=== PATIENT | female | born 1945 | race Caucasian/White ===

== ENCOUNTER → 2017-12-11 12:08 | Outpatient (CLI) | payer MEDICARE, OTHER, SELFPAY ==
[2017-12-11 12:42] LABS: Add Manual Diff / Slide Review NO; Basophils Percent Auto 0.8 % (0-2); Eosinophils Percent Auto 2.5 % (2-4); Hematocrit 41.8 % (36-46); Lymphocytes Percent Auto 28.1 % (25-40); Mean Corpuscular HGB Conc 33.4 % (30-36); Mean Corpuscular Hemoglobin 31.9 PG (26-34); Mean Corpuscular Volume 95.8 fL (80-100); Monocytes Percent Auto 9.1 % (3-14); Neutrophils Absolute Auto 3100 /uL (3000-5900); Neutrophils Percent Auto 59.5 % (50-75); Platelet Count 192 X10^3/uL (150-400); Red Blood Cell Count 4.37 X10^6/uL (4.0-5.2); Red Cell Distribution Width 13.6 % (11.6-14.8); White Blood Cell Count 5.2 X10^3/uL (4.5-11.0)
[2017-12-11 13:01] LABS: Blood Urea Nitrogen 22 mg/dL (7-17); Calcium 10.4 mg/dL (8.4-10.2); Carbon Dioxide 27 mmol/L (22-32); Chloride 107 mmol/L (98-107); Estimated Glomerular Filt Rate 54.3 mL/min (>60); Glucose 101 mg/dL (80-110); HEMOLYSIS < 15 (0-50); Potassium 4.6 mmol/L (3.4-5.1); Sodium 144 mmol/L (137-145)
[2017-12-11 13:16] LABS: Erythrocyte Sedimentation Rate 9 MM/HR (0-20)
== END ==
PROVIDERS: PCP Internal Medicine; Visit Provider Internal Medicine
DX: D72.1 Eosinophilia (principal)
CPT/HCPCS: 36415; 80048; 85025; 85651

== ENCOUNTER → 2018-03-30 13:15 | Outpatient (CLI) | payer MEDICARE, OTHER, SELFPAY ==
[2018-03-30 14:11] LABS: Alanine Aminotransferase 85 IU/L (9-52); Albumin 4.6 g/dL (3.5-5.0); Albumin Globulin Ratio 1.4 (1.0-2.8); Alkaline Phosphatase 163 U/L (38-126); Aspartate Aminotransferase 71 IU/L (14-36); BUN Creatinine Ratio 18.9 (6-22); Bilirubin Total 0.7 mg/dL (0.2-1.3); Blood Urea Nitrogen 17 mg/dL (7-17); Calcium 10.1 mg/dL (8.4-10.2); Carbon Dioxide 22 mmol/L (22-32); Chloride 108 mmol/L (98-107); Estimated Glomerular Filt Rate > 60.0 mL/min (>60); Globulin 3.3 g/dL (1.7-4.1); Glucose 97 mg/dL (80-110); HEMOLYSIS < 15 (0-50); Sodium 141 mmol/L (137-145); Total Protein 7.9 g/dL (6.3-8.2)
== END ==
PROVIDERS: PCP Internal Medicine; Visit Provider Internal Medicine
DX: F10.20 Alcohol dependence, uncomplicated (principal); R74.0 Nonspecific elevation of levels of transaminase and lactic acid dehydrogenase [LDH]
CPT/HCPCS: 36415; 80053

== ENCOUNTER → 2018-12-17 12:12 | Outpatient (CLI) | payer MEDICARE, OTHER, SELFPAY ==
[2018-12-17 12:50] LABS: Add Manual Diff / Slide Review NO; Basophils Absolute Auto 0 /uL (0-100); Basophils Percent Auto 0.6 % (0-2); Eosinophils Absolute Auto 100 /uL (0-450); Eosinophils Percent Auto 2.1 % (2-4); Hematocrit 40.2 % (36-46); Hemoglobin 13.3 g/dL (12.0-16.0); Lymphocytes Absolute Auto 1400 /uL (1100-4500); Lymphocytes Percent Auto 27.4 % (25-40); Mean Corpuscular HGB Conc 33.1 % (30-36); Mean Corpuscular Hemoglobin 33.4 PG (26-34); Mean Corpuscular Volume 100.8 fL (80-100); Monocytes Absolute Auto 400 /uL (0-900); Monocytes Percent Auto 8.1 % (3-14); Neutrophils Absolute Auto 3100 /uL (1500-7000); Neutrophils Percent Auto 61.8 % (50-75); Platelet Count 186 X10^3/uL (150-400); Red Blood Cell Count 3.99 X10^6/uL (4.0-5.2); Red Cell Distribution Width 13.1 % (11.6-14.8); White Blood Cell Count 4.9 X10^3/uL (4.5-11.0)
[2018-12-17 13:37] LABS: Alanine Aminotransferase 76 IU/L (9-52); Albumin 4.3 g/dL (3.5-5.0); Albumin Globulin Ratio 1.3 (1.0-2.8); Alkaline Phosphatase 173 U/L (38-126); Aspartate Aminotransferase 97 IU/L (14-36); BUN Creatinine Ratio 17.8 (6-22); Bilirubin Total 0.9 mg/dL (0.2-1.3); Blood Urea Nitrogen 16 mg/dL (7-17); Calcium 10.5 mg/dL (8.4-10.2); Carbon Dioxide 23 mmol/L (22-32); Chloride 109 mmol/L (98-107); Estimated Glomerular Filt Rate > 60.0 mL/min (>60); Globulin 3.2 g/dL (1.7-4.1); Glucose 110 mg/dL (80-110); HEMOLYSIS < 15 (0-50); Potassium 4.5 mmol/L (3.4-5.1); Sodium 142 mmol/L (137-145); Total Protein 7.5 g/dL (6.3-8.2)
== END ==
PROVIDERS: PCP Internal Medicine; Visit Provider Internal Medicine
DX: F10.20 Alcohol dependence, uncomplicated (principal); M15.0 Primary generalized (osteo)arthritis; N18.9 Chronic kidney disease, unspecified
CPT/HCPCS: 36415; 80053; 85025

== ENCOUNTER → 2019-01-07 11:29 | Outpatient (CLI) | payer MEDICARE, OTHER, SELFPAY ==
[2019-01-07 12:55] LABS: Alanine Aminotransferase 72 IU/L (9-52); Albumin 4.6 g/dL (3.5-5.0); Albumin Globulin Ratio 1.5 (1.0-2.8); Alkaline Phosphatase 164 U/L (38-126); Aspartate Aminotransferase 75 IU/L (14-36); Bilirubin Total 0.8 mg/dL (0.2-1.3); Bilirubin Unconjugated 0.5 mg/dL (0.0-1.1); HEMOLYSIS < 15 (0-50); Total Protein 7.6 g/dL (6.3-8.2)
[2019-01-07 16:41] LABS: Hep C Virus Ab w/Reflex Quant NEGATIVE s/c (NEGATIVE)
== END ==
PROVIDERS: PCP Internal Medicine; Visit Provider Internal Medicine
DX: R74.0 Nonspecific elevation of levels of transaminase and lactic acid dehydrogenase [LDH] (principal)
CPT/HCPCS: 36415; 80076; 86803

== ENCOUNTER → 2019-03-12 10:16 | Outpatient (CLI) | payer MEDICARE, OTHER, SELFPAY ==
[2019-03-12 12:07] LABS: Alanine Aminotransferase 77 IU/L (<35); Albumin 4.5 g/dL (3.5-5.0); Albumin Globulin Ratio 1.4 (1.0-2.8); Alkaline Phosphatase 156 U/L (38-126); Aspartate Aminotransferase 76 IU/L (14-36); Bilirubin Total 0.7 mg/dL (0.2-1.3); Bilirubin Unconjugated 0.5 mg/dL (0.0-1.1); Cholesterol 255 mg/dL (140-199); Globulin 3.2 g/dL (1.7-4.1); HDL Cholesterol 82 mg/dL (40-60); HEMOLYSIS < 15 (0-50); LDL Cholesterol Calculated 149 mg/dL (<100); Total Protein 7.7 g/dL (6.3-8.2); Triglycerides 122 mg/dL (35-150)
== END ==
PROVIDERS: PCP Internal Medicine; Visit Provider Internal Medicine
DX: F10.20 Alcohol dependence, uncomplicated (principal); R74.0 Nonspecific elevation of levels of transaminase and lactic acid dehydrogenase [LDH]; E78.2 Mixed hyperlipidemia
CPT/HCPCS: 36415; 80061; 80076

== ENCOUNTER → 2019-12-30 11:19 | Outpatient (CLI) | payer MEDICARE, OTHER, SELFPAY ==
[2019-12-30 13:13] LABS: Alanine Aminotransferase 58 IU/L (<35); Albumin Globulin Ratio 1.2 (1.0-2.8); Alkaline Phosphatase 170 U/L (38-126); Aspartate Aminotransferase 80 IU/L (14-36); BUN Creatinine Ratio 20.8 (6-22); Bilirubin Total 0.7 mg/dL (0.2-1.3); Blood Urea Nitrogen 22 mg/dL (7-17); Calcium 9.7 mg/dL (8.4-10.2); Carbon Dioxide 23 mmol/L (22-32); Chloride 111 mmol/L (98-107); Cholesterol 159 mg/dL (140-199); Estimated Glomerular Filt Rate 50.5 mL/min (>60); Globulin 3.4 g/dL (1.7-4.1); Glucose 120 mg/dL (80-110); HDL Cholesterol 82 mg/dL (40-60); HEMOLYSIS < 15 (0-50); LDL Cholesterol Calculated 61 mg/dL (<100); Potassium 4.7 mmol/L (3.4-5.1); Sodium 141 mmol/L (137-145); Total Protein 7.4 g/dL (6.3-8.2); Triglycerides 81 mg/dL (35-150)
== END ==
PROVIDERS: PCP Internal Medicine; Referring Provider Internal Medicine; Visit Provider Internal Medicine
DX: F10.20 Alcohol dependence, uncomplicated (principal); E78.2 Mixed hyperlipidemia; R74.01 Elevation of levels of liver transaminase levels
CPT/HCPCS: 36415; 80053; 80061

== ENCOUNTER → 2020-01-07 09:54 | Outpatient (CLI) | payer MEDICARE, OTHER, SELFPAY ==
--- NOTE | 2020-01-07 | DI.US.S_ITS ---
PROCEDURE: US ABDOMEN COMPLETE INDICATIONS: ELEVATION OF LEVELS OF LACTIC ACID DEHYDROGENASE TECHNIQUE: Real-time scanning was performed of the abdominal and retroperitoneal organs, with image documentation. COMPARISON: None. FINDINGS: Liver: The liver demonstrates prominent size. The liver demonstrates generalized increased echogenicity. This decreases ultrasound sensitivity for detection of hepatic masses. Gallbladder: No findings of gallstones or sludge are seen. The gallbladder wall is not thickened, measuring 3 mm or less. No specific pericholecystic fluid is seen. The sonographic Palacios sign is negative. Biliary ducts: Intrahepatic bile ducts are non-dilated. Extrahepatic bile duct caliber measures 6 mm. Normal is 6-7 mm or less in diameter, or 10 mm or less post-cholecystectomy. Pancreas: Visualized portions of the pancreas are sonographically normal. Spleen: Spleen is normal in size and homogeneous in echotexture. Kidneys: Kidneys are normal in size and echotexture. Right kidney measures 9.2 cm long; left kidney measures 10 cm long. No hydronephrosis or nephrolithiasis. No solid masses. Bilateral renal cortical thinning can be seen. Aorta: The aorta is not well seen. The visualized portions demonstrate no aneurysm. Iliacs: Not seen, obscured by overlying bowel gas. IVC: Intrahepatic inferior vena cava is patent. Miscellaneous: No free abdominal fluid. Scan quality is limited by bowel gas. IMPRESSION: Prominent, fatty liver. The gallbladder demonstrates a normal sonographic appearance. No biliary dilatation is seen. Dictated by: Yaron Dale M.D. on 01/07/2020 at 11:22 Approved by: Yaron Dale M.D. on 01/07/2020 at 11:25
== END ==
PROVIDERS: PCP Internal Medicine; Referring Provider Internal Medicine; Visit Provider Internal Medicine
DX: R74.02 Elevation of levels of lactic acid dehydrogenase [LDH] (principal); K76.0 Fatty (change of) liver, not elsewhere classified
CPT/HCPCS: 76700

== ENCOUNTER 2020-09-02 15:52 | Inpatient (IN) | payer MEDICARE, OTHER, SELFPAY ==
[2020-09-02] VITALS (24 sets, daily range): BP systolic 115–165; BP diastolic 54–85; PULSE 79–102; RESP 16–22; TEMP 36.3–37.4; O2SAT 95–100; BMI 31.1
--- NOTE | 2020-09-02 16:49 | DI.RAD.S_ITS ---
PROCEDURE: XR CHEST 1V INDICATIONS: altered mental status TECHNIQUE: One view of the chest was acquired. COMPARISON: [facility], , CHEST 1 VIEW, 04/17/2017, 17:34. FINDINGS: Surgical changes and devices: None. Lungs and pleura: Lungs are clear. No pleural effusions or pneumothorax. Mediastinum: Mediastinal contours appear normal. Heart size is normal. Bones and chest wall: No suspicious bony lesions. Overlying soft tissues appear unremarkable. IMPRESSION: No acute pulmonary process. Dictated by: Suzanna Scott M.D. on 09/02/2020 at 18:21 Approved by: Suzanna Scott M.D. on 09/02/2020 at 18:22
--- NOTE | 2020-09-02 16:49 | DI.CT.S_ITS ---
PROCEDURE: CT HEAD/BRAIN WO CON INDICATIONS: altered mental status TECHNIQUE: Noncontrast 4.5 mm thick angled axial sections acquired from the foramen magnum to the vertex, with coronal and sagittal reformats. For radiation dose reduction, the following was used: automated exposure control, adjustment of mA and/or kV according to patient size. COMPARISON: None. FINDINGS: Image quality: Excellent. CSF spaces: Basal cisterns are patent. No extra-axial fluid collections. The ventricles are symmetric in size and shape. Brain: No intracranial bleeds or masses. There is cerebral volume loss for age, with resultant ventricular and sulcal prominence. There are periventricular and deep white matter chronic small vessel ischemic changes. There is intracranial internal carotid artery atherosclerosis. Skull and face: Calvarium and visualized facial bones appear intact, without suspicious lesions. Sinuses: Visualized sinuses and mastoids are clear. IMPRESSION: 1. No acute intracranial process. 2. Mild atrophy and chronic microvascular ischemic changes. Dictated by: Suzanna Scott M.D. on 09/02/2020 at 18:14 Approved by: Suzanna Scott M.D. on 09/02/2020 at 18:15
[2020-09-02] MEDS: SODIUM CHLORIDE 0.9% 1,000 ML 1000 ML IV (16:55)
[2020-09-02 16:59] LABS: Add Manual Diff / Slide Review NO; Basophils Absolute Auto 0 /uL (0-100); Basophils Percent Auto 0.5 % (0-2); Eosinophils Absolute Auto 100 /uL (0-450); Eosinophils Percent Auto 1.7 % (2-4); Lymphocytes Absolute Auto 1800 /uL (1100-4500); Lymphocytes Percent Auto 29.7 % (25-40); Mean Corpuscular HGB Conc 30.5 % (30-36); Mean Corpuscular Hemoglobin 27.7 PG (26-34); Mean Corpuscular Volume 90.8 fL (80-100); Monocytes Absolute Auto 700 /uL (0-900); Monocytes Percent Auto 11.6 % (3-14); Neutrophils Absolute Auto 3500 /uL (1500-7000); Neutrophils Percent Auto 56.5 % (50-75); Platelet Count 159 X10^3/uL (150-400); Red Blood Cell Count 2.04 X10^6/uL (4.0-5.2); Red Cell Distribution Width 16.4 % (11.6-14.8); White Blood Cell Count 6.1 X10^3/uL (4.5-11.0)
[2020-09-02 17:01] LABS: Alanine Aminotransferase 31 IU/L (<35); Albumin 3.3 g/dL (3.5-5.0); Alkaline Phosphatase 149 U/L (38-126); Aspartate Aminotransferase 45 IU/L (14-36); Bilirubin Total 0.9 mg/dL (0.2-1.3); Blood Urea Nitrogen 29 mg/dL (7-17); Calcium 9.3 mg/dL (8.4-10.2); Carbon Dioxide 17 mmol/L (22-32); Chloride 118 mmol/L (98-107); Estimated Glomerular Filt Rate 37.2 mL/min (>60); Globulin 3.4 g/dL (1.7-4.1); Glucose 101 mg/dL (80-110); HEMOLYSIS < 15 (0-50); Potassium 4.3 mmol/L (3.4-5.1); Sodium 142 mmol/L (137-145); Total Protein 6.7 g/dL (6.3-8.2)
[2020-09-02 17:03] LABS: Hematocrit 18.6 % (36-46); Hemoglobin 5.7 g/dL (12.0-16.0)
--- NOTE | 2020-09-02 17:10 | ED_ITS ---
HPI - Altered Mental Status General Chief Complaint: Altered Mental Status Stated Complaint: DISORIENTED, NOT RIGHT Time Seen by Provider: 09/02/20 16:18 Source: patient and family Mode of arrival: Ambulatory Limitations: no limitations History of Present Illness HPI narrative: This is a pleasant 75-year-old female comes emergency department with complaint of altered mental status. Patient was last seen sachi mcdonald evening, it is Friday today. Patient did seem somewhat confused yesterday according to family. Today she seems confused, off balance and having some hallucinations. Patient states she thought she saw a raccoon earlier, she thought her granddaughter was talking to her when she was any been present in the general area and not recognize familiar people. Patient has not had any head injury that they are aware of, she denies any pain currently. She denies any vision changes. She denies any new shortness of breath or chest pressure. No nausea or vomiting. Patient did have a bowel movement today. She is unable to tell me if she had any black or bloody stools. She is not appr eciate any new urinary symptoms. Patient has not had any new swelling in her extremities. They have not appreciate any facial droop or one-sided weakness according to the family. She takes medication for GERD, a statin. Patient denies any prior surgeries. She has no known drug allergies. According patient and family she drinks 2 glasses of wine nightly, no tobacco, no recreational drugs. She does live independently on her own and ambulates with a cane. Dr. Brunson is her PCP. Related Data Home Medications Medication Instructions Recorded Confirmed rosuvastatin [Crestor] 20 mg PO QDAY #0 03/23/17 Previous Rx's Medication Instructions Recorded Spacer: Inhaler Spacer Device units INH QIDP PRN #1 04/20/17 albuterol sulfate [Proventil HFA] 1 puff INH QIDP PRN #1 inh 04/20/17 cephalexin 250 mg PO TID #21 cap 04/20/17 ferrous gluconate 324 mg PO QDAY #30 tab 04/20/17 hydroxyzine pamoate 25 mg PO Q4HP PRN #60 cap 04/20/17 omeprazole 20 mg PO QDAY #30 cap 04/20/17 prednisone 60 mg PO AMCC #100 04/20/17 cyclobenzaprine 10 mg PO TID PRN #30 tab 06/22/17 Allergies Allergy/AdvReac Type Severity Reaction Status Date / Time No Known Drug Allergies Allergy Verified 09/02/20 16:51 Review of Systems Review of Systems ROS Unobtainable: All systems reviewed & are unremarkable except as noted in HPI and below Patient History Social History Smoking Status: Never smoker Smoking Status: Never smoker alcohol intake frequency: 3 or more drinks per day Alcohol type: wine Substance Use Type: does not use Exam Narrative Exam Narrative: GEN: well nourished, well appearing Female, alert, patient is oriented to self and place but does have slight slurred speech and appears mildly confused, patient appears to be in mild distress. Patient is pale. HEENT: Atraumatic, pupils are equal round reactive to light, extraocular move ments are intact, nares are clear, TMs are clear with no fluid, there is no conjunctival pallor. Throat is clear without any exudates, erythema, tonsillar enlargement or uvular deviation, no facial droop. HEART: Regular rate and rhythm without murmur, clicks, rubs. Pulses are equal in upper and lower extremities LUNGS:Lungs clear to auscultation, no wheezes, rales, crackles, chest moves symmetrically ABD:bowel sounds normal, soft, non-tender, no guarding, rebound, rigidity, no masses noted, no hepatosplenomegaly, stool occult was positive, sample is brown, small hemorrhoids but no bright red blood. :No CVA tenderness MSCL: Non-tender, no muscle atrophy, muscles strength 5/5 upper and lower extremities patient does have some drift of left upper extremity, full range of motion, gait not tested. NEURO:CN 2-12 intact, sensation normal, finger nose finger test normal, heel capps test normal. SKIN: patient appears pale, no other skin changes appreciated no other rash noted. Initial Vital Signs Initial Vital Signs: Vital Signs Temperature 99.4 F 09/02/20 15:55 Pulse Rate 102 H 09/02/20 15:55 Respiratory Rate 22 09/02/20 15:55 Blood Pressure 134/69 09/02/20 15:55 Pulse Oximetry 98 09/02/20 15:55 Scores GCS [place] coma scale eye opening: Spontaneous Mily coma scale verbal response: Confused Mily coma scale motor response: Obey commands [place] coma scale total score: 14 NIH Stroke Scale Level of Conciousness: Alert, keenly responsive Ask month/age: Answers both questions correctly. Open/close eyes, close hand: Performs both tasks correctly Best gaze horizontal: Normal Visual mcintosh: No visual loss Facial palsy: Normal symetrical movement Left arm drift: Drifts down, not to bed Right arm drift: No drift for full 10 sec Left leg drift: No drift for full 5 sec Right leg drift: No drift for full 5 sec Limb ataxia: Absent Sensory on face/arms/legs: Normal, no sensory loss Best language: No aphasia, normal Dysarthria: Normal Extinction or inattention: No abnormality Total NIH Stroke scale score: 1 Course Orders Ordered: ED Orders 09/02/20 16:10 EKG-12 Lead Routine 09/02/20 16:15 Urine Culture Stat Urine Drug Screen, Rapid Stat Urine Microscopic Stat 09/02/20 16:27 Acetaminophen Stat Complete Blood Count AUTO DIFF Stat Comprehensive Metabolic Panel Stat Ethanol (ETOH) Stat Lactate (Lactic Acid) Stat Prolactin Stat Salicylate Stat Thyroid Stimulating Hormone Stat 09/02/20 16:48 Blood Culture Stat 09/02/20 16:49 CT head/brain wo con Stat XR chest 1V Stat 09/02/20 17:15 Packed Cells Stat Type and Screen Stat 09/02/20 17:30 COVID19 - ADMIT (D[employer]ING [employer] swab/PCR) Stat 09/02/20 17:32 Partial Thromboplastin Time Stat Prothrombin Time INR Stat 09/02/20 17:48 Ammonia (NH3) Stat Troponin & CK Cardiac Panel Stat Discontinued Medications Sodium Chloride (Normal Saline 0.9%) 1,000 mls @ 1,000 mls/hr IV BOLUS ONE Stop: 09/02/20 17:47 Last Infusion: 09/02/20 18:36 Dose: 0 mls/hr Documented by: Admin: 09/02/20 16:55 Dose: 1,000 mls/hr Documented by: AUNIMISHA Lactulose (Lactulose 20 Gm/30 Ml Solution) 20 gm PO NOW ONE Stop: 09/02/20 18:38 Reevaluation(s) Reevaluation #1: patient and daughter in-law were updated on her current findings. Patient transfusion is just starting. Patient and daughter in-law adult think she has ever had a colonoscopy they are unaware of any prior GI bleeds. She has never had a blood transfusion. Time: 19:00 Consultations Consultation #1: Dr. Montgomery, with general surgery feels patient would be appropriate to keep here at this time. Plan for Protonix, transfusion and they will be happy to see patient in the morning, they asked for contact if patient has any worsening overnight. Consultation #2: Dr. Ferreira, accepts if General surgery is agreeable. Patient case was reviewed. And he was updated after I spoke with Dr. Youssef who is agreement with plan for colonoscopy possibly tomorrow. Time: 19:36 Vital Signs Vital signs: Vital Signs - 8 hr 09/02/20 15:55 09/02/20 16:08 09/02/20 16:30 Temperature 99.4 F Pulse Rate 102 H 99 H 94 H Respiratory Rate 22 Blood Pressure 134/69 134/69 148/65 H Pulse Oximetry 98 97 97 09/02/20 17:00 09/02/20 17:30 09/02/20 17:33 Temperature Pulse Rate 95 H 89 94 H Respiratory Rate Blood Pressure 138/63 135/85 Pulse Oximetry 97 99 99 09/02/20 18:00 09/02/20 18:15 09/02/20 18:30 Temperature Pulse Rate 93 H 92 H 92 H Respiratory Rate Blood Pressure 150/68 H 165/70 H 148/65 H Pulse Oximetry 99 99 98 MDM - Altered Mental Status Lab Data Attestation: I reviewed the patient's lab results. Result diagrams: 09/02/20 16:27 09/02/20 16:27 Labs: Lab Results 09/02/20 09/02/20 09/02/20 Range/Units 16:15 16:15 16:15 WBC (4.5-11.0) X10^3/uL RBC (4.0-5.2) X10^6/uL Hgb (12.0-16.0) g/dL Hct (36-46) % MCV (80-100) fL MCH (26-34) PG MCHC (30-36) % RDW (11.6-14.8) % Plt Count (150-400) X10^3/uL Neut % (Auto) (50-75) % Lymph % (Auto) (25-40) % Schley % (Auto) (3-14) % Eos % (Auto) (2-4) % Baso % (Auto) (0-2) % Neut # (Auto) (0120-5449) /uL Lymph # (Auto) (5817-5454) /uL Schley # (Auto) (0-900) /uL Eos # (Auto) (0-450) /uL Baso # (Auto) (0-100) /uL PT (10.1-12.7) SECONDS INR (0.9-1.3) APTT (26.4-36.2) SECONDS Sodium (137-145) mmol/L Potassium (3.4-5.1) mmol/L Chloride (98-107) mmol/L Carbon Dioxide (22-32) mmol/L BUN (7-17) mg/dL Creatinine (0.52-1.04) mg/dL Estimated GFR (>60) mL/min BUN/Creatinine Ratio (6-22) Glucose (80-110) mg/dL Lactate (0.7-2.1) mmol/L Calcium (8.4-10.2) mg/dL Total Bilirubin (0.2-1.3) mg/dL AST (14-36) IU/L ALT (<35) IU/L Alkaline Phosphatase (38-126) U/L Ammonia (9-30) umol/L Total Creatine Kinase CK-MB (CK-2) CK-MB (CK-2) Rel Index Troponin I Total Protein (6.3-8.2) g/dL Albumin (3.5-5.0) g/dL Globulin (1.7-4.1) g/dL Albumin/Globulin Ratio (1.0-2.8) TSH (0.47-4.68) uIU/mL Prolactin (3.0-18.6) ng/mL Urine Color Cancelled Urine Appearance Cancelled Urine pH Cancelled Ur Specific Whitt Cancelled Urine Protein Cancelled Urine Glucose (UA) Cancelled Urine Ketones Cancelled Urine Occult Blood Cancelled Urine Nitrate Cancelled Urine Bilirubin Cancelled Urine Urobilinogen Cancelled Ur Leukocyte Esterase Cancelled Urine RBC 1-5/hpf Cancelled (0-5/HPF) Urine WBC 5-10/hpf H Cancelled (0-5/HPF) Ur Squamous Epith Cells 1-5 /hpf Cancelled (0-5/HPF) Ur Transition Epith Cell Cancelled Ur Renal Epithelial Cell Cancelled Calcium Oxalate Crystal Cancelled Uric Acid Crystals Cancelled Triple Phos Crystals Cancelled Other Crystals Cancelled Amorphous Sediment Cancelled Urine Bacteria Many (>30) H Cancelled (None) Hyaline Casts Cancelled Granular Casts Cancelled RBC Casts Cancelled WBC Casts Cancelled Other Casts Cancelled Urine Mucus Cancelled Urine Trichomonas Cancelled Urine Yeast Cancelled Urine Sperm Cancelled Ur Culture Indicated? Specimen cultured Cancelled Micro UA Comment Cancelled Salicylates (<20) mg/dL U Opiates 300ng/mL cut Negative (Negative) Ur Oxycodone Screen Negative (Negative) Urine Methadone Screen Negative (Negative) Acetaminophen (10-30) ug/mL Ur Barbiturates Screen Negative (Negative) U Tricyclic Antidepress Negative (Negative) Ur Phencyclidine Scrn Negative (Negative) Ur Amphetamines Screen Negative (Negative) U Methamphetamines Scrn Negative (Negative) Ur MDMA Scrn (Ecstasy) Negative (Negative) U Benzodiazepines Scrn Negative (Negative) Urine Cocaine Screen Negative (Negative) U Marijuana (THC) Screen Negative (Negative) Ethyl Alcohol ( - 10) mg/dL SARS-CoV-2 (PCR) (Negative) Blood Type Antibody Screen Crossmatch 09/02/20 09/02/20 09/02/20 Range/Units 16:27 16:27 16:27 WBC 6.1 (4.5-11.0) X10^3/uL RBC 2.04 L (4.0-5.2) X10^6/uL Hgb 5.7 L* (12.0-16.0) g/dL Hct 18.6 L* (36-46) % MCV 90.8 (80-100) fL MCH 27.7 (26-34) PG MCHC 30.5 (30-36) % RDW 16.4 H (11.6-14.8) % Plt Count 159 (150-400) X10^3/uL Neut % (Auto) 56.5 (50-75) % Lymph % (Auto) 29.7 (25-40) % Schley % (Auto) 11.6 (3-14) % Eos % (Auto) 1.7 L (2-4) % Baso % (Auto) 0.5 (0-2) % Neut # (Auto) 3500 (4953-1846) /uL Lymph # (Auto) 1800 (9942-1144) /uL Schley # (Auto) 700 (0-900) /uL Eos # (Auto) 100 (0-450) /uL Baso # (Auto) 0 (0-100) /uL PT (10.1-12.7) SECONDS INR (0.9-1.3) APTT (26.4-36.2) SECONDS Sodium 142 (137-145) mmol/L Potassium 4.3 (3.4-5.1) mmol/L Chloride 118 H (98-107) mmol/L Carbon Dioxide 17 L (22-32) mmol/L BUN 29 H (7-17) mg/dL Creatinine 1.38 H (0.52-1.04) mg/dL Estimated GFR 37.2 L (>60) mL/min BUN/Creatinine Ratio 21.0 (6-22) Glucose 101 (80-110) mg/dL Lactate (0.7-2.1) mmol/L Calcium 9.3 (8.4-10.2) mg/dL Total Bilirubin 0.9 (0.2-1.3) mg/dL AST 45 H (14-36) IU/L ALT 31 (<35) IU/L Alkaline Phosphatase 149 H (38-126) U/L Ammonia (9-30) umol/L Total Creatine Kinase Cancelled CK-MB (CK-2) Cancelled CK-MB (CK-2) Rel Index Cancelled Troponin I Cancelled Total Protein 6.7 (6.3-8.2) g/dL Albumin 3.3 L (3.5-5.0) g/dL Globulin 3.4 (1.7-4.1) g/dL Albumin/Globulin Ratio 1.0 (1.0-2.8) TSH (0.47-4.68) uIU/mL Prolactin 19.5 H (3.0-18.6) ng/mL Urine Color Urine Appearance Urine pH Ur Specific Whitt Urine Protein Urine Glucose (UA) Urine Ketones Urine Occult Blood Urine Nitrate Urine Bilirubin Urine Urobilinogen Ur Leukocyte Esterase Urine RBC (0-5/HPF) Urine WBC (0-5/HPF) Ur Squamous Epith Cells (0-5/HPF) Ur Transition Epith Cell Ur Renal Epithelial Cell Calcium Oxalate Crystal Uric Acid Crystals Triple Phos Crystals Other Crystals Amorphous Sediment Urine Bacteria (None) Hyaline Casts Granular Casts RBC Casts WBC Casts Other Casts Urine Mucus Urine Trichomonas Urine Yeast Urine Sperm Ur Culture Indicated? Micro UA Comment Salicylates < 1.0 (<20) mg/dL U Opiates 300ng/mL cut (Negative) Ur Oxycodone Screen (Negative) Urine Methadone Screen (Negative) Acetaminophen < 10 L (10-30) ug/mL Ur Barbiturates Screen (Negative) U Tricyclic Antidepress (Negative) Ur Phencyclidine Scrn (Negative) Ur Amphetamines Screen (Negative) U Methamphetamines Scrn (Negative) Ur MDMA Scrn (Ecstasy) (Negative) U Benzodiazepines Scrn (Negative) Urine Cocaine Screen (Negative) U Marijuana (THC) Screen (Negative) Ethyl Alcohol < 10 ( - 10) mg/dL SARS-CoV-2 (PCR) (Negative) Blood Type Antibody Screen Crossmatch 09/02/20 09/02/20 09/02/20 Range/Units 16:27 16:27 17:15 WBC (4.5-11.0) X10^3/uL RBC (4.0-5.2) X10^6/uL Hgb (12.0-16.0) g/dL Hct (36-46) % MCV (80-100) fL MCH (26-34) PG MCHC (30-36) % RDW (11.6-14.8) % Plt Count (150-400) X10^3/uL Neut % (Auto) (50-75) % Lymph % (Auto) (25-40) % Schley % (Auto) (3-14) % Eos % (Auto) (2-4) % Baso % (Auto) (0-2) % Neut # (Auto) (8647-5996) /uL Lymph # (Auto) (6496-9484) /uL Schley # (Auto) (0-900) /uL Eos # (Auto) (0-450) /uL Baso # (Auto) (0-100) /uL PT (10.1-12.7) SECONDS INR (0.9-1.3) APTT (26.4-36.2) SECONDS Sodium (137-145) mmol/L Potassium (3.4-5.1) mmol/L Chloride (98-107) mmol/L Carbon Dioxide (22-32) mmol/L BUN (7-17) mg/dL Creatinine (0.52-1.04) mg/dL Estimated GFR (>60) mL/min BUN/Creatinine Ratio (6-22) Glucose (80-110) mg/dL Lactate 1.5 (0.7-2.1) mmol/L Calcium (8.4-10.2) mg/dL Total Bilirubin (0.2-1.3) mg/dL AST (14-36) IU/L ALT (<35) IU/L Alkaline Phosphatase (38-126) U/L Ammonia (9-30) umol/L Total Creatine Kinase CK-MB (CK-2) CK-MB (CK-2) Rel Index Troponin I Total Protein (6.3-8.2) g/dL Albumin (3.5-5.0) g/dL Globulin (1.7-4.1) g/dL Albumin/Globulin Ratio (1.0-2.8) TSH 2.39 (0.47-4.68) uIU/mL Prolactin (3.0-18.6) ng/mL Urine Color Urine Appearance Urine pH Ur Specific Whitt Urine Protein Urine Glucose (UA) Urine Ketones Urine Occult Blood Urine Nitrate Urine Bilirubin Urine Urobilinogen Ur Leukocyte Esterase Urine RBC (0-5/HPF) Urine WBC (0-5/HPF) Ur Squamous Epith Cells (0-5/HPF) Ur Transition Epith Cell Ur Renal Epithelial Cell Calcium Oxalate Crystal Uric Acid Crystals Triple Phos Crystals Other Crystals Amorphous Sediment Urine Bacteria (None) Hyaline Casts Granular Casts RBC Casts WBC Casts Other Casts Urine Mucus Urine Trichomonas Urine Yeast Urine Sperm Ur Culture Indicated? Micro UA Comment Salicylates (<20) mg/dL U Opiates 300ng/mL cut (Negative) Ur Oxycodone Screen (Negative) Urine Methadone Screen (Negative) Acetaminophen (10-30) ug/mL Ur Barbiturates Screen (Negative) U Tricyclic Antidepress (Negative) Ur Phencyclidine Scrn (Negative) Ur Amphetamines Screen (Negative) U Methamphetamines Scrn (Negative) Ur MDMA Scrn (Ecstasy) (Negative) U Benzodiazepines Scrn (Negative) Urine Cocaine Screen (Negative) U Marijuana (THC) Screen (Negative) Ethyl Alcohol ( - 10) mg/dL SARS-CoV-2 (PCR) (Negative) Blood Type A Positive Antibody Screen Negative Crossmatch See Detail 09/02/20 09/02/20 09/02/20 Range/Units 17:30 17:32 17:32 WBC (4.5-11.0) X10^3/uL RBC (4.0-5.2) X10^6/uL Hgb (12.0-16.0) g/dL Hct (36-46) % MCV (80-100) fL MCH (26-34) PG MCHC (30-36) % RDW (11.6-14.8) % Plt Count (150-400) X10^3/uL Neut % (Auto) (50-75) % Lymph % (Auto) (25-40) % Schley % (Auto) (3-14) % Eos % (Auto) (2-4) % Baso % (Auto) (0-2) % Neut # (Auto) (1340-7221) /uL Lymph # (Auto) (7838-2954) /uL Schley # (Auto) (0-900) /uL Eos # (Auto) (0-450) /uL Baso # (Auto) (0-100) /uL PT 13.3 H (10.1-12.7) SECONDS INR 1.2 (0.9-1.3) APTT 31 (26.4-36.2) SECONDS Sodium (137-145) mmol/L Potassium (3.4-5.1) mmol/L Chloride (98-107) mmol/L Carbon Dioxide (22-32) mmol/L BUN (7-17) mg/dL Creatinine (0.52-1.04) mg/dL Estimated GFR (>60) mL/min BUN/Creatinine Ratio (6-22) Glucose (80-110) mg/dL Lactate (0.7-2.1) mmol/L Calcium (8.4-10.2) mg/dL Total Bilirubin (0.2-1.3) mg/dL AST (14-36) IU/L ALT (<35) IU/L Alkaline Phosphatase (38-126) U/L Ammonia (9-30) umol/L Total Creatine Kinase CK-MB (CK-2) CK-MB (CK-2) Rel Index Troponin I Total Protein (6.3-8.2) g/dL Albumin (3.5-5.0) g/dL Globulin (1.7-4.1) g/dL Albumin/Globulin Ratio (1.0-2.8) TSH (0.47-4.68) uIU/mL Prolactin (3.0-18.6) ng/mL Urine Color Urine Appearance Urine pH Ur Specific Whitt Urine Protein Urine Glucose (UA) Urine Ketones Urine Occult Blood Urine Nitrate Urine Bilirubin Urine Urobilinogen Ur Leukocyte Esterase Urine RBC (0-5/HPF) Urine WBC (0-5/HPF) Ur Squamous Epith Cells (0-5/HPF) Ur Transition Epith Cell Ur Renal Epithelial Cell Calcium Oxalate Crystal Uric Acid Crystals Triple Phos Crystals Other Crystals Amorphous Sediment Urine Bacteria (None) Hyaline Casts Granular Casts RBC Casts WBC Casts Other Casts Urine Mucus Urine Trichomonas Urine Yeast Urine Sperm Ur Culture Indicated? Micro UA Comment Salicylates (<20) mg/dL U Opiates 300ng/mL cut (Negative) Ur Oxycodone Screen (Negative) Urine Methadone Screen (Negative) Acetaminophen (10-30) ug/mL Ur Barbiturates Screen (Negative) U Tricyclic Antidepress (Negative) Ur Phencyclidine Scrn (Negative) Ur Amphetamines Screen (Negative) U Methamphetamines Scrn (Negative) Ur MDMA Scrn (Ecstasy) (Negative) U Benzodiazepines Scrn (Negative) Urine Cocaine Screen (Negative) U Marijuana (THC) Screen (Negative) Ethyl Alcohol ( - 10) mg/dL SARS-CoV-2 (PCR) Negative (Negative) Blood Type Antibody Screen Crossmatch 09/02/20 09/02/20 Range/Units 17:48 17:48 WBC (4.5-11.0) X10^3/uL RBC (4.0-5.2) X10^6/uL Hgb (12.0-16.0) g/dL Hct (36-46) % MCV (80-100) fL MCH (26-34) PG MCHC (30-36) % RDW (11.6-14.8) % Plt Count (150-400) X10^3/uL Neut % (Auto) (50-75) % Lymph % (Auto) (25-40) % Schley % (Auto) (3-14) % Eos % (Auto) (2-4) % Baso % (Auto) (0-2) % Neut # (Auto) (8289-3713) /uL Lymph # (Auto) (1730-7948) /uL Schley # (Auto) (0-900) /uL Eos # (Auto) (0-450) /uL Baso # (Auto) (0-100) /uL PT (10.1-12.7) SECONDS INR (0.9-1.3) APTT (26.4-36.2) SECONDS Sodium (137-145) mmol/L Potassium (3.4-5.1) mmol/L Chloride (98-107) mmol/L Carbon Dioxide (22-32) mmol/L BUN (7-17) mg/dL Creatinine (0.52-1.04) mg/dL Estimated GFR (>60) mL/min BUN/Creatinine Ratio (6-22) Glucose (80-110) mg/dL Lactate (0.7-2.1) mmol/L Calcium (8.4-10.2) mg/dL Total Bilirubin (0.2-1.3) mg/dL AST (14-36) IU/L ALT (<35) IU/L Alkaline Phosphatase (38-126) U/L Ammonia 55 H (9-30) umol/L Total Creatine Kinase 28 L CK-MB (CK-2) TNP CK-MB (CK-2) Rel Index TNP Troponin I < 0.012 Total Protein (6.3-8.2) g/dL Albumin (3.5-5.0) g/dL Globulin (1.7-4.1) g/dL Albumin/Globulin Ratio (1.0-2.8) TSH (0.47-4.68) uIU/mL Prolactin (3.0-18.6) ng/mL Urine Color Urine Appearance Urine pH Ur Specific Whitt Urine Protein Urine Glucose (UA) Urine Ketones Urine Occult Blood Urine Nitrate Urine Bilirubin Urine Urobilinogen Ur Leukocyte Esterase Urine RBC (0-5/HPF) Urine WBC (0-5/HPF) Ur Squamous Epith Cells (0-5/HPF) Ur Transition Epith Cell Ur Renal Epithelial Cell Calcium Oxalate Crystal Uric Acid Crystals Triple Phos Crystals Other Crystals Amorphous Sediment Urine Bacteria (None) Hyaline Casts Granular Casts RBC Casts WBC Casts Other Casts Urine Mucus Urine Trichomonas Urine Yeast Urine Sperm Ur Culture Indicated? Micro UA Comment Salicylates (<20) mg/dL U Opiates 300ng/mL cut (Negative) Ur Oxycodone Screen (Negative) Urine Methadone Screen (Negative) Acetaminophen (10-30) ug/mL Ur Barbiturates Screen (Negative) U Tricyclic Antidepress (Negative) Ur Phencyclidine Scrn (Negative) Ur Amphetamines Screen (Negative) U Methamphetamines Scrn (Negative) Ur MDMA Scrn (Ecstasy) (Negative) U Benzodiazepines Scrn (Negative) Urine Cocaine Screen (Negative) U Marijuana (THC) Screen (Negative) Ethyl Alcohol ( - 10) mg/dL SARS-CoV-2 (PCR) (Negative) Blood Type Antibody Screen Crossmatch Point of Care Testing Stool Occult Blood Positive Glucose POC 101 Urine Dip Bedside Urine Glucose Negative Bedside Urine Bilirubin + 1 Bedside Urine Ketone - Negative Urine Specific Whitt 1.025 Bedside Urine Occult Blood - Negative Bedside Urine pH 6 Bedside Urine Protein +/- 15 Bedside Urine Urobilinogen - Negative Bedside Urine Nitrite - Negative Bedside Urine Leukocytes + [address] scan - head: Radiologist's Impression: [address] [id number] Scan ReportSigned Patient: Sowmya Kidd CMR#: [id number]: 5Acct:[id number]/Sex: 75 / FDate of Service: 09/02/20Loc: EDAccession Number: [id number] Procedure: CT head/brain wo con Ordering Provider: Kasey Castillo D.O. PROCEDURE: CT HEAD/BRAIN WO CON INDICATIONS: altered mental status TECHNIQUE: Noncontrast 4.5 mm thick angled axial sections acquired from the foramen magnum to the vertex, with coronal and sagittal reformats. For radiation dose reduction, the following was used: automated exposure control, adjustment of mA and/or kV according to patient size. COMPARISON: None. FINDINGS: Image quality: Excellent. CSF spaces: Basal cisterns are patent. No extra-axial fluid collections. The ventricles are symmetric in size and shape. Brain: No intracranial bleeds or masses. There is cerebral volume loss for age, with resultant ventricular and sulcal prominence. There are periventricular and deep white matter chronic small vessel ischemic changes. There is intracranial internal carotid artery atherosclerosis. Skull and face: Calvarium and visualized facial bones appear intact, without suspicious lesions. Sinuses: Visualized sinuses and mastoids are clear. IMPRESSION: 1. No acute intracranial process. 2. Mild atrophy and chronic microvascular ischemic changes. Dictated by: Suzanna Scott M.D. on 09/02/2020 at 18:14 Approved by: Suzanna Scott M.D. on 09/02/2020 at 18:15 Chest x-ray: Radiologist's Impression: [address] [id number] ReportSigned Patient: Sowmya Kidd CMR#: [id number]: [id number]:[id number]/Sex: 75 / FDate of Service: 09/02/20Loc: EDAccession Number: [id number] Procedure: XR chest 1V Ordering Provider: Kasey Castillo D.O. PROCEDURE: XR CHEST 1V INDICATIONS: altered mental status TECHNIQUE: One view of the chest was acquired. COMPARISON: [facility], CHEST 1 VIEW, 04/17/2017, 17:34. FINDINGS: Surgical changes and devices: None. Lungs and pleura: Lungs are clear. No pleural effusions or pneumothorax. Mediastinum: Mediastinal contours appear normal. Heart size is normal. Bones and chest wall: No suspicious bony lesions. Overlying soft tissues appear unremarkable. IMPRESSION: No acute pulmonary process. Dictated by: Suzanna Scott M.D. on 09/02/2020 at 18:21 Approved by: Suzanna Scott M.D. on 09/02/2020 at 18:22 ECG Data Attestation: I personally reviewed and interpreted this ECG as follows: Prior ECG tracings: available for review Interpretation: Sinus rhythm, left bundle branch cleared rate of 93 [place] 138 QRS 124 and QTC 477. Patient has prior EKG that does not show left bundle branch block. MDM Narrative Medical decision making narrative: 75-year-old female comes emergency with altered mental status. [id number] states that she was last normal 2 days ago. Patient's hemoglobin was found to be significantly low in comparison to 2- 3 years ago. Patient does have a known history GI bleed. 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 And resulting in her confusion. Patient did have head CT and chest x-ray which was negative. Patient's liver enzymes are not particularly elevated but there are some abnormalities. Patient was given Protonix, some gentle fluids until blood was able to be transfused. Patient has not had any symptoms consistent with a variceal bleed. Patient has not been hypotensive in the department was mildly tachycardic but I suspect this is more related to her anemia. Patient's stool occult was positive but she had no selin bright red blood or melanotic stool. Patient case was discussed with General surgery With plan for scope likely tomorrow once patient is more stabilized as well as the hospitalist who kindly accepts. Discharge Plan Departure Patient Disposition: Admitted As Inpatient Clinical Impression: Symptomatic anemia, GI bleed, Encephalopathy Admit Date/Time: 09/02/20 19:34 Admit Provider: Rob Ferreira
[2020-09-02 17:47] LABS: Acetaminophen < 10 ug/mL (10-30); Ethanol (ETOH) < 10 mg/dL; Salicylate < 1.0 mg/dL (<20)
[2020-09-02 18:04] LABS: Prolactin 19.5 ng/mL (3.0-18.6)
[2020-09-02 18:11] LABS: PTT Partial Thromboplastin Tim 31 SECONDS (26.4-36.2)
[2020-09-02 18:17] LABS: Ammonia (NH3) 55 umol/L (9-30)
[2020-09-02 18:19] LABS: Thyroid Stimulating Hormone 2.39 uIU/mL (0.47-4.68)
[2020-09-02 18:26] LABS: Ur Creatinine Normal (Normal); Ur Specific Gravity Normal (Normal); Urine pH Normal (Normal)
[2020-09-02 18:27] LABS: UR Morphine/Opiate cutoff 300 Negative (Negative); Urine Amphetamines Negative (Negative); Urine Barbiturates Negative (Negative); Urine Benzodiazepines Negative (Negative); Urine Cocaine Negative (Negative); Urine MDMA Negative (Negative); Urine Methadone Negative (Negative); Urine Methamphetamines Negative (Negative); Urine Oxycodone Negative (Negative); Urine Phencyclidine Negative (Negative); Urine Tetrahydrocannabinol Negative (Negative); Urine Tricyclic Antidepressant Negative (Negative)
[2020-09-02 18:38] LABS: INR 1.2 (0.9-1.3); Prothrombin Time 13.3 SECONDS (10.1-12.7)
[2020-09-02 18:41] LABS: RBC Urine 1-5/HPF (0-5/HPF); WBC Urine 5-10/HPF (0-5/HPF)
[2020-09-02 18:42] LABS: Bacteria Urine Many (>30); Culture Indicated Urine Specimen Cultured; Squamous Epithelial Cell Urine 1-5 /HPF (0-5/HPF)
[2020-09-02 19:02] LABS: Creatine Kinase 28 U/L (30-135)
[2020-09-02 19:15] LABS: Troponin I < 0.012 ng/mL (0.01-0.034)
[2020-09-02 19:31] LABS: Lactate (Lactic Acid) 1.5 mmol/L (0.7-2.1)
[2020-09-02 19:35] LABS: COVID19 - ADMIT (NP swab/PCR) Negative (Negative)
--- NOTE | 2020-09-02 21:24 | PC.NURSE ---
Lactulose pulled by previous RN tubed to [facility] after pt transfer
--- NOTE | 2020-09-02 21:37 | P.HP_ITS ---
History of Present Illness History of Present Illness Date Patient Seen: 09/02/20 Time Patient Seen: 21:38 Chief complaint: Disoriented, not right Narrative: Sowmya Kidd is a 75-year-old female with only history of hyperlipidemia and apparent daily drinking regime stated that earlier in the day she woke up feeling like she might have had too much to drink from the day before. She 1 over to her adult children's home to get some lemonade and she was brought over here because she seemed to be confused and disoriented. She can provide some history but , her [id number] provides most of the history. She states the patient was very restless and disoriented. States she is very rigid and while I was in the room, the patient kept turning over, stating she wanted to sleep and ignoring her lines. [id number] stated she will be awake for most of the night. Patient stated she was nauseous, only drank 2 glasses of wine per day, but [id number] states it is more like 4/day. Patient did endorse having 4 drinks yesterday. When asked if she has ever had to quit drinking and if so, did she have any tremors or withdrawal symptoms, to which she denied, but her [id number] states that has happened at least once. She denies vomiting, she has bouts of diarrhea but no constipation and denies seeing any blood in her stool though her daughter in-law states she would not have looked. Chest xray ordered in the ED did not indicate any acute process, head CT indicated chronic microvascular changes. She was found to be profoundly anemic with a hemoglobin of 5.7 and hematocrit of 18.6 and 2 units of PRBC were started for her in the emergency department. Patient is afebrile, her platelet count is 159, chloride 118, bicarb 17, BUN 19, creatinine 1.38 which is new, GFR 37.2, liver enzymes are elevated with an AST of 45, alk-phos 149 and a significantly elevated ammonia of 55. She did have urine wbc's and bacteria and her urine culture is pending alcohol level was within normal limits, COVID-19 PCR was negative.. Patient History Medical History (Updated 09/02/20 @ 23:20 by DOLORES Salinas) Alcohol dependence Chronic kidney disease (CKD) stage G3b/A1, moderately decreased glomerular filtration rate (GFR) between 30-44 mL/min/1.73 square meter and albuminuria creatinine ratio less than 30 mg/g Family & Social History Family History (Updated 09/02/20 @ 23:20 by DOLORES Salinas) Father Heart disease Family history unavailable: Yes Social History: household members none Prior Living Arrangements Apartment/Condo Safety & Behavioral: Feels Safe in Current Yes Environment Been Physically Hurt or No Threatened By a Person Suicidal Ideation Description None Suicide Plan Description No Plan Tobacco & Substance use: Smoking Status Never smoker alcohol intake current alcohol intake frequency 3 or more drinks per day Substance Use Type does not use Meds Home Medications and Allergies Home Medications Medication Instructions Recorded Confirmed Type rosuvastatin [Crestor] 20 mg PO QDAY #0 03/23/17 09/02/20 History cyclobenzaprine 10 mg PO TID PRN #30 tab 06/22/17 09/02/20 Rx Allergies Allergy/AdvReac Type Severity Reaction Status Date / Time No Known Drug Allergies Allergy Verified 09/02/20 16:51 Review of Systems Review of Systems ROS: Yes unobtainable due to mental condition Exam Vital Signs (past 8 hours): - 09/02/20 15:55 09/02/20 16:08 09/02/20 16:30 Temperature 99.4 F Pulse Rate 102 H 99 H 94 H Respiratory Rate 22 Blood Pressure 134/69 134/69 148/65 H Pulse Oximetry 98 97 97 09/02/20 17:00 09/02/20 17:30 09/02/20 17:33 Temperature Pulse Rate 95 H 89 94 H Respiratory Rate Blood Pressure 138/63 135/85 Pulse Oximetry 97 99 99 09/02/20 18:00 09/02/20 18:15 09/02/20 18:30 Temperature Pulse Rate 93 H 92 H 92 H Respiratory Rate Blood Pressure 150/68 H 165/70 H 148/65 H Pulse Oximetry 99 99 98 09/02/20 19:00 09/02/20 19:30 09/02/20 19:31 Temperature Pulse Rate 90 92 H 93 H Respiratory Rate Blood Pressure 159/76 H 147/70 H Pulse Oximetry 98 99 98 09/02/20 20:00 09/02/20 20:08 09/02/20 20:09 Temperature 97.8 F Pulse Rate 91 H 88 88 Respiratory Rate 18 Blood Pressure 158/67 H 158/67 H Pulse Oximetry 100 98 09/02/20 20:30 09/02/20 20:31 09/02/20 20:35 Temperature Pulse Rate 84 85 89 Respiratory Rate Blood Pressure 160/67 H 147/69 H Pulse Oximetry 97 97 98 09/02/20 21:09 09/02/20 21:19 Temperature 98.2 F 97.7 F Pulse Rate 89 79 Respiratory Rate 18 16 Blood Pressure 136/73 147/69 H Pulse Oximetry 100 98 Oxygen Delivery Method Room Air Oxygen Flow Rate 0 Narrative Exam Narrative: Gen: Alert, oriented, well-nourished 75 y.o. female, restless HEENT: normocephalic, atraumatic, conjunctiva clear, sclera non-icteric, oral mucosa pink and moist Neck: supple, full ROM, no JVD, trachea is midline Resp: Lungs CTA, non-labored breathing CV: RRR, no murmur or rubs Abd: distended but soft no fluid wave, non-tender, normoactive BTs Skin: Jaundiced appearing, no lesions or rashes, dry and intact Neuro: Alert and oriented X 4 w/no focal deficits. Speech clear and coherent. Extremities: moves all 4 extremities, is ambulatory, negative J Luis?s sign Psyche: anxious and impulsive, follows directions, but then forgets what she has done Objective Labs Result Diagrams: 09/02/20 16:27 09/02/20 16:27 Labs: Laboratory Results - last 24 hr 09/02/20 09/02/20 09/02/20 16:15 16:15 16:15 WBC RBC Hgb Hct MCV MCH MCHC RDW Plt Count Neut % (Auto) Lymph % (Auto) [place] % (Auto) Eos % (Auto) Baso % (Auto) Neut # (Auto) Lymph # (Auto) [place] # (Auto) Eos # (Auto) Baso # (Auto) PT INR APTT Sodium Potassium Chloride Carbon Dioxide BUN Creatinine Estimated GFR BUN/Creatinine Ratio Glucose Lactate Calcium Total Bilirubin AST ALT Alkaline Phosphatase Ammonia Total Creatine Kinase CK-MB (CK-2) CK-MB (CK-2) Rel Index Troponin I Total Protein Albumin Globulin Albumin/Globulin Ratio TSH Prolactin Urine Color Cancelled Urine Appearance Cancelled Urine pH Cancelled Ur Specific [place] Cancelled Urine Protein Cancelled Urine Glucose (UA) Cancelled Urine Ketones Cancelled Urine Occult Blood Cancelled Urine Nitrate Cancelled Urine Bilirubin Cancelled Urine Urobilinogen Cancelled Ur Leukocyte Esterase Cancelled Urine RBC 1-5/hpf Cancelled Urine WBC 5-10/hpf H Cancelled Ur Squamous Epith Cells 1-5 /hpf Cancelled Ur Transition Epith Cell Cancelled Ur Renal Epithelial Cell Cancelled Calcium Oxalate Crystal Cancelled Uric Acid Crystals Cancelled Triple Phos Crystals Cancelled Other Crystals Cancelled Amorphous Sediment Cancelled Urine Bacteria Many (>30) H Cancelled Hyaline Casts Cancelled Granular Casts Cancelled RBC Casts Cancelled WBC Casts Cancelled Other Casts Cancelled Urine Mucus Cancelled Urine Trichomonas Cancelled Urine Yeast Cancelled Urine Sperm Cancelled Ur Culture Indicated? Specimen cultured Cancelled Micro UA Comment Cancelled Salicylates U Opiates 300ng/mL cut Negative Ur Oxycodone Screen Negative Urine Methadone Screen Negative Acetaminophen Ur Barbiturates Screen Negative U Tricyclic Antidepress Negative Ur Phencyclidine Scrn Negative Ur Amphetamines Screen Negative U Methamphetamines Scrn Negative Ur MDMA Scrn (Ecstasy) Negative U Benzodiazepines Scrn Negative Urine Cocaine Screen Negative U Marijuana (THC) Screen Negative Ethyl Alcohol SARS-CoV-2 (PCR) Blood Type Antibody Screen Crossmatch 09/02/20 09/02/20 09/02/20 16:27 16:27 16:27 WBC 6.1 RBC 2.04 L Hgb 5.7 L* Hct 18.6 L* MCV 90.8 MCH 27.7 MCHC 30.5 RDW 16.4 H Plt Count 159 Neut % (Auto) 56.5 Lymph % (Auto) 29.7 [place] % (Auto) 11.6 Eos % (Auto) 1.7 L Baso % (Auto) 0.5 Neut # (Auto) 3500 Lymph # (Auto) 1800 [place] # (Auto) 700 Eos # (Auto) 100 Baso # (Auto) 0 PT INR APTT Sodium 142 Potassium 4.3 Chloride 118 H Carbon Dioxide 17 L BUN 29 H Creatinine 1.38 H Estimated GFR 37.2 L BUN/Creatinine Ratio 21.0 Glucose 101 Lactate Calcium 9.3 Total Bilirubin 0.9 AST 45 H ALT 31 Alkaline Phosphatase 149 H Ammonia Total Creatine Kinase Cancelled CK-MB (CK-2) Cancelled CK-MB (CK-2) Rel Index Cancelled Troponin I Cancelled Total Protein 6.7 Albumin 3.3 L Globulin 3.4 Albumin/Globulin Ratio 1.0 TSH Prolactin 19.5 H Urine Color Urine Appearance Urine pH Ur Specific [place] Urine Protein Urine Glucose (UA) Urine Ketones Urine Occult Blood Urine Nitrate Urine Bilirubin Urine Urobilinogen Ur Leukocyte Esterase Urine RBC Urine WBC Ur Squamous Epith Cells Ur Transition Epith Cell Ur Renal Epithelial Cell Calcium Oxalate Crystal Uric Acid Crystals Triple Phos Crystals Other Crystals Amorphous Sediment Urine Bacteria Hyaline Casts Granular Casts RBC Casts WBC Casts Other Casts Urine Mucus Urine Trichomonas Urine Yeast Urine Sperm Ur Culture Indicated? Micro UA Comment Salicylates < 1.0 U Opiates 300ng/mL cut Ur Oxycodone Screen Urine Methadone Screen Acetaminophen < 10 L Ur Barbiturates Screen U Tricyclic Antidepress Ur Phencyclidine Scrn Ur Amphetamines Screen U Methamphetamines Scrn Ur MDMA Scrn (Ecstasy) U Benzodiazepines Scrn Urine Cocaine Screen U Marijuana (THC) Screen Ethyl Alcohol < 10 SARS-CoV-2 (PCR) Blood Type Antibody Screen Crossmatch 09/02/20 09/02/20 09/02/20 16:27 16:27 17:15 WBC RBC Hgb Hct MCV MCH MCHC RDW Plt Count Neut % (Auto) Lymph % (Auto) [place] % (Auto) Eos % (Auto) Baso % (Auto) Neut # (Auto) Lymph # (Auto) [place] # (Auto) Eos # (Auto) Baso # (Auto) PT INR APTT Sodium Potassium Chloride Carbon Dioxide BUN Creatinine Estimated GFR BUN/Creatinine Ratio Glucose Lactate 1.5 Calcium Total Bilirubin AST ALT Alkaline Phosphatase Ammonia Total Creatine Kinase CK-MB (CK-2) CK-MB (CK-2) Rel Index Troponin I Total Protein Albumin Globulin Albumin/Globulin Ratio TSH 2.39 Prolactin Urine Color Urine Appearance Urine pH Ur Specific [place] Urine Protein Urine Glucose (UA) Urine Ketones Urine Occult Blood Urine Nitrate Urine Bilirubin Urine Urobilinogen Ur Leukocyte Esterase Urine RBC Urine WBC Ur Squamous Epith Cells Ur Transition Epith Cell Ur Renal Epithelial Cell Calcium Oxalate Crystal Uric Acid Crystals Triple Phos Crystals Other Crystals Amorphous Sediment Urine Bacteria Hyaline Casts Granular Casts RBC Casts WBC Casts Other Casts Urine Mucus Urine Trichomonas Urine Yeast Urine Sperm Ur Culture Indicated? Micro UA Comment Salicylates U Opiates 300ng/mL cut Ur Oxycodone Screen Urine Methadone Screen Acetaminophen Ur Barbiturates Screen U Tricyclic Antidepress Ur Phencyclidine Scrn Ur Amphetamines Screen U Methamphetamines Scrn Ur MDMA Scrn (Ecstasy) U Benzodiazepines Scrn Urine Cocaine Screen U Marijuana (THC) Screen Ethyl Alcohol SARS-CoV-2 (PCR) Blood Type A Positive Antibody Screen Negative Crossmatch See Detail 09/02/20 09/02/20 09/02/20 17:30 17:32 17:32 WBC RBC Hgb Hct MCV MCH MCHC RDW Plt Count Neut % (Auto) Lymph % (Auto) [place] % (Auto) Eos % (Auto) Baso % (Auto) Neut # (Auto) Lymph # (Auto) [place] # (Auto) Eos # (Auto) Baso # (Auto) PT 13.3 H INR 1.2 APTT 31 Sodium Potassium Chloride Carbon Dioxide BUN Creatinine Estimated GFR BUN/Creatinine Ratio Glucose Lactate Calcium Total Bilirubin AST ALT Alkaline Phosphatase Ammonia Total Creatine Kinase CK-MB (CK-2) CK-MB (CK-2) Rel Index Troponin I Total Protein Albumin Globulin Albumin/Globulin Ratio TSH Prolactin Urine Color Urine Appearance Urine pH Ur Specific [place] Urine Protein Urine Glucose (UA) Urine Ketones Urine Occult Blood Urine Nitrate Urine Bilirubin Urine Urobilinogen Ur Leukocyte Esterase Urine RBC Urine WBC Ur Squamous Epith Cells Ur Transition Epith Cell Ur Renal Epithelial Cell Calcium Oxalate Crystal Uric Acid Crystals Triple Phos Crystals Other Crystals Amorphous Sediment Urine Bacteria Hyaline Casts Granular Casts RBC Casts WBC Casts Other Casts Urine Mucus Urine Trichomonas Urine Yeast Urine Sperm Ur Culture Indicated? Micro UA Comment Salicylates U Opiates 300ng/mL cut Ur Oxycodone Screen Urine Methadone Screen Acetaminophen Ur Barbiturates Screen U Tricyclic Antidepress Ur Phencyclidine Scrn Ur Amphetamines Screen U Methamphetamines Scrn Ur MDMA Scrn (Ecstasy) U Benzodiazepines Scrn Urine Cocaine Screen U Marijuana (THC) Screen Ethyl Alcohol SARS-CoV-2 (PCR) Negative Blood Type Antibody Screen Crossmatch 09/02/20 09/02/20 17:48 17:48 WBC RBC Hgb Hct MCV MCH MCHC RDW Plt Count Neut % (Auto) Lymph % (Auto) [place] % (Auto) Eos % (Auto) Baso % (Auto) Neut # (Auto) Lymph # (Auto) [place] # (Auto) Eos # (Auto) Baso # (Auto) PT INR APTT Sodium Potassium Chloride Carbon Dioxide BUN Creatinine Estimated GFR BUN/Creatinine Ratio Glucose Lactate Calcium Total Bilirubin AST ALT Alkaline Phosphatase Ammonia 55 H Total Creatine Kinase 28 L CK-MB (CK-2) TNP CK-MB (CK-2) Rel Index TNP Troponin I < 0.012 Total Protein Albumin Globulin Albumin/Globulin Ratio TSH Prolactin Urine Color Urine Appearance Urine pH Ur Specific [place] Urine Protein Urine Glucose (UA) Urine Ketones Urine Occult Blood Urine Nitrate Urine Bilirubin Urine Urobilinogen Ur Leukocyte Esterase Urine RBC Urine WBC Ur Squamous Epith Cells Ur Transition Epith Cell Ur Renal Epithelial Cell Calcium Oxalate Crystal Uric Acid Crystals Triple Phos Crystals Other Crystals Amorphous Sediment Urine Bacteria Hyaline Casts Granular Casts RBC Casts WBC Casts Other Casts Urine Mucus Urine Trichomonas Urine Yeast Urine Sperm Ur Culture Indicated? Micro UA Comment Salicylates U Opiates 300ng/mL cut Ur Oxycodone Screen Urine Methadone Screen Acetaminophen Ur Barbiturates Screen U Tricyclic Antidepress Ur Phencyclidine Scrn Ur Amphetamines Screen U Methamphetamines Scrn Ur MDMA Scrn (Ecstasy) U Benzodiazepines Scrn Urine Cocaine Screen U Marijuana (THC) Screen Ethyl Alcohol SARS-CoV-2 (PCR) Blood Type Antibody Screen Crossmatch Assessment & Plan Assessment & Plan narrative: Sowmya Kidd will be admitted for hepatic encephalapathy and symptomatic anemia. Symptomatic anemia requiring a blood transfusion in the setting of a suspected upper gi bleed, acute and present on admission * She has been type and screened, receiving the first unit of blood * CBC 2 hours after receiving the second unit of blood * Probable upper endoscopy in the am. * IV lasix between units. Confusion in the setting of acute hepatic encephalopathy, present on admission * She was given one dose of lactulose in the ED and is ordered for TID dosing starting in the am. Probable acute alcohol withdrawal vs underlying unspecified chronic mental diagnosis * WA protocol * Oral multivitamin, folic acid and thiamine start tonight * IV ativan prn for withdrawal symptoms, consider librium tapor Acute kidney injury in the setting of CKD Stage stage G3b/A1, present on admission * Unknown if related to liver disease * Continue daily monitoring of her renal function and allow for fluid hydration. Hyperlipidemia, chronic * Continue home dose of rosuvastatin 20 mg po daily VTE prophylaxis: Wells risk score: 0 Pharmacological VTE prophylaxis contraindicated due to active bleeding, Bilateral SCDs Consults: Dr. Montgomery consult and involvement is appreciated. Patient is admitted under inpatient status with expected length of stay greater than 2 midnights due to severity of presenting symptoms, risk of adverse event, and complexity of treatment plan. FEN: Saline lock, NPO, CMP and magnesium in the am. Dispo: Unknown at this time. Code Status: Full code as discussed with patient Sigifredo Post, son and surrogate/POA COVID-19 COVID-19 status: Negative Result date/Date tested (Pos, Neg/Pending): 09/02/20 Scores Wells' Criteria for PE Clinical signs and symptoms of DVT: No PE is #1 Dx or equally likely: No Heart rate > 100: No Immobilization at least 3 days or surg in previous 4 weeks: No History of PE or DVT: No Hemoptysis: No Malignancy w/Treatment within 6 months or palliative: No Wells' PE Score total: 0 Quality VTE Deep Vein Thrombosis/Pulmonary Embolism Present on Admission: No MIPS - Admit I confirm the patient?s Advance Care Plan is present, Code status is documented, Surrogate decision maker is in patient?s record [If Yes, STOP here]: Yes
--- NOTE | 2020-09-02 22:07 | PC.NURSE ---
Pt arrived to floor @ 2100 Alert/oriented, anxious upon arrival. States that she drinks 2 glasses of wine/noc. CiWa on admit = 4 SpO2 100% RA. HL RAC & PRBC's infusing into the Left wrist. as per orders w/o incidence. Pt oriented to room & call system w/understanding. Tele in place as per orders, NSR per ICU staff. Call light w/in reach, bed alarm on for pt safety Continue w/plan of care.
[2020-09-02] MEDS: FOLIC ACID 1 MG TABLET PO (22:29)
[2020-09-02] MEDS: PANTOPRAZOLE 40 MG VIAL IV (22:29)
[2020-09-02] MEDS: MULTIVITAMIN 1 TABLET 1 TAB PO (22:30)
[2020-09-02] MEDS: ACETAMINOPHEN 325 MG TABLET 650 MG PO (22:30)
[2020-09-02] MEDS: THIAMINE 100 MG TABLET PO (22:30)
[2020-09-02] MEDS: ONDANSETRON 4 MG/2 ML INJ IV (23:42)
[2020-09-03] VITALS (12 sets, daily range): BP systolic 109–126; BP diastolic 42–106; PULSE 73–86; RESP 16–20; TEMP 36.3–36.9; O2SAT 95–98
[2020-09-03] MEDS: FUROSEMIDE 40 MG/4 ML VIAL 20 MG IV (00:07)
[2020-09-03] MEDS: LORazepam 2 MG/ML INJ 1 MG IV (01:17)
[2020-09-03 06:07] LABS: Add Manual Diff / Slide Review NO; Basophils Absolute Auto 0 /uL (0-100); Basophils Percent Auto 0.6 % (0-2); Eosinophils Absolute Auto 100 /uL (0-450); Eosinophils Percent Auto 2.2 % (2-4); Hematocrit 24.1 % (36-46); Hemoglobin 7.8 g/dL (12.0-16.0); Lymphocytes Absolute Auto 1500 /uL (1100-4500); Lymphocytes Percent Auto 25.7 % (25-40); Mean Corpuscular HGB Conc 32.3 % (30-36); Mean Corpuscular Hemoglobin 28.6 PG (26-34); Mean Corpuscular Volume 88.3 fL (80-100); Monocytes Absolute Auto 600 /uL (0-900); Monocytes Percent Auto 10.5 % (3-14); Neutrophils Absolute Auto 3500 /uL (1500-7000); Platelet Count 140 X10^3/uL (150-400); Red Blood Cell Count 2.73 X10^6/uL (4.0-5.2); White Blood Cell Count 5.7 X10^3/uL (4.5-11.0)
[2020-09-03 06:19] LABS: Alanine Aminotransferase 29 IU/L (<35); Albumin 3.2 g/dL (3.5-5.0); Alkaline Phosphatase 123 U/L (38-126); Aspartate Aminotransferase 40 IU/L (14-36); BUN Creatinine Ratio 23.4 (6-22); Bilirubin Total 2.9 mg/dL (0.2-1.3); Bilirubin Unconjugated 2.5 mg/dL (0.0-1.1); Blood Urea Nitrogen 30 mg/dL (7-17); Calcium 9.2 mg/dL (8.4-10.2); Carbon Dioxide 21 mmol/L (22-32); Chloride 116 mmol/L (98-107); Estimated Glomerular Filt Rate 40.5 mL/min (>60); Globulin 3.2 g/dL (1.7-4.1); Glucose 109 mg/dL (80-110); HEMOLYSIS < 15 (0-50); Potassium 3.8 mmol/L (3.4-5.1); Sodium 144 mmol/L (137-145); Total Protein 6.4 g/dL (6.3-8.2)
[2020-09-03 06:20] LABS: Magnesium 2.1 mg/dL (1.6-2.3)
[2020-09-03 06:23] LABS: Cholesterol 105 mg/dL (140-199); HDL Cholesterol 53 mg/dL (40-60); LDL Cholesterol Calculated 35 mg/dL (<100); Triglycerides 84 mg/dL (35-150)
--- NOTE | 2020-09-03 07:41 | PC.NURSE ---
throughout shift pt was setting of bed alarm and forgetting to use call light to get up to the bathroom. pt was insisting on going to the bathroom, aid and nurse were able to convince pt to use bed huggins after lasix was administered per order pt stated that she thought she saw a baby, and that there was a baby in the room, and was not able to explain why. CWA score of 7 and 0.5mg ativan administered. pt had increased drowsiness however she continued to get out of bed to go to the bathroom and was pulling on IV line while blood was transfusing. pt denied pain and was not symptomatic with transfusion and was able to complete 2nd unit of blood. transfusion ended at about 0230 and provider was notified, and order for H/H lab was okayed to be drawn at normal AM lab time per provider. pt continued to get up and had min urine output of about 100cc or less each time and was up to pee about 12x in the night, not remembering to use call light and setting off alarm. pt was finally able to get some rest at about 0500
[2020-09-03] MEDS: cefTRIAXone 1,000 MG in SODIUM CHLORIDE 0.9% 100 ML 200 ML IV (07:59)
[2020-09-03] MEDS: PANTOPRAZOLE 40 MG VIAL IV ×2 (09:52→20:41)
[2020-09-03] MEDS: LACTULOSE 20 GM/30 ML SOLUTION PO ×2 (09:52→14:41)
[2020-09-03] MEDS: FOLIC ACID 1 MG TABLET PO (09:58)
[2020-09-03] MEDS: MULTIVITAMIN 1 TABLET 1 TAB PO (09:58)
[2020-09-03] MEDS: THIAMINE 100 MG TABLET PO (09:58)
[2020-09-03] MEDS: SODIUM CHLORIDE 0.9% FLUSH 10 ML IV ×2 (09:59→20:37)
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
--- NOTE | 2020-09-03 10:39 | CM.IDA ---
Addendum entered by LIBIA Hagen 09/03/20 12:49: Met w/patient and her supportive DIL at bedside this afternoon; introduced role. explains family is awaiting clearer medical POC to discuss DC planning, very appreciative of the visit. [employer] DEVEL[employer] contact info provided. Original Note: Initial DCP Assessment Note Pt is a 75 yo female, resident [facility], arrives w/altered mental status. PCP: Oleg Brunson Payer: [employer] According to chart review, patient now admitting to approx 4 glasses of wine daily, CIWA in place to monitor ETOH w/d. Family report patient becomes shaky when she stops drinking. Patient lives alone, ambulates and completes ADLs indp w. use of cane. Patient found to to have symptomatic anemia, requiring blood transfusion, suspected upper GI bleed, stool is Guaiac +, w/acute kidney injury. Dr Montgomery has consulted and recommends EGD, upper and lower scope/Colonoscopy tomorrow with anesthesiologist for MAC sedation due to encephalopathy and medical fragility Patient was very disoriented overnight, did not sleep very much and has finally gotten to sleep this morning. Will not attempt assessment w/patient unless cognition improves. DCP team will follow closely as medical POC unfolds. Will plan to introduce role of DCP team to patient and/or family over next 24 hrs or as needed. 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 Yes Advance Directives on File No History Provided By Medical Record Prior Living Arrangements Apartment/Condo Household Members none Type of transporation used prior to Relies on Others admit Independent with ADL's Yes: Ambulates w/cane Is patient alert and oriented? Yes: PLOF Barriers to Discharge Yes Comment Lives alone, depending on how medical POC unfolds, home w/ family to assist and HH vs SNF for rehab Additional Comment Awaiting medical POC to unfold , patient remains far from baseline, no oriented
--- NOTE | 2020-09-03 11:29 | PC.NURSE ---
Addendum entered by Kelly Dobbs R.N. 09/03/20 13:29: Patient had an xxl bowel movement loose with some formed stool. Stool black and dark brown, guiaced positive for blood and called. We will start patients bowel cleanse at 1400. Original Note: Patient has been sleeping. She was given ativan during the bar pointer and has been comfortable. She is able to arouse and talk. She is a one/two person assist to get up to the commode. Patient given lactulose for increased ammonia levels. Dr. Montgomery up to see patient and the plan is for her to go have an EGD and Colonscopy tomorrow. She is going to start a bowel prep at 1400. Visiting with daughter in law now.
[2020-09-03] MEDS: PEG3350/SOD SULF,BICARB,CL/KCL 4,000 ML SOLUTION 4000 ML PO (14:00)
--- NOTE | 2020-09-03 17:11 | PC.NURSE ---
Addendum entered by Loree Coley R.N. 09/03/20 21:41: Pt sitting in chair, continuing w/prep for test in am. Liquid stool cascade operator in color at this time. Call light w/in reach, chair alarm on for pt safety. Continue w/plan of care. Original Note: Pt sitting in chair, Taking prep for procedure tomorrow, Assisted to BR several times. Tele NSr/BBB per ICU staff. HL left wrist & RAC intact/patent. Call light w/in reach, chair alarm on for pt safety.
[2020-09-03 18:02] LABS: Hematocrit 25.3 % (36-46); Mean Corpuscular HGB Conc 31.6 % (30-36); Mean Corpuscular Hemoglobin 28.1 PG (26-34); Mean Corpuscular Volume 88.8 fL (80-100); Platelet Count 160 X10^3/uL (150-400); Red Blood Cell Count 2.85 X10^6/uL (4.0-5.2); Red Cell Distribution Width 16.7 % (11.6-14.8); White Blood Cell Count 6.5 X10^3/uL (4.5-11.0)
[2020-09-03] MEDS: LACTULOSE 20 GM/30 ML SOLUTION 30 GM PO (20:44)
[2020-09-03] MEDS: PEG3350/SOD SULF,BICARB,CL/KCL 4,000 ML SOLUTION 2000 ML PO (20:53)
--- NOTE | 2020-09-03 21:35 | PM.PN.1 ---
Subjective Subjective Date Patient Seen: 09/03/20 Time Patient Seen: 08:35 Interval history: Patient seen twice today. Initially she was very lethargic, confused, had apparently been given ativan overnight. Seen later in the afternoon and patient was much improved, able to have normal conversation. She denied noting any hematochezia, dark stools, hematemesis. She was in no pain. She was feeling much improved after the transfusion. No further evidence of bleeding here. She had been noted to have a positive UA and was started on antibiotics. She continued on lactulose for her elevated ammonia. She was in process of prepping for plan for scope for bleeding. Exam Vital Signs (past 8 hours): - 09/03/20 15:30 09/03/20 16:00 09/03/20 19:00 Temperature 97.6 F Pulse Rate 81 Respiratory Rate 18 18 20 Blood Pressure 126/97 H Pulse Oximetry 96 09/03/20 19:32 Temperature 97.8 F Pulse Rate 84 Respiratory Rate 18 Blood Pressure 122/106 H Pulse Oximetry 98 Oxygen Delivery Method Room Air Oxygen Flow Rate 0 Narrative Exam Narrative: Gen: no acute distress Resp: clearly bilaterally, no wheezes, rhonchi, rales CV: regular rate and rhythm with no murmurs Abd: soft, nontender, nondistended, no organomegaly Skin: no rashes noted Neuro: alert and oriented with no focal deficits Extremities: no edema noted Psyche: pleasant, cooperative Objective Labs Result Diagrams: 09/03/20 17:57 09/03/20 05:50 Labs: Laboratory Results - last 24 hr 09/02/20 09/03/20 09/03/20 17:15 05:50 05:50 WBC 5.7 RBC 2.73 L Hgb 7.8 L Hct 24.1 L MCV 88.3 MCH 28.6 MCHC 32.3 RDW 16.0 H Plt Count 140 L Neut % (Auto) 61.0 Lymph % (Auto) 25.7 Loving % (Auto) 10.5 Eos % (Auto) 2.2 Baso % (Auto) 0.6 Neut # (Auto) 3500 Lymph # (Auto) 1500 Loving # (Auto) 600 Eos # (Auto) 100 Baso # (Auto) 0 Sodium 144 Potassium 3.8 Chloride 116 H Carbon Dioxide 21 L BUN 30 H Creatinine 1.28 H Estimated GFR 40.5 L BUN/Creatinine Ratio 23.4 H Glucose 109 Calcium 9.2 Magnesium Total Bilirubin 2.9 H Conjugated Bilirubin 0.0 Unconjugated Bilirubin 2.5 H AST 40 H ALT 29 Alkaline Phosphatase 123 Total Protein 6.4 Albumin 3.2 L Globulin 3.2 Albumin/Globulin Ratio 1.0 Triglycerides Cholesterol LDL Cholesterol, Calc HDL Cholesterol Blood Type A Positive Antibody Screen Negative Crossmatch See Detail 09/03/20 09/03/20 09/03/20 05:50 05:50 17:57 WBC 6.5 RBC 2.85 L Hgb 8.0 L Hct 25.3 L MCV 88.8 MCH 28.1 MCHC 31.6 RDW 16.7 H Plt Count 160 Neut % (Auto) Lymph % (Auto) Loving % (Auto) Eos % (Auto) Baso % (Auto) Neut # (Auto) Lymph # (Auto) Loving # (Auto) Eos # (Auto) Baso # (Auto) Sodium Potassium Chloride Carbon Dioxide BUN Creatinine Estimated GFR BUN/Creatinine Ratio Glucose Calcium Magnesium 2.1 Total Bilirubin Conjugated Bilirubin Unconjugated Bilirubin AST ALT Alkaline Phosphatase Total Protein Albumin Globulin Albumin/Globulin Ratio Triglycerides 84 Cholesterol 105 L LDL Cholesterol, Calc 35 HDL Cholesterol 53 Blood Type Antibody Screen Crossmatch [facility] Medical History Alcohol dependence Chronic kidney disease (CKD) stage G3b/A1, moderately decreased glomerular filtration rate (GFR) between 30-44 mL/min/1.73 square meter and albuminuria creatinine ratio less than 30 mg/g Family History Father Heart disease Social History household members: none Smoking Status: Never smoker alcohol intake: current Assessment & Plan Assessment & Plan narrative: Ms. Kidd is a 75W with PMH of EtOH abuse who presents with confusion, weakness found to have anemia 1. Symptomatic blood loss anemia -etiology is not clear, has had a slow bleed given stable vital signs -transfused 2U PRBC and responded appropriately -plan for scope EGD and colonoscopy to evaluate for source of bleed -continue on IV protonix BID -appreciate surgery recommendations 2. Acute metabolic encephalopathy -likely multifactorial -has evidence of UTI, will treat with antibiotics -has elevated ammonia, no known cirrhosis, but is a possibility she is developing liver dsyfunction in setting of EtOH abuse -ativan did appear to cause her to be more altered 3. EtOH abuse -placed on CIWA protocol -no evidence for withdrawal currently -ordered for oral multivitamin, folic acid and thiamine start tonight 4. Mild ANDI -baseline creatinine appears to be 0.9-1.1 -increased creatinine to 1.38 on admission, likely from GI bleed -improved to 1.28 this morning -continue to trend 5. UTI -urine cultures pending -UA positive -continue ceftriaxone for now 5. Hyperlipidemia, chronic - continue home dose of rosuvastatin 20 mg po daily Quality VTE Deep Vein Thrombosis/Pulmonary Embolism Present on Admission: No
--- NOTE | 2020-09-03 23:34 | PC.NURSE ---
Patient, sounds asleep in the recliner. Will monitor & assess her when she wakes up.
[2020-09-04] VITALS (19 sets, daily range): BP systolic 94–135; BP diastolic 45–69; PULSE 72–91; RESP 12–22; TEMP 36.6–37.1; O2SAT 93–100
[2020-09-04 07:07] LABS: Hematocrit 22.3 % (36-46); Hemoglobin 7.2 g/dL (12.0-16.0); Mean Corpuscular HGB Conc 32.2 % (30-36); Mean Corpuscular Hemoglobin 28.8 PG (26-34); Mean Corpuscular Volume 89.2 fL (80-100); Platelet Count 146 X10^3/uL (150-400); Red Cell Distribution Width 16.4 % (11.6-14.8); White Blood Cell Count 5.7 X10^3/uL (4.5-11.0)
[2020-09-04 07:20] LABS: BUN Creatinine Ratio 19.4 (6-22); Blood Urea Nitrogen 27 mg/dL (7-17); Carbon Dioxide 23 mmol/L (22-32); Chloride 116 mmol/L (98-107); Estimated Glomerular Filt Rate 36.9 mL/min (>60); Glucose 93 mg/dL (80-110); HEMOLYSIS < 15 (0-50); Magnesium 2.1 mg/dL (1.6-2.3); Potassium 3.7 mmol/L (3.4-5.1); Sodium 145 mmol/L (137-145)
[2020-09-04] MEDS: cefTRIAXone 1,000 MG in SODIUM CHLORIDE 0.9% 100 ML 200 ML IV (07:26)
[2020-09-04] MEDS: SODIUM CHLORIDE 0.9% 1,000 ML 42 ML IV (09:37)
--- NOTE | 2020-09-04 09:41 | PM.PREOP ---
Pre-operative Note COVID-19 COVID-19 status: Negative Result date/Date tested (Pos, Neg/Pending): 09/02/20 Interval Note History & Physical reviewed/Exam performed by Physician: Yes Changes to H&P: Yes H&P completed within 30 days and has changed as indicated here:: Hemoglobin was 7.2 this morning and a transfusion was ordered. She is still getting a unit of blood at this time. Risks and benefits of screening colonoscopy and possible polypectomy, as well as upper endoscopy and possible biopsy were discussed with the patient including risk of bleeding, perforation, need for additional procedures, risks of anesthesia. The patient desires to proceed with the colonoscopy & upper endoscopy procedure.
--- NOTE | 2020-09-04 09:50 | PM.OP.ENDO ---
Operative Date/Time/Diagnoses Date of procedure: 09/04/20 Time of procedure: 09:50 Pre-op diagnosis: GI bleed Procedure & Clinicians Study performed: Esophagogastroduodenoscopy, colonoscopy Epi injeciton for hemostasis of esophageal and gastric AVM's x 2 Same procedure as scheduled: Yes Indications: GI bleed Surgeon: Jackie Montgomery Procedure Notes SCOAP/Timeout: performed Procedure in detail: The patient was brought to the room and placed in left lateral decubitus position with all bony prominences padded. A bite block was positioned in the patient's mouth to protect the lips, teeth, and tongue for the procedure. A time-out was performed and then the patient was given deep sedation with MAC by Dr. Greene. Once adequately sedated, the procedure was begun. The lubricated gastroscope was passed through the bite block and across the tongue and into the esophagus without incident. A tubular view of the esophagus was maintained as the scope was advanced through the esophagus and into the stomach. The scope was advanced through the stomach and to the pylorus. The scope was gently popped through the pylorus and into the duodenal bulb. The scope was flexed and advanced into the second and third portions of the duodenum. The duodenum and duodenal bulb appeared normal. The scope was withdrawn into the stomach. The stomach contained dark and fresh blood. The scope was retroflexed and the gastric cardia was examined. There were two bleeding telangiectasia/AVMs that were actively bleeding. One was in the fundus of the stomach, and the second was in the distal esophagus within a small hiatal hernia. The gastric lesion was injected with 2mL's of 1:10,000 epinepherine with good hemostasis. The esophageal lesion was injected with 3mL's of 1:10,000 epi with good hemostasis. The scope was then straightened, and withdrawn into the esophagus. The scope was then withdrawn through the esophagus with a tubular view. The scope was then withdrawn from the patient. The patient began to desat to 60%, and appeared to be in laryngospasm, per the anesthesiologist. She was quickly positioned supine and intubated by Dr. Greene with an ETT. Her oxygen saturations improved to normal. Her oxygen saturations were below 80% for less than three minutes. Attention was then turned to the colonoscopy portion of the procedure. A rectal exam was performed revealing no abnormalities. The colonoscope was then introduced to the rectum and advanced to the cecum in the usual fashion. The cecum was identified by the appendiceal orifice, the mucosal tri-fold, and the ileocecal valve. The scope was then retracted while rotating side to side and examining each mucosal fold. The prep was poor, and was not adequate to see anything less than 5mm in size. She had adherent stool to the etienne of the colon. She had diverticulosis without signs of active diverticulitis or active bleeding. No polyps or masses were seen. At the conclusion of the procedure retroflexion was performed and small grade 1-2 internal hemorrhoids without stigmata of bleeding were seen. The scope was then withdrawn from the rectum the procedure was concluded. The patient tolerated the procedure well and was transferred to the PACU in stable condition. Scope withdrawal time: 6 Findings: diverticulosis, hiatal hernia and vascular ectasias ( in esophagus and stomach, treated with epi injection) Specimen(s): none sent Complications: other (patient's oxygen saturations decreased at the end of her EGD due to laryngospasm, ET tube was placed for airway protection by Dr. Greene. ET tube was removed at the end of the procedure. ) Impression: The source of anemia is likely the telangectasias in her esophagus and stomach. Good hemostasis was achieved with epi injection, which may be permanent. She should stop drinking and take b.i.d. PPI. She should stick to a soft diet for at least 2 weeks. If she rebleeds, or hemoglobin does not stabilize, she will need to be transferred to a tertiary center for IR vascular embolization. Post-procedure Recommendations: Colonscopy in 5 years (poor prep, lesions smaller than 5mm could have been missed due to adherent stool.) and Other recommendation (If rebleeds or Hgb does not stabilize, patient should be transferred for IR vascular embolization.) Plan for aftercare: Return to acute care unit Follow up: as needed Disposition: PACU
[2020-09-04] MEDS: EPINEPHrine 1 MG/10 ML SYRINGE IV (10:19)
--- NOTE | 2020-09-04 11:25 | SUR.OPER ---
blood discontinued at 11;00 due to hole in blood tubing.
--- NOTE | 2020-09-04 12:07 | PC.NURSE ---
Patient returned from PACU, A/O to self. Back to bed, SCD's on, Tele on. Patient taking oral fluids. VSS. Denies pain.
[2020-09-04] MEDS: FOLIC ACID 1 MG TABLET PO (12:19)
[2020-09-04] MEDS: THIAMINE 100 MG TABLET PO (12:20)
[2020-09-04] MEDS: SODIUM CHLORIDE 0.9% FLUSH 10 ML IV ×2 (12:20→21:29)
[2020-09-04] MEDS: MULTIVITAMIN 1 TABLET 1 TAB PO (12:20)
[2020-09-04] MEDS: LACTULOSE 20 GM/30 ML SOLUTION 30 GM PO ×3 (12:25→21:28)
[2020-09-04] MEDS: ACETAMINOPHEN 325 MG TABLET 650 MG PO (13:54)
--- NOTE | 2020-09-04 14:09 | P.PN_ITS ---
Subjective Subjective Date Patient Seen: 09/04/20 Time Patient Seen: 14:09 Interval history: this is a 75-year-old female admitted with an upper GI bleed. Her colonoscopy was fairly unremarkable today but EGD did show vascular ectasia is with evidence of active bleeding. These areas were injected with subsequent resolution of her bleeding. Surgery recommended further monitoring overnight as if she rebleed she will require possible embolization at an outside facility. Patient denies any melanotic stools, abdominal pain today. She denies any nausea, or vomiting as well. Exam Vital Signs (past 8 hours): - 09/04/20 08:02 09/04/20 09:05 09/04/20 09:22 Temperature 98.1 F 98.1 F 98.1 F Pulse Rate 81 76 79 Respiratory Rate 20 12 16 Blood Pressure 135/63 116/61 125/69 Pulse Oximetry 98 09/04/20 09:38 09/04/20 11:03 09/04/20 11:07 Temperature 98.1 F 98.1 F Pulse Rate 79 91 H 91 H Respiratory Rate 16 15 19 Blood Pressure 125/69 103/46 L 100/48 L Pulse Oximetry 97 95 95 09/04/20 11:27 09/04/20 11:32 09/04/20 11:39 Temperature 98.1 F Pulse Rate 84 90 90 Respiratory Rate 16 18 16 Blood Pressure 114/53 L 109/55 L 107/61 Pulse Oximetry 95 94 96 09/04/20 12:01 09/04/20 12:30 09/04/20 12:55 Temperature 97.8 F 97.9 F 97.9 F Pulse Rate 90 88 Respiratory Rate 18 19 Blood Pressure 119/53 L 108/48 L Pulse Oximetry 93 94 09/04/20 13:10 Temperature Pulse Rate 91 H Respiratory Rate 20 Blood Pressure 121/66 Pulse Oximetry 100 Oxygen Delivery Method Room Air Oxygen Flow Rate 0 Narrative Exam Narrative: Gen: slightly lethargic after EGD, no acute distress Resp: clearly bilaterally, no wheezes, rhonchi, rales CV: regular rate and rhythm with no murmurs Abd: soft, nontender, nondistended, no organomegaly Skin: no rashes noted Neuro: alert and oriented with no focal deficits Extremities: no edema noted Psyche: pleasant, cooperative Objective Labs Result Diagrams: 09/04/20 06:42 09/04/20 06:42 Labs: Laboratory Results - last 24 hr 09/02/20 09/03/20 09/04/20 17:15 17:57 06:42 WBC 6.5 RBC 2.85 L Hgb 8.0 L Hct 25.3 L MCV 88.8 MCH 28.1 MCHC 31.6 RDW 16.7 H Plt Count 160 Sodium 145 Potassium 3.7 Chloride 116 H Carbon Dioxide 23 BUN 27 H Creatinine 1.39 H Estimated GFR 36.9 L BUN/Creatinine Ratio 19.4 Glucose 93 Calcium 9.0 Magnesium Blood Type A Positive Antibody Screen Negative Crossmatch See Detail 09/04/20 09/04/20 06:42 06:42 WBC 5.7 RBC 2.50 L Hgb 7.2 L Hct 22.3 L MCV 89.2 MCH 28.8 MCHC 32.2 RDW 16.4 H Plt Count 146 L Sodium Potassium Chloride Carbon Dioxide BUN Creatinine Estimated GFR BUN/Creatinine Ratio Glucose Calcium Magnesium 2.1 Blood Type Antibody Screen Crossmatch [facility] Medical History Alcohol dependence Chronic kidney disease (CKD) stage G3b/A1, moderately decreased glomerular miquel tration rate (GFR) between 30-44 mL/min/1.73 square meter and albuminuria creatinine ratio less than 30 mg/g Family History Father Heart disease Social History household members: none Smoking Status: Never smoker alcohol intake: current Assessment & Plan Assessment & Plan narrative: Ms. Kidd is a 75W with PMH of EtOH abuse who presents with confusion, weakness found to have anemia 1. Symptomatic blood loss anemia, acute, secondary to bleeding vascular ectasia. - EGD with vascular ectasia with active bleeding. Injected in the endoscopy suite with cessation. Continue to monitor for bleeding and watch h/h. - Hg 7.2 this AM, received about 2/3 units of blood prior to endoscopy. - will continue to monitor h/h - soft diet x2 weeks. continue PPI. - appreciate surgical consultation. 2. Acute metabolic encephalopathy, improving. -likely multifactorial -has evidence of UTI, being treated with antibiotics -has elevated ammonia, no known cirrhosis, but is a possibility she is developing liver dsyfunction in setting of EtOH abuse -ativan did appear to cause her to be more altered 3. EtOH abuse -placed on CIWA protocol -no evidence for withdrawal currently -ordered for oral multivitamin, folic acid and thiamine start tonight 4. Mild ANDI -baseline creatinine appears to be 0.9-1.1 -increased creatinine to 1.38 on admission, likely from GI bleed -improved to 1.28 now to 1.39 again. will continue to monitor. 5. UTI -urine cultures pending -UA positive -continue ceftriaxone for now 5. Hyperlipidemia, chronic - continue home dose of rosuvastatin 20 mg po daily Quality VTE Deep Vein Thrombosis/Pulmonary Embolism Present on Admission: No
[2020-09-04 15:43] LABS: Hematocrit 26.5 % (36-46); Hemoglobin 8.3 g/dL (12.0-16.0)
--- NOTE | 2020-09-04 17:20 | PT.IIE ---
Current Diagnoses Anemia, unspecified (09/02/20) Disorder of urea cycle metabolism, unspecified (09/02/20) Other disorders of bilirubin metabolism (09/02/20) Encephalopathy, unspecified (09/02/20) Chronic kidney disease, stage 3b (09/02/20) Other fecal abnormalities (09/02/20) Bacteriuria (09/02/20) Surgery Performed Operation Date: 09/04/20 09:15 Actual Procedures p Esophagogastroduodenoscopy WITH BIOPSIES(Not Applicable) - Jackie Montgomery MD s Colonoscopy(Not Applicable) - Jackie Montgomery MD Medical History (Last Reviewed 09/04/20 @ 14:11 by Lalo Wong DO) Alcohol dependence Chronic kidney disease (CKD) stage G3b/A1, moderately decreased glomerular filtration rate (GFR) between 30-44 mL/min/1.73 square meter and albuminuria creatinine ratio less than 30 mg/g Physical Therapy Inpatient Evaluation/Re-Eval M1 PT/OT-IP Prior Functional Status Start: 09/04/20 15:39 Freq: NEEDED Status: Active Protocol: Document 09/04/20 17:09 [facility] (Rec: 09/04/20 17:20 [facility] [id number]) Medical Review Prior Functional Status Medical History Reviewed Yes Diet/Fluid Consistency Regular Communication WNL Mobility and Gait Difficult to fully gather history as pt at one point said she doesn't use anything in the house but then later said she doesn't like to go anywhere except with her 4WW. Uses cane outside Activities of Daily Living and IADL's Indep w/ADLs, drives, does cooking and cleaning Social History Household Members none Living Arrangements Apartment/Condo Number of Floors (Floors) One Floor Number of Stairs To Enter/Railing? no JACOBO Home Environment Standard Height Toilet,Tub/ Shower Home Equipment Four Wheel Walker,Straight Cane,Grab Bars In Shower Additional Social History Comment Pt reports shower seat but difficult to get appropriate history of what type. M2 PT-IP Current Condition Start: 09/04/20 15:39 Freq: NEEDED Status: Active Protocol: Document 09/04/20 17:09 [facility] (Rec: 09/04/20 17:20 [facility] [id number]) Physical Therapy Current Condition Current Condition Evaluation Date 09/04/20 Treatment Diagnosis weakness, anemia M3 PT-IP Subjective Start: 09/04/20 15:39 Freq: NEEDED Status: Active Protocol: Document 09/04/20 17:09 [facility] (Rec: 09/04/20 17:20 [facility] [id number]) Subjective Physical Therapy Visit Type Type Initial Evaluation Visit Start Time 16:35 Visit Stop Time 17:02 Total Visit Minutes 27 Number of FORESTRY AIDE Visits 0 Physical Therapy Visit Comments Patient Goals Pt does not forsee any issues going home Therapy Pain Assessment Pain Present Pain Present Denied Pain M4 PT-IP Mobility and Gait Start: 09/04/20 15:39 Freq: NEEDED Status: Active Protocol: Document 09/04/20 17:09 [facility] (Rec: 09/04/20 17:20 [facility] [id number]) PT-Transfer Assessment Sit to and From Stand Sit to and from Stand Standby Assistance,Use of Upper Extremities Equipment Transfer Assistive Device Gait Belt,Front Wheeled Walker Orthotic/Prosthetic Devices or Brace: No Comments Mobility Comments sit to stand from chair where pt was found SBA then pt amb backa nd forth in room w/FWW 40ft requriing cues to keep FWW to stay with her when she backs up to sit down vs reaching and leaning to sit down in chair. She did 5x sit to stand w/PT SBA then amb to BR w/o AD with lat lean and reaching for doorway and grab bar when in bathroom. Pt able to doff briefs SBA and sit<> stand from toilet SBA and wiped standing SBA and donned briefs SBA. Pt amb to sink SBA w/hand on counter and doorway then to chair CGA and was left iw call light in reach & chair alarm on and edu to use call light. Gait Assessment Gait Gait Assistance Required: Standby Assistance Distance (Feet) 60 Able to Maintain Weight Bearing Status Yes During Gait Assistive Devices Assistive Device Gait Belt,Front Wheeled Walker Orthotic/Prosthetic Devices or Brace: No Gait Deviations General Gait Pattern Decreased Stride Length, Decreased Feet Clearance, Flexed Trunk,Lateral Trunk Lean Factors Limiting Gait Function Factors Limiting Gait Function Decreased Strength,Difficulty Following Directions,Poor Balance,Poor Safety Awareness Comments Gait Comments see above PT-Balance Assessment Sitting Balance and Reactions Static Sitting Balance Ability Good Dynamic Sitting Balance Ability Fair Standing Balance and Reactions Static Standing Balance Ability Fair Dynamic Standing Balance Ability Fair M5 PT-IP Objective Assessments Start: 09/04/20 15:39 Freq: NEEDED Status: Active Protocol: Document 09/04/20 17:09 [facility] (Rec: 09/04/20 17:20 [facility] [id number]) Orientation Orientation/Cognition Level of Alertness Confusional State Language Function Ability No Deficits Noted Safety Awareness Decreased Safety Awareness Memory Description Short Term Impaired Gross Range of Motion Lower Extremity ROM Assessment Within Functional Limits Strength Lower Extremity Strength Hip 3+/5 grossly Knee 3+/5 grossly Ankle 3+/5 grossly M6 PT-IP Treatment Start: 09/04/20 15:39 Freq: NEEDED Status: Active Protocol: Document 09/04/20 17:09 [facility] (Rec: 09/04/20 17:20 [facility] [id number]) Physical Therapy Treatment Education Education Provided Safety M7 PT-IP Assessment and Plan Start: 09/04/20 15:39 Freq: NEEDED Status: Active Protocol: Document 09/04/20 17:09 [facility] (Rec: 09/04/20 17:20 [facility] [id number]) PT Summary Assessment and Plan Potential Rehabilitation Potential Good Status of Condition at Evaluation Evolving Summary Impairments Strength,Balance,Cognition, Transfers,Gait,Activity Tolerance Assessment Summary Pt presents w/confusion d/t symptomatic blood loss anemia d/t bledding vascular ectasia, acute metabolic ecephalopathy , mild ANDI, and UTI with overall weakness and dec safety awareness. She was SBA for most mobility but requried cueing throughout for safety of reaching back to sit down and to keep walker with her. She does have local family and may benefit from inc help from family at [place] along w/OP or PT for inc LE strength & balance to improve home safety. Goals Bed Mobility Goal Independent Transfer Goal Independent Gait Goal Independent Gait Distance 150ft Days to Meet Goals 5 Frequency of Treatment Frequency Of Treatment Once a Day Treatment Plan Physical Therapy Treatment Plan Bed Mobility Training,Transfer Training,Gait Training, Therapeutic Exercise,Balance Retraining,Discharge Planning, Neuromuscular Re-ed Recommendations To Nursing Amount of Assist Needed Standby Assistance Discharge Recommendations PT Discharge Recommendations Home with Assistance,Home Health,Outpatient PT Transportation Needs at Discharge Private Vehicle
[2020-09-04] MEDS: PANTOPRAZOLE DR 40 MG TABLET PO (21:30)
--- NOTE | 2020-09-04 23:37 | PC.NURSE ---
A&O X1; impulsive; bed/chair alarm; Tele SR BBB; sitting up in chair for dinner; watery stool 100 mL; [id number] would like a call after rounds for update about d/c plans
[2020-09-05 03:00] VITALS: BP 98/43; PULSE 82; RESP 16; TEMP 36.7; O2SAT 96
[2020-09-05 07:00] VITALS: BP 118/59; PULSE 73; RESP 16; TEMP 36.8; O2SAT 94
[2020-09-05 07:49] LABS: Add Manual Diff / Slide Review NO; Basophils Absolute Auto 0 /uL (0-100); Basophils Percent Auto 0.6 % (0-2); Eosinophils Absolute Auto 200 /uL (0-450); Eosinophils Percent Auto 2.3 % (2-4); Hematocrit 23.6 % (36-46); Hemoglobin 7.9 g/dL (12.0-16.0); Lymphocytes Absolute Auto 1600 /uL (1100-4500); Lymphocytes Percent Auto 23.4 % (25-40); Mean Corpuscular HGB Conc 33.5 % (30-36); Mean Corpuscular Hemoglobin 30.5 PG (26-34); Mean Corpuscular Volume 91.1 fL (80-100); Monocytes Absolute Auto 600 /uL (0-900); Monocytes Percent Auto 8.4 % (3-14); Neutrophils Absolute Auto 4400 /uL (1500-7000); Neutrophils Percent Auto 65.3 % (50-75); Platelet Count 146 X10^3/uL (150-400); Red Blood Cell Count 2.59 X10^6/uL (4.0-5.2); Red Cell Distribution Width 16.5 % (11.6-14.8); White Blood Cell Count 6.8 X10^3/uL (4.5-11.0)
[2020-09-05 08:03] LABS: BUN Creatinine Ratio 16.1 (6-22); Blood Urea Nitrogen 20 mg/dL (7-17); Calcium 8.8 mg/dL (8.4-10.2); Carbon Dioxide 22 mmol/L (22-32); Chloride 114 mmol/L (98-107); Estimated Glomerular Filt Rate 42.1 mL/min (>60); Glucose 103 mg/dL (80-110); HEMOLYSIS < 15 (0-50); Potassium 3.6 mmol/L (3.4-5.1); Sodium 141 mmol/L (137-145)
[2020-09-05] MEDS: cefTRIAXone 1,000 MG in SODIUM CHLORIDE 0.9% 100 ML 200 ML IV (09:00)
[2020-09-05] MEDS: LACTULOSE 20 GM/30 ML SOLUTION 30 GM PO ×3 (09:01→20:24)
[2020-09-05] MEDS: MULTIVITAMIN 1 TABLET 1 TAB PO (09:02)
[2020-09-05] MEDS: FOLIC ACID 1 MG TABLET PO (09:02)
[2020-09-05] MEDS: PANTOPRAZOLE DR 40 MG TABLET PO ×2 (09:02→20:24)
[2020-09-05] MEDS: THIAMINE 100 MG TABLET PO (09:02)
[2020-09-05] MEDS: SODIUM CHLORIDE 0.9% FLUSH 10 ML IV ×2 (09:03→20:25)
--- NOTE | 2020-09-05 11:00 | PT.IPTN ---
Current Diagnoses Anemia, unspecified (09/02/20) Disorder of urea cycle metabolism, unspecified (09/02/20) Other disorders of bilirubin metabolism (09/02/20) Encephalopathy, unspecified (09/02/20) Chronic kidney disease, stage 3b (09/02/20) Other fecal abnormalities (09/02/20) Bacteriuria (09/02/20) Surgery Performed Operation Date: 09/04/20 09:15 Actual Procedures p Esophagogastroduodenoscopy WITH BIOPSIES(Not Applicable) - Jackie Montgomery MD s Colonoscopy(Not Applicable) - Jackie Montgomery MD Physical Therapy Treatment Note M2 PT-IP Current Condition Start: 09/04/20 15:39 Freq: NEEDED Status: Active Protocol: Document 09/04/20 17:09 LR (Rec: 09/04/20 17:20 [facility] [email or web address]) Physical Therapy Current Condition Current Condition Evaluation Date 09/04/20 Treatment Diagnosis weakness, anemia M3 PT-IP Subjective Start: 09/04/20 15:39 Freq: NEEDED Status: Active Protocol: Document 09/05/20 10:30 AMB (Rec: 09/05/20 11:11 AMB [email or web address]) Subjective Physical Therapy Visit Type Type Treatment Note Visit Start Time 10:20 Visit Stop Time 10:43 Total Visit Minutes 23 Physical Therapy Visit Comments Patient Comments Pt is willing to get up for PT , in recliner M4 PT-IP Mobility and Gait Start: 09/04/20 15:39 Freq: NEEDED Status: Active Protocol: Document 09/05/20 10:30 AMB (Rec: 09/05/20 11:11 AMB [email or web address]) PT-Transfer Assessment Sit to and From Stand Sit to and from Stand Standby Assistance,Use of Upper Extremities Equipment Transfer Assistive Device Gait Belt,Front Wheeled Walker Orthotic/Prosthetic Devices or Brace: No Comments Mobility Comments Sit to stand SBA and pt ambulates in room SBA, needed cues for correct UE placement, tried to pull up to stand on FWW. Adjusted FWW to correct height for pt. Pt declined ambulating outside room. Gait Assessment Gait Gait Assistance Required: Standby Assistance Distance (Feet) 60 Able to Maintain Weight Bearing Status Yes During Gait Assistive Devices Assistive Device Gait Belt,Front Wheeled Walker Orthotic/Prosthetic Devices or Brace: No Factors Limiting Gait Function Factors Limiting Gait Function Decreased Strength,Difficulty Following Directions,Poor Balance,Poor Safety Awareness M5 PT-IP Objective Assessments Start: 09/04/20 15:39 Freq: NEEDED Status: Active Protocol: Document 09/04/20 17:09 [facility] (Rec: 09/04/20 17:20 [facility] [email or web address]) Orientation Orientation/Cognition Level of Alertness Confusional State Language Function Ability No Deficits Noted Safety Awareness Decreased Safety Awareness Memory Description Short Term Impaired Gross Range of Motion Lower Extremity ROM Assessment Within Functional Limits Strength Lower Extremity Strength Hip 3+/5 grossly Knee 3+/5 grossly Ankle 3+/5 grossly M6 PT-IP Treatment Start: 09/04/20 15:39 Freq: NEEDED Status: Active Protocol: Document 09/05/20 10:30 AMB (Rec: 09/05/20 11:11 AMB [email or web address]) Physical Therapy Treatment Other Treatments Other Treatment Performed Instructed in partial sit to stand with FWW in front and chair behind. NBOS EC and NBOS EO with head turns for balance instruction. M7 PT-IP Assessment and Plan Start: 09/04/20 15:39 Freq: NEEDED Status: Active Protocol: Document 09/05/20 10:30 AMB (Rec: 09/05/20 11:11 AMB [email or web address]) PT Summary Assessment and Plan Potential Rehabilitation Potential Good Status of Condition at Evaluation Evolving Summary Impairments Strength,Balance,Cognition, Transfers,Gait,Activity Tolerance Assessment Summary Pt was SBA with transfers and gait but needed heavy cueing for safety for correct usage of FWW. Would benefit from follow up with home health PT for safety concerns, and would likely benefit from someone in the home with her to cue her for her safety. Goals Bed Mobility Goal Independent Transfer Goal Independent Gait Goal Independent Gait Distance 150ft Days to Meet Goals 5 Frequency of Treatment Frequency Of Treatment Once a Day Treatment Plan Physical Therapy Treatment Plan Bed Mobility Training,Transfer Training,Gait Training, Therapeutic Exercise,Balance Retraining,Discharge Planning, Neuromuscular Re-ed Recommendations To Nursing Amount of Assist Needed Standby Assistance Discharge Recommendations PT Discharge Recommendations Home with Assistance,Home Health,Outpatient PT Transportation Needs at Discharge Private Vehicle
[2020-09-05 11:59] VITALS: BP 117/60; PULSE 70; RESP 20; TEMP 37.2; O2SAT 96
[2020-09-05 14:53] LABS: Hematocrit 24.4 % (36-46); Hemoglobin 7.5 g/dL (12.0-16.0)
--- NOTE | 2020-09-05 15:05 | P.PN_ITS ---
Subjective Subjective Date Patient Seen: 09/05/20 Time Patient Seen: 15:19 Interval history: this is a 75-year-old female admitted with an upper GI bleed. Her colonoscopy was fairly unremarkable yesterday but EGD did show vascular ectasia with evidence of active bleeding. These areas were injected with epi with subsequent resolution of her bleeding. Surgery recommended further monitoring. Her H/h has slowly continued to trend downward and she has had some black stools today. She denies chest pain, abdominal pain, nausea, or vomiting. She feels stronger today than previously. Will continue to monitor for now with continued PPI to see if she still downtrends. She denies and abdominal pain today. Exam Vital Signs (past 8 hours): - 09/05/20 11:59 Temperature 98.9 F Pulse Rate 70 Respiratory Rate 20 Blood Pressure 117/60 Pulse Oximetry 96 Oxygen Delivery Method Room Air Oxygen Flow Rate 0 Narrative Exam Narrative: Gen: wd wn female, no acute distress Resp: clearly bilaterally, no wheezes, rhonchi, rales CV: regular rate and rhythm with no murmurs Abd: soft, nontender, nondistended, no organomegaly Skin: no rashes noted Neuro: alert and oriented with no focal deficits Extremities: no edema, no joint effusions Psyche: pleasant, cooperative Objective Labs Result Diagrams: 09/05/20 14:47 09/05/20 07:09 Labs: Laboratory Results - last 24 hr 09/04/20 09/05/20 09/05/20 15:37 07:09 07:09 WBC 6.8 RBC 2.59 L Hgb 8.3 L 7.9 L Hct 26.5 L 23.6 L MCV 91.1 MCH 30.5 MCHC 33.5 RDW 16.5 H Plt Count 146 L Neut % (Auto) 65.3 Lymph % (Auto) 23.4 L [place] % (Auto) 8.4 Eos % (Auto) 2.3 Baso % (Auto) 0.6 Neut # (Auto) 4400 Lymph # (Auto) 1600 Bullitt # (Auto) 600 Eos # (Auto) 200 Baso # (Auto) 0 Sodium 141 Potassium 3.6 Chloride 114 H Carbon Dioxide 22 BUN 20 H Creatinine 1.24 H Estimated GFR 42.1 L BUN/Creatinine Ratio 16.1 Glucose 103 Calcium 8.8 Magnesium 2.0 09/05/20 14:47 WBC RBC Hgb 7.5 L Hct 24.4 L MCV MCH MCHC RDW Plt Count Neut % (Auto) Lymph % (Auto) [place] % (Auto) Eos % (Auto) Baso % (Auto) Neut # (Auto) Lymph # (Auto) [place] # (Auto) Eos # (Auto) Baso # (Auto) Sodium Potassium Chloride Carbon Dioxide BUN Creatinine Estimated GFR BUN/Creatinine Ratio Glucose Calcium Magnesium [facility] Medical History Alcohol dependence Chronic kidney disease (CKD) stage G3b/A1, moderately decreased glomerular filtration rate (GFR) between 30-44 mL/min/1.73 square meter and albuminuria creatinine ratio less than 30 mg/g Family History Father Heart disease Social History household members: none Smoking Status: Never smoker alcohol intake: current Assessment & Plan Assessment & Plan narrative: Ms. Kidd is a 75W with PMH of EtOH abuse who presents with confusion, weakness found to have anemia 1. Symptomatic blood loss anemia, acute, secondary to bleeding vascular ectasia. - EGD with vascular ectasia with active bleeding. Injected with epinephrine in the endoscopy suite with cessation of bleeding. - Hg up to 8.3 yesterday after less than 1U PRBC given (about 2/3). Downtrended to 7.5 thus far today. Still with melenotic bowel movements. - will continue to monitor h/h - soft diet x2 weeks. continue PPI. - appreciate surgical consultation. 2. Acute metabolic encephalopathy, improving. -likely multifactorial -has evidence of UTI, being treated with antibiotics -has elevated ammonia, no known cirrhosis, but is a possibility she is developing liver dsyfunction in setting of EtOH abuse. She has improved somewhat with lactulose therapy. -ativan did appear to cause her to be more altered -will check an abdominal ultrasound. 3. EtOH abuse -placed on CIWA protocol -no evidence for withdrawal currently -ordered for oral multivitamin, folic acid and thiamine 4. Mild ANDI -baseline creatinine appears to be 0.9-1.1 -increased creatinine to 1.38 on admission, likely from GI bleed. Stable between 1.2 and 1.3 since admission. 5. acute cystitis -urine culture with mixed beverley, deemed unsuitable. -UA positive -continue ceftriaxone for 3 days 5. Hyperlipidemia, chronic - continue home dose of rosuvastatin 20 mg po daily Code: Full Quality VTE Deep Vein Thrombosis/Pulmonary Embolism Present on Admission: No
[2020-09-05] MEDS: FERROUS SULFATE 325 MG TABLET PO (15:39)
--- NOTE | 2020-09-05 16:05 | CM.DPC ---
DCP Continued: Physical therapy recommends either out-patient PT or home health LEAD SOFTWARE DEVELOPMENT ENGINEER Student met with patient she was up and sitting in a chair. Patient reported she lives at home independently with supportive family living nearby. Per patient her daughter in-law is going to restart [id number]. Educated patient on home health physical therapy. Patient declined home health physical therapy she is not homebound and will not meet criteria. She said she would be open to outpatient therapy if it is deemed medically necessary. PLAN: Anticipate D/C home with family support. CM Team to continue to follow. LIBIA Hanks MSW Student
[2020-09-05 16:32] VITALS: BP 115/61; PULSE 73; RESP 17; TEMP 37; O2SAT 98
[2020-09-05 19:43] VITALS: BP 103/53; PULSE 73; RESP 16; TEMP 37.1; O2SAT 98
--- NOTE | 2020-09-05 22:10 | PC.NURSE ---
A&Ox3 has memory issues and is forgetful. She can become confused about her situation and why she is here. She is also impulsive and forgets to call before getting out of bed or her chair. Requires frequent reminders and reinforcement. VSS except for decreased BP at 103/53. Hgb 7.5, hct 24.2. Is having dark brown liquid stool. Will have abd US in AM and needs to be NPO at midnight. Denies pain. Received a shower this evening. SBA with walker. Call light within reach, bed low.
[2020-09-06] VITALS (10 sets, daily range): BP systolic 104–132; BP diastolic 45–65; PULSE 64–86; RESP 16–18; TEMP 36.3–37.1; O2SAT 94–99
--- NOTE | 2020-09-06 00:01 | DI.US.S_ITS ---
PROCEDURE: US ABDOMEN COMPLETE INDICATIONS: GI BLEED PER NURSE, LIVER, SPLEEN, PV TECHNIQUE: Real-time scanning was performed of the abdominal and retroperitoneal organs, with image documentation. COMPARISON: [facility], US, US ABDOMEN COMPLETE, 01/07/2020, 10:45. FINDINGS: Liver: Liver is normal in size and homogeneous in echotexture, hyperechoic and likely fatty infiltrated.. Gallbladder: Normal appearing gallbladder. Biliary ducts: Intrahepatic bile ducts are non-dilated. Extrahepatic bile duct caliber measures 2.3 mm. Normal is 6-7 mm or less in diameter, or 10 mm or less post-cholecystectomy. Pancreas: Visualized portions of the pancreas are sonographically normal. Spleen: Spleen is at the upper limits of normal in size at 12.6 cm and homogeneous in echotexture. Kidneys: Kidneys are normal in size and echotexture. Quality of visualization is somewhat limited by body habitus and bowel gas. Right kidney measures 9.1 cm long; left kidney measures 11.2 cm long. No hydronephrosis or nephrolithiasis. No solid masses. There is a small ovoid 9 x 12 mm hypoechoic presumed small cyst at the inferior cortex of the left kidney. This was previously present also in December of last year, identical in appearance. Aorta: Visualized aorta is normal in caliber at less than 3 cm. Iliacs: Proximal common iliac arteries are normal in caliber at less than 2.5 cm. Measuring approximately 9 x 11 mm in size IVC: Intrahepatic inferior vena cava is patent. Miscellaneous: No free abdominal fluid. IMPRESSION: No sign of ascites or varices. Spleen is at the upper limits of normal in size. The liver does not appear enlarged. No definite acute disease. At the inferior tip of the left kidney is small hypoechoic structure is again seen, measuring approximately 9 x 12 mm in size. This by appearance is considered most likely a small stable renal cyst from December last . As noted the body habitus and overlying bowel gas reduces quality of visualization. Dictated by: Anthony Goodwin M.D. on 09/06/2020 at 12:28 Approved by: Anthony Goodwin M.D. on 09/06/2020 at 12:36
--- NOTE | 2020-09-06 02:32 | PC.NURSE ---
Patient is alert and oriented but forgetful and impulsive. Breath sounds CTA with RA sat of 95%. HRR w/telemetry reading of SR w/BBB. Denies nausea. Had liquid green stool but no bleeding noted. Denies dysuria, frequency or urgency with urination. Is able to move herself in bed. Up to bathroom with walker and SBA. Denies pain. Refusing to wear SCD's so reminded to ankle wave when awake. Is currently NPO for impending abdominal ultrasound in a.m. Fall risk score is high and bed alarm is activated. CIWA score is 1 for complaint of mild itching. Seizure pads on bed.
[2020-09-06 06:17] LABS: BUN Creatinine Ratio 16.2 (6-22); Blood Urea Nitrogen 19 mg/dL (7-17); Carbon Dioxide 23 mmol/L (22-32); Chloride 115 mmol/L (98-107); Glucose 107 mg/dL (80-110); HEMOLYSIS < 15 (0-50); Magnesium 2.2 mg/dL (1.6-2.3); Potassium 3.7 mmol/L (3.4-5.1); Sodium 140 mmol/L (137-145)
[2020-09-06 06:29] LABS: Add Manual Diff / Slide Review NO; Basophils Absolute Auto 100 /uL (0-100); Eosinophils Absolute Auto 100 /uL (0-450); Lymphocytes Absolute Auto 1400 /uL (1100-4500); Lymphocytes Percent Auto 27.7 % (25-40); Mean Corpuscular HGB Conc 31.2 % (30-36); Monocytes Absolute Auto 500 /uL (0-900); Monocytes Percent Auto 9.7 % (3-14); Neutrophils Absolute Auto 2900 /uL (1500-7000); Neutrophils Percent Auto 58.6 % (50-75); Platelet Count 132 X10^3/uL (150-400); Red Blood Cell Count 2.41 X10^6/uL (4.0-5.2); Red Cell Distribution Width 16.6 % (11.6-14.8)
[2020-09-06 06:30] LABS: Hematocrit 22.4 % (36-46)
--- NOTE | 2020-09-06 08:34 | PC.NURSE ---
US in room. I spoke to Dr. Wong to clarify US order (per US tech). Dr. Wong requesting images of liver and spleen to assess for chirrosis as well as portal flow. US tech agreed. POLYETHYLENE COMBINER transferred pt from chair to bed.
--- NOTE | 2020-09-06 08:42 | PC.NURSE ---
Addendum entered by Morena Ferraro R.N. 09/06/20 15:24: 1 unit packed red blood started at 1450 without concerns. Called and left VM with Kim DELCID. Midline to left upper arm placed by SHAWN [place] Nurse. pt denying pain. Addendum entered by Morena Ferraro R.N. 09/06/20 13:06: Vocera'ed SHAWN NurseLeyda for an ETA on pt's midline. Leyda confirmed he saw the order and stated I just haven't have the time. When I get the time I will be up. Addendum entered by Morena Ferraro R.N. 09/06/20 12:21: Bilateral PIV's leaking. I was unable to start [address] Wong aware and ordered midline. 1 unit PRB pending until midline placed, again- Dr. Wong aware. pt tolerating a soft, low fiber diet. Talking to family members on room phone and I have talked to Kim DELCID and provided an update. Original Note: AM shift report. pt alert and oriented x3, impulsive and gets up out of bed without using call light or alerting staff. I have reminded pt several times now to use call light and have placed it next to her several times. pt self reporting feeling dizzy and weak during ambulations. Up 1PA with walker to BR for 1 loose, green BM. Bilateral wrist PIV saline locked (left PIV expires today at 1755). pt has been NPO since midnight and US in room currently.
[2020-09-06] MEDS: SODIUM CHLORIDE 0.9% FLUSH 10 ML IV ×2 (10:44→21:25)
[2020-09-06] MEDS: FERROUS SULFATE 325 MG TABLET PO (10:44)
[2020-09-06] MEDS: LACTULOSE 20 GM/30 ML SOLUTION 30 GM PO (10:45)
[2020-09-06] MEDS: FOLIC ACID 1 MG TABLET PO (10:45)
[2020-09-06] MEDS: PANTOPRAZOLE DR 40 MG TABLET PO ×2 (10:45→21:25)
[2020-09-06] MEDS: MULTIVITAMIN 1 TABLET 1 TAB PO (10:45)
--- NOTE | 2020-09-06 11:48 | PT.IPTN ---
Current Diagnoses Anemia, unspecified (09/02/20) Disorder of urea cycle metabolism, unspecified (09/02/20) Other disorders of bilirubin metabolism (09/02/20) Encephalopathy, unspecified (09/02/20) Chronic kidney disease, stage 3b (09/02/20) Other fecal abnormalities (09/02/20) Bacteriuria (09/02/20) Surgery Performed Operation Date: 09/04/20 09:15 Actual Procedures p Esophagogastroduodenoscopy WITH BIOPSIES(Not Applicable) - Jackie Montgomery MD s Colonoscopy(Not Applicable) - Jackie Montgomery MD Physical Therapy Treatment Note M2 PT-IP Current Condition Start: 09/04/20 15:39 Freq: NEEDED Status: Active Protocol: Document 09/04/20 17:09 [facility] (Rec: 09/04/20 17:20 [facility] [email or web address]) Physical Therapy Current Condition Current Condition Evaluation Date 09/04/20 Treatment Diagnosis weakness, anemia M3 PT-IP Subjective Start: 09/04/20 15:39 Freq: NEEDED Status: Active Protocol: Document 09/06/20 10:45 AMB (Rec: 09/06/20 11:47 AMB [email or web address]) Subjective Physical Therapy Visit Type Type Treatment Note Visit Start Time 10:45 Visit Stop Time 11:15 Total Visit Minutes 30 Number of BRILLIANDEER LOPPER Visits 0 Physical Therapy Visit Comments Patient Comments Pt would like to change gowns since she spilled something sticky on hers. Therapy Pain Assessment Pain Present Pain Present Denied Pain M4 PT-IP Mobility and Gait Start: 09/04/20 15:39 Freq: NEEDED Status: Active Protocol: Document 09/06/20 10:45 AMB (Rec: 09/06/20 11:47 AMB [email or web address]) PT-Transfer Assessment Sit to and From Stand Sit to and from Stand Standby Assistance,Use of Upper Extremities Equipment Transfer Assistive Device Gait Belt,Front Wheeled Walker Orthotic/Prosthetic Devices or Brace: No Comments Mobility Comments Sit to stand SBA and pt ambulates in room SBA, needed cues for correct UE placement, tried to pull up to stand on FWW. Standing balance to don gown- pt required FWW in front of her. Gait Assessment Gait Gait Assistance Required: Standby Assistance Distance (Feet) 150 Able to Maintain Weight Bearing Status Yes During Gait Assistive Devices Assistive Device Gait Belt,Front Wheeled Walker Orthotic/Prosthetic Devices or Brace: No Factors Limiting Gait Function Factors Limiting Gait Function Decreased Strength,Difficulty Following Directions,Poor Balance,Poor Safety Awareness Comments Gait Comments Ambulated in hallway today, cues for FWW usage. M5 PT-IP Objective Assessments Start: 09/04/20 15:39 Freq: NEEDED Status: Active Protocol: Document 09/04/20 17:09 [facility] (Rec: 09/04/20 17:20 [facility] [email or web address]) Orientation Orientation/Cognition Level of Alertness Confusional State Language Function Ability No Deficits Noted Safety Awareness Decreased Safety Awareness Memory Description Short Term Impaired Gross Range of Motion Lower Extremity ROM Assessment Within Functional Limits Strength Lower Extremity Strength Hip 3+/5 grossly Knee 3+/5 grossly Ankle 3+/5 grossly M6 PT-IP Treatment Start: 09/04/20 15:39 Freq: NEEDED Status: Active Protocol: Document 09/05/20 10:30 AMB (Rec: 09/05/20 11:11 AMB [email or web address]) Physical Therapy Treatment Other Treatments Other Treatment Performed Instructed in partial sit to stand with FWW in front and chair behind. NBOS EC and NBOS EO with head turns for balance instruction. M7 PT-IP Assessment and Plan Start: 09/04/20 15:39 Freq: NEEDED Status: Active Protocol: Document 09/06/20 10:45 AMB (Rec: 09/06/20 11:47 AMB [email or web address]) PT Summary Assessment and Plan Potential Rehabilitation Potential Good Status of Condition at Evaluation Evolving Summary Impairments Strength,Balance,Cognition, Transfers,Gait,Activity Tolerance Assessment Summary Pt was SBA with transfers and gait but needed continued cueing for safety for correct usage of FWW. Would benefit from follow up with outpatient PT for safety concerns, and would likely benefit from family in the home with her to cue her for her safety. Pt discussed home health with social welfare administrator and would not consider herself homebound therefore would consider outpatient PT. Goals Bed Mobility Goal Independent Transfer Goal Independent Gait Goal Independent Gait Distance 150ft Days to Meet Goals 5 Frequency of Treatment Frequency Of Treatment Once a Day Treatment Plan Physical Therapy Treatment Plan Bed Mobility Training,Transfer Training,Gait Training, Therapeutic Exercise,Balance Retraining,Discharge Planning, Neuromuscular Re-ed Recommendations To Nursing Amount of Assist Needed Standby Assistance Discharge Recommendations PT Discharge Recommendations Outpatient PT Transportation Needs at Discharge Private Vehicle
--- NOTE | 2020-09-06 14:57 | PC.NURSE ---
1 unit packed blood cells initiated at 1453. Confirmed blood product information with nurse, Althea. VSS before transfusion. At this time, no s/s of rejection. Started infusion at 25/hr, no side effects after 15 minutes. Increased infusion to 110/hr. VS 112/59, 68, 97%, 98.0.
--- NOTE | 2020-09-06 15:23 | P.PN_ITS ---
Subjective Subjective Date Patient Seen: 09/06/20 Time Patient Seen: 09:15 Interval history: this is a 75-year-old female admitted with an upper GI bleed. Her colonoscopy was fairly unremarkable yesterday but EGD did show vascular ectasia with evidence of active bleeding. Her H&H has continued to trend downward, to 7.0 this morning. She was given 1 unit of blood today. She felt weak this morning. She denies any chest pain or shortness of breath or palpitations. Did discuss with surgery whom recommended transfer for IR embolization. There are no current beds available, will continue to work on transfer and transfuse as necessary for slow bleeding. Exam Vital Signs (past 8 hours): - 09/06/20 08:33 09/06/20 13:48 09/06/20 14:53 Temperature 98.6 F 97.3 F L 97.8 F Pulse Rate 67 86 64 Respiratory Rate 18 18 16 Blood Pressure 104/57 L 119/65 118/53 L Pulse Oximetry 95 97 09/06/20 15:08 Temperature 98.0 F Pulse Rate 67 Respiratory Rate 16 Blood Pressure 112/59 L Pulse Oximetry Oxygen Delivery Method Room Air Oxygen Flow Rate 0 Narrative Exam Narrative: Gen: wd wn female, no acute distress Resp: clearly bilaterally, no wheezes, rhonchi, rales CV: regular rate and rhythm with no murmurs Abd: soft, nontender, nondistended, no organomegaly Skin: no rashes noted Neuro: alert and oriented with no focal deficits Extremities: no edema, no joint effusions Psyche: pleasant, cooperative Objective Labs Result Diagrams: 09/06/20 05:31 09/06/20 05:31 Labs: Laboratory Results - last 24 hr 09/02/20 09/06/20 09/06/20 17:15 05:31 05:31 WBC 5.0 RBC 2.41 L Hgb 7.0 L Hct 22.4 L MCV 93.0 MCH 29.0 MCHC 31.2 RDW 16.6 H Plt Count 132 L Neut % (Auto) 58.6 Lymph % (Auto) 27.7 [place] % (Auto) 9.7 Eos % (Auto) 3.0 Baso % (Auto) 1.0 Neut # (Auto) 2900 Lymph # (Auto) 1400 [place] # (Auto) 500 Eos # (Auto) 100 Baso # (Auto) 100 Sodium 140 Potassium 3.7 Chloride 115 H Carbon Dioxide 23 BUN 19 H Creatinine 1.17 H Estimated GFR 45.0 L BUN/Creatinine Ratio 16.2 Glucose 107 Calcium 9.0 Magnesium 2.2 Blood Type Antibody Screen Crossmatch See Detail 09/06/20 09:40 WBC RBC Hgb Hct MCV MCH MCHC RDW Plt Count Neut % (Auto) Lymph % (Auto) [place] % (Auto) Eos % (Auto) Baso % (Auto) Neut # (Auto) Lymph # (Auto) [place] # (Auto) Eos # (Auto) Baso # (Auto) Sodium Potassium Chloride Carbon Dioxide BUN Creatinine Estimated GFR BUN/Creatinine Ratio Glucose Calcium Magnesium Blood Type A Positive Antibody Screen Negative Crossmatch See Detail [facility] Medical History Alcohol dependence Chronic kidney disease (CKD) stage G3b/A1, moderately decreased glomerular filtration rate (GFR) between 30-44 mL/min/1.73 square meter and albuminuria creatinine ratio less than 30 mg/g Family History Father Heart disease Social History household members: none Smoking Status: Never smoker alcohol intake: current Assessment & Plan Assessment & Plan narrative: Ms. Kidd is a 75W with PMH of EtOH abuse who presents with confusion, weakness found to have anemia 1. Symptomatic blood loss anemia, acute, secondary to bleeding vascular ectasia. - EGD with vascular ectasia with active bleeding. Injected with epinephrine in the endoscopy suite with cessation of bleeding. However h/h continues to trend down as noted below. - Hg up to 8.3 after less than 1U PRBC given (about 2/3). Downtrended to 7.0 with some dark bowel movements. Gave 1 U PRBC today. Will continue to monitor. Recommended for transfer per surgery for IR embolization, currently on a bed search for availability. - will continue to monitor h/h - soft diet x2 weeks. continue PPI. - appreciate surgical consultation. 2. Acute metabolic encephalopathy, improving. -likely multifactorial -has evidence of UTI, being treated with antibiotics -has elevated ammonia, no known cirrhosis, but is a possibility she is developing liver dsyfunction in setting of EtOH abuse. She did improve and was started on lactulose. However abdominal ultrasound today without evidence of cirrhosis and there can be other sources of encephalopathy including her bleeding. Have stopped her lactulose today, recommend continued monitoring. -ativan did appear to cause her to be more altered -will check an abdominal ultrasound. 3. EtOH abuse -placed on CIWA protocol -no evidence for withdrawal currently -ordered for oral multivitamin, folic acid and thiamine 4. Mild ANDI -baseline creatinine appears to be 0.9-1.1 -increased creatinine to 1.38 on admission, likely from GI bleed. Stable between 1.2 and 1.3 since admission. 5. acute cystitis, resolved -urine culture with mixed beverley, deemed unsuitable. -UA positive -continued ceftriaxone for 3 days 5. Hyperlipidemia, chronic - continue home dose of rosuvastatin 20 mg po daily Code: Full Dispo: pending transfer for IR embolization. However no available beds. Will continue to transfuse as needed, monitor h/h. Quality VTE Deep Vein Thrombosis/Pulmonary Embolism Present on Admission: No
[2020-09-06] MEDS: POLYVINYL ALCOHOL DROPS 1 DROPS EYE-BOTH (18:14)
[2020-09-06] MEDS: ACETAMINOPHEN 325 MG TABLET 650 MG PO (18:17)
[2020-09-06 23:19] LABS: Hematocrit 25.8 % (36-46); Hemoglobin 8.2 g/dL (12.0-16.0)
--- NOTE | 2020-09-07 00:54 | PC.NURSE ---
Patient is alert and oriented; can be forgetful and impulsive, forgets to use call light. Breath sounds CTA with RA sat of 99%. HRR w/telemetry reading of SR w/BBB. Denies nausea. BT present and abdomen is soft; evening RN reported patient had 3 loose brown/green stools on previous shift. Denies dysuria, frequency or urgency with urination. Is able to move herself in bed. Up to bathroom with walker and SBA. Denies pain. Again refuses to use SCD's so reminded to ankle wave when awake. CIWA score is 0. Fall risk score is high and bed alarm is activated.
[2020-09-07 03:25] VITALS: BP 103/54; PULSE 69; RESP 19; TEMP 37; O2SAT 94
[2020-09-07] MEDS: POLYVINYL ALCOHOL DROPS 1 DROPS EYE-BOTH ×2 (06:11→12:08)
[2020-09-07 06:28] LABS: Add Manual Diff / Slide Review NO; Basophils Absolute Auto 0 /uL (0-100); Basophils Percent Auto 0.8 % (0-2); Eosinophils Absolute Auto 200 /uL (0-450); Eosinophils Percent Auto 3.5 % (2-4); Hematocrit 25.6 % (36-46); Hemoglobin 8.2 g/dL (12.0-16.0); Lymphocytes Absolute Auto 1500 /uL (1100-4500); Lymphocytes Percent Auto 27.5 % (25-40); Mean Corpuscular HGB Conc 32.1 % (30-36); Mean Corpuscular Hemoglobin 29.8 PG (26-34); Monocytes Absolute Auto 500 /uL (0-900); Monocytes Percent Auto 9.9 % (3-14); Neutrophils Absolute Auto 3100 /uL (1500-7000); Neutrophils Percent Auto 58.3 % (50-75); Platelet Count 130 X10^3/uL (150-400); Red Blood Cell Count 2.75 X10^6/uL (4.0-5.2); Red Cell Distribution Width 16.4 % (11.6-14.8); White Blood Cell Count 5.3 X10^3/uL (4.5-11.0)
[2020-09-07 06:39] LABS: BUN Creatinine Ratio 16.5 (6-22); Blood Urea Nitrogen 17 mg/dL (7-17); Carbon Dioxide 23 mmol/L (22-32); Chloride 114 mmol/L (98-107); Estimated Glomerular Filt Rate 52.1 mL/min (>60); Glucose 101 mg/dL (80-110); HEMOLYSIS < 15 (0-50); Potassium 3.6 mmol/L (3.4-5.1); Sodium 138 mmol/L (137-145)
[2020-09-07 07:57] VITALS: BP 122/69; PULSE 69; RESP 18; TEMP 36.4; O2SAT 98
[2020-09-07] MEDS: MULTIVITAMIN 1 TABLET 1 TAB PO (08:50)
[2020-09-07] MEDS: SODIUM CHLORIDE 0.9% FLUSH 10 ML IV ×2 (08:50→21:09)
[2020-09-07] MEDS: FOLIC ACID 1 MG TABLET PO (08:50)
[2020-09-07] MEDS: FERROUS SULFATE 325 MG TABLET PO (08:50)
[2020-09-07] MEDS: PANTOPRAZOLE DR 40 MG TABLET PO ×2 (08:50→21:08)
--- NOTE | 2020-09-07 10:27 | PT.IPTN ---
Current Diagnoses Anemia, unspecified (09/02/20) Disorder of urea cycle metabolism, unspecified (09/02/20) Other disorders of bilirubin metabolism (09/02/20) Encephalopathy, unspecified (09/02/20) Chronic kidney disease, stage 3b (09/02/20) Other fecal abnormalities (09/02/20) Bacteriuria (09/02/20) Surgery Performed Operation Date: 09/04/20 09:15 Actual Procedures p Esophagogastroduodenoscopy WITH BIOPSIES(Not Applicable) - Jackie Montgomery MD s Colonoscopy(Not Applicable) - Jackie Montgomery MD Physical Therapy Treatment Note M2 PT-IP Current Condition Start: 09/04/20 15:39 Freq: NEEDED Status: Active Protocol: Document 09/04/20 17:09 [facility] (Rec: 09/04/20 17:20 [facility] [id number]) Physical Therapy Current Condition Current Condition Evaluation Date 09/04/20 Treatment Diagnosis weakness, anemia M3 PT-IP Subjective Start: 09/04/20 15:39 Freq: NEEDED Status: Active Protocol: Document 09/07/20 10:15 [facility] (Rec: 09/07/20 12:34 [facility] [id number]) Subjective Physical Therapy Visit Type Type Treatment Note Visit Start Time 10:15 Visit Stop Time 10:27 Total Visit Minutes 12 Number of OFFICE CHAIR ASSEMBLER Visits 1 Physical Therapy Visit Comments Patient Comments Pt willing to get up for walk in [place]. Therapy Pain Assessment Pain Present Pain Present Denied Pain M4 PT-IP Mobility and Gait Start: 09/04/20 15:39 Freq: NEEDED Status: Active Protocol: Document 09/07/20 10:15 [facility] (Rec: 09/07/20 12:34 [facility] [id number]) PT-Transfer Assessment Sit to and From Stand Sit to and from Stand Standby Assistance,Use of Upper Extremities Equipment Transfer Assistive Device Gait Belt,Front Wheeled Walker Orthotic/Prosthetic Devices or Brace: No Gait Assessment Gait Gait Assistance Required: Standby Assistance Distance (Feet) 220 Able to Maintain Weight Bearing Status Yes During Gait Assistive Devices Assistive Device Gait Belt,Front Wheeled Walker Orthotic/Prosthetic Devices or Brace: No Factors Limiting Gait Function Factors Limiting Gait Function Decreased Strength,Difficulty Following Directions,Poor Balance,Poor Safety Awareness Comments Gait Comments good carryover able to use FWW appropriately during gait. M5 PT-IP Objective Assessments Start: 09/04/20 15:39 Freq: NEEDED Status: Active Protocol: Document 09/04/20 17:09 [facility] (Rec: 09/04/20 17:20 [facility] [id number]) Orientation Orientation/Cognition Level of Alertness Confusional State Language Function Ability No Deficits Noted Safety Awareness Decreased Safety Awareness Memory Description Short Term Impaired Gross Range of Motion Lower Extremity ROM Assessment Within Functional Limits Strength Lower Extremity Strength Hip 3+/5 grossly Knee 3+/5 grossly Ankle 3+/5 grossly M6 PT-IP Treatment Start: 09/04/20 15:39 Freq: NEEDED Status: Active Protocol: Document 09/05/20 10:30 [facility] (Rec: 09/05/20 11:11 [facility] [id number]) Physical Therapy Treatment Other Treatments Other Treatment Performed Instructed in partial sit to stand with FWW in front and chair behind. NBOS EC and NBOS EO with head turns for balance instruction. M7 PT-IP Assessment and Plan Start: 09/04/20 15:39 Freq: NEEDED Status: Active Protocol: Document 09/07/20 10:15 [facility] (Rec: 09/07/20 12:34 [facility] [id number]) PT Summary Assessment and Plan Potential Rehabilitation Potential Good Status of Condition at Evaluation Evolving Summary Impairments Strength,Balance,Cognition, Transfers,Gait,Activity Tolerance Assessment Summary Pt is SBA for all mobility able to increase gait distance to ~220ft w/FWW. Goals Bed Mobility Goal Independent Transfer Goal Independent Gait Goal Independent Gait Distance 150ft Days to Meet Goals 5 Frequency of Treatment Frequency Of Treatment Once a Day Treatment Plan Physical Therapy Treatment Plan Bed Mobility Training,Transfer Training,Gait Training, Therapeutic Exercise,Balance Retraining,Discharge Planning, Neuromuscular Re-ed Recommendations To Nursing Amount of Assist Needed Standby Assistance Discharge Recommendations PT Discharge Recommendations Home with Assistance,Home Health,Outpatient PT Transportation Needs at Discharge Private Vehicle
[2020-09-07 12:00] VITALS: BP 112/71; PULSE 79; RESP 18; TEMP 36.8; O2SAT 95
--- NOTE | 2020-09-07 15:02 | PC.NURSE ---
Patient a/o x 3. Ambulating in the room and to the restroom to void. Denies any chest pain or shortness of breath or palpitations. VSS. BT active. LUE midline intact. Dsg changed. Patient denies pain.
[2020-09-07] MEDS: ACETAMINOPHEN 325 MG TABLET 650 MG PO (16:03)
--- NOTE | 2020-09-07 16:05 | PC.NURSE ---
Addendum entered by Cecile Vargas R.N. 09/07/20 19:04: Pt was assisted to shower this evening shift as per request. Returned to telemetry and up in recliner. States headache resolved. Original Note: Pt awake, alert sitting quietly in recliner watching television. Admits to headache 08/17 and was given tylenol to treat. Denies nausea, chest pain, dizziness or other complaints. Follows commands appropriately. Mentation and conversation is appropriate. Chair alarm in place. Denies h/o falls. Pt is on CIWA protocol. Tele in place.
[2020-09-07 17:35] VITALS: BP 120/59; PULSE 70; RESP 18; TEMP 36.5; O2SAT 95
--- NOTE | 2020-09-07 20:47 | PM.PN.1 ---
Subjective Subjective Date Patient Seen: 09/07/20 Interval history: Patient is 75-year-old female admitted with GI bleed. She had normal colonoscopy but EGD showed telangiectasia in esophagus and stomach. Hemoglobin had trended down but stable x2 days. Patient states she is feeling better and not as weak. Exam Vital Signs (past 8 hours): - 09/07/20 17:35 Temperature 97.7 F Pulse Rate 70 Respiratory Rate 18 Blood Pressure 120/59 L Pulse Oximetry 95 Oxygen Delivery Method Room Air Oxygen Flow Rate 0 Narrative Exam Narrative: General: Alert and pleasant in no distress Lungs: Breathing nonlabored Neurological: Appears well oriented, speech normal, affect normal, nonfocal Objective Labs Result Diagrams: 09/07/20 05:50 09/07/20 05:50 Labs: Laboratory Results - last 24 hr 09/06/20 09/07/20 09/07/20 23:07 05:50 05:50 WBC 5.3 RBC 2.75 L Hgb 8.2 L 8.2 L Hct 25.8 L 25.6 L MCV 93.0 MCH 29.8 MCHC 32.1 RDW 16.4 H Plt Count 130 L Neut % (Auto) 58.3 Lymph % (Auto) 27.5 [place] % (Auto) 9.9 Eos % (Auto) 3.5 Baso % (Auto) 0.8 Neut # (Auto) 3100 Lymph # (Auto) 1500 [place] # (Auto) 500 Eos # (Auto) 200 Baso # (Auto) 0 Sodium 138 Potassium 3.6 Chloride 114 H Carbon Dioxide 23 BUN 17 Creatinine 1.03 Estimated GFR 52.1 L BUN/Creatinine Ratio 16.5 Glucose 101 Calcium 9.0 Magnesium 2.0 [facility] Medical History Alcohol dependence Chronic kidney disease (CKD) stage G3b/A1, moderately decreased glomerular filtration rate (GFR) between 30-44 mL/min/1.73 square meter and albuminuria creatinine ratio less than 30 mg/g Family History Father Heart disease Social History household members: none Smoking Status: Never smoker alcohol intake: current Assessment & Plan Assessment & Plan narrative: 1. Symptomatic acute blood loss anemia, acute, secondary to bleeding vascular ectasia. - EGD with vascular ectasia with active bleeding. Injected with epinephrine lesion in distal esophagus and fundus of stomach with cessation of bleeding. -hemoglobin 5 on admit, up to 8.3 with transfusion, then trended down to 7.0, got additional transfusion and now stable at 8.2 x 2 days - will continue to monitor h/h - soft diet x2 weeks, ETOH cessation. continue bid PPI. - appreciate surgical consultation. -patient can discharge home if hemoglobin stable tomorrow a.m., if hemoglobin dropping significantly then we will continue working towards transfer for IR embolization 2. Acute metabolic encephalopathy, improving. -likely multifactorial -UTI ruled out and antibiotic discontinued -has elevated ammonia, but abdominal ultrasound showed no evidence of cirrhosis, and lactulose discontinued -ativan did appear to cause her to be more altered 3. EtOH abuse -placed on CIWA protocol -no evidence for withdrawal -ordered for oral multivitamin, folic acid and thiamine -per daughter patient has cut back substantially on ETOH use in past 6 months but still drinking small amount of wine 4. Mild ANDI, resolved -baseline creatinine appears to be 0.9-1.1 -increased creatinine to 1.38 on admission, likely from GI bleed. 5. Hyperlipidemia, chronic - continue home dose of rosuvastatin 20 mg po daily Patient's daughter post was updated on her condition and possible discharge tomorrow if hemoglobin stable Quality VTE Deep Vein Thrombosis/Pulmonary Embolism Present on Admission: No
[2020-09-08 02:00] VITALS: BP 110/45; PULSE 67; RESP 16; TEMP 36.8; O2SAT 96
--- NOTE | 2020-09-08 02:12 | PC.NURSE ---
Patient is alert and oriented although drowsy tonight. Breath sounds CTA with RA sat of 96%. HRR with telemetry reading of SR. Denies nausea. BT present and abdomen is soft; last stool was yesterday a.m. Denies dysuria, frequency or urgency with urination. Able to turn self in bed. Up to bathroom with walker and SBA due to lower extremity weakness. Declines use of SCD's so reminded to ankle wave. Denies pain. Fall risk score is high and bed alarm is activated. CIWA score is 0.
[2020-09-08] MEDS: ACETAMINOPHEN 325 MG TABLET 650 MG PO (05:11)
[2020-09-08] MEDS: POLYVINYL ALCOHOL DROPS 1 DROPS EYE-BOTH (05:12)
[2020-09-08 05:26] VITALS: BP 111/62; PULSE 63; RESP 16; TEMP 36.6; O2SAT 94
[2020-09-08 06:14] LABS: Add Manual Diff / Slide Review NO; Basophils Absolute Auto 0 /uL (0-100); Basophils Percent Auto 0.7 % (0-2); Eosinophils Absolute Auto 200 /uL (0-450); Eosinophils Percent Auto 3.6 % (2-4); Hemoglobin 8.6 g/dL (12.0-16.0); Lymphocytes Absolute Auto 1400 /uL (1100-4500); Lymphocytes Percent Auto 26.9 % (25-40); Mean Corpuscular Hemoglobin 29.8 PG (26-34); Mean Corpuscular Volume 93.2 fL (80-100); Monocytes Absolute Auto 400 /uL (0-900); Monocytes Percent Auto 8.3 % (3-14); Neutrophils Absolute Auto 3200 /uL (1500-7000); Neutrophils Percent Auto 60.5 % (50-75); Platelet Count 142 X10^3/uL (150-400); Red Blood Cell Count 2.89 X10^6/uL (4.0-5.2); Red Cell Distribution Width 16.6 % (11.6-14.8); White Blood Cell Count 5.2 X10^3/uL (4.5-11.0)
[2020-09-08 08:46] VITALS: BP 99/68; PULSE 67; RESP 14; TEMP 37.1; O2SAT 98
[2020-09-08] MEDS: FERROUS SULFATE 325 MG TABLET PO (09:16)
[2020-09-08] MEDS: FOLIC ACID 1 MG TABLET PO (09:16)
[2020-09-08] MEDS: SODIUM CHLORIDE 0.9% FLUSH 10 ML IV (09:16)
[2020-09-08] MEDS: MULTIVITAMIN 1 TABLET 1 TAB PO (09:16)
[2020-09-08] MEDS: PANTOPRAZOLE DR 40 MG TABLET PO (09:16)
--- NOTE | 2020-09-08 10:06 | PC.NURSE ---
Addendum entered by Jesica Whalen R.N. 09/08/20 12:04: Patient given discharge instructions regarding medication, alcohol cessation, s/s of worsening condition, f/u appointment with PCP and diet. Patient verbalized understanding. Gave son similar discharge overview upon his arrival. Midline D/C'd , patient tolerated. Patient dressed. Discharged via wheelchair with aide assist. Original Note: Patient A/O x 3. Denies pain. VSS. Patient ambulating with FWW and SBA. Lungs CTA. Patient tolerating soft diet. No BM this morning. Refusing SCD's d/t activity. Patient denies needs at this time. Call light and belongings in reach. Chair alarm on.
--- NOTE | 2020-09-08 10:10 | PT-IP ANOTE ---
Pt refused treatment stating she was discharging home this morning. Informed RN.
--- NOTE | 2020-09-08 13:23 | CM.DPNOTE ---
Addendum entered by LIBIA Hagen 09/08/20 13:44: IMM reviewed and provided. Original Note: DC Note Patient discharged, met w/patient at bedside, also returned call to Post, patient's DIL, w/patient's permission Patient going home today, transport via son Sigifredo, who has the day off. Patient cleared by therapies for home, HH recommended. According to conversation w/FARHANA Alvarez: Family is the most worried about patient living alone, feeling isolated, not getting enough proper nutrition, and potentially drinking again. Suggested Meals on Wheels or one of the fresher food delivery programs ie [employer] and gave DIL [employer]. contact to establish [employer] Whe[employer] P# [phone], Leeanna or [phone] [place] Suggested HH RN/PT/OT/IV THERAPY NURSE, therapies for continued strengthening, and IV THERAPY NURSE to assist in ongoing sobriety support and to discuss available treatment/recovery resources, counselors etc. Patient would like to remain sober Both patient and family agreeable to above. Faxed referral to [facility] per calendar rotation - faxed completed F2F, DIVINA order and H+P, DC Summary not yet available. Plan: DC home via family transport, [facility]; ETOH cessation and close outpatient f/u recommended by Dr Ordaz. JW
--- NOTE | 2020-09-08 20:31 | P.DS_ITS ---
History of Present Illness History of Present Illness Chief complaint: Disoriented, not right Narrative: Patient is 75-year-old female with alcohol dependency admitted with acute confusion and upper GI bleed. Discharge Providers Provider Date of admission: 09/02/20 19:34 Discharge Date: 09/08/20 Primary care physician: Oleg Brunson MD Consults: 09/04/20 10:05 Consult to Physical Therapy Evaluate & Treat Comment: Physician Instructions: Evaluate and Treat 09/08/20 11:55 Consult to Home Health Routine Comment: Reason For Exam: Home health upon DC Discharge provider: Estuardo Ordaz MD Summary Hospital Course Discharge Diagnosis: 1. 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 Acute metabolic encephalopathy 3. ETOH dependency/abuse 4. Mild acute ANDI 1. Symptomatic acute blood loss anemia, acute, secondary to bleeding vascular ectasia. - EGD with vascular ectasia with active bleeding. Injected with epinephrine lesion in distal esophagus and fundus of stomach with cessation of bleeding. -hemoglobin 5 on admit, up to 8.3 with transfusion, then trended down to 7.0, g ot additional transfusion and now stable x 3 days, hemoglobin up to 8.6 on discharge - soft diet x2 weeks, ETOH cessation. continue bid PPI. -surgery recommending IR embolization if patient has recurrent bleed 2. Acute metabolic encephalopathy, resolved -likely multifactorial -UTI ruled out and antibiotic discontinued -has elevated ammonia, but abdominal ultrasound showed no evidence of cirrhosis, and lactulose discontinued -ativan did appear to cause her to be more altered 3. EtOH dependency/abuse -placed on CIWA protocol -no evidence for withdrawal -provided oral multivitamin, folic acid and thiamine -per daughter patient has cut back substantially on ETOH use in past 6 months but still drinking small amount of wine -advised complete ETOH cessation 4. Mild ANDI, resolved -baseline creatinine appears to be 0.9-1.1 -increased creatinine to 1.38 on admission, likely from GI bleed. 5. Hyperlipidemia, chronic - continue home dose of rosuvastatin 20 mg po daily Status at Discharge Cognitive/behavioral status at discharge: oriented Functional status at discharge: independent ambulation Overall status at discharge: patient is back to baseline Time Spent with Patient Time spent: Greater than 30 minutes Exam Vital Signs (past 8 hours): Oxygen Delivery Method Room Air Oxygen Flow Rate 0 Objective Labs Result Diagrams: 09/08/20 05:52 09/07/20 05:50 Labs: Laboratory Results - last 24 hr 09/08/20 05:52 WBC 5.2 RBC 2.89 L Hgb 8.6 L Hct 27.0 L MCV 93.2 MCH 29.8 MCHC 32.0 RDW 16.6 H Plt Count 142 L Neut % (Auto) 60.5 Lymph % (Auto) 26.9 [place] % (Auto) 8.3 Eos % (Auto) 3.6 Baso % (Auto) 0.7 Neut # (Auto) 3200 Lymph # (Auto) 1400 [place] # (Auto) 400 Eos # (Auto) 200 Baso # (Auto) 0 PFSH Medical History Alcohol dependence Chronic kidney disease (CKD) stage G3b/A1, moderately decreased glomerular filtration rate (GFR) between 30-44 mL/min/1.73 square meter and albuminuria creatinine ratio less than 30 mg/g Family History Father Heart disease Social History household members: none Smoking Status: Never smoker alcohol intake: current Discharge Plan Discharge Plan Patient Disposition: Home Provider Discharge Comment: Do not take any Motrin or other aspirin type pain relievers. Tylenol regular or extra strength is okay. Soft diet for 2 weeks. Take iron supplement (OTC) once a day for anemia. Discharge orders & Medications Prescriptions: New ferrous sulfate 325 mg (65 mg iron) Tablet 325 mg PO DAILY Qty: 30 RF: 0 acetaminophen 325 mg Tablet 650 mg PO Q4HR PRN (Reason: Fever/Mild Pain (1-3)) Qty: 1 RF: 0 pantoprazole 40 mg Tablet,Delayed Release (Dr/Ec) 40 mg PO BID Qty: 60 RF: 0 Continued rosuvastatin [Crestor] 20 MG tablet 20 mg PO QDAY Qty: 0 RF: 0 cyclobenzaprine 10 MG tablet 10 mg PO TID PRNQty: 30 RF: 0 Follow up/Referrals: Oleg Brunson MD [Primary Care Provider] - Diet/Activity/Treatments Diet: Diet as Tolerated and Regular Diet comment: soft diet for 2 weeks then regular diet Visit Report/Discharge Packet Instructions: DI for Gastritis, DI for Gastric Ulcer Discharge Data Primary Care Provider: Oleg Brunson VTE Deep Vein Thrombosis/Pulmonary Embolism Present on Admission: No
== END 2020-09-08 12:00 | disposition home or self-care (01) | DRG 377 ==
LOC: ED 16:30 → AC 19:35
PROVIDERS: Internal Medicine; Nurse Practitioner Family; Surgery; Admitting Provider Internal Medicine; Emergency Provider Emergency Medicine; PCP Internal Medicine; Referring Provider Emergency Medicine; Visit Provider Internal Medicine
PROC: 0DJ08ZZ Inspection of Upper Intestinal Tract, Via Natural or Artificial Opening Endoscopic (ICD-10-PCS; CPT 43235; principal; 2020-09-04 09:15)
PROC: 0DJD8ZZ Inspection of Lower Intestinal Tract, Via Natural or Artificial Opening Endoscopic (ICD-10-PCS; CPT 45378; 2020-09-04 09:15)
DX: K31.811 Angiodysplasia of stomach and duodenum with bleeding (principal); G93.41 Metabolic encephalopathy; N17.9 Acute kidney failure, unspecified; D62 Acute posthemorrhagic anemia; K22.8 Other specified diseases of esophagus; E80.6 Other disorders of bilirubin metabolism; N18.32 Chronic kidney disease, stage 3b; E78.5 Hyperlipidemia, unspecified; J38.5 Laryngeal spasm; F10.20 Alcohol dependence, uncomplicated; Y90.0 Blood alcohol level of less than 20 mg/100 ml; K44.9 Diaphragmatic hernia without obstruction or gangrene; K57.30 Diverticulosis of large intestine without perforation or abscess without bleeding; Z20.822 Contact with and (suspected) exposure to COVID-19
CPT/HCPCS: 36415; 36430; 70450; 71045; 76700; 80048; 80053; 80061; 80076; 80305; 80320; 80329; 81003; 81015; 82140; 82272; 82550; 82962; 83605; 83735; 84146; 84443; 84484; 85014; 85018; 85025; 85027; 85610; 85730; 86850; 86900; 86901; 87040; 87086; 87635; 93005; 93010; 94762; 96360; 96361; 97112; 97116; 97162; 97530; 99285; C9803; P9016; C9113; G0480; J0171; J0696; J1642; J1940; J2060; J2405; J2704

== ENCOUNTER 2021-04-07 02:52 | Observation (INO) | payer MEDICARE, OTHER, SELFPAY ==
[2020-09-02 21:04] VITALS: BMI 31.1
[2021-04-07] VITALS (35 sets, daily range): BP systolic 113–152; BP diastolic 56–73; PULSE 69–88; RESP 13–136; TEMP 36.6–37.6; O2SAT 95–100; BMI 31.8
--- NOTE | 2021-04-07 02:58 | DI.CT.S_ITS ---
PROCEDURE: CT HEAD/BRAIN WO CON INDICATIONS: dizzy TECHNIQUE: Noncontrast 4.5 mm thick angled axial sections acquired from the foramen magnum to the vertex, with coronal and sagittal reformats. For radiation dose reduction, the following was used: automated exposure control, adjustment of mA and/or kV according to patient size. COMPARISON: [facility], CT, CT HEAD/BRAIN WO CON, 09/02/2020, 18:08. FINDINGS: Image quality: Excellent. CSF spaces: Basal cisterns are patent. No extra-axial fluid collections. Ventricles are normal in size and shape. Brain: No midline shift. No intracranial masses or hemorrhage. Mello-white matter interface is normal. Skull and face: Calvarium and visualized facial bones are intact, without suspicious lesions. Right intra-ocular lens replacement noted Sinuses: Visualized sinuses and mastoids are clear. IMPRESSION: Unremarkable CT brain Note: Final report is concordant with preliminary interpretation by [facility] Approved by: Dontae Lord M.D. on 04/07/2021 at 6:40
--- NOTE | 2021-04-07 02:59 | DI.RAD.S_ITS ---
PROCEDURE: XR CHEST 1V INDICATIONS: weakness TECHNIQUE: One view of the chest was acquired. COMPARISON: [facility], CR, XR CHEST 1V, 09/02/2020, 17:07. FINDINGS: Surgical changes and devices: None. Lungs and pleura: Minimal right lower lobe atelectasis and infiltrate. Remainder of the lungs and pleural spaces clear. Mediastinum: Mediastinal contours appear normal. Heart size is enlarged. Bones and chest wall: No suspicious bony lesions. Overlying soft tissues appear unremarkable. IMPRESSION: Right lower lobe atelectasis and or infiltrate Note: Final report is concordant with preliminary interpretation by [facility] Approved by: Dontae Lord M.D. on 04/07/2021 at 6:36
--- NOTE | 2021-04-07 03:06 | ED.DIZZY ---
HPI - Dizziness General Chief Complaint: Dizziness Stated Complaint: dizzy Time Seen by Provider: 04/07/21 02:58 Source: patient Mode of arrival: EMS History of Present Illness HPI Narrative: 75-year-old female with history of GI bleed, hyperlipidemia, acid reflux dizziness and not feeling well. She states that she woke up in just has not felt quite right all day. She is more dizzy and lightheaded when she stands. However she has been able to use her walker and get around today. May have gotten a little bit worse. She denies chest pain or palpitations. No numbness tingling or weakness. She just does not feel quite right. She has no shortness of breath. Records report that she was admitted September 02 through September 07 for a GI bleed. At that time she had a normal colonoscopy but EGD D showed telangiectasia in esophagus and stomach. Related Data Home Medications Medication Instructions Recorded Confirmed rosuvastatin 20 mg tablet (Crestor) 20 mg PO QDAY #0 03/23/17 10/13/20 Previous Rx's Medication Instructions Recorded cyclobenzaprine 10 mg tablet 10 mg PO TID PRN #30 tab 06/22/17 acetaminophen 325 mg tablet 650 mg PO Q4HR PRN #1 tab 09/08/20 ferrous sulfate 325 mg (65 mg 325 mg PO DAILY #30 tab 09/08/20 iron) tablet pantoprazole 40 mg tablet,delayed 40 mg PO BID #60 tab 09/08/20 release Allergies Allergy/AdvReac Type Severity Reaction Status Date / Time No Known Drug Allergies Allergy Verified 10/13/20 10:57 Review of Systems Review of Systems ROS Unobtainable: Unobtainable due to mental status/LOC Constitutional Constitutional: Denies anorexia, Denies body ache(s), Denies fatigue, Denies fever(s) and Denies headache(s) Eyes Eyes: Denies blurry vision and Denies diplopia ENT Ears, Nose, Mouth, and Throat: Reports dizziness, Denies headache(s) and Reports epistaxis (Very minor 1 this morning) Cardiovascular Cardiovascular: Denies chest pain, Denies chest pain at rest and Denies irregular heart rhythm Respiratory Respiratory: Denies chest congestion Gastrointestinal Gastrointestinal: Denies abdominal pain, Denies nausea and Denies vomiting Genitourinary Genitourinary: Denies urinary incontinence and Denies urinary hesitancy Musculoskeletal Musculoskeletal: Denies back pain, Denies muscle weakness and Denies numbness Integumentary/Breasts Skin/Breast: Denies rash and Denies skin pain Neurologic Neurologic: Reports as per HPI, Denies confusion, Reports dizziness, Denies headache(s), Denies localized weakness and Denies numbness Psychiatric Psychiatric: Denies confusion Endocrine Endocrine: Denies fatigue Patient History Medical History Alcohol dependence Chronic kidney disease (CKD) stage G3b/A1, moderately decreased glomerular filtration rate (GFR) between 30-44 mL/min/1.73 square meter and albuminuria creatinine ratio less than 30 mg/g Surgical History (Updated 04/07/21 @ 04:47 by LUISANA CarlsonVALERIE) History of colonoscopy History of esophagogastroduodenoscopy (EGD) Family History (Updated 04/07/21 @ 04:48 by LUISANA CarlsonVALERIE) Father Heart disease Mother Heart disease Social History household members: none Smoking Status: Never smoker alcohol intake: current Smoking Status: Never smoker alcohol intake frequency: 3 or more drinks per day Alcohol type: wine Substance Use Type: does not use Exam Initial Vital Signs Initial Vital Signs: Vital Signs Temperature 97.8 F 04/07/21 02:50 Pulse Rate 76 04/07/21 02:50 Respiratory Rate 21 04/07/21 02:50 Blood Pressure 140/68 04/07/21 02:50 Pulse Oximetry 99 04/07/21 02:50 GENERAL: Alert well-appearing 75-year-old female in [no acute] distress. HEENT: Head atraumatic,EOMI, minimal nystagmus pupils reactive, face symmetric, [moist] mucous membranes CARDIOVASCULAR: Regular rate and rhythm without murmurs, rubs or gallops. RESPIRATORY: Breath sounds equal bilaterally, no wheezes rales or rhonchi. ABDOMEN: Soft, nontender. Normoactive bowel sounds all 4 quadrants. No guarding or rebound. EXTREMITIES: Normal range of motion, no clubbing or edema. Neurovascularly intact NEUROLOGICAL: Alert and oriented x4.Normal gait and speech. Cranial nerves II through XII grossly intact. [Good [id number], good [id number], strength equal bilaterally, no dysarthria or aphasia, sensation in tact to soft touch bilaterally, no visual changes, no facial droop] SKIN: Warm, dry, no laceration, no petechiae, no rashes or lesions. Scores NIH Stroke Scale Level of Conciousness: Alert, keenly responsive Ask month/age: Answers both questions correctly. Open/close eyes, close hand: Performs both tasks correctly Best gaze horizontal: Normal Visual mcintosh: No visual loss Facial palsy: Normal symetrical movement Left arm drift: No drift for full 10 sec Right arm drift: No drift for full 10 sec Left leg drift: No drift for full 5 sec Right leg drift: No drift for full 5 sec Limb ataxia: Absent Sensory on face/arms/legs: Normal, no sensory loss Best language: No aphasia, normal Dysarthria: Normal Extinction or inattention: No abnormality Total NIH Stroke scale score: 0 Course Orders Ordered: ED Orders 04/07/21 02:58 CT head/brain wo con Stat 04/07/21 02:59 XR chest 1V Stat EKG-12 Lead Stat 04/07/21 03:04 Complete Blood Count AUTO DIFF Stat Comprehensive Metabolic Panel Stat Lipase Stat Troponin & CK Cardiac Panel Stat 04/07/21 03:24 PRBC [Packed Cells] Stat Type and Screen Stat 04/07/21 03:28 Lactate (Lactic Acid) Stat Naloxone HCl (Naloxone 0.4 Mg/Ml Vial) 0.2 mg IV Q2MIN PRN PRN Reason: Opiate Reversal Ondansetron HCl (Ondansetron 4 Mg/2 Ml Inj) 4 mg IV Q6HR PRN PRN Reason: Nausea And Vomiting Pantoprazole Sodium (Pantoprazole 40 Mg Vial) 40 mg IV BID KENISHA Discontinued Medications Pantoprazole Sodium (Pantoprazole 40 Mg Vial) 40 mg IV NOW ONE Stop: 04/07/21 03:29 Last Admin: 04/07/21 03:46 Dose: 40 mg Documented by: MYLES Vital Signs Vital signs: Vital Signs - 8 hr 04/07/21 02:50 04/07/21 03:21 04/07/21 03:22 Temperature 97.8 F Pulse Rate 76 75 75 Respiratory Rate 21 15 23 Blood Pressure 140/68 125/58 L Pulse Oximetry 99 100 100 04/07/21 03:30 04/07/21 04:00 04/07/21 04:01 Temperature Pulse Rate 76 74 78 Respiratory Rate 22 21 24 Blood Pressure 147/66 H Pulse Oximetry 100 99 99 MDM - Dizziness Lab Data Result diagrams: 04/07/21 03:04 04/07/21 03:04 Labs: Lab Results 04/07/21 04/07/21 04/07/21 Range/Units 03:04 03:04 03:04 WBC 5.1 (4.5-11.0) X10^3/uL RBC 2.38 L (4.0-5.2) X10^6/uL Hgb 6.8 L* (12.0-16.0) g/dL Hct 21.8 L (36-46) % MCV 91.7 (80-100) fL MCH 28.5 (26-34) PG MCHC 31.1 (30-36) % RDW 16.8 H (11.6-14.8) % Plt Count 159 (150-400) X10^3/uL Neut % (Auto) 51.0 (50-75) % Lymph % (Auto) 36.0 (25-40) % [place] % (Auto) 10.3 (3-14) % Eos % (Auto) 2.2 (2-4) % Baso % (Auto) 0.5 (0-2) % Neut # (Auto) 2600 (1527-2506) /uL Lymph # (Auto) 1800 (7667-9216) /uL [place] # (Auto) 500 (0-900) /uL Eos # (Auto) 100 (0-450) /uL Baso # (Auto) 0 (0-100) /uL RBC Morphology See below Hypochromasia 2+ H Anisocytosis 2+ H Sodium 141 (137-145) mmol/L Potassium 3.9 (3.4-5.1) mmol/L Chloride 114 H (98-107) mmol/L Carbon Dioxide 24 (22-32) mmol/L BUN 18 H (7-17) mg/dL Creatinine 1.10 H (0.52-1.04) mg/dL Estimated GFR 48.3 L (>60) mL/min BUN/Creatinine Ratio 16.4 (6-22) Glucose 110 (80-110) mg/dL Lactate (0.7-2.1) mmol/L Calcium 9.5 (8.4-10.2) mg/dL Magnesium 2.3 (1.6-2.3) mg/dL Total Bilirubin 1.0 (0.2-1.3) mg/dL AST 38 H (14-36) IU/L ALT 28 (<35) IU/L Alkaline Phosphatase 138 H (38-126) U/L Total Creatine Kinase 40 (30-135) U/L CK-MB (CK-2) TNP CK-MB (CK-2) Rel Index TNP Troponin I 0.012 (0.01-0.034) ng/mL Total Protein 6.9 (6.3-8.2) g/dL Albumin 3.5 (3.5-5.0) g/dL Globulin 3.4 (1.7-4.1) g/dL Albumin/Globulin Ratio 1.0 (1.0-2.8) Lipase 433 H (23-300) U/L Ethyl Alcohol < 10 ( - 10) mg/dL Blood Type Antibody Screen Crossmatch 04/07/21 04/07/21 Range/Units 03:28 03:37 WBC (4.5-11.0) X10^3/uL RBC (4.0-5.2) X10^6/uL Hgb (12.0-16.0) g/dL Hct (36-46) % MCV (80-100) fL MCH (26-34) PG MCHC (30-36) % RDW (11.6-14.8) % Plt Count (150-400) X10^3/uL Neut % (Auto) (50-75) % Lymph % (Auto) (25-40) % [place] % (Auto) (3-14) % Eos % (Auto) (2-4) % Baso % (Auto) (0-2) % Neut # (Auto) (4616-3312) /uL Lymph # (Auto) (0549-2246) /uL [place] # (Auto) (0-900) /uL Eos # (Auto) (0-450) /uL Baso # (Auto) (0-100) /uL RBC Morphology Hypochromasia Anisocytosis Sodium (137-145) mmol/L Potassium (3.4-5.1) mmol/L Chloride (98-107) mmol/L Carbon Dioxide (22-32) mmol/L BUN (7-17) mg/dL Creatinine (0.52-1.04) mg/dL Estimated GFR (>60) mL/min BUN/Creatinine Ratio (6-22) Glucose (80-110) mg/dL Lactate 1.4 (0.7-2.1) mmol/L Calcium (8.4-10.2) mg/dL Magnesium (1.6-2.3) mg/dL Total Bilirubin (0.2-1.3) mg/dL AST (14-36) IU/L ALT (<35) IU/L Alkaline Phosphatase (38-126) U/L Total Creatine Kinase (30-135) U/L CK-MB (CK-2) CK-MB (CK-2) Rel Index Troponin I (0.01-0.034) ng/mL Total Protein (6.3-8.2) g/dL Albumin (3.5-5.0) g/dL Globulin (1.7-4.1) g/dL Albumin/Globulin Ratio (1.0-2.8) Lipase (23-300) U/L Ethyl Alcohol ( - 10) mg/dL Blood Type A Positive Antibody Screen Negative Crossmatch See Detail Imaging Data CT scan - head: Radiologist's Impression: No acute intracranial abnormality Chest x-ray: Radiologist's Impression: Right lower lobe consolidation most suggestive of pneumonia ECG Data Interpretation: Normal sinus rhythm rate 71 AL 2 QRS 30 QTC 478 left bundle branch block noted similar to previous EKG MDM Narrative Medical decision making narrative: Patient is found to be anemic with hemoglobin 6.8 we this would explain her symptoms of some weakness and dizziness. After a questioning her she says that she does have some black stools. She is given a dose of Protonix and 2 units of blood. She is hemodynamically stable. Previous EGD showed prior telangiectasia this is is likely the source. She has no stroke signs, head CT and NIH are 0. Dr. Pitts updated patient's symptoms and test results agrees with admitting to hospitalist Jag accepts patient. Discharge Plan Departure Patient Disposition: Admitted as Observation Clinical Impression: Acute GI bleeding, Anemia Admit Date/Time: 04/07/21 04:01 Admit Provider: Pura Rm
[2021-04-07 03:14] LABS: Alanine Aminotransferase 28 IU/L (<35); Albumin 3.5 g/dL (3.5-5.0); Alkaline Phosphatase 138 U/L (38-126); Aspartate Aminotransferase 38 IU/L (14-36); BUN Creatinine Ratio 16.4 (6-22); Blood Urea Nitrogen 18 mg/dL (7-17); Calcium 9.5 mg/dL (8.4-10.2); Carbon Dioxide 24 mmol/L (22-32); Chloride 114 mmol/L (98-107); Creatine Kinase 40 U/L (30-135); Estimated Glomerular Filt Rate 48.3 mL/min (>60); Globulin 3.4 g/dL (1.7-4.1); Glucose 110 mg/dL (80-110); HEMOLYSIS < 15 (0-50); Lipase 433 U/L (23-300); Potassium 3.9 mmol/L (3.4-5.1); Sodium 141 mmol/L (137-145); Total Protein 6.9 g/dL (6.3-8.2)
[2021-04-07 03:18] LABS: Basophils Absolute Auto 0 /uL (0-100); Basophils Percent Auto 0.5 % (0-2); Eosinophils Absolute Auto 100 /uL (0-450); Eosinophils Percent Auto 2.2 % (2-4); Hematocrit 21.8 % (36-46); Lymphocytes Absolute Auto 1800 /uL (1100-4500); Mean Corpuscular HGB Conc 31.1 % (30-36); Mean Corpuscular Hemoglobin 28.5 PG (26-34); Mean Corpuscular Volume 91.7 fL (80-100); Monocytes Absolute Auto 500 /uL (0-900); Monocytes Percent Auto 10.3 % (3-14); Neutrophils Absolute Auto 2600 /uL (1500-7000); Platelet Count 159 X10^3/uL (150-400); Red Blood Cell Count 2.38 X10^6/uL (4.0-5.2); Red Cell Distribution Width 16.8 % (11.6-14.8); White Blood Cell Count 5.1 X10^3/uL (4.5-11.0)
[2021-04-07 03:21] LABS: Add Manual Diff / Slide Review SLIDE REVIEW; Hemoglobin 6.8 g/dL (12.0-16.0)
[2021-04-07 03:25] LABS: Troponin I 0.012 ng/mL (0.01-0.034)
[2021-04-07 03:36] LABS: Lactate (Lactic Acid) 1.4 mmol/L (0.7-2.1)
[2021-04-07] MEDS: PANTOPRAZOLE 40 MG VIAL IV ×3 (03:46→20:38)
[2021-04-07 04:22] LABS: Anisocytosis 2+; Hypochromasia 2+
--- NOTE | 2021-04-07 04:23 | P.HP_ITS ---
History of Present Illness History of Present Illness Date Patient Seen: 04/07/21 Time Patient Seen: 04:23 Chief complaint: dizzy Narrative: Sowmya Kidd is a 75-year-old female with history of GI bleed/encephalopathy, hyperlipidemia, CKD, alcohol abuse, symptomatic anemia, hyperammonemia, acid reflux, who presented to the ED complaining of dizziness, lightheadedness and not feeling well.?Patient verbalizes that she has been having dark colored stools, for the last couple of days. Patient also endorses continued alcholol daily intake. Patient admitted 09/02-09/07/20 for GI bleed. 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 Patient complains that dizziness worsen ing with standing.?Patient denies chest pain, palpitations, SOB, cough, abdominal pain, nausea, vomiting, hematuria, hematemesis, numbness, tingling, weakness, [place], changes in vision, recent injury, illness, or trauma.? Upon admit vitals are stable temp 97.8?, BP 140/68, HR 76, R 21, O2 saturation 99% on room air. Patient demonstrates blood loss anemia HGB 6.8, HCT 21.8, platelets normal. Patient has no ANDI- Chloride 114, BUN 18, creatinine 1.10, GFR 48.3. AST 38, alk-phos 138, lipase 433. Patient's head CT demonstrated no acute intracranial processes. Chest x-ray demonstrated right lower lobe consolidation most suggestive of pneumonia. EKG demonstrated a normal sinus rhythm, rate 71, with left BBB. Patient admitted for GI bleed, symptomatic blood-loss anemia. ? Patient History Medical History Alcohol dependence Chronic kidney disease (CKD) stage G3b/A1, moderately decreased glomerular filtration rate (GFR) between 30-44 mL/min/1.73 square meter and albuminuria creatinine ratio less than 30 mg/g Surgical History (Updated 04/07/21 @ 04:47 by BERLIN Carlson) History of colonoscopy History of esophagogastroduodenoscopy (EGD) Family & Social History Family History (Updated 04/07/21 @ 04:48 by Pura Rm, [employer]) Father Heart disease Mother Heart disease Social History: household members none Safety & Behavioral: Feels Safe in Current Yes Environment Tobacco & Substance use: Smoking Status Never smoker alcohol intake current alcohol intake frequency 3 or more drinks per day Substance Use Type does not use Meds Home Medications and Allergies Home Medications Medication Instructions Recorded Confirmed Type rosuvastatin 20 mg tablet (Crestor) 20 mg PO QDAY #0 03/23/17 10/13/20 History cyclobenzaprine 10 mg tablet 10 mg PO TID PRN #30 tab 06/22/17 10/13/20 Rx acetaminophen 325 mg tablet 650 mg PO Q4HR PRN #1 tab 09/08/20 10/13/20 Rx ferrous sulfate 325 mg (65 mg 325 mg PO DAILY #30 tab 09/08/20 10/13/20 Rx iron) tablet pantoprazole 40 mg tablet,delayed 40 mg PO BID #60 tab 09/08/20 10/13/20 Rx release Allergies Allergy/AdvReac Type Severity Reaction Status Date / Time No Known Drug Allergies Allergy Verified 10/13/20 10:57 Review of Systems Review of Systems Narrative: All 12 point systems reviewed with the patient and are negative except otherwise documented. Exam Vital Signs (past 8 hours): - 04/07/21 02:50 04/07/21 03:21 04/07/21 03:22 Temperature 97.8 F Pulse Rate 76 75 75 Respiratory Rate 21 15 23 Blood Pressure 140/68 125/58 L Pulse Oximetry 99 100 100 04/07/21 03:30 04/07/21 04:00 04/07/21 04:01 Temperature Pulse Rate 76 74 78 Respiratory Rate 22 21 24 Blood Pressure 147/66 H Pulse Oximetry 100 99 99 Oxygen Delivery Method Room Air Narrative Exam Narrative: General: Patient is a well-developed, well-nourished elderly female, who appears stated age, in no distress at this time. HEENT: Normocephalic, atraumatic, extraocular muscles intact, oral pharynx is clear and mucous membranes are moist. Neck is supple and symmetric, trachea is midline, no adenopathy, no thyroid enlargement, nontender, no masses palpated. Negative for JVD Chest: Normal AP diameter and contour without kyphoscoliosis, no nasal flaring, retractions, or tachypneic labored breathing. Lungs: Auscultation of all lung mcintosh are clear without adventitious sounds, wheezes, rhonchi, or rales. Cardio: S1 & S2 with regular rate and rhythm without murmur, rubs, or gallops, no carotid bruit, no cardiac pulsations present. Abdomen: Soft nontender, negative for organomegaly, or masses. Bowel sounds are present in all 4 quadrants without guarding or rebound, no CVA tenderness. Musculoskeletal: Muscle strength and tone are equal within normal limits, no deformity, crepitus, effusions, cyanosis, clubbing or edema present. Full range of motion intact radial and pedal pulses are normal. Skin: Warm dry and intact without rashes, ulcerations or petechiae. Neuro: Alert and orientated x3, strength is +5/5 in all extremities, sensation to touch intact, no gross deficits noted of cranial nerves. Psych: Patient has a well-kept appearance, appropriate affect, mental status attitude thought context and judgment are appropriate for age. Objective Labs Result Diagrams: 04/07/21 03:04 04/07/21 03:04 Labs: Laboratory Results - last 24 hr 04/07/21 04/07/21 04/07/21 03:04 03:04 03:28 WBC 5.1 RBC 2.38 L Hgb 6.8 L* Hct 21.8 L MCV 91.7 MCH 28.5 MCHC 31.1 RDW 16.8 H Plt Count 159 Neut % (Auto) 51.0 Lymph % (Auto) 36.0 [place] % (Auto) 10.3 Eos % (Auto) 2.2 Baso % (Auto) 0.5 Neut # (Auto) 2600 Lymph # (Auto) 1800 [place] # (Auto) 500 Eos # (Auto) 100 Baso # (Auto) 0 RBC Morphology See below Hypochromasia 2+ H Anisocytosis 2+ H Sodium 141 Potassium 3.9 Chloride 114 H Carbon Dioxide 24 BUN 18 H Creatinine 1.10 H Estimated GFR 48.3 L BUN/Creatinine Ratio 16.4 Glucose 110 Lactate 1.4 Calcium 9.5 Total Bilirubin 1.0 AST 38 H ALT 28 Alkaline Phosphatase 138 H Total Creatine Kinase 40 CK-MB (CK-2) TNP CK-MB (CK-2) Rel Index TNP Troponin I 0.012 Total Protein 6.9 Albumin 3.5 Globulin 3.4 Albumin/Globulin Ratio 1.0 Lipase 433 H Crossmatch 04/07/21 03:37 WBC RBC Hgb Hct MCV MCH MCHC RDW Plt Count Neut % (Auto) Lymph % (Auto) [place] % (Auto) Eos % (Auto) Baso % (Auto) Neut # (Auto) Lymph # (Auto) [place] # (Auto) Eos # (Auto) Baso # (Auto) RBC Morphology Hypochromasia Anisocytosis Sodium Potassium Chloride Carbon Dioxide BUN Creatinine Estimated GFR BUN/Creatinine Ratio Glucose Lactate Calcium Total Bilirubin AST ALT Alkaline Phosphatase Total Creatine Kinase CK-MB (CK-2) CK-MB (CK-2) Rel Index Troponin I Total Protein Albumin Globulin Albumin/Globulin Ratio Lipase Crossmatch See Detail Assessment & Plan Assessment & Plan narrative: Sowmya Kidd is a 75-year-old female with history of GI bleed/encephalopathy, hyperlipidemia, CKD, alcohol abuse, symptomatic anemia, hyperammonemia, acid reflux, who admitted for anemia secondary to GI bleed. 1. Symptomatic blood loss anemia secondary to GI bleed, suspect lower GI bleed, acute, present on admission -HGB 6.8/HCT 21.8 -patient have 2 units transfused-trend H&H -Dr. Pitts General surgery to consult-ordered -40 mg IV Protonix given in ED, continue 40 mg IV b.i.d. -NPO -admitted 09/02-09/07/20 for GI bleed. 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 2. Alcohol abuse/dependence, acute on chronic, present on admission -EtOH, ammonia ordered -placed on CIWA protocol -no evidence for withdrawal currently -ordered for oral multivitamin, folic acid and thiamine start tonight after no longer NPO -patient provided dietary consult on prior admission 4. CKD G3b/A1, chronic, present on admission -baseline creatinine appears to be 0.9-1.1 -continue to trend 5. Hyperlipidemia, chronic, present on admission - continue rosuvastatin 20 mg Code status:Full Surrogate decision maker: Sigifredo Waters, son COVID PCR:Negative COVID vaccination: Unknown DVT/VTE prophylaxis:medication held due to GI Bleed, SCD's Disposition: Patient admitted to the Medical Service, surgery to consult expected length of stay greater than 2 midnights. I have utilized all available immediate resources to obtain, update, or review the patient's current medications. I confirmed that the patient's advanced care plan is present, Code status is documented and/or surrogate decision maker is listed in the patient's medical record. Time Spent With Patient Critical Care time: I spent a total of [] minutes of critical care time on this patient's care today; this time is exclusive of procedural time.
[2021-04-07 04:36] LABS: Ethanol (ETOH) < 10 mg/dL; Magnesium 2.3 mg/dL (1.6-2.3)
[2021-04-07 05:07] LABS: Ammonia (NH3) 51 umol/L (9-30)
--- NOTE | 2021-04-07 09:59 | PM.CN ---
History of Present Illness Consult details Date Patient Seen: 04/07/21 Time Patient Seen: 09:30 Chief complaint: dizzy Narrative: 75 y.o woman hx of alcoholism admitted for GI bleed. Reports recent dark stools for several days. Feels dizzy, no syncope. No abdominal pain, or hematemesis. History of alcoholic gastritis. Colonoscopy normal and EGD-gastritis no varices 08/2020. At admission Hct 22 basline 27, plt 160, hemodynamically normal. Recieving 2 units PRBCs now. Meds Home Medications and Allergies Home Medications Medication Instructions Recorded Confirmed Type rosuvastatin 20 mg tablet (Crestor) 20 mg PO QDAY #0 03/23/17 04/07/21 History cyclobenzaprine 10 mg tablet 10 mg PO TID PRN #30 tab 06/22/17 04/07/21 Rx acetaminophen 325 mg tablet 650 mg PO Q4HR PRN #1 tab 09/08/20 04/07/21 Rx pantoprazole 40 mg tablet,delayed 40 mg PO BID #60 tab 09/08/20 04/07/21 Rx release Allergies Allergy/AdvReac Type Severity Reaction Status Date / Time No Known Drug Allergies Allergy Verified 10/13/20 10:57 Exam Vital Signs (past 8 hours): - 04/07/21 02:50 04/07/21 03:21 04/07/21 03:22 Temperature 97.8 F Pulse Rate 76 75 75 Respiratory Rate 21 15 23 Blood Pressure 140/68 125/58 L Pulse Oximetry 99 100 100 04/07/21 03:30 04/07/21 04:00 04/07/21 04:01 Temperature Pulse Rate 76 74 78 Respiratory Rate 22 21 24 Blood Pressure 147/66 H Pulse Oximetry 100 99 99 04/07/21 05:22 04/07/21 05:40 04/07/21 07:43 Temperature 98 F 98.1 F 98.4 F Pulse Rate 74 73 74 Respiratory Rate 136 H 13 18 Blood Pressure 121/57 L 130/58 L 136/61 Pulse Oximetry 04/07/21 07:57 04/07/21 08:13 Temperature 98.9 F 98.6 F Pulse Rate 73 72 Respiratory Rate 17 20 Blood Pressure 148/64 H 130/61 Pulse Oximetry Oxygen Delivery Method Room Air Narrative Exam Narrative: GENERAL: Obese woman in no apparent distress HEENT: No scleral icterus CV: Regular rate, no peripheral edema LUNGS: No increased work of breathing. Patient speaks in full sentences without oxygen support. ABDOMEN: Soft, non-tender, non-distended NEURO: Nonfocal, normal strength throughout, SKIN: Warm and dry Objective Labs Result Diagrams: 04/07/21 03:04 04/07/21 03:04 Labs: Laboratory Results - last 24 hr 04/07/21 04/07/21 04/07/21 03:04 03:04 03:04 WBC 5.1 RBC 2.38 L Hgb 6.8 L* Hct 21.8 L MCV 91.7 MCH 28.5 MCHC 31.1 RDW 16.8 H Plt Count 159 Neut % (Auto) 51.0 Lymph % (Auto) 36.0 [place] % (Auto) 10.3 Eos % (Auto) 2.2 Baso % (Auto) 0.5 Neut # (Auto) 2600 Lymph # (Auto) 1800 [place] # (Auto) 500 Eos # (Auto) 100 Baso # (Auto) 0 RBC Morphology See below Hypochromasia 2+ H Anisocytosis 2+ H Sodium 141 Potassium 3.9 Chloride 114 H Carbon Dioxide 24 BUN 18 H Creatinine 1.10 H Estimated GFR 48.3 L BUN/Creatinine Ratio 16.4 Glucose 110 Lactate Calcium 9.5 Magnesium 2.3 Total Bilirubin 1.0 AST 38 H ALT 28 Alkaline Phosphatase 138 H Ammonia Total Creatine Kinase 40 CK-MB (CK-2) TNP CK-MB (CK-2) Rel Index TNP Troponin I 0.012 Total Protein 6.9 Albumin 3.5 Globulin 3.4 Albumin/Globulin Ratio 1.0 Lipase 433 H Ethyl Alcohol < 10 Blood Type Antibody Screen Crossmatch 04/07/21 04/07/21 04/07/21 03:28 03:37 04:40 WBC RBC Hgb Hct MCV MCH MCHC RDW Plt Count Neut % (Auto) Lymph % (Auto) [place] % (Auto) Eos % (Auto) Baso % (Auto) Neut # (Auto) Lymph # (Auto) [place] # (Auto) Eos # (Auto) Baso # (Auto) RBC Morphology Hypochromasia Anisocytosis Sodium Potassium Chloride Carbon Dioxide BUN Creatinine Estimated GFR BUN/Creatinine Ratio Glucose Lactate 1.4 Calcium Magnesium Total Bilirubin AST ALT Alkaline Phosphatase Ammonia 51 H Total Creatine Kinase CK-MB (CK-2) CK-MB (CK-2) Rel Index Troponin I Total Protein Albumin Globulin Albumin/Globulin Ratio Lipase Ethyl Alcohol Blood Type A Positive Antibody Screen Negative Crossmatch See Detail [facility] [place] Medical History Alcohol dependence Chronic kidney disease (CKD) stage G3b/A1, moderately decreased glomerular filtration rate (GFR) between 30-44 mL/min/1.73 square meter and albuminuria creatinine ratio less than 30 mg/g Surgical History History of colonoscopy History of esophagogastroduodenoscopy (EGD) Family History Father Heart disease Mother Heart disease Social History household members: none Tobacco & Substance Use Smoking Status: Never smoker alcohol intake: current Assessment & Plan Assessment and plan (1) Acute GI bleeding: Status: Acute Assessment & Plan narrative: 75 y.o woman with likely alcoholic gastritis, hemodynamically stable. Colonoscopy and EGD performed within the past 6 months for similar admission. Colonoscopy normal, EGD-gastritis, no intervention was necessary. -Patient declines any endoscopy during this admission. -Transfuse as necessary -PPI -Alcohol cessation -If deteriorates will rediscuss EGD with patient Time Spent With Patient Critical Care time: I spent a total of [] minutes of critical care time on this patient's care today; this time is exclusive of procedural time.
[2021-04-07 10:14] LABS: COVID19 -Nasal RAPID Negative (Negative)
[2021-04-07 16:33] LABS: Add Manual Diff / Slide Review NO; Basophils Absolute Auto 0 /uL (0-100); Basophils Percent Auto 0.1 % (0-2); Eosinophils Absolute Auto 100 /uL (0-450); Eosinophils Percent Auto 2.1 % (2-4); Hematocrit 23.8 % (36-46); Hemoglobin 7.7 g/dL (12.0-16.0); Lymphocytes Absolute Auto 1200 /uL (1100-4500); Lymphocytes Percent Auto 28.2 % (25-40); Mean Corpuscular HGB Conc 32.5 % (30-36); Mean Corpuscular Hemoglobin 28.7 PG (26-34); Mean Corpuscular Volume 88.1 fL (80-100); Monocytes Absolute Auto 500 /uL (0-900); Monocytes Percent Auto 11.4 % (3-14); Neutrophils Absolute Auto 2600 /uL (1500-7000); Neutrophils Percent Auto 58.2 % (50-75); Platelet Count 137 X10^3/uL (150-400); Red Cell Distribution Width 17.5 % (11.6-14.8); White Blood Cell Count 4.4 X10^3/uL (4.5-11.0)
--- NOTE | 2021-04-07 18:51 | PC.NURSE ---
Blood sugar at 1830 is 90.
[2021-04-08] VITALS (16 sets, daily range): BP systolic 110–155; BP diastolic 49–75; PULSE 58–78; RESP 16–22; TEMP 36.7–37.7; O2SAT 95–99; BMI 34.3
[2021-04-08 05:11] LABS: Add Manual Diff / Slide Review NO; Basophils Absolute Auto 0 /uL (0-100); Basophils Percent Auto 0.6 % (0-2); Eosinophils Absolute Auto 100 /uL (0-450); Eosinophils Percent Auto 2.5 % (2-4); Hematocrit 22.3 % (36-46); Hemoglobin 7.1 g/dL (12.0-16.0); Lymphocytes Absolute Auto 1300 /uL (1100-4500); Lymphocytes Percent Auto 31.2 % (25-40); Mean Corpuscular Hemoglobin 28.4 PG (26-34); Mean Corpuscular Volume 88.7 fL (80-100); Monocytes Absolute Auto 400 /uL (0-900); Monocytes Percent Auto 10.8 % (3-14); Neutrophils Absolute Auto 2200 /uL (1500-7000); Neutrophils Percent Auto 54.9 % (50-75); Platelet Count 146 X10^3/uL (150-400); Red Blood Cell Count 2.51 X10^6/uL (4.0-5.2); Red Cell Distribution Width 17.5 % (11.6-14.8); White Blood Cell Count 4.1 X10^3/uL (4.5-11.0)
[2021-04-08 05:15] LABS: Alanine Aminotransferase 23 IU/L (<35); Albumin 2.9 g/dL (3.5-5.0); Albumin Globulin Ratio 0.9 (1.0-2.8); Alkaline Phosphatase 113 U/L (38-126); Aspartate Aminotransferase 34 IU/L (14-36); BUN Creatinine Ratio 14.7 (6-22); Bilirubin Total 1.6 mg/dL (0.2-1.3); Blood Urea Nitrogen 15 mg/dL (7-17); Calcium 9.3 mg/dL (8.4-10.2); Carbon Dioxide 24 mmol/L (22-32); Chloride 116 mmol/L (98-107); Estimated Glomerular Filt Rate 52.7 mL/min (>60); Globulin 3.1 g/dL (1.7-4.1); Glucose 90 mg/dL (80-110); HEMOLYSIS < 15 (0-50); Potassium 3.9 mmol/L (3.4-5.1); Sodium 141 mmol/L (137-145)
--- NOTE | 2021-04-08 08:45 | CM.DANOTE ---
DCP: Case received, EMR reviewed and met with patient. Introduced self and role. Was able to obtain information regarding patient's baseline activity status at home, as well as her current living situation. DCP assessment completed with information currently available. Patient is a 75 year old female who admitted yesterday morning to the care of the hospitalist team. PCP: Dr. Brunson. Payer: confirmed: Medicare/[employer]. Patient came to the hospital via ambulance secondary to having dizziness and increased weakness. Patient was diagnosed with Anemia secondary to GI Bleed. She had been given 2 units of blood. She had surgery consult, does not want EGD. Patient has history of GI bleed, as well as alcohol abuse. Met with patient in her room. She is alert and oriented, she was sitting up in bed. Confirmed with patient that she resides here in [place] alone. She indicated that she still drives, and uses no DME at her baseline. She has a son named Michael, who lives locally. She indicated, he checks up on her as well. Asked her about her alcohol use, and she indicated, she has cut back. P: DCP to continue to follow. Patient should be able to go home when she is deemed medically stable. Darlene Diez RN/Dimensional Inspector Discharge Planning/Care Management CM Discharge Assessment Start: 04/08/21 08:42 Freq: Status: Active Protocol: Document 04/08/21 08:42 (Rec: 04/08/21 08:45 [id number]) Discharge Planning Assessment Assigned Master Black Belt Darlene Diez RN/Dimensional Inspector Advance Directives? Yes Advance Directives on File No History Provided By Patient,Medical Record Prior Living Arrangements House Household Members none Type of transporation used prior to Drives own vehicle admit Independent with ADL's Yes Is patient alert and oriented? Yes Caregiver for Another No Barriers to Discharge No Comment Patient has a son named Sigifredo, who is local and checks on her periodically Discharge Plan Home Referrals Initiated None needed Whiteboard Updated in Patient Room with Yes name and ext. # of Master Black Belt Review Status In Process Next Review Type Continued Stay Review
--- NOTE | 2021-04-08 09:34 | P.PN_ITS ---
Subjective Subjective Interval history: Sowmya Kidd is a 75-year-old female with history of GI bleed/encephalopathy, hyperlipidemia, CKD, alcohol abuse, symptomatic anemia, hyperammonemia,? acid reflux, who presented to the ED complaining of dizziness, lightheadedness and not feeling well.?Patient verbalizes that she has been having dark colored stools, for the last couple of days.? Patient also endorses continued alcholol daily intake.? Patient admitted 09/02-09/07/20 for GI bleed. 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 Patient complains that dizziness worsening with standing.?Patient denies chest pain, palpitations, SOB, cough, abdominal pain, nausea, vomiting, hematuria, hematemesis, numbness, tingling, weakness, ARANGO, changes in vision, recent injury, illness, or trauma.? Upon admit vitals are stable temp 97.8?, BP 140/68, HR 76, R 21, O2 saturation 99% on room air.? Patient demonstrates blood loss anemia HGB 6.8, HCT 21.8, platelets normal.? Patient has no ANDI- Chloride 114, BUN 18, creatinine 1.10, GFR 48.3.? AST 38, alk-phos 138, lipase 433.? Patient's head CT demonstrated no acute intracranial processes. Chest x-ray demonstrated right lower lobe consolidation most suggestive of pneumonia.? EKG demonstrated a normal sinus rhythm, rate 71, with left BBB.? Patient admitted for GI bleed, symptomatic blood-loss anemia patient was seen by Dr. Isaiah Pitts of General surgery. Dr. 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 Recommended continuing protein prompt inhibitors and advising the patient to discontinue her ETOH 04/08 patient is seen this morning was without any complaints. She states that she no longer has the dizziness that was an issue for her. She has no nausea vomiting abdominal Exam Vital Signs (past 8 hours): - 04/08/21 01:44 04/08/21 04:00 04/08/21 08:00 Temperature 99.5 F 98.6 F 98.7 F Pulse Rate 69 78 68 Respiratory Rate 16 20 Blood Pressure 110/49 L 114/53 L 142/72 H Pulse Oximetry 96 98 04/08/21 09:03 Temperature Pulse Rate Respiratory Rate Blood Pressure Pulse Oximetry 99 Oxygen Delivery Method Room Air Oxygen Flow Rate 0 Narrative Exam Narrative: General:? Patient is a well-developed, well-nourished elderly female, who appears stated age, in no distress at this time. HEENT:? N/C A/T EOMI PERRL ral pharynx is clear and mucous membranes are moist.? Neck: supple and symmetric, trachea is midline, no thyroidomegaly, bruits, JVD Chest:? Normal AP diameter and contour without kyphoscoliosis, no nasal flaring, retractions, or tachypneic labored breathing. Lungs:? Clear to auscultation with no wheezes, rhonchi, or rales. Cardio:? RR, S1S2 no murmur. Abdomen:? Soft nontender, negative for organomegaly, or masses.? Bowel sounds are present; no guarding or rebound, no CVA tenderness. Musculoskeletal:? Muscle strength and tone are equal within normal limits, no deformity, crepitus, effusions, cyanosis, clubbing or edema present.? Full range of motion intact radial and pedal pulses are normal. Skin:? Warm dry and intact without rashes, ulcerations or petechiae.? Neuro:? Alert and orientated x3, strength is +5/5 in all extremities, sensation to touch intact, no gross deficits noted of cranial nerves. Psych:? mood and affect normal. Awake, alert, oriented x3. Objective Labs Result Diagrams: 04/08/21 04:45 04/08/21 04:45 Labs: Laboratory Results - last 24 hr 04/07/21 04/07/21 04/07/21 03:28 03:37 09:46 WBC RBC Hgb Hct MCV MCH MCHC RDW Plt Count Neut % (Auto) Lymph % (Auto) [place] % (Auto) Eos % (Auto) Baso % (Auto) Neut # (Auto) Lymph # (Auto) [place] # (Auto) Eos # (Auto) Baso # (Auto) Sodium Potassium Chloride Carbon Dioxide BUN Creatinine Estimated GFR BUN/Creatinine Ratio Glucose Lactate 1.4 Calcium Total Bilirubin AST ALT Alkaline Phosphatase Total Protein Albumin Globulin Albumin/Globulin Ratio SARS-CoV-2 (PCR) Negative Blood Type A Positive Antibody Screen Negative Crossmatch See Detail 04/07/21 04/08/21 04/08/21 16:20 04:45 04:45 WBC 4.4 L 4.1 L RBC 2.70 L 2.51 L Hgb 7.7 L 7.1 L Hct 23.8 L 22.3 L MCV 88.1 D 88.7 MCH 28.7 28.4 MCHC 32.5 32.0 RDW 17.5 H 17.5 H Plt Count 137 L 146 L Neut % (Auto) 58.2 54.9 Lymph % (Auto) 28.2 31.2 [place] % (Auto) 11.4 10.8 Eos % (Auto) 2.1 2.5 Baso % (Auto) 0.1 0.6 Neut # (Auto) 2600 2200 Lymph # (Auto) 1200 1300 [place] # (Auto) 500 400 Eos # (Auto) 100 100 Baso # (Auto) 0 0 Sodium 141 Potassium 3.9 Chloride 116 H Carbon Dioxide 24 BUN 15 Creatinine 1.02 Estimated GFR 52.7 L BUN/Creatinine Ratio 14.7 Glucose 90 Lactate Calcium 9.3 Total Bilirubin 1.6 H AST 34 ALT 23 Alkaline Phosphatase 113 Total Protein 6.0 L Albumin 2.9 L Globulin 3.1 Albumin/Globulin Ratio 0.9 L SARS-CoV-2 (PCR) Blood Type Antibody Screen Crossmatch [facility] Medical History Alcohol dependence Chronic kidney disease (CKD) stage G3b/A1, moderately decreased glomerular filtration rate (GFR) between 30-44 mL/min/1.73 square meter and albuminuria creatinine ratio less than 30 mg/g Surgical History History of colonoscopy History of esophagogastroduodenoscopy (EGD) Family History Father Heart disease Mother Heart disease Social History household members: none Smoking Status: Never smoker alcohol intake: current Assessment & Plan Assessment & Plan narrative: Sowmya Kidd is a 75-year-old female with history of GI bleed/encephalopathy, hyperlipidemia, CKD, alcohol abuse, symptomatic anemia, hyperammonemia,? acid reflux, who admitted for anemia secondary to GI bleed. 1. Symptomatic blood loss anemia, acute, present on admission -HGB 6.8/HCT 21.8 on admission and after transfusion of 2 units PRBC yesterday hemoglobin/ hematocrit is 7.1/2 and 22.3 this morning - transfuse no other unit packed RBCs - transfuse iron sucrose (venofer) 200 mg now and in AM -Dr. Pitts has consulted on the patient feels problems related to EtOH gastritis and that EGD/ colo not indicated at this time -continue 40 mg IV b.i.d. - advanced diet to full liquid -admitted 09/02-09/07/20 for GI bleed. - continue to trend H&H 2. Alcohol abuse/dependence, acute on chronic, present on admission -EtOH <10, ammonia 51 -continue CIWA protocol -no evidence for withdrawal currently -start oral multivitamin, folic acid and thiamine - start lactulose p.o. daily -NH3 in AM 4. CKD G3b/A1, chronic, present on admission -baseline creatinine appears to be 0.9-1.1. creatinine 1.02 this a.m. -continue to trend as necessary 5. Hyperlipidemia, chronic, present on admission - continue rosuvastatin 20 mg Code status:Full Surrogate decision maker: Sigifredo Waters, son COVID PCR:Negative COVID vaccination: Unknown DVT/VTE prophylaxis:medication held due to GI Bleed, SCD's Disposition:? next 1-2 days Time Spent With Patient Critical Care time: I spent a total of [] minutes of critical care time on this patient's care today; this time is exclusive of procedural time. Quality VTE Deep Vein Thrombosis/Pulmonary Embolism Present on Admission: No
[2021-04-08] MEDS: PANTOPRAZOLE 40 MG VIAL IV ×2 (10:15→21:05)
[2021-04-08] MEDS: THIAMINE 100 MG TABLET PO (11:00)
[2021-04-08] MEDS: FOLIC ACID 1 MG TABLET PO (11:00)
[2021-04-08] MEDS: MULTIVITAMIN 1 TABLET 1 TAB PO (11:00)
[2021-04-08] MEDS: LACTULOSE 20 GM/30 ML SOLUTION PO (11:04)
[2021-04-08] MEDS: IRON SUCROSE 200 MG in SODIUM CHLORIDE 0.9% 100 ML 220 ML IV (11:15)
[2021-04-08 18:11] LABS: Add Manual Diff / Slide Review NO; Basophils Absolute Auto 0 /uL (0-100); Basophils Percent Auto 0.9 % (0-2); Eosinophils Absolute Auto 100 /uL (0-450); Eosinophils Percent Auto 1.3 % (2-4); Hematocrit 26.7 % (36-46); Hemoglobin 8.7 g/dL (12.0-16.0); Lymphocytes Absolute Auto 800 /uL (1100-4500); Lymphocytes Percent Auto 17.3 % (25-40); Mean Corpuscular HGB Conc 32.7 % (30-36); Mean Corpuscular Hemoglobin 28.9 PG (26-34); Mean Corpuscular Volume 88.4 fL (80-100); Monocytes Absolute Auto 300 /uL (0-900); Monocytes Percent Auto 5.8 % (3-14); Neutrophils Absolute Auto 3500 /uL (1500-7000); Neutrophils Percent Auto 74.7 % (50-75); Platelet Count 130 X10^3/uL (150-400); Red Blood Cell Count 3.01 X10^6/uL (4.0-5.2); White Blood Cell Count 4.7 X10^3/uL (4.5-11.0)
--- NOTE | 2021-04-08 19:55 | PC.NURSE ---
Pt AOx4, received 1 unit of PRBCs. Transfusion ended at 16:16 today. VS stable through transfusion. She had 2 loose stools today. Denies pain. Expressed concerns about taking lactulose due to her bowel movements. Lactulose was held.
[2021-04-08] MEDS: SODIUM CHLORIDE 0.9% FLUSH 10 ML IV (21:06)
[2021-04-09] VITALS (8 sets, daily range): BP systolic 106–112; BP diastolic 47–50; PULSE 63–72; RESP 16–18; TEMP 36.6–37.7; O2SAT 95–98
--- NOTE | 2021-04-09 00:53 | PC.NURSE ---
Patient is alert and oriented except identified month as April. Breath sounds CTA with RA sat of 98%. HRR with telemetry reading of SR. BP elevated at 139/61 and increases to 148/58 when sitting and 155/59 standing. Denied any dizziness until she went back to lying down. Denied nausea. BT present and abdomen is soft. Denied any dysuria, frequency or urgency with urination. Up to bathroom with walker and SBA but reports she still feels weak in her LE although improved. Is able to turn herself in bed. Refuses SCD's so reminded to ankle wave. Seizure pads in place on bed. CIWA score was 0. Seizure pads in place. Denied pain. Fall risk score is high and bed alarm is activated.
[2021-04-09] MEDS: ACETAMINOPHEN 325 MG TABLET 650 MG PO ×2 (01:58→07:59)
[2021-04-09] MEDS: ATORVASTATIN 20 MG TABLET 40 MG PO (01:58)
[2021-04-09 06:54] LABS: Add Manual Diff / Slide Review NO; Basophils Absolute Auto 0 /uL (0-100); Basophils Percent Auto 0.9 % (0-2); Eosinophils Absolute Auto 200 /uL (0-450); Eosinophils Percent Auto 3.6 % (2-4); Hematocrit 25.9 % (36-46); Hemoglobin 8.5 g/dL (12.0-16.0); Lymphocytes Absolute Auto 1200 /uL (1100-4500); Lymphocytes Percent Auto 25.7 % (25-40); Mean Corpuscular HGB Conc 32.7 % (30-36); Mean Corpuscular Hemoglobin 28.9 PG (26-34); Mean Corpuscular Volume 88.4 fL (80-100); Monocytes Absolute Auto 500 /uL (0-900); Monocytes Percent Auto 10.3 % (3-14); Neutrophils Absolute Auto 2700 /uL (1500-7000); Neutrophils Percent Auto 59.5 % (50-75); Platelet Count 136 X10^3/uL (150-400); Red Blood Cell Count 2.93 X10^6/uL (4.0-5.2); Red Cell Distribution Width 16.9 % (11.6-14.8); White Blood Cell Count 4.5 X10^3/uL (4.5-11.0)
[2021-04-09 06:56] LABS: Ammonia (NH3) 66 umol/L (9-30)
[2021-04-09 07:00] LABS: Alanine Aminotransferase 25 IU/L (<35); Albumin 2.9 g/dL (3.5-5.0); Albumin Globulin Ratio 0.9 (1.0-2.8); Alkaline Phosphatase 109 U/L (38-126); Aspartate Aminotransferase 40 IU/L (14-36); BUN Creatinine Ratio 13.6 (6-22); Bilirubin Total 1.8 mg/dL (0.2-1.3); Blood Urea Nitrogen 14 mg/dL (7-17); Calcium 9.1 mg/dL (8.4-10.2); Carbon Dioxide 24 mmol/L (22-32); Chloride 112 mmol/L (98-107); Estimated Glomerular Filt Rate 52.1 mL/min (>60); Globulin 3.2 g/dL (1.7-4.1); Glucose 93 mg/dL (80-110); HEMOLYSIS < 15 (0-50); Magnesium 1.9 mg/dL (1.6-2.3); Potassium 3.6 mmol/L (3.4-5.1); Sodium 137 mmol/L (137-145); Total Protein 6.1 g/dL (6.3-8.2)
[2021-04-09] MEDS: SODIUM CHLORIDE 0.9% FLUSH 10 ML IV (08:00)
[2021-04-09] MEDS: THIAMINE 100 MG TABLET PO (08:00)
[2021-04-09] MEDS: LACTULOSE 20 GM/30 ML SOLUTION PO (08:00)
[2021-04-09] MEDS: FOLIC ACID 1 MG TABLET PO (08:00)
[2021-04-09] MEDS: MULTIVITAMIN 1 TABLET 1 TAB PO (08:00)
[2021-04-09] MEDS: PANTOPRAZOLE DR 40 MG TABLET PO (08:05)
[2021-04-09] MEDS: POTASSIUM CHLORIDE 20 MEQ TAB 40 MEQ PO (09:23)
[2021-04-09] MEDS: MAGNESIUM SULFATE 2 GM/50 ML PIGGYBACK IV (09:24)
[2021-04-09] MEDS: IRON SUCROSE 200 MG in SODIUM CHLORIDE 0.9% 100 ML 220 ML IV (11:34)
--- NOTE | 2021-04-09 13:24 | PC.NURSE ---
Discharge Note Patient A&O, VSS, RA. No complaints of pain/discomfort. Discharge instructions reviewed with patient, all questions/concerns addressed. PIV/TELE discontinued. All belongings packed and given to patient. Patient assisted to get dressed. Patient taken down via wheelchair to POV.
--- NOTE | 2021-04-09 16:51 | P.DS_ITS ---
History of Present Illness History of Present Illness Chief complaint: dizzy Narrative: Per Pura Rm: Sowmya Kidd is a 75-year-old female with history of GI bleed/encephalopathy, hyperlipidemia, CKD, alcohol abuse, symptomatic anemia, hyperammonemia,? acid reflux, who presented to the ED complaining of dizziness, lightheadedness and not feeling well.?Patient verbalizes that she has been having dark colored stools, for the last couple of days.? Patient also endorses continued alcholol daily intake.? Patient admitted 09/02-09/07/20 for GI bleed. 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 Patient complains that dizziness worsening with standing.?Patient denies chest pain, palpitations, SOB, cough, abdominal pain, nausea, vomiting, hematuria, hematemesis, numbness, tingling, weakness, ARANGO, changes in vision, recent injury, illness, or trauma.? Upon admit vitals are stable temp 97.8?, BP 140/68, HR 76, R 21, O2 saturation 99% on room air.? Patient demonstrates blood loss anemia HGB 6.8, HCT 21.8, inge telets normal.? Patient has no ANDI- Chloride 114, BUN 18, creatinine 1.10, GFR 48.3.? AST 38, alk-phos 138, lipase 433.? Patient's head CT demonstrated no acute intracranial processes. Chest x-ray demonstrated right lower lobe consolidation most suggestive of pneumonia.? EKG demonstrated a normal sinus rhythm, rate 71, with left BBB.? Patient admitted for GI bleed, symptomatic blood-loss anemia. Discharge Providers Provider Date of admission: 04/07/21 04:01 Discharge Date: 04/09/21 Primary care physician: Oleg Brunson MD Consults: 04/07/21 04:12 Consult to General Surgery Routine Comment: Consulting Provider: Isaiah Pitts Reason for consultation: GI Bleed Has provider been notified: Yes Discharge provider: Rbo Ferreira MD Summary Hospital Course Discharge Diagnosis: 1. 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 Alcohol abuse/dependence, chronic 3. CKD stage 3 4. Hyperlipidemia Hospital Course: Ms. Kidd came in to the hospital with dizziness. She had dark colored stools, and hemoglobin was low at 6.8. She did initially get 2U PRBC and improved. She did require another unit of blood for low hemoglobin in the 7s on 04/08. Recheck of her hemoglobin showed appropriate response to 8.5 on day of discharge. At t tiera of discharge she had no further evidence of bleeding. She had been started on a PPI. Surgery was consulted who noted patient declined endoscopy, and also had recent scope for similar presentation confirming alcoholic gastritis. If she worsens she may need an endoscopy. She was discharged with pantoprazole. She also had mildly elevated ammonia and was sent lactulose daily to her pharmacy to prevent encephalopathy from developing. She was encouraged to stop alcohol abuse and given resources by social work faculty member. Discharge time 35 minutes Exam Vital Signs (past 8 hours): - 04/09/21 09:15 Temperature 97.9 F Pulse Rate 63 Respiratory Rate 16 Blood Pressure 110/49 L Pulse Oximetry 98 Oxygen Delivery Method Room Air Oxygen Flow Rate 0 Narrative Exam Narrative: GEN: no acute distress Lungs:? Clear to auscultation with no wheezes, rhonchi, or rales. Cardio:? regular rate and rhythm, no murmurs Abdomen:? Soft nontender Objective Labs Result Diagrams: 04/09/21 06:37 04/09/21 06:37 Labs: Laboratory Results - last 24 hr 04/07/21 04/08/21 04/09/21 03:37 18:00 06:37 WBC 4.7 4.5 RBC 3.01 L 2.93 L Hgb 8.7 L 8.5 L Hct 26.7 L 25.9 L MCV 88.4 88.4 MCH 28.9 28.9 MCHC 32.7 32.7 RDW 17.0 H 16.9 H Plt Count 130 L 136 L Neut % (Auto) 74.7 59.5 Lymph % (Auto) 17.3 L 25.7 [place] % (Auto) 5.8 10.3 Eos % (Auto) 1.3 L 3.6 Baso % (Auto) 0.9 0.9 Neut # (Auto) 3500 2700 Lymph # (Auto) 800 L 1200 [place] # (Auto) 300 500 Eos # (Auto) 100 200 Baso # (Auto) 0 0 Sodium Potassium Chloride Carbon Dioxide BUN Creatinine Estimated GFR BUN/Creatinine Ratio Glucose Calcium Magnesium Total Bilirubin AST ALT Alkaline Phosphatase Ammonia Total Protein Albumin Globulin Albumin/Globulin Ratio Crossmatch See Detail 04/09/21 04/09/21 06:37 06:37 WBC RBC Hgb Hct MCV MCH MCHC RDW Plt Count Neut % (Auto) Lymph % (Auto) [place] % (Auto) Eos % (Auto) Baso % (Auto) Neut # (Auto) Lymph # (Auto) [place] # (Auto) Eos # (Auto) Baso # (Auto) Sodium 137 Potassium 3.6 Chloride 112 H Carbon Dioxide 24 BUN 14 Creatinine 1.03 Estimated GFR 52.1 L BUN/Creatinine Ratio 13.6 Glucose 93 Calcium 9.1 Magnesium 1.9 Total Bilirubin 1.8 H AST 40 H ALT 25 Alkaline Phosphatase 109 Ammonia 66 H Total Protein 6.1 L Albumin 2.9 L Globulin 3.2 Albumin/Globulin Ratio 0.9 L Crossmatch [facility] Medical History Alcohol dependence Chronic kidney disease (CKD) stage G3b/A1, moderately decreased glomerular miquel tration rate (GFR) between 30-44 mL/min/1.73 square meter and albuminuria creatinine ratio less than 30 mg/g Surgical History History of colonoscopy History of esophagogastroduodenoscopy (EGD) Family History Father Heart disease Mother Heart disease Social History household members: none Smoking Status: Never smoker alcohol intake: current Discharge Plan Discharge Plan Patient Disposition: Home Provider Discharge Comment: Ms. Kidd came in with low blood counts. This is likely due to irritation of her stomach from alcohol. She is given vitamins to help with her nutrition. She is ordered for pantoprazole that reduces acid in stomach to help her stomach heal. She is given iron because her blood counts might improve with iron treatment. Discharge orders & Medications Prescriptions: New folic acid 1 mg Tablet 1 mg PO DAILY Qty: 30 0RF thiamine mononitrate (vit B1) 100 mg Tablet 100 mg PO DAILY Qty: 30 0RF multivitamin with folic acid [Tab-A-Mary] 400 mcg Tablet 1 tab PO DAILY Qty: 30 0RF ferrous sulfate 325 mg (65 mg iron) tablet 325 mg PO BID Qty: 60 0RF lactulose 20 gram/30 mL solution 20 g PO DAILY Qty: 1200 0RF Continued rosuvastatin [Crestor] 20 MG tablet 20 mg PO QDAY Qty: 0 0RF cyclobenzaprine 10 MG tablet 10 mg PO TID PRNQty: 30 0RF acetaminophen 325 mg Tablet 650 mg PO Q4HR PRN (Reason: Fever/Mild Pain (1-3)) Qty: 1 0RF pantoprazole 40 mg Tablet,Delayed Release (Dr/Ec) 40 mg PO BID Qty: 60 0RF Follow up/Referrals: Oleg Brunson MD [Primary Care Provider] - Visit Report/Discharge Packet Instructions: Alcohol and Stress: There are Safer Ways to [place], Gastrointestinal Bleeding Discharge Data Primary Care Provider: Oleg Brunson Attending Provider: Pura Rm VTE Deep Vein Thrombosis/Pulmonary Embolism Present on Admission: No
== END 2021-04-09 13:15 | disposition home or self-care (01) ==
LOC: ED 02:58 → AC 04:02
PROVIDERS: Emergency Medicine; Internal Medicine; Admitting Provider Nurse Practitioner Family; Emergency Provider Emergency Medicine; PCP Internal Medicine; Referring Provider Emergency Medicine; Visit Provider Nurse Practitioner Family
DX: D50.0 Iron deficiency anemia secondary to blood loss (chronic) (principal); K29.21 Alcoholic gastritis with bleeding; E78.5 Hyperlipidemia, unspecified; K21.9 Gastro-esophageal reflux disease without esophagitis; N18.32 Chronic kidney disease, stage 3b; F10.20 Alcohol dependence, uncomplicated; R29.700 NIHSS score 0; Z20.822 Contact with and (suspected) exposure to COVID-19
CPT/HCPCS: 36415; 36430; 70450; 71045; 80053; 80320; 82140; 82550; 83605; 83690; 83735; 84484; 85025; 86850; 86900; 86901; 87635; 93005; 94760; 96365; 96366; 96368; 96375; 99225; 99284; 99285; C9803; G0378; P9016; C9113; J1756; J3475

== ENCOUNTER 2022-03-25 13:05 | Inpatient (IN) | payer MEDICARE, OTHER, SELFPAY ==
[2021-04-08 07:05] VITALS: BMI 34.3
[2022-03-25] VITALS (62 sets, daily range): BP systolic 82–180; BP diastolic 35–76; PULSE 79–104; RESP 15–54; TEMP 35.4–37.2; O2SAT 91–99; BMI 30.7
--- NOTE | 2022-03-25 | DI.CT.S_ITS ---
PROCEDURE: CT ANKLE LEFT WITHOUT INDICATIONS: FRACTURE TECHNIQUE: Noncontrast 1-1.5 mm axial sections acquired from above the tibiotalar joint to the bottom of the calcaneus, with coronal and sagittal reformats. COMPARISON: [facility], CR, XR ANKLE LT MIN 3V, 03/25/2022, 13:13. FINDINGS: Image quality: Excellent. Bones: Severely comminuted fracture involving medial malleolus is seen with posterior and medial displacement of fractured fragment. Acute comminuted fracture involving distal fibular shaft is also seen extending to involve lateral malleolus with up to 8 mm posterior displacement and up to 2.2 cm overlapping at fracture site. There is posterior dislocation at tibiotalar joint. No other fracture is seen. Well-defined plantar and dorsal calcaneal enthesophytes are noted. Moderate midfoot and hindfoot joint osteoarthritic changes are seen. Soft tissues: There is skin laceration and subcutaneous emphysema at distal fibular shaft fracture site consistent with open fracture. Similar medial skin laceration and subcutaneous emphysema adjacent to medial malleolus fracture site is also seen. No other abnormal soft tissue calcifications are seen. Achilles tendon is grossly intact. Plantar fascia is within normal limits. No gross full-thickness extensor, flexor, peroneus tendon rupture. IMPRESSION: 1. Acute comminuted, displaced and open fracture involving medial malleolus and distal fibular shaft as described in detail above. Posterior dislocation at tibiotalar joint. 2. Marked soft tissue swelling and edema surrounding ankle joint with subcutaneous emphysema. No gross full-thickness ankle tendon rupture. No other abnormal soft tissue calcifications. Dictated by: Anuel Salas M.D. on 03/25/2022 at 14:18 Approved by: Anuel Salas M.D. on 03/25/2022 at 14:29
--- NOTE | 2022-03-25 13:10 | DI.RAD.S_ITS ---
PROCEDURE: XR ANKLE LT MIN 3V INDICATIONS: fall with pain, obvious deformity, open TECHNIQUE: 3 views of the ankle were acquired. COMPARISON: None. FINDINGS: Bones: There is fracture dislocation at the level of the tibiotalar joint. The talus is displaced posteriorly and laterally relative to the distal tibia with widening of the ankle mortise laterally. Comminuted fractures involving the distal fibula and tibia with suspected posterior malleolar component. Visualized osseous structures of the midfoot and hindfoot are otherwise intact. Prominent plantar calcaneal spur. Soft tissues: No tibiotalar joint effusion. Achilles tendon appears normal. IMPRESSION: Comminuted fractures of the distal tibia and fibula with associated posterolateral dislocation of the talus relative to the distal tibia. Widening of the lateral ankle mortise. Findings are suggestive of concurrent ligamentous injury. Prominent plantar calcaneal enthesophyte. Dictated by: Enrique Bryant M.D. on 03/25/2022 at 14:01 Approved by: Enrique Bryant M.D. on 03/25/2022 at 14:05
--- NOTE | 2022-03-25 13:10 | DI.RAD.S_ITS ---
PROCEDURE: XR HIP W PEL IF DONE LT 2V INDICATIONS: fall with left hip pain TECHNIQUE: AP pelvis with lateral view(s) of the left hip(s). COMPARISON: None. FINDINGS: Bones: Subtle cortical irregularity involving the superolateral left femoral head neck junction seen on the frogleg lateral view only. This may represent a marginal osteophyte versus nondisplaced fracture given history of fall. Remainder of the visualized osseous structures appear intact. Soft tissues: The visualized bowel gas pattern is normal. No suspicious soft tissue calcifications. Hess catheter is in place. IMPRESSION: Subtle cortical irregularity involving the superolateral left femoral head neck junction seen on the frogleg lateral view only. This may be related to marginal osteophyte formation secondary to degenerative changes. A nondisplaced fracture may have a similar appearance given history of trauma. Consider further evaluation with cross-sectional imaging. Dictated by: Enrique Bryant M.D. on 03/25/2022 at 13:54 Approved by: Enrique Bryant M.D. on 03/25/2022 at 13:56
--- NOTE | 2022-03-25 13:11 | DI.RAD.S_ITS ---
PROCEDURE: XR CHEST 1V INDICATIONS: trauma TECHNIQUE: One view of the chest was acquired. COMPARISON: [facility], CR, XR CHEST 1V, 04/07/2021, 3:01. FINDINGS: Surgical changes and devices: None. Lungs and pleura: Patient's left hand projects over the left upper lung zone. Lungs appear clear otherwise. No pleural effusions or pneumothorax. Mediastinum: Mediastinal contours appear normal. Heart size is normal. Bones and chest wall: No suspicious bony lesions. Overlying soft tissues appear unremarkable. IMPRESSION: Chest without acute cardiopulmonary abnormalities or evidence suggest acute traumatic injury. Dictated by: Enrique Bryant M.D. on 03/25/2022 at 14:00 Approved by: Enrique Bryant M.D. on 03/25/2022 at 14:01
--- NOTE | 2022-03-25 13:11 | DI.CT.S_ITS ---
/PROCEDURE: CT CERVICAL SPINE WO CON INDICATIONS: fall, unknown down time TECHNIQUE: Noncontrast 3 mm thick sections acquired from the skull base to the T4 level. Sagittal and coronal reformats were then constructed. For radiation dose reduction, the following was used: automated exposure control, adjustment of mA and/or kV according to patient size. COMPARISON: None. FINDINGS: Image quality: Excellent. Bones: No fractures or dislocations. There are mild degenerative changes including intervertebral disc space narrowing, endplate sclerosis, and subchondral cystic changes. Visualized superior ribs are intact. Soft tissues: Prevertebral soft tissues are normal in thickness. No paravertebral hematomas. No apical pneumothoraces. IMPRESSION: 1. No acute cervical spine injury. 2. Degenerative change. Dictated by: Gracy Alexander M.D. on 03/25/2022 at 14:31 Approved by: Gracy Alexander M.D. on 03/25/2022 at 14:34
--- NOTE | 2022-03-25 13:11 | DI.CT.S_ITS ---
PROCEDURE: CT HEAD/BRAIN WO CON INDICATIONS: fall, unknown down time TECHNIQUE: Noncontrast 4.5 mm thick angled axial sections acquired from the foramen magnum to the vertex, with coronal and sagittal reformats. For radiation dose reduction, the following was used: automated exposure control, adjustment of mA and/or kV according to patient size. COMPARISON: [facility], CT, CT HEAD/BRAIN WO CON, 04/07/2021, 3:03. FINDINGS: Image quality: Excellent. CSF spaces: Basal cisterns are patent. No extra-axial fluid collections. The ventricles are symmetric in size and shape. Brain: No intracranial bleeds or masses. There is cerebral volume loss for age, with resultant ventricular and sulcal prominence. There are periventricular and deep white matter chronic small vessel ischemic changes. There is intracranial internal carotid artery atherosclerosis. Skull and face: Calvarium and visualized facial bones appear intact, without suspicious lesions. Sinuses: Visualized sinuses and mastoids are clear. IMPRESSION: No acute intracranial findings. Findings likely associated with chronic microvascular ischemic changes. Dictated by: Gracy Alexander M.D. on 03/25/2022 at 14:25 Approved by: Gracy Alexander M.D. on 03/25/2022 at 14:30
[2022-03-25 13:29] LABS: Add Manual Diff / Slide Review NO; Basophils Absolute Auto 0 /uL (0-100); Basophils Percent Auto 0.1 % (0-2); Eosinophils Absolute Auto 0 /uL (0-450); Hematocrit 39.2 % (36-46); Hemoglobin 12.8 g/dL (12.0-16.0); Lymphocytes Absolute Auto 500 /uL (1100-4500); Lymphocytes Percent Auto 4.2 % (25-40); Mean Corpuscular HGB Conc 32.5 % (30-36); Mean Corpuscular Hemoglobin 33.8 PG (26-34); Monocytes Absolute Auto 1200 /uL (0-900); Monocytes Percent Auto 9.1 % (3-14); Neutrophils Absolute Auto 11400 /uL (1500-7000); Neutrophils Percent Auto 86.6 % (50-75); Platelet Count 134 X10^3/uL (150-400); Red Blood Cell Count 3.77 X10^6/uL (4.0-5.2); Red Cell Distribution Width 14.5 % (11.6-14.8); White Blood Cell Count 13.1 X10^3/uL (4.5-11.0)
--- NOTE | 2022-03-25 13:30 | DI.CT.S_ITS ---
PROCEDURE: CT CHEST ABD PEL W CON INDICATIONS: trauma, neck pain, back pain, hip pain TECHNIQUE: After the administration of intravenous contrast, 5 mm thick sections acquired from the lung apices to the symphysis. 2.5 mm thick coronal and sagittal reformats were acquired. Additional 7 mm thick coronal maximum intensity projection (MIP) reformats acquired through the lungs. Optional 10-minute delayed imaging may be performed from the kidneys to the bladder. For radiation dose reduction, the following was used: automated exposure control, adjustment of mA and/or kV according to patient size. COMPARISON: None. FINDINGS: Image quality: Excellent. CHEST: Lungs: No pulmonary contusions or lacerations. No acute airspace opacities. No pneumothorax or hemothorax. Central and peripheral airways appear patent and normal in caliber. Mediastinum: No mediastinal hematomas. Heart size is normal. No pericardial effusion. Thoracic aorta and pulmonary arteries demonstrate normal size and enhancement. No mediastinal or hilar adenopathy. Esophagus is normal in caliber. There is a moderate hiatal hernia. Chest wall: No rib fractures. No subcutaneous emphysema. No axillary or supraclavicular adenopathy. Thyroid gland is unremarkable. ABDOMEN: Solid organs: Liver is normal in size and enhancement, without lacerations. Gallbladder is unremarkable. Biliary system is non-dilated. Pancreas enhances normally, without transection. Spleen is normal in size and enhancement, without lacerations. No adrenal hematomas. Both kidneys enhance normally, without hydronephrosis or lacerations. There are small bilateral cortical low density cysts. Peritoneum and bowel: No free fluid or air. Unenhanced bowel loops demonstrate normal wall thickness and caliber. There is a fluid-filled duodenal diverticulum. The appendix is thin walled and gas filled. There are scattered sigmoid diverticula. No evidence for diverticulitis. Nodes and vessels: No retroperitoneal or mesenteric adenopathy. Aorta and inferior vena cava are normal in size and enhancement. There are scattered atheromatous calcifications throughout the aorta and iliac arteries bilaterally. Miscellaneous: No ventral hernias. PELVIS: Genitourinary: Bladder wall thickness is normal. Miscellaneous: No inguinal hernias or adenopathy. Bones: Pelvic ring and hip joints appear intact. No vertebral compression fractures. IMPRESSION: 1. No thoracic trauma. No acute intra-abdominal findings. Normal appendix. Diverticulosis. No acute diverticulitis. 2. Moderate hiatal hernia. Dictated by: Gracy Alexanedr M.D. on 03/25/2022 at 14:34 Approved by: Gracy Alexander M.D. on 03/25/2022 at 14:44
--- NOTE | 2022-03-25 13:38 | PC.NURSE ---
1300: celebrating her sons promotion last night and had a few glasses of wine. Took a fall unk time of night, found this morning 0830 by a friend. Per EMS c/o L hip pain, has open L ankle deformity, ruptured capillaries in bilateral eyes. rec'd 25mg ketamine, 50mcg fentanyl, 4mg zofran in field and arrives alert and pain free. Arrives in cspine immobilization with spint in place. Pt awake and alert. C collar in place. Airway patent and RR even and unlabored. Broken capillaries in eyes potentially from pt's glaucoma injections however pt rec'd ketamine and is confused on some questions. Clothing removed and pt covered in warm blankets. Family in waiting area. IV placed and labs drawn including T&S. NSR 70's on cardiac monitoring. Noted to have multiple deep purple contusions to L inner bicep, under L breast area. Deformed L ankle and L leg is mildly shortened and rotated outward. 2+ pulse palpated and marked. Open would on lateral malleolus at area of deformity covered with sterile gauze and coban. Pt was down on ground since last night and feels cool to touch. Temp esposito placed 97.4. Bear hugger applied. Pt taken to and from CT with RN without complication. [ End ]
[2022-03-25 13:43] LABS: INR 1.1 (0.9-1.3); Prothrombin Time 12.4 SECONDS (10.1-12.7)
[2022-03-25 13:46] LABS: PTT Partial Thromboplastin Tim 30 SECONDS (26-36)
[2022-03-25 13:51] LABS: Alanine Aminotransferase 47 IU/L (<35); Alkaline Phosphatase 153 U/L (38-126); Aspartate Aminotransferase 116 IU/L (14-36); BUN Creatinine Ratio 22.6 (6-22); Bilirubin Total 2.4 mg/dL (0.2-1.3); Blood Urea Nitrogen 19 mg/dL (7-17); Calcium 10.3 mg/dL (8.4-10.2); Carbon Dioxide 17 mmol/L (22-32); Chloride 110 mmol/L (98-107); Estimated Glomerular Filt Rate > 60 mL/min (>60); Ethanol (ETOH) < 10 mg/dL; Glucose 115 mg/dL (80-110); HEMOLYSIS < 15 (0-50); Lipase 281 U/L (23-300); Magnesium 1.9 mg/dL (1.6-2.3); Potassium 4.4 mmol/L (3.4-5.1); Sodium 143 mmol/L (137-145)
[2022-03-25] MEDS: CEFAZOLIN 2 GM/100 ML PREMIX 100 ML IV ×2 (13:58→18:05)
[2022-03-25] MEDS: SODIUM CHLORIDE 0.9% 500 ML 1000 ML IV (13:58)
[2022-03-25] MEDS: ONDANSETRON 4 MG/2 ML INJ IV (13:59)
[2022-03-25 14:00] LABS: NT-proBNP (BNP-Adult 18+) 344 pg/mL (<450); Troponin I 0.106 ng/mL (0.01-0.034)
[2022-03-25] MEDS: TET,DIPH,PERTUSS(ACELL),VAC/PF 0.5 ML SYRINGE IM (14:00)
[2022-03-25 14:20] LABS: Appearance Urine UA CLOUDY; Bilirubin Urine UA NEGATIVE (NEGATIVE); Color Urine UA YELLOW; Glucose Urine UA NEGATIVE (Negative); Ketones Urine UA NEGATIVE (NEGATIVE); Leukocyte Esterase Urine UA TRACE (NEGATIVE); Nitrite Urine UA NEGATIVE (Negative); Occult Blood Urine UA 3+ (Negative); Protein Urine UA 1+ (Negative); Specific Gravity Urine UA >=1.030 (1.000-1.035); Urobilinogen Urine UA 0.2 E.U./dL (0.2)
--- NOTE | 2022-03-25 14:22 | ED.TRAUMA ---
HPI - Trauma General Chief Complaint: Trauma Stated Complaint: modified trauma Time Seen by Provider: 03/25/22 13:10 History of Present Illness HPI narrative: 76-year-old female nonsmoker with history of alcohol abuse, chronic kidney disease and prior symptomatic anemia presents by EMS for evaluation of injury suffered as a consequence of a fall sometime last evening. She is not a great historian and details of the event are unclear but there is report that she had been out with family unlikely had some alcoholic beverages and was dropped off at home. Sometime in the middle of the night she fell but does not remember the specifics. As a consequence she states she has midline neck pain, severe left hip and most notably left ankle pain. EMS was called and noted a trail of blood through the house coming from her left ankle which demonstrates obvious deformity consistent with open fracture dislocation. She does have intact sensation, can move and feel her toes at of palpable dorsalis pedis pulse. It is unclear she hit her head, it is unclear exactly how long she was on the ground. She denies any chest pain or shortness of breath. She has no abdominal pain but is nauseated. She was put in full C-spine precautions, ankle was splinted, she was given ketamine, fentanyl and Zofran and transported. She was activated as a modified trauma given fall with suspected injuries and age greater than 65 Related Data Home Medications Medication Instructions Recorded Confirmed rosuvastatin 20 mg tablet (Crestor) 20 mg PO QDAY ##0 03/23/17 04/07/21 Previous Rx's Medication Instructions Recorded cyclobenzaprine 10 mg tablet 10 mg PO TID PRN #30 tabs 06/22/17 acetaminophen 325 mg tablet 650 mg PO Q4HR PRN Fever/Mild Pain 09/08/20 (1-3) #1 tab ferrous sulfate 325 mg (65 mg 325 mg PO BID #60 tabs 04/09/21 iron) tablet folic acid 1 mg tablet 1 mg PO DAILY #30 tabs 04/09/21 lactulose 20 gram/30 mL oral 20 g (30 mL) PO DAILY #1,200 mL 04/09/21 solution multivitamin with folic acid 400 1 tab PO DAILY #30 tabs 04/09/21 mcg tablet (Tab-A-Mary) pantoprazole 40 mg tablet,delayed 40 mg PO BID #60 tabs 04/09/21 release thiamine mononitrate (vit B1) 100 100 mg PO DAILY #30 tabs 04/09/ mg tablet Allergies Allergy/AdvReac Type Severity Reaction Status Date / Time No Known Drug Allergies Allergy Verified 10/13/20 10:57 Review of Systems Review of Systems Narrative: GENERAL: See HPI HEENT: Denies sinus pain, ear pain, sore throat, difficulty swallowing, dizziness. RESPIRATORY: Denies dyspnea, cough, wheezing, hemoptysis, sputum. CARDIOVASCULAR: Denies chest pain, palpitations, orthopnea, edema, GASTROINTESTINAL: Denies nausea, vomiting, abdominal pain, diarrhea, constipation, melena. : Denies dysuria, frequency, incontinence, hematuria, urinary retention. MUSCULOSKELETAL: See HPI SKIN: Denies rash, skin lesions, or other NEUROLOGIC: See HPI PSYCHIATRIC: No concerning psychosocial issues. 12 point review of systems is negative except for those stated above Patient History Medical History Alcohol dependence Chronic kidney disease (CKD) stage G3b/A1, moderately decreased glomerular filtration rate (GFR) between 30-44 mL/min/1.73 square meter and albuminuria creatinine ratio less than 30 mg/g Surgical History History of colonoscopy History of esophagogastroduodenoscopy (EGD) Family History Father Heart disease Mother Heart disease Social History household members: none Smoking Status: Never smoker alcohol intake: current Smoking Status: Never smoker alcohol intake frequency: 3 or more drinks per day Alcohol type: wine Substance Use Type: does not use Exam Narrative Exam Narrative: GENERAL: [76] year old patient appears stated age. Well-developed patient, in obvious distress, alert and oriented x3, GCS is 15 HEAD: Atraumatic. Normocephalic. No evidence of hematoma, abrasion or contusion, no evidence of depressed skull fracture EYES: Pupils equal round and reactive. No hyphema Extraocular motions intact. No scleral icterus. No injection or drainage. ENT: Nose without bleeding, purulent drainage. No nasal septal hematoma Throat without erythema, tonsillar hypertrophy or exudate. Airway patent. NECK: Trachea midline. Non tender, C-collar in place, midline tenderness, no step-offs or crepitance, no pain with axial loading CARDIOVASCULAR: Regular rate and rhythm without murmurs, gallops, or rubs. RESPIRATORY: Clear to auscultation. Breath sounds equal bilaterally. No wheezes, rales, or rhonchi. GASTROINTESTINAL: Abdomen soft, non-tender, nondistended. EXTREMITIES: Significant tenderness to palpation in left hip, possibly shortening. No pain in bilateral shoulders, elbows or wrists. Obvious deformity to left ankle with 1.5 cm laceration overlying likely fracture dislocation, sensation intact, cap refill less than 2 seconds BACK: Nontender without deformity or crepitance. No flank tenderness. NEURO: AOx3. SKIN: No rash or erythema of visible areas Initial Vital Signs Initial Vital Signs: Vital Signs Pulse Rate 86 03/25/22 13:07 Pulse Oximetry 95 03/25/22 13:07 Course Orders Ordered: ED Orders 03/25/22 22:27 Prothrombin Time INR Urgent Acetaminophen (Acetaminophen 325 Mg Tablet) 650 mg PO Q6H PRN PRN Reason: Fever/Mild Pain (1-3) Aspirin (Aspirin Ec 81 Mg Tablet) 81 mg PO BID [facility] Last Admin: 03/26/22 00:41 Dose: Not Given Documented By: AM Folic Acid (Folic Acid 1 Mg Tablet) 1 mg PO DAILY [facility] Sodium Chloride (Normal Saline 0.9%) 1,000 mls @ 100 mls/hr IV CONT [facility] Last Admin: 03/26/22 01:40 Dose: 100 mls/hr Documented By: Infusion: 03/26/22 01:40 Dose: 100 mls/hr Documented By: Admin: 03/25/22 22:19 Dose: 100 mls/hr Documented By: AM Cefepime HCl 2 gm/ Sodium (Chloride) 100 mls @ 200 mls/hr IV Q12H [facility] Last Infusion: 03/26/22 06:36 Dose: 0 mls/hr Documented By: Admin: 03/26/22 05:37 Dose: 200 mls/hr Documented By: AM Metronidazole (Flagyl) 500 mg in 100 mls @ 100 mls/hr IV Q8H [facility] Last Admin: 03/26/22 06:36 Dose: 100 mls/hr Documented By: Infusion: 03/25/22 23:21 Dose: 100 mls/hr Documented By: Admin: 03/25/22 22:21 Dose: 100 mls/hr Documented By: AM Lactulose (Lactulose 20 Gm/30 Ml Solution) 20 gm PO Q4H [facility] Last Admin: 03/26/22 04:31 Dose: 20 gm Documented By: Admin: 03/26/22 01:48 Dose: 20 gm Documented By: LAUREN Lorazepam (Lorazepam 1 Mg Tablet) 0 mg PO CIWAPRN PRN; Protocol PRN Reason: Alcohol Withdrawal Multivitamins (Multivitamin 1 Tablet) 1 tab PO DAILY KENIS[facility] Naloxone HCl (Naloxone 0.4 Mg/Ml Vial) 0.2 mg IV Q2MIN PRN PRN Reason: Opiate Reversal Naloxone HCl (Naloxone 0.4 Mg/Ml Vial) 0.2 mg IV Q2MIN PRN PRN Reason: Opiate Reversal Ondansetron HCl (Ondansetron 4 Mg/2 Ml Inj) 4 mg IV Q6HR PRN PRN Reason: Nausea And Vomiting Oxycodone HCl (Oxycodone Ir 5 Mg Tablet) 5 mg PO Q3HR PRN PRN Reason: Pain, Mild (1-3) Thiamine HCl (Thiamine 100 Mg Tablet) 100 mg PO DAILY [facility] Stop: 03/29/22 09:01 Discontinued Medications Diphtheria/Tetanus/Acell Pertussis (Tet,Diph,Pertuss(Acell),Vac/Pf 0.5 Ml Syringe) 0.5 ml IM .ONCE ONE Stop: 03/25/22 13:11 Last Admin: 03/25/22 14:00 Dose: 0.5 ml Documented By: TIM Hydromorphone HCl (Hydromorphone 0.5 Mg Inj) 0.5 mg IV NOW ONE Stop: 03/25/22 15:05 Last Admin: 03/25/22 15:11 Dose: 0.5 mg Documented By: TIM Sodium Chloride (Normal Saline 0.9%) 500 mls @ 1,000 mls/hr IV BOLUS ONE Stop: 03/25/22 13:39 Last Infusion: 03/25/22 14:28 Dose: 0 mls/hr Documented By: Admin: 03/25/22 13:58 Dose: 1,000 mls/hr Documented By: TIM Cefazolin Sodium/Dextrose (Ancef) 100 mls @ 200 mls/hr IV NOW ONE Stop: 03/25/22 13:41 Last Infusion: 03/25/22 14:28 Dose: 0 mls/hr Documented By: Admin: 03/25/22 13:58 Dose: 200 mls/hr Documented By: CTS Sodium Chloride (Normal Saline 0.9%) 1,000 mls @ 1,000 mls/hr IV BOLUS ONE Stop: 03/25/22 16:11 Last Infusion: 03/25/22 16:41 Dose: 0 mls/hr Documented By: Admin: 03/25/22 15:55 Dose: 1,000 mls/hr Documented By: CTS Sodium Chloride (Normal Saline 0.9%) 1,000 mls @ 1,000 mls/hr IV BOLUS ONE Stop: 03/25/22 17:40 Last Infusion: 03/25/22 17:00 Dose: 1,000 mls/hr Documented By: Admin: 03/25/22 16:42 Dose: 1,000 mls/hr Documented By: TIM Lactated Ringer's (Lactated Ringers) 1,000 mls @ 100 mls/hr IV NOW ONE Stop: 03/26/22 03:17 Last Infusion: 03/26/22 01:41 Dose: 0 mls/hr Documented By: Infusion: 03/25/22 21:35 Dose: 100 mls/hr Documented By: Admin: 03/25/22 21:35 Dose: 100 mls/hr Documented By: AWILDA Cefazolin Sodium/Dextrose (Ancef) 100 mls @ 200 mls/hr IV NOW ONE Stop: 03/25/22 18:11 Last Infusion: 03/25/22 18:10 Dose: 0 mls/hr Documented By: Admin: 03/25/22 18:05 Dose: 200 mls/hr Documented By: JAMES Lactated Ringer's (Lactated Ringers) 1,000 mls @ 125 mls/hr IV CONT KENISHA Last Admin: 03/26/22 03:58 Dose: Not Given Documented By: AM Cefazolin Sodium/Dextrose (Ancef) 100 mls @ 200 mls/hr IV Q8H KENIS[facility] Ceftriaxone Sodium 2,000 mg/ (Sodium Chloride) 100 mls @ 200 mls/hr IV Q24H [facility] Last Admin: 03/26/22 03:58 Dose: Not Given Documented By: AM Sodium Chloride (Normal Saline 0.9%) 1,000 mls @ 1,000 mls/hr IV BOLUS ONE Stop: 03/26/22 00:59 Last Admin: 03/26/22 00:26 Dose: 1,000 mls/hr Documented By: AM Ondansetron HCl (Ondansetron 4 Mg/2 Ml Inj) 4 mg IV NOW ONE Stop: 03/25/22 13:11 Last Admin: 03/25/22 13:59 Dose: 4 mg Documented By: CTS Ropivacaine (Ropivacaine 0.2% Pf 2 Mg/Ml 20ml Amp) 20 ml INJ NOW ONE Stop: 03/25/22 19:53 Last Admin: 03/25/22 19:54 Dose: 20 ml Documented By: SAS Consultations Consultation #1: discussed with ortho, notified of open left ankle but patient in need of large workup and is at risk for rhabdo among others. She is in agreement with NPO, pain control, tetanus updated and Ancef and will follow medical progress. Patient does have posterior dislocation but is neurovascularly intact, pain is well controlled, sensation is intact, she can wiggle her toes and dorsalis pedis pulse is palpable. Would prefer to hold off doing another sedation as surgery is eminence and she is at increased risk, we sure this opinion and are in agreement Time: 13:20 Consultation #2: Discussed patient with Dr. De León, anesthesia, will repeat labs to track CK, troponin and renal function Vital Signs Vital signs: Vital Signs - 8 hr 03/25/22 13:21 03/25/22 13:07 03/25/22 13:10 Temperature 98.9 F Pulse Rate 79 86 Respiratory Rate 16 Blood Pressure 172/74 H 180/76 H Pulse Oximetry 99 95 Oxygen Delivery Method Room Air 03/25/22 13:10 03/25/22 13:19 03/25/22 13:19 Temperature 95.7 F L Pulse Rate 81 84 Respiratory Rate 32 H 54 H Blood Pressure 172/74 H Pulse Oximetry 99 99 Oxygen Delivery Method 03/25/22 13:20 03/25/22 13:25 03/25/22 13:30 Temperature 95.9 F L 96.1 F L 96.3 F L Pulse Rate 80 79 81 Respiratory Rate 24 31 H 33 H Blood Pressure Pulse Oximetry 99 98 98 Oxygen Delivery Method 03/25/22 13:46 03/25/22 13:47 03/25/22 13:47 Temperature 96.1 F L Pulse Rate 84 85 Respiratory Rate 16 Blood Pressure 177/71 H Pulse Oximetry 97 97 Oxygen Delivery Method 03/25/22 13:50 03/25/22 13:50 03/25/22 13:55 Temperature 96.1 F L Pulse Rate 84 Respiratory Rate 16 Blood Pressure 145/65 H 149/66 H Pulse Oximetry 98 Oxygen Delivery Method 03/25/22 13:55 03/25/22 14:00 03/25/22 14:00 Temperature 96.1 F L 96.1 F L Pulse Rate 80 81 Respiratory Rate 15 17 Blood Pressure 158/67 H Pulse Oximetry 98 98 Oxygen Delivery Method 03/25/22 14:05 03/25/22 14:05 03/25/22 14:10 Temperature 96.1 F L Pulse Rate 81 Respiratory Rate 16 Blood Pressure 153/67 H 165/68 H Pulse Oximetry 97 Oxygen Delivery Method 03/25/22 14:10 03/25/22 14:15 03/25/22 14:16 Temperature 96.1 F L 96.1 F L Pulse Rate 80 84 Respiratory Rate 18 21 Blood Pressure 150/73 H Pulse Oximetry 99 99 Oxygen Delivery Method 03/25/22 14:16 03/25/22 14:20 03/25/22 14:20 Temperature 96.1 F L 96.3 F L Pulse Rate 84 85 Respiratory Rate 16 24 Blood Pressure 164/64 H Pulse Oximetry 99 98 Oxygen Delivery Method 03/25/22 14:25 03/25/22 14:25 03/25/22 14:30 Temperature 96.3 F L Pulse Rate 84 Respiratory Rate 15 Blood Pressure 155/70 H 152/63 H Pulse Oximetry 97 Oxygen Delivery Method 03/25/22 14:30 03/25/22 14:35 03/25/22 14:35 Temperature 96.3 F L 96.4 F L Pulse Rate 84 86 Respiratory Rate 17 23 Blood Pressure 160/69 H Pulse Oximetry 98 98 Oxygen Delivery Method 03/25/22 14:40 03/25/22 14:40 03/25/22 14:45 Temperature 96.6 F L Pulse Rate 83 Respiratory Rate 28 H Blood Pressure 148/66 H 163/69 H Pulse Oximetry 98 Oxygen Delivery Method 03/25/22 14:45 03/25/22 14:50 03/25/22 14:50 Temperature 96.8 F L 96.8 F L Pulse Rate 84 85 Respiratory Rate 20 26 H Blood Pressure 156/74 H Pulse Oximetry 97 97 Oxygen Delivery Method 03/25/22 14:55 03/25/22 14:55 03/25/22 15:00 Temperature 97.0 F L Pulse Rate 83 Respiratory Rate 21 Blood Pressure 145/67 H 153/62 H Pulse Oximetry 96 Oxygen Delivery Method 03/25/22 15:00 03/25/22 15:05 03/25/22 15:05 Temperature 97.2 F L 97.3 F L Pulse Rate 85 85 Respiratory Rate 23 22 Blood Pressure 153/67 H Pulse Oximetry 97 96 Oxygen Delivery Method 03/25/22 15:10 03/25/22 15:10 03/25/22 15:15 Temperature 97.5 F L Pulse Rate 84 Respiratory Rate 24 Blood Pressure 144/65 H 130/61 Pulse Oximetry 96 Oxygen Delivery Method 03/25/22 15:15 03/25/22 15:20 03/25/22 15:20 Temperature 97.5 F L 97.7 F Pulse Rate 83 81 Respiratory Rate 21 22 Blood Pressure 134/63 Pulse Oximetry 95 95 Oxygen Delivery Method 03/25/22 15:25 03/25/22 15:25 03/25/22 15:30 Temperature 97.9 F 97.9 F Pulse Rate 80 81 Respiratory Rate 19 21 Blood Pressure 123/58 L Pulse Oximetry 94 93 Oxygen Delivery Method 03/25/22 15:31 03/25/22 15:31 03/25/22 15:35 Temperature 97.9 F Pulse Rate 82 Respiratory Rate 22 Blood Pressure 121/56 L 137/65 Pulse Oximetry 95 Oxygen Delivery Method 03/25/22 15:35 03/25/22 15:40 03/25/22 15:40 Temperature 98.1 F 98.1 F Pulse Rate 82 82 Respiratory Rate 18 17 Blood Pressure 127/60 Pulse Oximetry 94 94 Oxygen Delivery Method 03/25/22 15:45 03/25/22 15:45 03/25/22 15:50 Temperature 98.2 F Pulse Rate 82 Respiratory Rate 18 Blood Pressure 127/58 L 131/60 Pulse Oximetry 93 Oxygen Delivery Method 03/25/22 15:50 03/25/22 15:55 03/25/22 15:55 Temperature 98.2 F 98.2 F Pulse Rate 82 83 Respiratory Rate 16 17 Blood Pressure 129/58 L Pulse Oximetry 91 92 Oxygen Delivery Method MDM - Trauma Lab Data Result diagrams: 03/26/22 05:49 03/26/22 05:49 Labs: Lab Results 03/25/22 03/25/22 03/25/22 Range/Units 13:17 13:17 13:17 WBC 13.1 H (4.5-11.0) X10^3/uL RBC 3.77 L (4.0-5.2) X10^6/uL Hgb 12.8 (12.0-16.0) g/dL Hct 39.2 (36-46) % MCV 104.0 H (80-100) fL MCH 33.8 (26-34) PG MCHC 32.5 (30-36) % RDW 14.5 (11.6-14.8) % Plt Count 134 L (150-400) X10^3/uL Neut % (Auto) 86.6 H (50-75) % Lymph % (Auto) 4.2 L (25-40) % [place] % (Auto) 9.1 (3-14) % Eos % (Auto) 0.0 L (2-4) % Baso % (Auto) 0.1 (0-2) % Neut # (Auto) 23839 H (1581-3037) /uL Lymph # (Auto) 500 L (6661-1890) /uL [place] # (Auto) 1200 H (0-900) /uL Eos # (Auto) 0 (0-450) /uL Baso # (Auto) 0 (0-100) /uL PT 12.4 (10.1-12.7) SECONDS INR 1.1 (0.9-1.3) APTT 30 (26-36) SECONDS Sodium 143 (137-145) mmol/L Potassium 4.4 (3.4-5.1) mmol/L Chloride 110 H (98-107) mmol/L Carbon Dioxide 17 L (22-32) mmol/L BUN 19 H (7-17) mg/dL Creatinine 0.84 (0.52-1.04) mg/dL Estimated GFR > 60 (>60) mL/min BUN/Creatinine Ratio 22.6 H (6-22) Glucose 115 H (80-110) mg/dL Calcium 10.3 H (8.4-10.2) mg/dL Magnesium 1.9 (1.6-2.3) mg/dL Total Bilirubin 2.4 H (0.2-1.3) mg/dL AST 116 H (14-36) IU/L ALT 47 H (<35) IU/L Alkaline Phosphatase 153 H (38-126) U/L Total Creatine Kinase 3795 H (30-135) U/L CK-MB (CK-2) 16.80 H (<2.37) ng/mL CK-MB (CK-2) Rel Index 0.4 L (1.5-5.0) % Troponin I 0.106 H (0.01-0.034) ng/mL NT-Pro-B Natriuret Pep 344 (<450) pg/mL Total Protein 8.0 (6.3-8.2) g/dL Lipase 281 (23-300) U/L Urine Color Urine Appearance Urine pH (4.5-8.0) Ur Specific [place] (1.000-1.035) Urine Protein (Negative) Urine Glucose (UA) (Negative) g/dL Urine Ketones (NEGATIVE) Urine Occult Blood (Negative) Urine Nitrate (Negative) Urine Bilirubin (NEGATIVE) Urine Urobilinogen (0.2) E.U./dL Ur Leukocyte Esterase (NEGATIVE) Urine RBC (0-5/HPF) Urine WBC (0-5/HPF) Urine Bacteria (None) Ur Culture Indicated? Ethyl Alcohol < 10 ( - 10) mg/dL SARS-CoV-2 (PCR) (Negative) Influenza A (RT-PCR) (NEGATIVE) Influenza B (RT-PCR) (NEGATIVE) RSV (PCR) (Negative) Blood Type Antibody Screen 03/25/22 03/25/22 03/25/22 Range/Units 13:17 13:17 13:17 WBC (4.5-11.0) X10^3/uL RBC (4.0-5.2) X10^6/uL Hgb (12.0-16.0) g/dL Hct (36-46) % MCV (80-100) fL MCH (26-34) PG MCHC (30-36) % RDW (11.6-14.8) % Plt Count (150-400) X10^3/uL Neut % (Auto) (50-75) % Lymph % (Auto) (25-40) % [place] % (Auto) (3-14) % Eos % (Auto) (2-4) % Baso % (Auto) (0-2) % Neut # (Auto) (7573-3790) /uL Lymph # (Auto) (2078-8045) /uL [place] # (Auto) (0-900) /uL Eos # (Auto) (0-450) /uL Baso # (Auto) (0-100) /uL PT (10.1-12.7) SECONDS INR (0.9-1.3) APTT (26-36) SECONDS Sodium (137-145) mmol/L Potassium (3.4-5.1) mmol/L Chloride (98-107) mmol/L Carbon Dioxide (22-32) mmol/L BUN (7-17) mg/dL Creatinine (0.52-1.04) mg/dL Estimated GFR (>60) mL/min BUN/Creatinine Ratio (6-22) Glucose (80-110) mg/dL Calcium (8.4-10.2) mg/dL Magnesium (1.6-2.3) mg/dL Total Bilirubin (0.2-1.3) mg/dL AST (14-36) IU/L ALT (<35) IU/L Alkaline Phosphatase (38-126) U/L Total Creatine Kinase (30-135) U/L CK-MB (CK-2) (<2.37) ng/mL CK-MB (CK-2) Rel Index (1.5-5.0) % Troponin I (0.01-0.034) ng/mL NT-Pro-B Natriuret Pep (<450) pg/mL Total Protein (6.3-8.2) g/dL Lipase (23-300) U/L Urine Color Yellow Urine Appearance Cloudy Urine pH 5.0 (4.5-8.0) Ur Specific [place] >=1.030 H (1.000-1.035) Urine Protein 1+ H (Negative) Urine Glucose (UA) Negative (Negative) g/dL Urine Ketones Negative (NEGATIVE) Urine Occult Blood 3+ H (Negative) Urine Nitrate Negative (Negative) Urine Bilirubin Negative (NEGATIVE) Urine Urobilinogen 0.2 (0.2) E.U./dL Ur Leukocyte Esterase Trace H (NEGATIVE) Urine RBC 1-5/hpf (0-5/HPF) Urine WBC 1-5/hpf (0-5/HPF) Urine Bacteria Many (>30) H (None) Ur Culture Indicated? Specimen cultured Ethyl Alcohol ( - 10) mg/dL SARS-CoV-2 (PCR) Negative (Negative) Influenza A (RT-PCR) Flu a negative (NEGATIVE) Influenza B (RT-PCR) Flu b negative (NEGATIVE) RSV (PCR) Negative (Negative) Blood Type A Positive Antibody Screen Negative 03/25/22 Range/Units 15:52 WBC (4.5-11.0) X10^3/uL RBC (4.0-5.2) X10^6/uL Hgb (12.0-16.0) g/dL Hct (36-46) % MCV (80-100) fL MCH (26-34) PG MCHC (30-36) % RDW (11.6-14.8) % Plt Count (150-400) X10^3/uL Neut % (Auto) (50-75) % Lymph % (Auto) (25-40) % [place] % (Auto) (3-14) % Eos % (Auto) (2-4) % Baso % (Auto) (0-2) % Neut # (Auto) (4199-3621) /uL Lymph # (Auto) (3521-3183) /uL [place] # (Auto) (0-900) /uL Eos # (Auto) (0-450) /uL Baso # (Auto) (0-100) /uL PT (10.1-12.7) SECONDS INR (0.9-1.3) APTT (26-36) SECONDS Sodium 141 (137-145) mmol/L Potassium 4.7 (3.4-5.1) mmol/L Chloride 113 H (98-107) mmol/L Carbon Dioxide 19 L (22-32) mmol/L BUN 20 H (7-17) mg/dL Creatinine 0.72 (0.52-1.04) mg/dL Estimated GFR > 60 (>60) mL/min BUN/Creatinine Ratio 27.8 H (6-22) Glucose 113 H (80-110) mg/dL Calcium 9.1 (8.4-10.2) mg/dL Magnesium (1.6-2.3) mg/dL Total Bilirubin (0.2-1.3) mg/dL AST (14-36) IU/L ALT (<35) IU/L Alkaline Phosphatase (38-126) U/L Total Creatine Kinase 2809 H (30-135) U/L CK-MB (CK-2) 15.70 H (<2.37) ng/mL CK-MB (CK-2) Rel Index 0.6 L (1.5-5.0) % Troponin I 0.133 H* (0.01-0.034) ng/mL NT-Pro-B Natriuret Pep (<450) pg/mL Total Protein (6.3-8.2) g/dL Lipase (23-300) U/L Urine Color Urine Appearance Urine pH (4.5-8.0) Ur Specific [place] (1.000-1.035) Urine Protein (Negative) Urine Glucose (UA) (Negative) g/dL Urine Ketones (NEGATIVE) Urine Occult Blood (Negative) Urine Nitrate (Negative) Urine Bilirubin (NEGATIVE) Urine Urobilinogen (0.2) E.U./dL Ur Leukocyte Esterase (NEGATIVE) Urine RBC (0-5/HPF) Urine WBC (0-5/HPF) Urine Bacteria (None) Ur Culture Indicated? Ethyl Alcohol ( - 10) mg/dL SARS-CoV-2 (PCR) (Negative) Influenza A (RT-PCR) (NEGATIVE) Influenza B (RT-PCR) (NEGATIVE) RSV (PCR) (Negative) Blood Type Antibody Screen Imaging Data CT scan - head: Radiologist's Impression: Sowmya Kidd??76??F??1945 ? Allergy/Adv: No Known Drug Allergies (More??) Close Chest/Abdomen/Pelvis CT (Signed) Gracy Alexander 03/25/[address] (Signed) Gracy Alexander 03/25/22 Chest X-Ray (Signed) Enrique Bryant - 03/25/[address] (Signed) [email or web address] 03/25/22 Hip X-Ray (Signed) Enrique Bryant - 03/25/22 Ankle X-Ray (Signed) Enrique Bryant - 03/25/[address] (Signed) Anuel Salas - 03/25/22 Telemetry Strips 04/07/21 Chest X-Ray (Signed) Dontae Lord - 04/07/[address] (Signed) Dontae Lord - 04/07/21 Abdomen Ultrasound (Signed) Anthony Goodwin - 09/06/20 Telemetry Strips 09/02/[address] (Signed) ScottSuzanna - 09/02/20 Chest X-Ray (Signed) ScottSuzanna - 09/02/20 Abdomen Ultrasound (Signed) Yaron Dale - 01/07/20 [place] [address] CT Scan Report Signed Patient: Sowmya Kidd MR#: [id number] : 1945 Acct:[id number] Age/Sex: 76 / F Date of Service: 03/25/22 Loc: ED Accession Number: [id number] ?? Procedure: CT head/brain wo con Ordering Provider: Golden Head D.O. PROCEDURE:? CT HEAD/BRAIN WO CON ? INDICATIONS:? fall, unknown down time ? TECHNIQUE:? Noncontrast 4.5 mm thick angled axial sections acquired from the foramen magnum to the vertex, with coronal and sagittal reformats.? For radiation dose reduction, the following was used:? automated exposure control, adjustment of mA and/or kV according to patient size.? ? COMPARISON:? [facility], CT, CT HEAD/BRAIN WO CON, 04/07/2021, 3:03. ? FINDINGS:? Image quality:? Excellent.? ? CSF spaces:? Basal cisterns are patent.? No extra-axial fluid collections.? The ventricles are symmetric in size and shape.? ? Brain:? No intracranial bleeds or masses.? There is cerebral volume loss for age, with resultant ventricular and sulcal prominence.? There are periventricular and deep white matter chronic small vessel ischemic changes.? There is intracranial internal carotid artery atherosclerosis.? ? Skull and face:? Calvarium and visualized facial bones appear intact, without suspicious lesions.? ? Sinuses:? Visualized sinuses and mastoids are clear.? ? IMPRESSION:? No acute intracranial findings.? Findings likely associated with chronic microvascular ischemic changes. ? ? Dictated by: Gracy Alexander M.D. on 03/25/2022 at 14:25 ? ? Approved by: Gracy Alexander M.D. on 03/25/2022 at 14:30 ? CT - cervical spine: Radiologist's Impression: [place] [address] CT Scan Report Signed Patient: Sowmya Kidd MR#: [id number] : 1945 Acct:[id number] Age/Sex: 76 / F Date of Service: 03/25/22 Loc: ED Accession Number: [id number] ?? Procedure: CT cervical spine wo con Ordering Provider: Golden Head D.O. /PROCEDURE:? CT CERVICAL SPINE WO CON ? INDICATIONS:? fall, unknown down time ? TECHNIQUE:? Noncontrast 3 mm thick sections acquired from the skull base to the T4 level.? Sagittal and coronal reformats were then constructed.? For radiation dose reduction, the following was used:? automated exposure control, adjustment of mA and/or kV according to patient size.? ? COMPARISON:? None. ? FINDINGS:? Image quality:? Excellent.? ? Bones:? No fractures or dislocations.? There are mild degenerative changes including intervertebral disc space narrowing, endplate sclerosis, and subchondral cystic changes.? Visualized superior ribs are intact.? ? Soft tissues:? Prevertebral soft tissues are normal in thickness.? No paravertebral hematomas.? No apical pneumothoraces.? ? ? IMPRESSION:? ? 1. No acute cervical spine injury. ? 2. Degenerative change.? Dictated by: Gracy Alexander M.D. on 03/25/2022 at 14:31 ? ? Approved by: Gracy Alexander M.D. on 03/25/2022 at 14:34 ? CT scan - abdomen/pelvis: Radiologist's Impression: [address] [id number] [address] Scan Report Signed Patient: Sowmya Kidd MR#: [id number] : 1945 Acct:[id number] Age/Sex: 76 / F Date of Service: 03/25/22 Loc: ED Accession Number: [id number] ?? Procedure: CT chest abd pel w con Ordering Provider: Golden Head D.O. PROCEDURE:? CT CHEST ABD PEL W CON ? INDICATIONS:? trauma, neck pain, back pain, hip pain ? TECHNIQUE:? After the administration of intravenous contrast, 5 mm thick sections acquired from the lung apices to the symphysis.? 2.5 mm thick coronal and sagittal reformats were acquired. ?Additional 7 mm thick coronal maximum intensity projection (MIP) reformats acquired through the lungs.? Optional 10-minute delayed imaging may be performed from the kidneys to the bladder.? For radiation dose reduction, the following was used:? automated exposure control, adjustment of mA and/or kV according to patient size.? ? COMPARISON:? None. ? FINDINGS:? Image quality:? Excellent.? ? CHEST:? Lungs:? No pulmonary contusions or lacerations.? No acute airspace opacities.? No pneumothorax or hemothorax.? Central and peripheral airways appear patent and normal in caliber.? ? Mediastinum:? No mediastinal hematomas.? Heart size is normal.? No pericardial effusion.? Thoracic aorta and pulmonary arteries demonstrate normal size and enhancement.? No mediastinal or hilar adenopathy.? Esophagus is normal in caliber.? There is a moderate hiatal hernia.? ? Chest wall:? No rib fractures.? No subcutaneous emphysema.? No axillary or supraclavicular adenopathy.? Thyroid gland is unremarkable.? ? ? ABDOMEN:? Solid organs:? Liver is normal in size and enhancement, without lacerations.? Gallbladder is unremarkable.? Biliary system is non-dilated.? Pancreas enhances normally, without transection.? Spleen is normal in size and enhancement, without lacerations.? No adrenal hematomas.? Both kidneys enhance normally, without hydronephrosis or lacerations.? There are small bilateral cortical low density cysts. ? Peritoneum and bowel:? No free fluid or air.? Unenhanced bowel loops demonstrate normal wall thickness and caliber.? There is a fluid-filled duodenal diverticulum.? The appendix is thin walled and gas filled.? There are scattered sigmoid diverticula. No evidence for diverticulitis. ? Nodes and vessels:? No retroperitoneal or mesenteric adenopathy.? Aorta and inferior vena cava are normal in size and enhancement.? There are scattered atheromatous calcifications throughout the aorta and iliac arteries bilaterally. ? Miscellaneous:? No ventral hernias.? ? ? PELVIS:? Genitourinary:? Bladder wall thickness is normal.? ? Miscellaneous:? No inguinal hernias or adenopathy.? ? Bones:? Pelvic ring and hip joints appear intact.? No vertebral compression fractures.? ? ? IMPRESSION:? ? 1. No thoracic trauma.? No acute intra-abdominal findings.? Normal appendix.? Diverticulosis.? No acute diverticulitis. ? 2. Moderate hiatal hernia. ? Dictated by: Gracy Alexander M.D. on 03/25/2022 at 14:34 ? ? Approved by: Gracy Alexander M.D. on 03/25/2022 at 14:44 ? MDM Narrative Medical decision making narrative: CC: 76-year-old female with chronic kidney disease and alcohol abuse history presents by EMS for evaluation of obviously deformed and open left ankle fracture after ground level fall yesterday, was on the ground all night Complicating co-morbidities: Kidney disease, alcohol abuse, age Data collected from: Patient, family EMS Medical records reviewed: Multiple prior visits Differential considered, but not limited to: Left ankle fracture dislocation, left hip fracture, kidney disease, rhabdo, intracranial hemorrhage, cervical spinal injury versus other Exam documented above, pertinent findings include: GCS 15, no obvious head injury, no chest pain or shortness of breath, abdomen soft and nontender. Obviously deformed and open left ankle fracture dislocation, sensation, strength and dorsalis pedis pulses are intact Lab Test results independently reviewed as above. Pertinent findings: Slight elevation in white blood cells not surprising given physiologic stress, no anemia, coagulation studies are reassuring, electrolytes within normal, no evidence of renal abnormality, total CK initially 3795, improved to 2809 after fluids, slight bump in troponin likely consequence of rhabdo Independently reviewed EKG as above Imaging studies independently reviewed: Head CT without intracranial hemorrhage or fracture, C-spine demonstrates no fracture or malalignment. Chest, abdomen and pelvis without fractures, internal bleeding, questionable left hip fracture on plain films DIS proven by CT, I discussed with Radiology myself as they reviewed the images. Left ankle fracture severe with comminution and posterior dislocatio Consultations: Discussions with Dr. Alexander (Radiology), Dr. Rahman (orthopedics), Dr. De León (anesthesia) Treatments: Fluid boluses, tetanus updated, Zofran, Ancef 2 g, Dilaudid Re-evaluations: Patient with improved pain control and nausea, she remains neurovascularly intact Discussion: Patient with evidence of rhabdo with complex open left ankle fracture will go to operating room this evening for definitive treatment Diagnosis: Disposition: see below, along with detailed discharge instructions that have been reviewed with patient as well as indications for ED re-evaluation and additional outpatient follow up Critical Care Time Critical Care Time Critical Care Time: Yes Total Critical Care Time: 30 Attestation: The high probability of a clinically significant, sudden or life threatening deterioration of the [CV] system(s) required my full and direct attention, intervention and personal management. The aggregate critical care time was [30] minutes. This time is in addition to time spent performing reported procedures but includes the following: [x] Data Review and interpretation [x] Patient assessment and monitoring of vital signs [x] Documentation [x] Medication orders and management Discharge Plan Departure Patient Disposition: Admitted As Inpatient Clinical Impression: Open fracture dislocation of left ankle, Rhabdomyolysis Admit Date/Time: 03/25/22 20:45 Admit Provider: Mere Rahman
[2022-03-25 14:26] LABS: Bacteria Urine Many (>30); Culture Indicated Urine Specimen Cultured; RBC Urine 1-5/HPF (0-5/HPF); WBC Urine 1-5/HPF (0-5/HPF)
[2022-03-25 14:30] LABS: Creatine Kinase 3795 U/L (30-135)
[2022-03-25 14:45] LABS: CKMB % Relative Index 0.4 % (1.5-5.0)
[2022-03-25 14:50] LABS: Influenza A - CEPHEID Flu A NEGATIVE (NEGATIVE); Influenza B - CEPHEID Flu B NEGATIVE (NEGATIVE); Respiratory Syncytial Virus Negative (Negative)
[2022-03-25] MEDS: HYDROMORPHONE 0.5 MG INJ IV (15:11)
[2022-03-25] MEDS: SODIUM CHLORIDE 0.9% 1,000 ML 1000 ML IV ×2 (15:55→16:42)
--- NOTE | 2022-03-25 16:00 | PC.NURSE ---
CSpine cleared by Dr ward and collar removed. Bear hugger removed for temp 98.4. Given warm blankets.
[2022-03-25 16:19] LABS: BUN Creatinine Ratio 27.8 (6-22); Blood Urea Nitrogen 20 mg/dL (7-17); Calcium 9.1 mg/dL (8.4-10.2); Carbon Dioxide 19 mmol/L (22-32); Chloride 113 mmol/L (98-107); Estimated Glomerular Filt Rate > 60 mL/min (>60); Glucose 113 mg/dL (80-110); HEMOLYSIS < 15 (0-50); Potassium 4.7 mmol/L (3.4-5.1); Sodium 141 mmol/L (137-145)
[2022-03-25 16:25] LABS: Creatine Kinase 2809 U/L (30-135)
[2022-03-25 16:32] LABS: Troponin I 0.133 ng/mL (0.01-0.034)
[2022-03-25 16:39] LABS: CKMB % Relative Index 0.6 % (1.5-5.0)
[2022-03-25 16:42] LABS: COVID-19 CEPHEID 4-PLEX PCR Negative (Negative)
--- NOTE | 2022-03-25 17:44 | PM.HP.1 ---
History of Present Illness History of Present Illness Date Patient Seen: 03/25/22 Time Patient Seen: 17:44 Date of Onset of Symptoms: 03/25/22 Chief complaint: modified trauma Narrative: This is a 76-year-old female with a history of some alcohol issues who fell and injured her left ankle. She had a somewhat delayed presentation. She said she just had a glass of wine related to something related to 1 of her family members. She notes fairly severe left ankle pain. She denies loss of consciousness or of a specific dizziness or other problems prior to the fall. She was brought in with a grossly displaced left foot and ankle and an open wound. She was given medications in the ambulance. Patient History Medical History Alcohol dependence Chronic kidney disease (CKD) stage G3b/A1, moderately decreased glomerular filtration rate (GFR) between 30-44 mL/min/1.73 square meter and albuminuria creatinine ratio less than 30 mg/g Surgical History History of colonoscopy History of esophagogastroduodenoscopy (EGD) Family & Social History Family History Father Heart disease Mother Heart disease Social History: household members none Safety & Behavioral: Feels Safe in Current Yes Environment Been Physically Hurt or No Threatened By a Person Tobacco & Substance use: Smoking Status Never smoker alcohol intake current alcohol intake frequency 3 or more drinks per day Substance Use Type does not use Meds Home Medications and Allergies Home Medications Medication Instructions Recorded Confirmed Type rosuvastatin 20 mg tablet (Crestor) 20 mg PO QDAY ##0 03/23/17 04/07/21 History cyclobenzaprine 10 mg tablet 10 mg PO TID PRN #30 tabs 06/22/17 04/07/21 Rx acetaminophen 325 mg tablet 650 mg PO Q4HR PRN Fever/Mild Pain 09/08/20 04/07/21 Rx (1-3) #1 tab ferrous sulfate 325 mg (65 mg 325 mg PO BID #60 tabs 04/09/21 Rx iron) tablet folic acid 1 mg tablet 1 mg PO DAILY #30 tabs 04/09/21 Rx lactulose 20 gram/30 mL oral 20 g (30 mL) PO DAILY #1,200 mL 04/09/21 Rx solution multivitamin with folic acid 400 1 tab PO DAILY #30 tabs 04/09/21 Rx mcg tablet (Tab-A-Mary) pantoprazole 40 mg tablet,delayed 40 mg PO BID #60 tabs 04/09/21 Rx release thiamine mononitrate (vit B1) 100 100 mg PO DAILY #30 tabs 04/09/21 Rx mg tablet Allergies Allergy/AdvReac Type Severity Reaction Status Date / Time No Known Drug Allergies Allergy Verified 10/13/20 10:57 Review of Systems Review of Systems Narrative: Patient is slightly sedated but appropriate she does not note any significant recent decline in her health, she denies chest pain, she denies shortness of breath Exam Vital Signs (past 8 hours): - 03/25/22 13:21 03/25/22 13:07 03/25/22 13:10 Temperature 98.9 F Pulse Rate 79 86 Respiratory Rate 16 Blood Pressure 172/74 H 180/76 H Pulse Oximetry 99 95 Oxygen Delivery Method Room Air 03/25/22 13:10 03/25/22 13:19 03/25/22 13:19 Temperature 95.7 F L Pulse Rate 81 84 Respiratory Rate 32 H 54 H Blood Pressure 172/74 H Pulse Oximetry 99 99 Oxygen Delivery Method 03/25/22 13:20 03/25/22 13:25 03/25/22 13:30 Temperature 95.9 F L 96.1 F L 96.3 F L Pulse Rate 80 79 81 Respiratory Rate 24 31 H 33 H Blood Pressure Pulse Oximetry 99 98 98 Oxygen Delivery Method 03/25/22 13:46 03/25/22 13:47 03/25/22 13:47 Temperature 96.1 F L Pulse Rate 84 85 Respiratory Rate 16 Blood Pressure 177/71 H Pulse Oximetry 97 97 Oxygen Delivery Method 03/25/22 13:50 03/25/22 13:50 03/25/22 13:55 Temperature 96.1 F L Pulse Rate 84 Respiratory Rate 16 Blood Pressure 145/65 H 149/66 H Pulse Oximetry 98 Oxygen Delivery Method 03/25/22 13:55 03/25/22 14:00 03/25/22 14:00 Temperature 96.1 F L 96.1 F L Pulse Rate 80 81 Respiratory Rate 15 17 Blood Pressure 158/67 H Pulse Oximetry 98 98 Oxygen Delivery Method 03/25/22 14:05 03/25/22 14:05 03/25/22 14:10 Temperature 96.1 F L Pulse Rate 81 Respiratory Rate 16 Blood Pressure 153/67 H 165/68 H Pulse Oximetry 97 Oxygen Delivery Method 03/25/22 14:10 03/25/22 14:15 03/25/22 14:16 Temperature 96.1 F L 96.1 F L Pulse Rate 80 84 Respiratory Rate 18 21 Blood Pressure 150/73 H Pulse Oximetry 99 99 Oxygen Delivery Method 03/25/22 14:16 03/25/22 14:20 03/25/22 14:20 Temperature 96.1 F L 96.3 F L Pulse Rate 84 85 Respiratory Rate 16 24 Blood Pressure 164/64 H Pulse Oximetry 99 98 Oxygen Delivery Method 03/25/22 14:25 03/25/22 14:25 03/25/22 14:30 Temperature 96.3 F L Pulse Rate 84 Respiratory Rate 15 Blood Pressure 155/70 H 152/63 H Pulse Oximetry 97 Oxygen Delivery Method 03/25/22 14:30 03/25/22 14:35 03/25/22 14:35 Temperature 96.3 F L 96.4 F L Pulse Rate 84 86 Respiratory Rate 17 23 Blood Pressure 160/69 H Pulse Oximetry 98 98 Oxygen Delivery Method 03/25/22 14:40 03/25/22 14:40 03/25/22 14:45 Temperature 96.6 F L Pulse Rate 83 Respiratory Rate 28 H Blood Pressure 148/66 H 163/69 H Pulse Oximetry 98 Oxygen Delivery Method 03/25/22 14:45 03/25/22 14:50 03/25/22 14:50 Temperature 96.8 F L 96.8 F L Pulse Rate 84 85 Respiratory Rate 20 26 H Blood Pressure 156/74 H Pulse Oximetry 97 97 Oxygen Delivery Method 03/25/22 14:55 03/25/22 14:55 03/25/22 15:00 Temperature 97.0 F L Pulse Rate 83 Respiratory Rate 21 Blood Pressure 145/67 H 153/62 H Pulse Oximetry 96 Oxygen Delivery Method 03/25/22 15:00 03/25/22 15:05 03/25/22 15:05 Temperature 97.2 F L 97.3 F L Pulse Rate 85 85 Respiratory Rate 23 22 Blood Pressure 153/67 H Pulse Oximetry 97 96 Oxygen Delivery Method 03/25/22 15:10 03/25/22 15:10 03/25/22 15:15 Temperature 97.5 F L Pulse Rate 84 Respiratory Rate 24 Blood Pressure 144/65 H 130/61 Pulse Oximetry 96 Oxygen Delivery Method 03/25/22 15:15 03/25/22 15:20 03/25/22 15:20 Temperature 97.5 F L 97.7 F Pulse Rate 83 81 Respiratory Rate 21 22 Blood Pressure 134/63 Pulse Oximetry 95 95 Oxygen Delivery Method 03/25/22 15:25 03/25/22 15:25 03/25/22 15:30 Temperature 97.9 F 97.9 F Pulse Rate 80 81 Respiratory Rate 19 21 Blood Pressure 123/58 L Pulse Oximetry 94 93 Oxygen Delivery Method 03/25/22 15:31 03/25/22 15:31 03/25/22 15:35 Temperature 97.9 F Pulse Rate 82 Respiratory Rate 22 Blood Pressure 121/56 L 137/65 Pulse Oximetry 95 Oxygen Delivery Method 03/25/22 15:35 03/25/22 15:40 03/25/22 15:40 Temperature 98.1 F 98.1 F Pulse Rate 82 82 Respiratory Rate 18 17 Blood Pressure 127/60 Pulse Oximetry 94 94 Oxygen Delivery Method 03/25/22 15:45 03/25/22 15:45 03/25/22 15:50 Temperature 98.2 F Pulse Rate 82 Respiratory Rate 18 Blood Pressure 127/58 L 131/60 Pulse Oximetry 93 Oxygen Delivery Method 03/25/22 15:50 03/25/22 15:55 03/25/22 15:55 Temperature 98.2 F 98.2 F Pulse Rate 82 83 Respiratory Rate 16 17 Blood Pressure 129/58 L Pulse Oximetry 91 92 Oxygen Delivery Method 03/25/22 16:00 03/25/22 16:01 03/25/22 16:01 Temperature 98.4 F 98.4 F Pulse Rate 83 83 Respiratory Rate 18 19 Blood Pressure 153/64 H Pulse Oximetry 96 96 Oxygen Delivery Method 03/25/22 16:05 03/25/22 16:05 03/25/22 16:10 Temperature 98.4 F Pulse Rate 83 Respiratory Rate 17 Blood Pressure 109/56 L 140/64 Pulse Oximetry 96 Oxygen Delivery Method 03/25/22 16:10 03/25/22 16:15 03/25/22 16:15 Temperature 98.4 F 98.4 F Pulse Rate 81 83 Respiratory Rate 18 16 Blood Pressure 114/58 L Pulse Oximetry 96 95 Oxygen Delivery Method 03/25/22 16:20 03/25/22 16:20 03/25/22 16:25 Temperature 98.4 F Pulse Rate 82 Respiratory Rate 17 Blood Pressure 113/56 L 134/60 Pulse Oximetry 96 Oxygen Delivery Method 03/25/22 16:25 03/25/22 16:30 03/25/22 16:30 Temperature 98.4 F 98.4 F Pulse Rate 82 84 Respiratory Rate 17 19 Blood Pressure 120/59 L Pulse Oximetry 96 95 Oxygen Delivery Method 03/25/22 16:35 03/25/22 16:35 03/25/22 16:40 Temperature 98.4 F Pulse Rate 85 Respiratory Rate 18 Blood Pressure 116/55 L 119/58 L Pulse Oximetry 93 Oxygen Delivery Method 03/25/22 16:40 03/25/22 16:45 03/25/22 16:45 Temperature 98.4 F 98.4 F Pulse Rate 85 87 Respiratory Rate 17 24 Blood Pressure 108/51 L Pulse Oximetry 98 96 Oxygen Delivery Method Room Air 03/25/22 16:50 03/25/22 16:50 03/25/22 16:55 Temperature 98.4 F Pulse Rate 84 88 Respiratory Rate 17 19 Blood Pressure 125/57 L Pulse Oximetry 97 97 Oxygen Delivery Method 03/25/22 17:10 Temperature 98.5 F Pulse Rate 86 Respiratory Rate 20 Blood Pressure 131/62 Pulse Oximetry 97 Oxygen Delivery Method Room Air Oxygen Delivery Method Room Air Narrative Exam Narrative: HEENT is benign, lungs are clear, cor regular rate and rhythm, abdomen benign, she is arousable and appropriate with questions she is resting comfortably slightly sedated. Examination of the right lower extremity shows minimal pain with gentle range of motion in the right knee foot and ankle the left foot shows a grossly displaced foot and ankle with an open wound laterally with blood staining bilateral foot and ankles she can fire her toe flexors and extensors with trace motion, she has somewhat decreased sensation in bilateral lower extremities. The wound is laterally is open and there is exposed fibula. Objective Labs Result Diagrams: 03/25/22 13:17 03/25/22 15:52 Labs: Laboratory Results - last 24 hr 03/25/22 03/25/22 03/25/22 13:17 13:17 13:17 WBC 13.1 H RBC 3.77 L Hgb 12.8 Hct 39.2 MCV 104.0 H MCH 33.8 MCHC 32.5 RDW 14.5 Plt Count 134 L Neut % (Auto) 86.6 H Lymph % (Auto) 4.2 L [place] % (Auto) 9.1 Eos % (Auto) 0.0 L Baso % (Auto) 0.1 Neut # (Auto) 16895 H Lymph # (Auto) 500 L [place] # (Auto) 1200 H Eos # (Auto) 0 Baso # (Auto) 0 PT 12.4 INR 1.1 APTT 30 Sodium 143 Potassium 4.4 Chloride 110 H Carbon Dioxide 17 L BUN 19 H Creatinine 0.84 Estimated GFR > 60 BUN/Creatinine Ratio 22.6 H Glucose 115 H Calcium 10.3 H Magnesium 1.9 Total Bilirubin 2.4 H AST 116 H ALT 47 H Alkaline Phosphatase 153 H Total Creatine Kinase 3795 H CK-MB (CK-2) 16.80 H CK-MB (CK-2) Rel Index 0.4 L Troponin I 0.106 H NT-Pro-B Natriuret Pep 344 Total Protein 8.0 Lipase 281 Urine Color Urine Appearance Urine pH Ur Specific [place] Urine Protein Urine Glucose (UA) Urine Ketones Urine Occult Blood Urine Nitrate Urine Bilirubin Urine Urobilinogen Ur Leukocyte Esterase Urine RBC Urine WBC Urine Bacteria Ur Culture Indicated? Ethyl Alcohol < 10 SARS-CoV-2 (PCR) Influenza A (RT-PCR) Influenza B (RT-PCR) RSV (PCR) Blood Type Antibody Screen 03/25/22 03/25/22 03/25/22 13:17 13:17 13:17 WBC RBC Hgb Hct MCV MCH MCHC RDW Plt Count Neut % (Auto) Lymph % (Auto) [place] % (Auto) Eos % (Auto) Baso % (Auto) Neut # (Auto) Lymph # (Auto) [place] # (Auto) Eos # (Auto) Baso # (Auto) PT INR APTT Sodium Potassium Chloride Carbon Dioxide BUN Creatinine Estimated GFR BUN/Creatinine Ratio Glucose Calcium Magnesium Total Bilirubin AST ALT Alkaline Phosphatase Total Creatine Kinase CK-MB (CK-2) CK-MB (CK-2) Rel Index Troponin I NT-Pro-B Natriuret Pep Total Protein Lipase Urine Color Yellow Urine Appearance Cloudy Urine pH 5.0 Ur Specific [place] >=1.030 H Urine Protein 1+ H Urine Glucose (UA) Negative Urine Ketones Negative Urine Occult Blood 3+ H Urine Nitrate Negative Urine Bilirubin Negative Urine Urobilinogen 0.2 Ur Leukocyte Esterase Trace H Urine RBC 1-5/hpf Urine WBC 1-5/hpf Urine Bacteria Many (>30) H Ur Culture Indicated? Specimen cultured Ethyl Alcohol SARS-CoV-2 (PCR) Negative Influenza A (RT-PCR) Flu a negative Influenza B (RT-PCR) Flu b negative RSV (PCR) Negative Blood Type A Positive Antibody Screen Negative 03/25/22 15:52 WBC RBC Hgb Hct MCV MCH MCHC RDW Plt Count Neut % (Auto) Lymph % (Auto) [place] % (Auto) Eos % (Auto) Baso % (Auto) Neut # (Auto) Lymph # (Auto) [place] # (Auto) Eos # (Auto) Baso # (Auto) PT INR APTT Sodium 141 Potassium 4.7 Chloride 113 H Carbon Dioxide 19 L BUN 20 H Creatinine 0.72 Estimated GFR > 60 BUN/Creatinine Ratio 27.8 H Glucose 113 H Calcium 9.1 Magnesium Total Bilirubin AST ALT Alkaline Phosphatase Total Creatine Kinase 2809 H CK-MB (CK-2) 15.70 H CK-MB (CK-2) Rel Index 0.6 L Troponin I 0.133 H* NT-Pro-B Natriuret Pep Total Protein Lipase Urine Color Urine Appearance Urine pH Ur Specific [place] Urine Protein Urine Glucose (UA) Urine Ketones Urine Occult Blood Urine Nitrate Urine Bilirubin Urine Urobilinogen Ur Leukocyte Esterase Urine RBC Urine WBC Urine Bacteria Ur Culture Indicated? Ethyl Alcohol SARS-CoV-2 (PCR) Influenza A (RT-PCR) Influenza B (RT-PCR) RSV (PCR) Blood Type Antibody Screen x-rays show a grossly dislocated left ankle fracture dislocation with significant comminution of the fibula and some comminution of the medial malleolus. CT scan confirms significant fracture dislocation. I really do not see a substantial posterior medial fragment. Assessment & Plan Assessment and plan (1) Open fracture dislocation of left ankle: Status: Acute (2) Rhabdomyolysis: Status: Acute (3) Acute GI bleeding: Status: Acute (4) Anemia: Status: Acute (5) Guaiac positive stools: Status: Acute (6) Bacteriuria: Problem details: culture pending; Address per hospitalist Status: Acute (7) Alcohol dependence: Status: Acute Plan She has a grade 2 open right ankle fracture dislocation. I have recommended urgent open reduction internal fixation and irrigation and debridement. She also has multiple medical problems and significant alcohol dependence. Nature of the procedure options risks benefits and complications discussed in detail. She has an open wound and we are going to proceed with this on an urgent basis. Fracture is quite comminuted and grossly displaced. Risk of long-term infection as well as risk of significant posttraumatic osteoarthritis was discussed in detail. Time Spent With Patient Critical Care time: I spent a total of [] minutes of critical care time on this patient's care today; this time is exclusive of procedural time.
--- NOTE | 2022-03-25 17:53 | PM.OP.1 ---
Operative Date/Time/Diagnoses Date of procedure: 03/25/22 Time of procedure: 18:20 Pre-op diagnosis: Grade 2 open right ankle trimalleolar fracture dislocation Post-op diagnosis: same Procedure & Clinicians Procedure: Irrigation and debridement right open ankle fracture, ORIF right trimalleolar ankle fracture Same procedure as scheduled: Yes Indications: This is a 76-year-old female who has a history of alcohol dependence. She fell and injured her left ankle. She came to the emergency room for evaluation. She was noted to have a open displaced left ankle fracture as well as some rhabdo on her labs. She has a known history of alcohol abuse. She also has multiple medical problems. I have recommended urgent left ankle open reduction internal fixation and irrigation debridement. She has a severely comminuted grossly displaced fracture. She was sedated by the paramedics and the emergency room physician did not feel comfortable giving her additional sedation for a reduction of the ankle. She was placed on the surgery schedule on an emergent basis. Risks of the procedure options risks benefits complications were discussed in detail. Surgeon: Mere Rahman [employer] Consultant: Jessica Pereira Anesthesia Type: General Operative Notes Findings: Comminuted grossly unstable right ankle fracture. Open right ankle with moderate contamination. Closure Type: primary Specimen(s): other (Deep cultures) Prosthetic devices, grafts, tissues, transplants, or devices: [employer] locking lateral fibular plate, 2 cannulated screws medially Estimated Blood Loss (mL): 150 Tourniquet time (min): 62 Procedure in detail: Patient is brought to the operating room she underwent induction of a general anesthesia. Her left lower extremity was prepped and draped in standard sterile fashion. High-thigh tourniquet was applied. A bump was placed underneath her left hip. Patient's leg was carefully elevated. A gentle reduction maneuver was performed after induction of general anesthesia. She was prepped sterilely. She was draped sterilely. Time-out was performed. She was given preoperative antibiotics. The leg was elevated the tourniquet was inflated to 250 mmHg. She had a severely comminuted fibula fracture with a grade 2 open wound on the lateral aspect of the ankle. It was an open ankle with about a 1 cm wound. There was significant contusion along the anterior aspect of the soft tissues. The wound was not directly over the planned surgical incision. The wound was meticulously irrigated and debrided removing contaminated soft tissue fat and minimal amount of bone. A longitudinal incision was made over the lateral malleolus. Dissection was carried out through skin and subcutaneous tissues. Nerve was carefully identified and meticulously protected. Dissection was carried out down to the fracture site. The ankle joint was meticulously irrigated with normal saline. The puncture wound was more anterior to the lateral incision. It was carefully irrigated and gently debrided. The fibula fracture was then anatomically reduced. It was fixed with a lag screw and a locking lateral plate. The fracture was meticulously reduced. It was quite comminuted. It was fixed with a lateral locking plate. Mini C-arm was used to confirm the reduction and the fixation. Attention was then directed to the medial side of the ankle. She had a grossly displaced and grossly unstable medial malleolus fracture. It was severely comminuted. Medial skin incision was made dissection was carried out through skin and subcutaneous tissues. Saphenous neurovascular bundle was carefully protected. The fracture was meticulously reduced. It was quite comminuted so it was difficult to get it perfectly reduced but I was able to restore some medial stability and a medial buttress. It was held provisionally with several K-wires. The comminution was reapproximated as best possible. The ankle joint was meticulously irrigated with normal saline. The fracture was then fixed with 2 cannulated screws. It was not felt that a plate would provide additional stability or enhance fixation. The wound was re-irrigated with normal saline it was injected with ropivacaine and the wound was closed with interrupted Vicryl and skin claudette. Mini C-arm was used during the procedure and there was good visualization of the fracture and the fixation. The wound was dressed sterilely. She was placed in a bulky Arredondo dressing. Complications: none Post-operative Condition: stable Disposition: Acute Care Plan for aftercare: Partial weight-bearing on the right lower extremity. IV antibiotics for 48 hours. Elevate right ankle. Probable discharge to rehab depending upon her hospital course. [place] [facility] [place].
--- NOTE | 2022-03-25 18:40 | SUR.OPER ---
Supine on padded OR bed, head on pillow, arms secured on padded arm boards at <90 degrees abduction, legs uncrossed, safety belt at thigh, tape over blanket over lower right leg. Bump placed under left hip.
--- NOTE | 2022-03-25 18:49 | SUR.OPER ---
Many scattered skin abrasions and bruises noted pre operatively. Notably, large bruise noted under left arm. Patient was unaware of the cause.
[2022-03-25] MEDS: ROPIVACAINE 0.2% PF 2 MG/ML 20ML AMP 20 ML INJ (19:54)
[2022-03-25] MEDS: LACTATED RINGERS 1,000 ML 100 ML IV (21:35)
--- NOTE | 2022-03-25 21:53 | PM.CN ---
History of Present Illness Consult details Date Patient Seen: 03/25/22 Time Patient Seen: 21:53 Chief complaint: modified trauma Reason for consult: Medical management UTI, rhabdo NSTEMI ETOH withdrawal Narrative: Sowmya Kidd 76-year-old female nonsmoker with history of GI bleed (09/2020,03/2021)/hepatic encephalopathy, hyperlipidemia, CKD, alcohol abuse, symptomatic anemia, hyperammonemia,? acid reflux,? presented by EMS for evaluation of injury suffered as a consequence of a fall sometime last evening.? Poor historian Events and time down is unclear it was reported to the ED that she was last seen by her family 03/24/21 when dropping her off at home, after sharing a meal and alcohol intake they dropped her off at home.? Sometime in the middle of the night she fell but does not remember the specifics.? In ED c/o midline neck pain, severe left hip and most notably left ankle pain. It is unknown how long patient was down, if she hit head, or loss of consciousness. Patient was admitted to Dr. Brii Rahman orthopedic: grade 2 open right ankle fracture dislocation.? Patient was taken to the OR: Irrigation and debridement right open ankle fracture, ORIF right trimalleolar ankle fracture. Dr. Rahman graciously requested a hospital consult regarding her multiple acute medical issues rhabdomyolysis, UTI, NSTEMI, alcohol withdrawal, elevated liver enzymes. Upon admit to floor patient is sleeping quietly, arousable, labored breathing, she wakes up and is able to tell me her name date of where she is at and that she is in the hospital for ankle repair, quickly her speech became extremely garbled difficult to understand, and thought process and verbal communication becomes disorientated and scattered likely secondary to operative sedation, it is unclear if the patient was altered in the ED prior to surgery as she was heavily medicated by EMS, encephalopathy or confusion due to medication unknown-due to this unable to obtain HPI, ROS, or family history. patient denies pain at this time except with repositioning of the left leg, which is currently splinted and elevated on a pillow. Patient's vitals are stable postoperatively temp 98.5?, BP 131/62, HR 86, R 20, O2 saturation 96% on room air. Review pre-surgical labs WBC 13.1, neutrophils 11,400, mono 1200, platelet 134, chloride 113, BUN 20, bicarb 19, creatinine 0.72, glucose 113, GFR >60, CK 3795, repeat 2809, CK-2: 15.7, BNP 344, AST 116, ALT 47, bili 2.4, alk-phos 153, initial troponin 0.106, repeat 0.133, albumin is pending. Sofa score: 1, urine positive for infection culture pending, patient's C-spine, chest x-ray and CT were unremarkable. Consulting regarding medical management: rhabdomyolysis, UTI, NSTEMI, alcohol withdrawal. Meds Home Medications and Allergies Home Medications Medication Instructions Recorded Confirmed Type rosuvastatin 20 mg tablet (Crestor) 20 mg PO QDAY ##0 03/23/17 04/07/21 History cyclobenzaprine 10 mg tablet 10 mg PO TID PRN #30 tabs 06/22/17 04/07/21 Rx acetaminophen 325 mg tablet 650 mg PO Q4HR PRN Fever/Mild Pain 09/08/20 04/07/21 Rx (1-3) #1 tab ferrous sulfate 325 mg (65 mg 325 mg PO BID #60 tabs 04/09/21 Rx iron) tablet folic acid 1 mg tablet 1 mg PO DAILY #30 tabs 04/09/21 Rx lactulose 20 gram/30 mL oral 20 g (30 mL) PO DAILY #1,200 mL 04/09/21 Rx solution multivitamin with folic acid 400 1 tab PO DAILY #30 tabs 04/09/21 Rx mcg tablet (Tab-A-Mary) pantoprazole 40 mg tablet,delayed 40 mg PO BID #60 tabs 04/09/21 Rx release thiamine mononitrate (vit B1) 100 100 mg PO DAILY #30 tabs 04/09/21 Rx mg tablet Allergies Allergy/AdvReac Type Severity Reaction Status Date / Time No Known Drug Allergies Allergy Verified 10/13/20 10:57 Review of Systems Review of Systems Narrative: Patient denies pain, confusion due to medication unknown-due to this unable to obtain HPI, ROS, or family history. Exam Vital Signs (past 8 hours): - 03/25/22 13:55 03/25/22 13:55 03/25/22 14:00 Temperature 96.1 F L Pulse Rate 80 Respiratory Rate 15 Blood Pressure 149/66 H 158/67 H Pulse Oximetry 98 Oxygen Delivery Method 03/25/22 14:00 03/25/22 14:05 03/25/22 14:05 Temperature 96.1 F L 96.1 F L Pulse Rate 81 81 Respiratory Rate 17 16 Blood Pressure 153/67 H Pulse Oximetry 98 97 Oxygen Delivery Method 03/25/22 14:10 03/25/22 14:10 03/25/22 14:15 Temperature 96.1 F L 96.1 F L Pulse Rate 80 84 Respiratory Rate 18 21 Blood Pressure 165/68 H Pulse Oximetry 99 99 Oxygen Delivery Method 03/25/22 14:16 03/25/22 14:16 03/25/22 14:20 Temperature 96.1 F L Pulse Rate 84 Respiratory Rate 16 Blood Pressure 150/73 H 164/64 H Pulse Oximetry 99 Oxygen Delivery Method 03/25/22 14:20 03/25/22 14:25 03/25/22 14:25 Temperature 96.3 F L 96.3 F L Pulse Rate 85 84 Respiratory Rate 24 15 Blood Pressure 155/70 H Pulse Oximetry 98 97 Oxygen Delivery Method 03/25/22 14:30 03/25/22 14:30 03/25/22 14:35 Temperature 96.3 F L Pulse Rate 84 Respiratory Rate 17 Blood Pressure 152/63 H 160/69 H Pulse Oximetry 98 Oxygen Delivery Method 03/25/22 14:35 03/25/22 14:40 03/25/22 14:40 Temperature 96.4 F L 96.6 F L Pulse Rate 86 83 Respiratory Rate 23 28 H Blood Pressure 148/66 H Pulse Oximetry 98 98 Oxygen Delivery Method 03/25/22 14:45 03/25/22 14:45 03/25/22 14:50 Temperature 96.8 F L Pulse Rate 84 Respiratory Rate 20 Blood Pressure 163/69 H 156/74 H Pulse Oximetry 97 Oxygen Delivery Method 03/25/22 14:50 03/25/22 14:55 03/25/22 14:55 Temperature 96.8 F L 97.0 F L Pulse Rate 85 83 Respiratory Rate 26 H 21 Blood Pressure 145/67 H Pulse Oximetry 97 96 Oxygen Delivery Method 03/25/22 15:00 03/25/22 15:00 03/25/22 15:05 Temperature 97.2 F L Pulse Rate 85 Respiratory Rate 23 Blood Pressure 153/62 H 153/67 H Pulse Oximetry 97 Oxygen Delivery Method 03/25/22 15:05 03/25/22 15:10 03/25/22 15:10 Temperature 97.3 F L 97.5 F L Pulse Rate 85 84 Respiratory Rate 22 24 Blood Pressure 144/65 H Pulse Oximetry 96 96 Oxygen Delivery Method 03/25/22 15:15 03/25/22 15:15 03/25/22 15:20 Temperature 97.5 F L Pulse Rate 83 Respiratory Rate 21 Blood Pressure 130/61 134/63 Pulse Oximetry 95 Oxygen Delivery Method 03/25/22 15:20 03/25/22 15:25 03/25/22 15:25 Temperature 97.7 F 97.9 F Pulse Rate 81 80 Respiratory Rate 22 19 Blood Pressure 123/58 L Pulse Oximetry 95 94 Oxygen Delivery Method 03/25/22 15:30 03/25/22 15:31 03/25/22 15:31 Temperature 97.9 F 97.9 F Pulse Rate 81 82 Respiratory Rate 21 22 Blood Pressure 121/56 L Pulse Oximetry 93 95 Oxygen Delivery Method 03/25/22 15:35 03/25/22 15:35 03/25/22 15:40 Temperature 98.1 F Pulse Rate 82 Respiratory Rate 18 Blood Pressure 137/65 127/60 Pulse Oximetry 94 Oxygen Delivery Method 03/25/22 15:40 03/25/22 15:45 03/25/22 15:45 Temperature 98.1 F 98.2 F Pulse Rate 82 82 Respiratory Rate 17 18 Blood Pressure 127/58 L Pulse Oximetry 94 93 Oxygen Delivery Method 03/25/22 15:50 03/25/22 15:50 03/25/22 15:55 Temperature 98.2 F Pulse Rate 82 Respiratory Rate 16 Blood Pressure 131/60 129/58 L Pulse Oximetry 91 Oxygen Delivery Method 03/25/22 15:55 03/25/22 16:00 03/25/22 16:01 Temperature 98.2 F 98.4 F Pulse Rate 83 83 Respiratory Rate 17 18 Blood Pressure 153/64 H Pulse Oximetry 92 96 Oxygen Delivery Method 03/25/22 16:01 03/25/22 16:05 03/25/22 16:05 Temperature 98.4 F 98.4 F Pulse Rate 83 83 Respiratory Rate 19 17 Blood Pressure 109/56 L Pulse Oximetry 96 96 Oxygen Delivery Method 03/25/22 16:10 03/25/22 16:10 03/25/22 16:15 Temperature 98.4 F Pulse Rate 81 Respiratory Rate 18 Blood Pressure 140/64 114/58 L Pulse Oximetry 96 Oxygen Delivery Method 03/25/22 16:15 03/25/22 16:20 03/25/22 16:20 Temperature 98.4 F 98.4 F Pulse Rate 83 82 Respiratory Rate 16 17 Blood Pressure 113/56 L Pulse Oximetry 95 96 Oxygen Delivery Method 03/25/22 16:25 03/25/22 16:25 03/25/22 16:30 Temperature 98.4 F Pulse Rate 82 Respiratory Rate 17 Blood Pressure 134/60 120/59 L Pulse Oximetry 96 Oxygen Delivery Method 03/25/22 16:30 03/25/22 16:35 03/25/22 16:35 Temperature 98.4 F 98.4 F Pulse Rate 84 85 Respiratory Rate 19 18 Blood Pressure 116/55 L Pulse Oximetry 95 93 Oxygen Delivery Method 03/25/22 16:40 03/25/22 16:40 03/25/22 16:45 Temperature 98.4 F Pulse Rate 85 Respiratory Rate 17 Blood Pressure 119/58 L 108/51 L Pulse Oximetry 98 Oxygen Delivery Method 03/25/22 16:45 03/25/22 16:50 03/25/22 16:50 Temperature 98.4 F 98.4 F Pulse Rate 87 84 Respiratory Rate 24 17 Blood Pressure 125/57 L Pulse Oximetry 96 97 Oxygen Delivery Method Room Air 03/25/22 16:55 03/25/22 17:10 03/25/22 20:37 Temperature 98.5 F 97.9 F Pulse Rate 88 86 104 H Respiratory Rate 19 20 18 Blood Pressure 131/62 92/35 L Pulse Oximetry 97 97 93 Oxygen Delivery Method Room Air Room Air 03/25/22 20:41 03/25/22 20:47 03/25/22 20:53 Temperature 98.5 F 98.7 F 98.5 F Pulse Rate 101 H 98 H 92 H Respiratory Rate 18 16 16 Blood Pressure 99/45 L 100/38 L 82/37 L Pulse Oximetry 91 91 91 Oxygen Delivery Method Room Air Room Air Room Air 03/25/22 20:58 03/25/22 21:03 Temperature 98.5 F 98.5 F Pulse Rate 90 96 H Respiratory Rate 16 15 Blood Pressure 104/37 L 106/51 L Pulse Oximetry 92 93 Oxygen Delivery Method Room Air Room Air Oxygen Delivery Method Room Air Narrative Exam Narrative: General: Insert frail elderly female fairly sedated in no distress at this time. HEENT: Normocephalic, atraumatic, extraocular muscles intact, oral pharynx is clear and mucous membranes are dry. Blue-epperson dusky coloring to skin on nose. Neck is supple and symmetric, trachea is midline, no adenopathy, no thyroid enlargement, nontender, no masses palpated. Negative for JVD Chest: no nasal flaring, retractions, -positive mildly tachypneic labored breathing while sleeping Lungs: Auscultation of all lung mcintosh are clear without adventitious sounds, wheezes, rhonchi, or rales. Cardio: regular rate and rhythm without murmur, rubs, or gallops, no carotid bruit, no cardiac pulsations present. Abdomen: Soft nontender, negative for organomegaly, or masses. Bowel sounds are present in all 4 quadrants without guarding or rebound, no CVA tenderness. Musculoskeletal: Left leg is splinted, patient does have sensation to toes and is able to wiggle them good cap refill right lower extremity demonstrates venous stasis, intact radial and pedal right only pulses are normal. Skin: Warm dry and intact without rashes, ulcerations or petechiae. Neuro: Alert and orientated x3-patient was able to answer orientation questions but then quickly descended into garbled speech, incoherent scattered and disorientated thought process. Sensation to touch intact, no gross deficits noted of cranial nerves. Psych: Calm sedated affect s/p Objective Labs Result Diagrams: 03/25/22 22:27 03/25/22 22:27 Labs: Laboratory Results - last 24 hr 03/25/22 03/25/22 03/25/22 13:17 13:17 13:17 WBC 13.1 H RBC 3.77 L Hgb 12.8 Hct 39.2 MCV 104.0 H MCH 33.8 MCHC 32.5 RDW 14.5 Plt Count 134 L Neut % (Auto) 86.6 H Lymph % (Auto) 4.2 L [place] % (Auto) 9.1 Eos % (Auto) 0.0 L Baso % (Auto) 0.1 Neut # (Auto) 58872 H Lymph # (Auto) 500 L [place] # (Auto) 1200 H Eos # (Auto) 0 Baso # (Auto) 0 PT 12.4 INR 1.1 APTT 30 Sodium 143 Potassium 4.4 Chloride 110 H Carbon Dioxide 17 L BUN 19 H Creatinine 0.84 Estimated GFR > 60 BUN/Creatinine Ratio 22.6 H Glucose 115 H Calcium 10.3 H Magnesium 1.9 Total Bilirubin 2.4 H AST 116 H ALT 47 H Alkaline Phosphatase 153 H Total Creatine Kinase 3795 H CK-MB (CK-2) 16.80 H CK-MB (CK-2) Rel Index 0.4 L Troponin I 0.106 H NT-Pro-B Natriuret Pep 344 Total Protein 8.0 Lipase 281 Urine Color Urine Appearance Urine pH Ur Specific [place] Urine Protein Urine Glucose (UA) Urine Ketones Urine Occult Blood Urine Nitrate Urine Bilirubin Urine Urobilinogen Ur Leukocyte Esterase Urine RBC Urine WBC Urine Bacteria Ur Culture Indicated? Ethyl Alcohol < 10 SARS-CoV-2 (PCR) Influenza A (RT-PCR) Influenza B (RT-PCR) RSV (PCR) Blood Type Antibody Screen 03/25/22 03/25/22 03/25/22 13:17 13:17 13:17 WBC RBC Hgb Hct MCV MCH MCHC RDW Plt Count Neut % (Auto) Lymph % (Auto) [place] % (Auto) Eos % (Auto) Baso % (Auto) Neut # (Auto) Lymph # (Auto) [place] # (Auto) Eos # (Auto) Baso # (Auto) PT INR APTT Sodium Potassium Chloride Carbon Dioxide BUN Creatinine Estimated GFR BUN/Creatinine Ratio Glucose Calcium Magnesium Total Bilirubin AST ALT Alkaline Phosphatase Total Creatine Kinase CK-MB (CK-2) CK-MB (CK-2) Rel Index Troponin I NT-Pro-B Natriuret Pep Total Protein Lipase Urine Color Yellow Urine Appearance Cloudy Urine pH 5.0 Ur Specific [place] >=1.030 H Urine Protein 1+ H Urine Glucose (UA) Negative Urine Ketones Negative Urine Occult Blood 3+ H Urine Nitrate Negative Urine Bilirubin Negative Urine Urobilinogen 0.2 Ur Leukocyte Esterase Trace H Urine RBC 1-5/hpf Urine WBC 1-5/hpf Urine Bacteria Many (>30) H Ur Culture Indicated? Specimen cultured Ethyl Alcohol SARS-CoV-2 (PCR) Negative Influenza A (RT-PCR) Flu a negative Influenza B (RT-PCR) Flu b negative RSV (PCR) Negative Blood Type A Positive Antibody Screen Negative 03/25/22 15:52 WBC RBC Hgb Hct MCV MCH MCHC RDW Plt Count Neut % (Auto) Lymph % (Auto) [place] % (Auto) Eos % (Auto) Baso % (Auto) Neut # (Auto) Lymph # (Auto) [place] # (Auto) Eos # (Auto) Baso # (Auto) PT INR APTT Sodium 141 Potassium 4.7 Chloride 113 H Carbon Dioxide 19 L BUN 20 H Creatinine 0.72 Estimated GFR > 60 BUN/Creatinine Ratio 27.8 H Glucose 113 H Calcium 9.1 Magnesium Total Bilirubin AST ALT Alkaline Phosphatase Total Creatine Kinase 2809 H CK-MB (CK-2) 15.70 H CK-MB (CK-2) Rel Index 0.6 L Troponin I 0.133 H* NT-Pro-B Natriuret Pep Total Protein Lipase Urine Color Urine Appearance Urine pH Ur Specific [place] Urine Protein Urine Glucose (UA) Urine Ketones Urine Occult Blood Urine Nitrate Urine Bilirubin Urine Urobilinogen Ur Leukocyte Esterase Urine RBC Urine WBC Urine Bacteria Ur Culture Indicated? Ethyl Alcohol SARS-CoV-2 (PCR) Influenza A (RT-PCR) Influenza B (RT-PCR) RSV (PCR) Blood Type Antibody Screen [facility] Medical History Alcohol dependence Chronic kidney disease (CKD) stage G3b/A1, moderately decreased glomerular filtration rate (GFR) between 30-44 mL/min/1.73 square meter and albuminuria creatinine ratio less than 30 mg/g Surgical History History of colonoscopy History of esophagogastroduodenoscopy (EGD) Family History Father Heart disease Mother Heart disease Social History household members: none Tobacco & Substance Use Smoking Status: Never smoker alcohol intake: current Assessment & Plan Assessment & Plan narrative: Sowmya Kidd is a 75-year-old female with history of GI bleed/encephalopathy, hyperlipidemia, CKD, alcohol abuse, symptomatic anemia, hyperammonemia,? acid reflux, who has been admitted by Dr. Rahman after being found down for unknown time- found to have a right ankle fracture, she graciously requested that the hospitalist service be consulted regarding medical management. 1. Right ankle fracture, status post ORIF/I&D, acute, 2nd to ground level fall likely alcohol-induced, downtime undeterminate, present on admission -managed by Dr. Brii Rahman -Dr. Rahman had put the patient on cefazolin, based on UTI and possible intra-abdominal infection and UTI-changed patient to cefepime for improved coverage 2. UTI, acute, likely secondary to rhabdomyolysis, acute, from chronic alcohol abuse, present on admission -positive urine, culture pending -fluid hydration NS at 100 cc/HR -cefepime -initial CK 3795, repeat 2008, we will continue to monitor 3. Alcohol abuse/dependence, acute on chronic, present on admission -EtOH, ammonia ordered -placed on CIWA protocol -no evidence for withdrawal currently -ordered for oral multivitamin, folic acid and thiamine start tonight after no longer NPO -patient provided dietary consult on prior admission 4. NSTEMI, acute, present on admission likely secondary to demand to rhabdo fall and injury, acute, present on admission -patient is asymptomatic has no chest pain, shortness at breath -initial troponin 0.106, repeated at 0.133-will continue to trend -EKG: Normal sinus rhythm rate of 81 with left bundle branch block unchanged from last EKG on 04/07/2021 5. history of CKD G3b/A1, (resolved in 2021), not present on admission -creatinine 0.72 GFR>60 -previous baseline creatinine appears to be 0.9-1.1 -continue to trend 6. Hyperlipidemia, chronic, present on admission - continue rosuvastatin 20 mg 7. Elevated liver enzymes, cholestatic pattern, a acute on chronic, present on admission -AST 116, ALT 47, bili 2.4, alk-phos 153, -patient has no abdominal pain, fever, or jaundice, encephalopathy possible need to rule out, no prolonged PT -likely alcohol related Code status:Full Surrogate decision maker: Sigifredo Waters, son COVID PCR:Negative COVID vaccination: Unknown DVT/VTE prophylaxis:medication held due to GI Bleed, SCD's Disposition:? Patient admitted to the Medical Service, surgery to consult expected length of stay greater than 2 midnights. I have utilized all available immediate resources to obtain, update, or review the patient's current medications. I confirmed that the patient's advanced care plan is present, Code status is documented and/or surrogate decision maker is listed in the patient's medical record. Time Spent With Patient Critical Care time: I spent a total of [] minutes of critical care time on this patient's care today; this time is exclusive of procedural time.
[2022-03-25] MEDS: SODIUM CHLORIDE 0.9% 1,000 ML 100 ML IV (22:19)
[2022-03-25] MEDS: metroNIDAZOLE 500 MG/100 ML PIGGYBACK 100 MG IV (22:21)
[2022-03-25 22:46] LABS: Add Manual Diff / Slide Review NO; Basophils Absolute Auto 0 /uL (0-100); Basophils Percent Auto 0.1 % (0-2); Eosinophils Absolute Auto 0 /uL (0-450); Eosinophils Percent Auto 0.1 % (2-4); Hematocrit 31.3 % (36-46); Hemoglobin 10.7 g/dL (12.0-16.0); Lymphocytes Absolute Auto 700 /uL (1100-4500); Lymphocytes Percent Auto 6.8 % (25-40); Mean Corpuscular HGB Conc 34.1 % (30-36); Mean Corpuscular Volume 102.6 fL (80-100); Monocytes Absolute Auto 1000 /uL (0-900); Monocytes Percent Auto 9.2 % (3-14); Neutrophils Absolute Auto 9000 /uL (1500-7000); Neutrophils Percent Auto 83.8 % (50-75); Platelet Count 100 X10^3/uL (150-400); Red Blood Cell Count 3.05 X10^6/uL (4.0-5.2); Red Cell Distribution Width 14.9 % (11.6-14.8); White Blood Cell Count 10.7 X10^3/uL (4.5-11.0)
[2022-03-25 22:48] LABS: INR 1.2 (0.9-1.3); Prothrombin Time 13.7 SECONDS (10.1-12.7)
[2022-03-25 22:51] LABS: Ammonia (NH3) 84 umol/L (9-30)
[2022-03-25 22:52] LABS: Acetaminophen < 10 ug/mL (10-30); Alanine Aminotransferase 38 IU/L (<35); Alkaline Phosphatase 110 U/L (38-126); Amylase 83 U/L (30-110); Aspartate Aminotransferase 88 IU/L (14-36); BUN Creatinine Ratio 23.8 (6-22); Bilirubin Total 1.5 mg/dL (0.2-1.3); Bilirubin Unconjugated 0.9 mg/dL (0.0-1.1); Blood Urea Nitrogen 20 mg/dL (7-17); Calcium 8.5 mg/dL (8.4-10.2); Carbon Dioxide 19 mmol/L (22-32); Chloride 113 mmol/L (98-107); Estimated Glomerular Filt Rate > 60 mL/min (>60); Gamma Glutamyl Transpeptidase 172 U/L (12-43); Glucose 131 mg/dL (80-110); HEMOLYSIS < 15 (0-50); Lactate Dehydrogenase 331 U/L (120-246); Magnesium 1.7 mg/dL (1.6-2.3); Potassium 4.8 mmol/L (3.4-5.1); Sodium 142 mmol/L (137-145); Total Protein 6.1 g/dL (6.3-8.2)
[2022-03-25 22:53] LABS: Lactate (Lactic Acid) 2.2 mmol/L (0.7-2.1)
[2022-03-25 23:11] LABS: Procalcitonin 0.24 ng/mL (<0.5)
[2022-03-25 23:12] LABS: Hemoglobin A1C% w Est Avg Glu 4.9 % (4.0-6.0)
[2022-03-25 23:37] LABS: Thyroid Stimulating Hormone 1.24 uIU/mL (0.47-4.68)
--- NOTE | 2022-03-26 00:07 | DI.US.S_ITS ---
PROCEDURE: US ABDOMEN LIMITED INDICATIONS: ETOH ABUSE TECHNIQUE: Real-time focused scanning was performed of the abdomen, with image documentation. COMPARISON: [facility], CT, CT CHEST ABD PEL W CON, 03/25/2022, 13:37. FINDINGS: Severely increased hepatic parenchymal echogenicity. Normal hepatic echotexture. Nodular hepatic contour. No gross evidence of hepatic mass. Relative right hepatic lobe atrophy. Grossly normal appearance of the gallbladder. Pancreas is obscured by bowel gas and not well evaluated. Small hepatic hypodensities seen on most recent CT are not redemonstrated sonographically. IMPRESSION: Liver morphology consistent with cirrhosis. Dictated by: Javy Fofana M.D. on 03/26/2022 at 10:02 Approved by: Javy Fofana M.D. on 03/26/2022 at 10:05
[2022-03-26 00:20] VITALS: BP 110/53; PULSE 87; RESP 20; TEMP 36.9; O2SAT 93
[2022-03-26] MEDS: SODIUM CHLORIDE 0.9% 1,000 ML 1000 ML IV (00:26)
[2022-03-26 00:40] LABS: Reflexed Lactate in 2 Hours Y
[2022-03-26 01:26] LABS: Lactate 2HR (Lactic Acid Rflx) 2.2 mmol/L (0.7-2.1)
[2022-03-26] MEDS: SODIUM CHLORIDE 0.9% 1,000 ML 100 ML IV (01:40)
[2022-03-26] MEDS: LACTULOSE 20 GM/30 ML SOLUTION PO ×4 (01:48→15:51)
[2022-03-26 04:00] VITALS: BP 114/58; PULSE 83; RESP 18; TEMP 36.5; O2SAT 93
[2022-03-26] MEDS: CEFEPIME 2 GM in SODIUM CHLORIDE 0.9% 100 ML IV (05:37)
[2022-03-26 06:23] LABS: Add Manual Diff / Slide Review NO; Basophils Absolute Auto 0 /uL (0-100); Basophils Percent Auto 0.2 % (0-2); Eosinophils Absolute Auto 0 /uL (0-450); Eosinophils Percent Auto 0.1 % (2-4); Hematocrit 28.5 % (36-46); Hemoglobin 9.6 g/dL (12.0-16.0); Lymphocytes Absolute Auto 700 /uL (1100-4500); Lymphocytes Percent Auto 7.7 % (25-40); Mean Corpuscular HGB Conc 33.7 % (30-36); Mean Corpuscular Hemoglobin 34.6 PG (26-34); Mean Corpuscular Volume 102.6 fL (80-100); Monocytes Absolute Auto 900 /uL (0-900); Monocytes Percent Auto 9.4 % (3-14); Neutrophils Absolute Auto 7900 /uL (1500-7000); Neutrophils Percent Auto 82.6 % (50-75); Platelet Count 86 X10^3/uL (150-400); Red Blood Cell Count 2.78 X10^6/uL (4.0-5.2); Red Cell Distribution Width 14.8 % (11.6-14.8); White Blood Cell Count 9.5 X10^3/uL (4.5-11.0)
[2022-03-26 06:25] LABS: INR 1.2 (0.9-1.3); Prothrombin Time 13.9 SECONDS (10.1-12.7)
[2022-03-26] MEDS: metroNIDAZOLE 500 MG/100 ML PIGGYBACK 100 MG IV ×2 (06:36→15:51)
[2022-03-26 06:38] LABS: Alanine Aminotransferase 34 IU/L (<35); Alkaline Phosphatase 95 U/L (38-126); Aspartate Aminotransferase 79 IU/L (14-36); BUN Creatinine Ratio 23.3 (6-22); Bilirubin Total 1.2 mg/dL (0.2-1.3); Blood Urea Nitrogen 20 mg/dL (7-17); Calcium 7.8 mg/dL (8.4-10.2); Carbon Dioxide 19 mmol/L (22-32); Chloride 114 mmol/L (98-107); Estimated Glomerular Filt Rate > 60 mL/min (>60); Glucose 125 mg/dL (80-110); HEMOLYSIS < 15 (0-50); Potassium 4.2 mmol/L (3.4-5.1); Sodium 139 mmol/L (137-145); Total Protein 5.4 g/dL (6.3-8.2)
[2022-03-26 07:27] VITALS: BP 111/55; PULSE 91; RESP 22; TEMP 37.7; O2SAT 97
[2022-03-26 08:00] LABS: Troponin I 0.103 ng/mL (0.01-0.034)
--- NOTE | 2022-03-26 08:13 | PM.PNPO.1 ---
Subjective Subjective Date Patient Seen: 03/26/22 Time Patient Seen: 11:15 Interval history: Patient is complaining of mild left ankle pain this morning. She is resting comfortably in bed. She is not worked with physical therapy yet. Exam Vital Signs (past 8 hours): - 03/26/22 00:20 03/26/22 04:00 03/26/22 07:27 Temperature 98.4 F 97.7 F 99.8 F H Pulse Rate 87 83 91 H Respiratory Rate 20 18 22 Blood Pressure 110/53 L 114/58 L 111/55 L Pulse Oximetry 93 93 97 Oxygen Delivery Method Oxygen Flow Rate 3 03/26/22 07:00 Temperature Pulse Rate Respiratory Rate Blood Pressure Pulse Oximetry Oxygen Delivery Method Room Air Oxygen Flow Rate Fraction of Inspired Oxygen 32 SaO2/FiO2 Ratio 293 Oxygen Delivery Method Room Air Oxygen Flow Rate 3 Narrative Exam Narrative: Pleasant but somewhat confused 76 year female, resting comfortably in bed. She is A&Ox 2-3. Left ankle splint is on and is clean, dry, intact. She is able to wiggle her toes. Right calf is soft and nontender palpation. Objective Labs Result Diagrams: 03/26/22 05:49 03/26/22 05:49 Labs: Laboratory Results - last 24 hr 03/25/22 03/25/22 03/25/22 13:17 13:17 13:17 WBC 13.1 H RBC 3.77 L Hgb 12.8 Hct 39.2 MCV 104.0 H MCH 33.8 MCHC 32.5 RDW 14.5 Plt Count 134 L Neut % (Auto) 86.6 H Lymph % (Auto) 4.2 L [place] % (Auto) 9.1 Eos % (Auto) 0.0 L Baso % (Auto) 0.1 Neut # (Auto) 58129 H Lymph # (Auto) 500 L [place] # (Auto) 1200 H Eos # (Auto) 0 Baso # (Auto) 0 PT 12.4 INR 1.1 APTT 30 Sodium 143 Potassium 4.4 Chloride 110 H Carbon Dioxide 17 L BUN 19 H Creatinine 0.84 Estimated GFR > 60 BUN/Creatinine Ratio 22.6 H Glucose 115 H Hemoglobin A1c Lactate Calcium 10.3 H Magnesium 1.9 Total Bilirubin 2.4 H Conjugated Bilirubin Unconjugated Bilirubin GGT AST 116 H ALT 47 H Alkaline Phosphatase 153 H Ammonia Lactate Dehydrogenase Total Creatine Kinase 3795 H CK-MB (CK-2) 16.80 H CK-MB (CK-2) Rel Index 0.4 L Troponin I 0.106 H NT-Pro-B Natriuret Pep 344 Total Protein 8.0 Amylase Lipase 281 Procalcitonin TSH Urine Color Urine Appearance Urine pH Ur Specific [place] Urine Protein Urine Glucose (UA) Urine Ketones Urine Occult Blood Urine Nitrate Urine Bilirubin Urine Urobilinogen Ur Leukocyte Esterase Urine RBC Urine WBC Urine Bacteria Ur Culture Indicated? Nasal Screen MRSA (PCR) Acetaminophen Ethyl Alcohol < 10 SARS-CoV-2 (PCR) Influenza A (RT-PCR) Influenza B (RT-PCR) RSV (PCR) Blood Type Antibody Screen 03/25/22 03/25/22 03/25/22 13:17 13:17 13:17 WBC RBC Hgb Hct MCV MCH MCHC RDW Plt Count Neut % (Auto) Lymph % (Auto) [place] % (Auto) Eos % (Auto) Baso % (Auto) Neut # (Auto) Lymph # (Auto) [place] # (Auto) Eos # (Auto) Baso # (Auto) PT INR APTT Sodium Potassium Chloride Carbon Dioxide BUN Creatinine Estimated GFR BUN/Creatinine Ratio Glucose Hemoglobin A1c Lactate Calcium Magnesium Total Bilirubin Conjugated Bilirubin Unconjugated Bilirubin GGT AST ALT Alkaline Phosphatase Ammonia Lactate Dehydrogenase Total Creatine Kinase CK-MB (CK-2) CK-MB (CK-2) Rel Index Troponin I NT-Pro-B Natriuret Pep Total Protein Amylase Lipase Procalcitonin TSH Urine Color Yellow Urine Appearance Cloudy Urine pH 5.0 Ur Specific [place] >=1.030 H Urine Protein 1+ H Urine Glucose (UA) Negative Urine Ketones Negative Urine Occult Blood 3+ H Urine Nitrate Negative Urine Bilirubin Negative Urine Urobilinogen 0.2 Ur Leukocyte Esterase Trace H Urine RBC 1-5/hpf Urine WBC 1-5/hpf Urine Bacteria Many (>30) H Ur Culture Indicated? Specimen cultured Nasal Screen MRSA (PCR) Acetaminophen Ethyl Alcohol SARS-CoV-2 (PCR) Negative Influenza A (RT-PCR) Flu a negative Influenza B (RT-PCR) Flu b negative RSV (PCR) Negative Blood Type A Positive Antibody Screen Negative 03/25/22 03/25/22 03/25/22 15:52 21:30 22:27 WBC RBC Hgb Hct MCV MCH MCHC RDW Plt Count Neut % (Auto) Lymph % (Auto) [place] % (Auto) Eos % (Auto) Baso % (Auto) Neut # (Auto) Lymph # (Auto) [place] # (Auto) Eos # (Auto) Baso # (Auto) PT 13.7 H INR 1.2 APTT Sodium 141 Potassium 4.7 Chloride 113 H Carbon Dioxide 19 L BUN 20 H Creatinine 0.72 Estimated GFR > 60 BUN/Creatinine Ratio 27.8 H Glucose 113 H Hemoglobin A1c Lactate Calcium 9.1 Magnesium Total Bilirubin Conjugated Bilirubin Unconjugated Bilirubin GGT AST ALT Alkaline Phosphatase Ammonia Lactate Dehydrogenase Total Creatine Kinase 2809 H CK-MB (CK-2) 15.70 H CK-MB (CK-2) Rel Index 0.6 L Troponin I 0.133 H* NT-Pro-B Natriuret Pep Total Protein Amylase Lipase Procalcitonin TSH Urine Color Urine Appearance Urine pH Ur Specific [place] Urine Protein Urine Glucose (UA) Urine Ketones Urine Occult Blood Urine Nitrate Urine Bilirubin Urine Urobilinogen Ur Leukocyte Esterase Urine RBC Urine WBC Urine Bacteria Ur Culture Indicated? Nasal Screen MRSA (PCR) Negative for mrsa Acetaminophen Ethyl Alcohol SARS-CoV-2 (PCR) Influenza A (RT-PCR) Influenza B (RT-PCR) RSV (PCR) Blood Type Antibody Screen 03/25/22 03/25/22 03/25/22 22:27 22:27 22:27 WBC 10.7 RBC 3.05 L Hgb 10.7 L Hct 31.3 L MCV 102.6 H MCH 35.0 H MCHC 34.1 RDW 14.9 H Plt Count 100 L Neut % (Auto) 83.8 H Lymph % (Auto) 6.8 L [place] % (Auto) 9.2 Eos % (Auto) 0.1 L Baso % (Auto) 0.1 Neut # (Auto) 9000 H Lymph # (Auto) 700 L [place] # (Auto) 1000 H Eos # (Auto) 0 Baso # (Auto) 0 PT INR APTT Sodium Potassium Chloride Carbon Dioxide BUN Creatinine Estimated GFR BUN/Creatinine Ratio Glucose Hemoglobin A1c 4.9 Lactate 2.2 H Calcium Magnesium Total Bilirubin Conjugated Bilirubin Unconjugated Bilirubin GGT AST ALT Alkaline Phosphatase Ammonia Lactate Dehydrogenase Total Creatine Kinase CK-MB (CK-2) CK-MB (CK-2) Rel Index Troponin I NT-Pro-B Natriuret Pep Total Protein Amylase Lipase Procalcitonin TSH Urine Color Urine Appearance Urine pH Ur Specific [place] Urine Protein Urine Glucose (UA) Urine Ketones Urine Occult Blood Urine Nitrate Urine Bilirubin Urine Urobilinogen Ur Leukocyte Esterase Urine RBC Urine WBC Urine Bacteria Ur Culture Indicated? Nasal Screen MRSA (PCR) Acetaminophen Ethyl Alcohol SARS-CoV-2 (PCR) Influenza A (RT-PCR) Influenza B (RT-PCR) RSV (PCR) Blood Type Antibody Screen 03/25/22 03/25/22 03/25/22 22:27 22:27 22:27 WBC RBC Hgb Hct MCV MCH MCHC RDW Plt Count Neut % (Auto) Lymph % (Auto) [place] % (Auto) Eos % (Auto) Baso % (Auto) Neut # (Auto) Lymph # (Auto) [place] # (Auto) Eos # (Auto) Baso # (Auto) PT INR APTT Sodium 142 Potassium 4.8 Chloride 113 H Carbon Dioxide 19 L BUN 20 H Creatinine 0.84 Estimated GFR > 60 BUN/Creatinine Ratio 23.8 H Glucose 131 H Hemoglobin A1c Lactate Calcium 8.5 Magnesium 1.7 Total Bilirubin 1.5 H Conjugated Bilirubin 0.0 Unconjugated Bilirubin 0.9 GGT 172 H AST 88 H ALT 38 H Alkaline Phosphatase 110 Ammonia 84 H Lactate Dehydrogenase 331 H Total Creatine Kinase CK-MB (CK-2) CK-MB (CK-2) Rel Index Troponin I NT-Pro-B Natriuret Pep Total Protein 6.1 L Amylase 83 Lipase Procalcitonin TSH 1.24 Urine Color Urine Appearance Urine pH Ur Specific [place] Urine Protein Urine Glucose (UA) Urine Ketones Urine Occult Blood Urine Nitrate Urine Bilirubin Urine Urobilinogen Ur Leukocyte Esterase Urine RBC Urine WBC Urine Bacteria Ur Culture Indicated? Nasal Screen MRSA (PCR) Acetaminophen < 10 Ethyl Alcohol SARS-CoV-2 (PCR) Influenza A (RT-PCR) Influenza B (RT-PCR) RSV (PCR) Blood Type Antibody Screen 03/25/22 03/26/22 03/26/22 22:27 01:07 05:49 WBC RBC Hgb Hct MCV MCH MCHC RDW Plt Count Neut % (Auto) Lymph % (Auto) [place] % (Auto) Eos % (Auto) Baso % (Auto) Neut # (Auto) Lymph # (Auto) [place] # (Auto) Eos # (Auto) Baso # (Auto) PT 13.9 H INR 1.2 APTT Sodium Potassium Chloride Carbon Dioxide BUN Creatinine Estimated GFR BUN/Creatinine Ratio Glucose Hemoglobin A1c Lactate 2.2 H Calcium Magnesium Total Bilirubin Conjugated Bilirubin Unconjugated Bilirubin GGT AST ALT Alkaline Phosphatase Ammonia Lactate Dehydrogenase Total Creatine Kinase CK-MB (CK-2) CK-MB (CK-2) Rel Index Troponin I NT-Pro-B Natriuret Pep Total Protein Amylase Lipase Procalcitonin 0.24 TSH Urine Color Urine Appearance Urine pH Ur Specific [place] Urine Protein Urine Glucose (UA) Urine Ketones Urine Occult Blood Urine Nitrate Urine Bilirubin Urine Urobilinogen Ur Leukocyte Esterase Urine RBC Urine WBC Urine Bacteria Ur Culture Indicated? Nasal Screen MRSA (PCR) Acetaminophen Ethyl Alcohol SARS-CoV-2 (PCR) Influenza A (RT-PCR) Influenza B (RT-PCR) RSV (PCR) Blood Type Antibody Screen 03/26/22 03/26/22 03/26/22 05:49 05:49 05:49 WBC 9.5 RBC 2.78 L Hgb 9.6 L Hct 28.5 L MCV 102.6 H MCH 34.6 H MCHC 33.7 RDW 14.8 Plt Count 86 L Neut % (Auto) 82.6 H Lymph % (Auto) 7.7 L [place] % (Auto) 9.4 Eos % (Auto) 0.1 L Baso % (Auto) 0.2 Neut # (Auto) 7900 H Lymph # (Auto) 700 L [place] # (Auto) 900 Eos # (Auto) 0 Baso # (Auto) 0 PT INR APTT Sodium 139 Potassium 4.2 Chloride 114 H Carbon Dioxide 19 L BUN 20 H Creatinine 0.86 Estimated GFR > 60 BUN/Creatinine Ratio 23.3 H Glucose 125 H Hemoglobin A1c Lactate Calcium 7.8 L Magnesium Total Bilirubin 1.2 Conjugated Bilirubin Unconjugated Bilirubin GGT AST 79 H ALT 34 Alkaline Phosphatase 95 Ammonia Lactate Dehydrogenase Total Creatine Kinase CK-MB (CK-2) CK-MB (CK-2) Rel Index Troponin I 0.103 H NT-Pro-B Natriuret Pep Total Protein 5.4 L Amylase Lipase Procalcitonin TSH Urine Color Urine Appearance Urine pH Ur Specific [place] Urine Protein Urine Glucose (UA) Urine Ketones Urine Occult Blood Urine Nitrate Urine Bilirubin Urine Urobilinogen Ur Leukocyte Esterase Urine RBC Urine WBC Urine Bacteria Ur Culture Indicated? Nasal Screen MRSA (PCR) Acetaminophen Ethyl Alcohol SARS-CoV-2 (PCR) Influenza A (RT-PCR) Influenza B (RT-PCR) RSV (PCR) Blood Type Antibody Screen [facility] Medical History Alcohol dependence Chronic kidney disease (CKD) stage G3b/A1, moderately decreased glomerular filtration rate (GFR) between 30-44 mL/min/1.73 square meter and albuminuria creatinine ratio less than 30 mg/g Surgical History History of colonoscopy History of esophagogastroduodenoscopy (EGD) Family History Father Heart disease Mother Heart disease Social History household members: none Smoking Status: Never smoker alcohol intake: current Assessment & Plan Post-op Postoperative Procedures: Procedures Operation Date: 03/25/22 18:00 Actual Procedure Side Surgeon p ORIF Ankle Fracture- OPEN Left Mere Marion Rahman MD Postoperative day: 1 Postoperative status narrative: -status post left ankle ORIF, open -rhabdomyolysis, acute UTI -history of GI bleed/encephalopathy, hyperlipidemia, CKD, alcohol abuse, symptomatic anemia, hyperammonemia, acid reflux Postoperative plan narrative: -mobilize with PT. Clarified with Dr. Rahman: Nonweightbearing on her left lower extremity x6 weeks -continue with multimodal pain management -aspirin 81 mg b.i.d. x6 weeks for DVT prophylaxis, once thrombocytopenia has resovled; per Hospitalist team -IV antibiotics times 48 hours postoperatively, due to open nature of the injury -ideally transfer primary service to hospitalist team. Appreciate their help with all of her medical issues 1. Right ankle fracture, status post ORIF/I&D, acute, 2nd to ground level fall likely alcohol-induced, downtime undeterminate, present on admission with acute traumatic rhabdomyolysis. -Dr. Rahman had put the patient on cefazolin for open fracture, based on UTI and possible intra-abdominal infection and UTI-changed patient to cefepime initially but abdominal ultrasound is unremarkable and intraabdominal source now appears unlikely. -not enough ascites for paracentesis on ultrasound. -given UTI, previous concern for SBP in the past, continue ceftriaxone instead of cefazolin for now. Continue for 3 days to cover UTI, consider cessation at that time depending on concern for peritonitis. 48 hours sufficient per ortho for open fracture. -initial CK 3795, repeat 2008, we will continue to monitor cr, continue IV fluids for rhabdo, Repeat CK in the AM. -Acute cystitis, acute, present on admission; Alcohol abuse/dependence, acute on chronic, present on admission; myocardial injury, acute, present on admission likely secondary to demand to rhabdo fall and injury, acute, present on admission; history of CKD G3b/A1, (resolved in 2021); Hyperlipidemia, chronic, present on admission; Mild alcoholic hepatitis, thrombocytopenia due to etoh use; All being managed by Hospitalist team DVT/VTE prophylaxis: SCDs for now given thrombocytopenia. Disposition per hospitalist team: Transfer to medicine service, probably will need SNF placement. Timing in 2-4 days depending on progress. Quality VTE Deep Vein Thrombosis/Pulmonary Embolism Present on Admission: No
--- NOTE | 2022-03-26 10:01 | PT.IIE ---
Current Diagnoses Anemia, unspecified (03/25/22) Alcohol dependence, uncomplicated (03/25/22) Gastrointestinal hemorrhage, unspecified (03/25/22) Rhabdomyolysis (03/25/22) Other fecal abnormalities (03/25/22) Bacteriuria (03/25/22) Other fracture of left lower leg, initial encounter for open fracture type I or II (03/25/22) Surgery Performed Operation Date: 03/25/22 18:00 Actual Procedures p ORIF Ankle Fracture- OPEN(Left) - Mere Rahman MD Surgical History (Last Reviewed 03/26/22 @ 06:17 by Pura Rm [facility]) History of colonoscopy History of esophagogastroduodenoscopy (EGD) Medical History (Last Reviewed 03/26/22 @ 06:17 by Pura mR [facility]) Alcohol dependence Chronic kidney disease (CKD) stage G3b/A1, moderately decreased glomerular filtration rate (GFR) between 30-44 mL/min/1.73 square meter and albuminuria creatinine ratio less than 30 mg/g Physical Therapy Inpatient Evaluation/Re-Eval M1 PT/OT-IP Prior Functional Status Start: 03/26/22 12:38 Freq: NEEDED Status: Active Protocol: Document 03/26/22 10:01 AB (Rec: 03/26/22 12:48 AB [email or web address]) Medical Review Prior Functional Status Medical History Reviewed Yes Communication able to make needs known but with confusion Mobility and Gait pt stated that she is modified independent with all mobilities and ambulation using a 4WW Social History Household Members none Living Arrangements House Number of Floors (Floors) One Floor Number of Stairs To Enter/Railing? no steps to enter Home Environment High Toilet,Tub/Shower Home Equipment Four Wheel Walker,Grab Bars Near Toilet M2 PT-IP Current Condition Start: 03/26/22 12:38 Freq: NEEDED Status: Active Protocol: Document 03/26/22 10:01 AB (Rec: 03/26/22 12:48 AB [email or web address]) Physical Therapy Current Condition Current Condition Evaluation Date 03/26/22 Treatment Diagnosis s/p fall; L ankle fx s/p ORIF; difficulty in walking Onset Date 03/25/22 M3 PT-IP Subjective Start: 03/26/22 12:38 Freq: NEEDED Status: Active Protocol: Document 03/26/22 10:01 AB (Rec: 03/26/22 12:48 AB [email or web address]) Subjective Physical Therapy Visit Type Type Initial Evaluation Visit Start Time 10:01 Visit Stop Time 10:40 Total Visit Minutes 39 Number of MARKETING INFORMATION COORDINATOR Visits 0 Physical Therapy Visit Comments Patient Comments pt was initially sleepy but able to wake up after cues but continues to have confusion M4 PT-IP Mobility and Gait Start: 03/26/22 12:38 Freq: NEEDED Status: Active Protocol: Document 03/26/22 10:01 AB (Rec: 03/26/22 12:[facility] PT-Bed Mobility Assessment Supine to Sit Supine to Sit Maximum Assistance,2 Person Assistance,Head of Bed Elevated,Bedrails Sit to Supine Sit to Supine Maximum Assistance,2 Person Assistance,Head of Bed Elevated,Bedrails Scooting Scooting to Edge of Bed Maximum Assistance PT-Transfer Assessment Comments Mobility Comments completed supine to sit max a x 2 and max cues with HOB elevated and pt used bed rail. pt with confusion and one step instructions on all tasks needed. educated on NWB restriction on LLE. pt able to sit on EOB mod to max a and max cues. attempted to stand but pt has difficulty following instructions and unable to follow NWB on LLE. assisted pt back to bed max A x 2 and max cues. positioned pt in bed total Ax 2. call light and table placed within reach. Gait Assessment Comments Gait Comments unable at this time PT-Balance Assessment Sitting Balance and Reactions Static Sitting Balance Ability Good Dynamic Sitting Balance Ability Fair M5 PT-IP Objective Assessments Start: 03/26/22 12:38 Freq: NEEDED Status: Active Protocol: Document 03/26/22 10:01 AB (Rec: 03/26/22 12:48 AB [email or web address]) Orientation Orientation/Cognition Level of Alertness Confusional State Orientation Name,Place,Situation Safety Awareness Decreased Safety Awareness Memory Description Short Term Impaired,Outboard Motorboat Rigger Impaired Gross Range of Motion Lower Extremity ROM Assessment Within Functional Limits Impairments L ankle NT Strength Lower Extremity Strength Assessment Bilaterally Impaired Hip 3+/5 Knee 3+/5 Ankle L ankle NT Muscle Tone Muscle Tone WNL Yes M6 PT-IP Treatment Start: 03/26/22 12:38 Freq: NEEDED Status: Active Protocol: Document 03/26/22 10:01 AB (Rec: 03/26/22 12:48 AB [email or web address]) Physical Therapy Treatment Education Education Provided Precautions,Weight Bearing Status,Safety M7 PT-IP Assessment and Plan Start: 03/26/22 12:38 Freq: NEEDED Status: Active Protocol: Document 03/26/22 10:01 (Rec: 03/26/22 12:48 [email or web address]) PT Summary Assessment and Plan Potential Rehabilitation Potential Fair Status of Condition at Evaluation Evolving Summary Impairments Pain,ROM,Strength,Balance, Coordination,Sensation,Tone, Cognition,Bed Mobility, Transfers,Gait,Activity Tolerance Assessment Summary Pt requiring max A x 2 with bed mobility and unable to stand at this time due to difficulty with following directions and also unable to comprehend NWB on LLE. pt will require 24/7 assist and will need SNF rehab at this time. will continue to assess progress. Goals Bed Mobility Goal Minimal Assistance Transfer Goal Minimal Assistance,Front Wheeled Walker Gait Goal Minimal Assistance,Front Wheel Walker Gait Distance 25 Other Goals improve bed mobility SBA, transfers and ambulation using FWW 50 ft CGA Days to Meet Goals 10 Frequency of Treatment Frequency Of Treatment Once a Day Treatment Plan Physical Therapy Treatment Plan Bed Mobility Training,Transfer Training,Gait Training, Therapeutic Exercise,Balance Retraining,Post Op Education, Discharge Planning,Hot or Cold Pack,Neuromuscular Re-ed, Coordination Retraining,Manual Therapy Weight Bearing Status Weight Bearing Status Non-Weight Bearing Allowed Weight Bearing Amount (enter % LLE NWB or #) (%) Recommendations To Nursing Amount of Assist Needed Mechanical Lift Discharge Recommendations PT Discharge Recommendations SNF Rehab Transportation Needs at Discharge Wheelchair/Cabulance,Stretcher /Ambulance
--- NOTE | 2022-03-26 10:01 | PT.IIE ---
Current Diagnoses Anemia, unspecified (03/25/22) Alcohol dependence, uncomplicated (03/25/22) Gastrointestinal hemorrhage, unspecified (03/25/22) Rhabdomyolysis (03/25/22) Other fecal abnormalities (03/25/22) Bacteriuria (03/25/22) Other fracture of left lower leg, initial encounter for open fracture type I or II (03/25/22) Surgery Performed Operation Date: 03/25/22 18:00 Actual Procedures p ORIF Ankle Fracture- OPEN(Left) - Mere Rahman MD Surgical History (Last Reviewed 03/26/22 @ 06:[address] [facility]) History of colonoscopy History of esophagogastroduodenoscopy (EGD) Medical History (Last Reviewed 03/26/22 @ 06:[address] [facility]) Alcohol dependence Chronic kidney disease (CKD) stage G3b/A1, moderately decreased glomerular filtration rate (GFR) between 30-44 mL/min/1.73 square meter and albuminuria creatinine ratio less than 30 mg/g Physical Therapy Inpatient Evaluation/Re-Eval M1 PT/OT-IP Prior Functional Status Start: 03/26/22 12:38 Freq: NEEDED Status: Active Protocol: Document 03/26/22 10:01 AB (Rec: 03/26/22 12:48 AB [id number]) Medical Review Prior Functional Status Medical History Reviewed Yes Communication able to make needs known but with confusion Mobility and Gait pt stated that she is modified independent with all mobilities and ambulation using a 4WW Social History Household Members none Living Arrangements House Number of Floors (Floors) One Floor Number of Stairs To Enter/Railing? no steps to enter Home Environment High Toilet,Tub/Shower Home Equipment Four Wheel Walker,Grab Bars Near Toilet M2 PT-IP Current Condition Start: 03/26/22 12:38 Freq: NEEDED Status: Active Protocol: Document 03/26/22 10:01 AB (Rec: 03/26/22 12:48 AB [id number]) Physical Therapy Current Condition Current Condition Evaluation Date 03/26/22 Treatment Diagnosis s/p fall; R ankle fx s/p ORIF; difficulty in walking Onset Date 03/25/22 M3 PT-IP Subjective Start: 03/26/22 12:38 Freq: NEEDED Status: Active Protocol: Document 03/26/22 10:01 AB (Rec: 03/26/22 12:48 AB [email or web address]) Subjective Physical Therapy Visit Type Type Initial Evaluation Visit Start Time 10:01 Visit Stop Time 10:40 Total Visit Minutes 39 Number of AUDIO VISUAL PRODUCTION SPECIALIST Visits 0 Physical Therapy Visit Comments Patient Comments pt was initially sleepy but able to wake up after cues but continues to have confusion M4 PT-IP Mobility and Gait Start: 03/26/22 12:38 Freq: NEEDED Status: Active Protocol: Document 03/26/22 10:01 AB (Rec: 03/26/22 12:48 [facility] PT-Bed Mobility Assessment Supine to Sit Supine to Sit Maximum Assistance,2 Person Assistance,Head of Bed Elevated,Bedrails Sit to Supine Sit to Supine Maximum Assistance,2 Person Assistance,Head of Bed Elevated,Bedrails Scooting Scooting to Edge of Bed Maximum Assistance PT-Transfer Assessment Comments Mobility Comments completed supine to sit max a x 2 and max cues with HOB elevated and pt used bed rail. pt with confusion and one step instructions on all tasks needed. educated on NWB restriction on RLE. pt able to sit on EOB mod to max a and max cues. attempted to stand but pt has difficulty following instructions and unable to follow NWB on RLE. assisted pt back to bed max A x 2 and max cues. positioned pt in bed total Ax 2. call light and table placed within reach. Gait Assessment Comments Gait Comments unable at this time PT-Balance Assessment Sitting Balance and Reactions Static Sitting Balance Ability Good Dynamic Sitting Balance Ability Fair M5 PT-IP Objective Assessments Start: 03/26/22 12:38 Freq: NEEDED Status: Active Protocol: Document 03/26/22 10:01 AB (Rec: 03/26/22 12:48 AB [id number]) Orientation Orientation/Cognition Level of Alertness Confusional State Orientation Name,Place,Situation Safety Awareness Decreased Safety Awareness Memory Description Short Term Impaired,Supervisor Ride Assembly Impaired Gross Range of Motion Lower Extremity ROM Assessment Within Functional Limits Impairments R ankle NT Strength Lower Extremity Strength Assessment Bilaterally Impaired Hip 3+/5 Knee 3+/5 Ankle R ankle NT Muscle Tone Muscle Tone WNL Yes M6 PT-IP Treatment Start: 03/26/22 12:38 Freq: NEEDED Status: Active Protocol: Document 03/26/22 10:01 AB (Rec: 03/26/22 12:48 AB [id number]) Physical Therapy Treatment Education Education Provided Precautions,Weight Bearing Status,Safety M7 PT-IP Assessment and Plan Start: 03/26/22 12:38 Freq: NEEDED Status: Active Protocol: Document 03/26/22 10:01 (Rec: 03/26/22 12:48 [id number]) PT Summary Assessment and Plan Potential Rehabilitation Potential Fair Status of Condition at Evaluation Evolving Summary Impairments Pain,ROM,Strength,Balance, Coordination,Sensation,Tone, Cognition,Bed Mobility, Transfers,Gait,Activity Tolerance Assessment Summary Pt requiring max A x 2 with bed mobility and unable to stand at this time due to difficulty with following directions and also unable to comprehend NWB on RLE. pt will require 24/7 assist and will need SNF rehab at this time. will continue to assess progress. Goals Bed Mobility Goal Minimal Assistance Transfer Goal Minimal Assistance,Front Wheeled Walker Gait Goal Minimal Assistance,Front Wheel Walker Gait Distance 25 Other Goals improve bed mobility SBA, transfers and ambulation using FWW 50 ft CGA Days to Meet Goals 10 Frequency of Treatment Frequency Of Treatment Once a Day Treatment Plan Physical Therapy Treatment Plan Bed Mobility Training,Transfer Training,Gait Training, Therapeutic Exercise,Balance Retraining,Post Op Education, Discharge Planning,Hot or Cold Pack,Neuromuscular Re-ed, Coordination Retraining,Manual Therapy Weight Bearing Status Weight Bearing Status Non-Weight Bearing Allowed Weight Bearing Amount (enter % RLE NWB or #) (%) Recommendations To Nursing Amount of Assist Needed Mechanical Lift Discharge Recommendations PT Discharge Recommendations SNF Rehab Transportation Needs at Discharge Wheelchair/Cabulance,Stretcher /Ambulance
[2022-03-26] MEDS: MULTIVITAMIN 1 TABLET 1 TAB PO (11:27)
[2022-03-26] MEDS: ASPIRIN EC 81 MG TABLET PO (11:27)
[2022-03-26] MEDS: THIAMINE 100 MG TABLET PO (11:27)
[2022-03-26] MEDS: ACETAMINOPHEN 325 MG TABLET 650 MG PO (11:28)
[2022-03-26] MEDS: FOLIC ACID 1 MG TABLET PO (11:28)
--- NOTE | 2022-03-26 14:21 | OT.IP.EVAL ---
Current Diagnoses Anemia, unspecified (03/25/22) Alcohol dependence, uncomplicated (03/25/22) Gastrointestinal hemorrhage, unspecified (03/25/22) Rhabdomyolysis (03/25/22) Other fecal abnormalities (03/25/22) Bacteriuria (03/25/22) Other fracture of left lower leg, initial encounter for open fracture type I or II (03/25/22) Surgery Performed Operation Date: 03/25/22 18:00 Actual Procedures p ORIF Ankle Fracture- OPEN(Left) - Mere Rahman MD Past Medical History (Last Reviewed 03/26/22 @ 06:17 by Pura Rm [facility]) Alcohol dependence Chronic kidney disease (CKD) stage G3b/A1, moderately decreased glomerular filtration rate (GFR) between 30-44 mL/min/1.73 square meter and albuminuria creatinine ratio less than 30 mg/g Surgical History (Last Reviewed 03/26/22 @ 06:17 by Pura Rm [facility]) History of colonoscopy History of esophagogastroduodenoscopy (EGD) Occupational Therapy Inpatient Evaluation/Re-Eval M1 PT/OT-IP Prior Functional Status Start: 03/26/22 12:38 Freq: NEEDED Status: Active Protocol: Document 03/26/22 13:50 [facility] (Rec: 03/26/22 17:29 [facility] [id number]) Medical Review Prior Functional Status Medical History Reviewed Yes Communication able to make needs known but with confusion Mobility and Gait pt stated that she is modified independent with all mobilities and ambulation using a 4WW Activities of Daily Living and IADL's Pt states able to do her ADl and IADl needs on her own. FAmily assist with chores, shopping and medications. Social History Household Members none Living Arrangements House Number of Floors (Floors) One Floor Number of Stairs To Enter/Railing? no steps to enter Home Environment High Toilet,Tub/Shower Home Equipment Four Wheel Walker,Grab Bars Near Toilet M2 OT-IP Current Condition Start: 03/26/22 16:54 Freq: Status: Active Protocol: Document 03/26/22 13:50 [facility] (Rec: 03/26/22 17:29 [facility] [id number]) Occupational Therapy Current Condition Current Condition Evaluation Date 03/26/22 Treatment Diagnosis I and D Left open ankle fracture ORIF Diagnosis Onset Date 03/25/22 Weight Bearing Status Weight Bearing Status Non-Weight Bearing Allowed Weight Bearing Amount (enter % NWB LLE or #) (%) M3 OT- IP Subjective and Pain Start: 03/26/22 16:54 Freq: Status: Active Protocol: Document 03/26/22 13:50 [facility] (Rec: 03/26/22 17:29 [facility] [id number]) OT- Subjective Occupational Therapy Visit Type Type Initial Evaluation Visit Start Time 13:50 Visit Stop Time 14:21 Total Visit Minutes 31 Occupational Therapy Visit Comments Patient Comments Pt very drowsy but agreed to try to get up. Patient/Caregiver Goals To get better. OT Pain Assessment Pain When Pain Assessed During Mobility Pain Present Pain Present Pain Reported M4 OT- IP ADL's Start: 03/26/22 16:54 Freq: Status: Active Protocol: Document 03/26/22 13:50 [facility] (Rec: 03/26/22 17:29 [facility] [id number]) OT [id number] Comments OT Self-Feeding Comments NOt at meal time. OT ADL-Grooming General Evaluation Grooming Ability Standby Assistance Areas Needing Assistance Retrieving/Set-up of Grooming Items Comments OT Grooming Comments Pt able to do while seated on the edge of the bed and pillows supported behind her to help keep her upright. OT ADL-Oral Care General Eval Oral Care Ability Minimal Assistance Areas of Assistance Retrieving/Set-Up of Items Comments Oral Care Comments Pt needing assist to get the toothpaste on the tooth brush and assist to hold the basin up to spit. In addition pillows to help keep her upright behind her while seated on the edge of the bed. OT ADL-Dressing General Eval Lower Body Dressing Ability Total Assistance OT ADL-Toileting General Evaluation Toileting Ability Total Assistance Comments OT Toileting Comments Hess in place OT ADL-Bathing Comments OT Bathing Comments Sponge bathing is more appropriate at this time. M5 OT- IP IADL's Start: 03/26/22 16:54 Freq: Status: Active Protocol: Document 03/26/22 13:50 [facility] (Rec: 03/26/22 17:29 [facility] [id number]) OT-Instrumental Activities of Daily Living Home Safety Awareness Home Safety Comments Pt to drowsy and not alert at this time. Medication Management Medication Management Caregiver Provides Supervision Casing Worker Casing Worker Caregiver Provides Assist M6 OT- IP Functional Cognition Start: 03/26/22 16:54 Freq: Status: Active Protocol: Document 03/26/22 13:50 [facility] (Rec: 03/26/22 17:29 [facility] [id number]) Cognitive Factors Limiting Selfcare Function Cognitive Ability Level of Alertness Confusional State,Drowsy Patient Orientation Name Cognitive Comments Cognitive Assessment Comments Pt very sleepy and drowsy and having difficulty to follow commands for bed mobility and ADl needs. M7 OT- IP Mobility and Balance Start: 03/26/22 16:54 Freq: Status: Active Protocol: Document 03/26/22 13:50 [facility] (Rec: 03/26/22 17:29 [facility] [id number]) OT- Bed Mobility Assessment Supine to Sit Supine to Sit Assist Maximum Assistance,1 Person Assistance Sit to Supine Sit to Supine Assist Maximum Assistance,2 Person Assistance OT- Balance Assessment Sitting Balance and Reactions Static Sitting Balance Ability Poor Dynamic Sitting Balance Ability Poor Pt needing HOB up and MAXAx1 to help mover helper her LLE to the edge of the bed and assist to get her trunk upright. With her feet supported pt able to sit with CGA and then when tiring needing MAX XA1 and having to place cushions behind her to help sit to midline and keep from leaning into posterior tilt. M9 OT- IP Assessment and Plan Start: 03/26/22 16:54 Freq: Status: Active Protocol: Document 03/26/22 13:50 [facility] (Rec: 03/26/22 17:29 [facility] [id number]) OT Summary Assessment and Plan Potential Rehabilitation Potential Fair Analytic Complexity at Evaluation Moderate Summary OT Impairments Pain,Strength,Balance, Functional Cognition, Functional Mobility,Self- Feeding,Grooming,Dressing, Toileting,Bathing,Toilet Transfers,Shower Transfers, Activity Tolerance Progress Towards Goals Slow Progress due to Pain,Slow Progress due to Medical Issues,Slow Progress due to Activity Tolerance,Slow Progress due to Cognition Assessment Summary Pt MOD complexity and main barriers are pain, drowsy and needing MAXAX 1 for sitting balance and MAXA 1-2 for bed mobility needs. Pt unable to stand at this time. Pt will benefit from skilled rehab when medically stable. Goals Grooming Goal Independent Dressing Goal Moderate Assistance Toileting Goal Minimal Assistance Bathing Goal Moderate Assistance Toilet Transfer Goal Minimal Assistance Shower Transfer Goal Moderate Assistance Days to Meet Goals 20 Frequency of Treatment Frequency Of Treatment Once a Day Treatment Plan OT Treatment Plan ADL Training,Functional Cognition Training,Functional Mobility,Patient/Family Education,Discharge Planning Other Treatment Recommendations and Next MAX AX 2 with sliding board Treatment Focus transfer to drop arm commode. Discharge Recommendations OT Discharge Recommendations SNF Rehab Transportation Needs at Discharge Wheelchair/Cabulance,Stretcher /Ambulance
--- NOTE | 2022-03-26 14:54 | CM.DANOTE ---
Patient is a 76 yo female who was admitted on 03/25/22 for GLF/ankle fx. Pt has M[employer] and [employer] for insurance and her PCP was Oleg Brunson at [facility]. EMR was reviewed. Per MD, pt admitted with dislocated ankle fx, UTI, Rhabdo, NSTEMI, ETOH. Per Ortho, completed surgery on pt's ankle and likely may be non-weight bearing. Per PT, pt only able to participate a little today due to confusion/drowsiness and recommending SNF at this time. ADRIANO attempted to meet bedside with pt multiple times but pt too drowsy to remain awake but was able to confirm she was agreeable with SW calling her son Sigifredo or her Dtr helene Alvarez [phone]. Per RN, pt is not currently really scoring on CIWA but potential pt may begin to have ETOH withdrawal tomorrow pending on how much pt typically drinks and for how long. ADRIANO called pt's FARHANA Alvarez and explained role and she confirms that pt resides alone at home in [place] and does not use DME for ambulation and denies any hx of HH or SNF. states pt has high anxiety at baseline which she feels contributes to pt's inability to problem solve herself and pt typically calls her son multiple times a day to ask for help for things. FARHANA helps set up the meds for the week and pt is able to take them appropriately. Pt still drives but family helps with shopping and chores. FARHANA states pt typically drinks about 1-3 glasses of wine a day and did stop drinking for a while but has resumed alcohol consumption. FARHANA is not aware of any hx of need for hospitalization for ETOH withdrawals before and has not witnessed any. FARHANA does feel ETOH contributes to her confusion/unsteadiness. FARHANA feels SNF will be needed and knows that pt will not be happy and will not want to go but she will know she doesn't have any other option. ADRIANO provided SNF Choice List via phone and [facility] to location but aware other referrals will be needed and agreeable with [facility] and [facility] if needed. FARHANA states she has friends that are administrators at [facility] and [facility] and plan is to move pt into [facility] either Independent or low level Assisted side after SNF and DIL and son have begun this process. ADRIANO called [facility] and provided a detailed update on pt and requested review. PASRR completed. No further SNF referrals made yet as wanted to wait for [facility] review but also to see if pt can participate with PT/OT more tomorrow before sending referrals. Plan: SW to follow closely tomorrow to see if pt more medically appropriate and less drowsy to better participate with PT/OT and for bedside discussion regarding SNF and likely additional SNF referrals. LIBIA Martinez Discharge Planning/Care Management CM Discharge Assessment Start: 03/26/22 14:51 Freq: Status: Active Protocol: Document 03/26/22 14:51 BF (Rec: 03/26/22 14:54 BF [id number]) Discharge Planning Assessment Assigned [employer] Wellness Director LIBIA Rosales DPOA/Assigned Designee Name Son and FARHANA Contact Information [phone] Advance Directives? Yes Advance Directives on File No History Provided By Patient,Family Member,Medical Record Has Patient been admitted in last 30 No days? Prior Living Arrangements House Household Members none Type of transporation used prior to Relies on Others admit Independent with ADL's Yes: mostly but calls son to help with bills/meds Is patient alert and oriented? Yes: some anxiety or confusion at baseline Needs Assistance With Managing Medications,Home Chores / Shopping Caregiver for Another No Patient/Family Preference [facility] Facility Comment Pending further PT/OT Barriers to Discharge No Comment Patient has a son named Sigifredo, who is local and checks on her periodically and FARHANA Alvarez very involved as well Discharge Plan [facility] Facility Referrals Initiated [facility] Additional Comment Awaiting medical POC to unfold , patient remains far from baseline, no oriented If patient plan is SNF: Has PASSR been Yes completed? Medicare Choice List Provided Yes Medicare choice list reviewed on family electronic tablet with SNF/HH Preference [facility] due to location Has Agency SNF been contacted Yes Whiteboard Updated in Patient Room with Yes name and ext. # of [employer] Wellness Director Review Status In Process Please Provide Date Initial DC 03/26/22 Assessment Was Performed Next Review Type Continued Stay Review
[2022-03-26 15:00] VITALS: BP 107/53; PULSE 76; RESP 23; TEMP 37.1; O2SAT 95
[2022-03-26] MEDS: chlordiazePOXIDE 25 MG CAPSULE 50 MG PO (15:50)
--- NOTE | 2022-03-26 16:00 | PM.PN.1 ---
Subjective Subjective Date Patient Seen: 03/26/22 Interval history: Patient does not feel well, mainly with shakiness and tremors, mild nausea and abdominal pain. Denies chest pain or shortness of breath. Leg pain is okay today after surgery yesterday. Transferred to medicine service from orthopedic surgery today. Discussed with orthopedics team. Exam Vital Signs (past 8 hours): - 03/26/22 14:42 Temperature 98.7 F Pulse Rate 76 Respiratory Rate 23 Blood Pressure 107/53 L Pulse Oximetry 95 Oxygen Flow Rate 0 Fraction of Inspired Oxygen 32 SaO2/FiO2 Ratio 293 Oxygen Delivery Method Room Air Oxygen Flow Rate 0 Narrative Exam Narrative: General:? Patient is well developed and well nourished, in no distress at this time. HEENT:? Normocephalic, atraumatic, extraocular muscles intact, oral pharynx is clear and mucous membranes are moist. Neck: supple and symmetric, trachea is midline, no cervical adenopathy. Chest:? Normal AP diameter and contour without kyphoscoliosis, no tachypnea, equal chest rise bilaterally. Lungs:? CTA b/l no wheezing rhonchi or rales. Cardio:?RRR no m/r/g. Abdomen: S NT ND. Ext: trace edema bilateral lower extremities, ?Left leg is wrapped and clean. Objective ECG Impression: NSR with LBBB, unchanged from most recent tracing. As interpreted by me. Labs Result Diagrams: 03/26/22 05:49 03/26/22 05:49 Labs: Laboratory Results - last 24 hr 03/25/22 03/25/22 03/25/22 13:17 15:52 21:30 WBC RBC Hgb Hct MCV MCH MCHC RDW Plt Count Neut % (Auto) Lymph % (Auto) [place] % (Auto) Eos % (Auto) Baso % (Auto) Neut # (Auto) Lymph # (Auto) [place] # (Auto) Eos # (Auto) Baso # (Auto) PT INR Sodium 141 Potassium 4.7 Chloride 113 H Carbon Dioxide 19 L BUN 20 H Creatinine 0.72 Estimated GFR > 60 BUN/Creatinine Ratio 27.8 H Glucose 113 H Hemoglobin A1c Lactate Calcium 9.1 Magnesium Total Bilirubin Conjugated Bilirubin Unconjugated Bilirubin GGT AST ALT Alkaline Phosphatase Ammonia Lactate Dehydrogenase Total Creatine Kinase 2809 H CK-MB (CK-2) 15.70 H CK-MB (CK-2) Rel Index 0.6 L Troponin I 0.133 H* Total Protein Amylase Procalcitonin TSH Nasal Screen MRSA (PCR) Negative for mrsa Acetaminophen SARS-CoV-2 (PCR) Negative Influenza A (RT-PCR) Flu a negative Influenza B (RT-PCR) Flu b negative RSV (PCR) Negative 03/25/22 03/25/22 03/25/22 22:27 22:27 22:27 WBC 10.7 RBC 3.05 L Hgb 10.7 L Hct 31.3 L MCV 102.6 H MCH 35.0 H MCHC 34.1 RDW 14.9 H Plt Count 100 L Neut % (Auto) 83.8 H Lymph % (Auto) 6.8 L [place] % (Auto) 9.2 Eos % (Auto) 0.1 L Baso % (Auto) 0.1 Neut # (Auto) 9000 H Lymph # (Auto) 700 L [place] # (Auto) 1000 H Eos # (Auto) 0 Baso # (Auto) 0 PT 13.7 H INR 1.2 Sodium Potassium Chloride Carbon Dioxide BUN Creatinine Estimated GFR BUN/Creatinine Ratio Glucose Hemoglobin A1c 4.9 Lactate Calcium Magnesium Total Bilirubin Conjugated Bilirubin Unconjugated Bilirubin GGT AST ALT Alkaline Phosphatase Ammonia Lactate Dehydrogenase Total Creatine Kinase CK-MB (CK-2) CK-MB (CK-2) Rel Index Troponin I Total Protein Amylase Procalcitonin TSH Nasal Screen MRSA (PCR) Acetaminophen SARS-CoV-2 (PCR) Influenza A (RT-PCR) Influenza B (RT-PCR) RSV (PCR) 03/25/22 03/25/22 03/25/22 22:27 22:27 22:27 WBC RBC Hgb Hct MCV MCH MCHC RDW Plt Count Neut % (Auto) Lymph % (Auto) [place] % (Auto) Eos % (Auto) Baso % (Auto) Neut # (Auto) Lymph # (Auto) [place] # (Auto) Eos # (Auto) Baso # (Auto) PT INR Sodium 142 Potassium 4.8 Chloride 113 H Carbon Dioxide 19 L BUN 20 H Creatinine 0.84 Estimated GFR > 60 BUN/Creatinine Ratio 23.8 H Glucose 131 H Hemoglobin A1c Lactate 2.2 H Calcium 8.5 Magnesium 1.7 Total Bilirubin 1.5 H Conjugated Bilirubin 0.0 Unconjugated Bilirubin 0.9 GGT 172 H AST 88 H ALT 38 H Alkaline Phosphatase 110 Ammonia 84 H Lactate Dehydrogenase 331 H Total Creatine Kinase CK-MB (CK-2) CK-MB (CK-2) Rel Index Troponin I Total Protein 6.1 L Amylase 83 Procalcitonin TSH Nasal Screen MRSA (PCR) Acetaminophen < 10 SARS-CoV-2 (PCR) Influenza A (RT-PCR) Influenza B (RT-PCR) RSV (PCR) 03/25/22 03/25/22 03/26/22 22:27 22:27 01:07 WBC RBC Hgb Hct MCV MCH MCHC RDW Plt Count Neut % (Auto) Lymph % (Auto) [place] % (Auto) Eos % (Auto) Baso % (Auto) Neut # (Auto) Lymph # (Auto) [place] # (Auto) Eos # (Auto) Baso # (Auto) PT INR Sodium Potassium Chloride Carbon Dioxide BUN Creatinine Estimated GFR BUN/Creatinine Ratio Glucose Hemoglobin A1c Lactate 2.2 H Calcium Magnesium Total Bilirubin Conjugated Bilirubin Unconjugated Bilirubin GGT AST ALT Alkaline Phosphatase Ammonia Lactate Dehydrogenase Total Creatine Kinase CK-MB (CK-2) CK-MB (CK-2) Rel Index Troponin I Total Protein Amylase Procalcitonin 0.24 TSH 1.24 Nasal Screen MRSA (PCR) Acetaminophen SARS-CoV-2 (PCR) Influenza A (RT-PCR) Influenza B (RT-PCR) RSV (PCR) 03/26/22 03/26/22 03/26/22 05:49 05:49 05:49 WBC 9.5 RBC 2.78 L Hgb 9.6 L Hct 28.5 L MCV 102.6 H MCH 34.6 H MCHC 33.7 RDW 14.8 Plt Count 86 L Neut % (Auto) 82.6 H Lymph % (Auto) 7.7 L [place] % (Auto) 9.4 Eos % (Auto) 0.1 L Baso % (Auto) 0.2 Neut # (Auto) 7900 H Lymph # (Auto) 700 L [place] # (Auto) 900 Eos # (Auto) 0 Baso # (Auto) 0 PT 13.9 H INR 1.2 Sodium 139 Potassium 4.2 Chloride 114 H Carbon Dioxide 19 L BUN 20 H Creatinine 0.86 Estimated GFR > 60 BUN/Creatinine Ratio 23.3 H Glucose 125 H Hemoglobin A1c Lactate Calcium 7.8 L Magnesium Total Bilirubin 1.2 Conjugated Bilirubin Unconjugated Bilirubin GGT AST 79 H ALT 34 Alkaline Phosphatase 95 Ammonia Lactate Dehydrogenase Total Creatine Kinase CK-MB (CK-2) CK-MB (CK-2) Rel Index Troponin I Total Protein 5.4 L Amylase Procalcitonin TSH Nasal Screen MRSA (PCR) Acetaminophen SARS-CoV-2 (PCR) Influenza A (RT-PCR) Influenza B (RT-PCR) RSV (PCR) 03/26/22 05:49 WBC RBC Hgb Hct MCV MCH MCHC RDW Plt Count Neut % (Auto) Lymph % (Auto) [place] % (Auto) Eos % (Auto) Baso % (Auto) Neut # (Auto) Lymph # (Auto) [place] # (Auto) Eos # (Auto) Baso # (Auto) PT INR Sodium Potassium Chloride Carbon Dioxide BUN Creatinine Estimated GFR BUN/Creatinine Ratio Glucose Hemoglobin A1c Lactate Calcium Magnesium Total Bilirubin Conjugated Bilirubin Unconjugated Bilirubin GGT AST ALT Alkaline Phosphatase Ammonia Lactate Dehydrogenase Total Creatine Kinase CK-MB (CK-2) CK-MB (CK-2) Rel Index Troponin I 0.103 H Total Protein Amylase Procalcitonin TSH Nasal Screen MRSA (PCR) Acetaminophen SARS-CoV-2 (PCR) Influenza A (RT-PCR) Influenza B (RT-PCR) RSV (PCR) [facility] Medical History (Reviewed 03/26/22 @ 06:17 by Pura Rm [employer] [facility] [facility]) Alcohol dependence Chronic kidney disease (CKD) stage G3b/A1, moderately decreased glomerular filtration rate (GFR) between 30-44 mL/min/1.73 square meter and albuminuria creatinine ratio less than 30 mg/g Surgical History History of colonoscopy History of esophagogastroduodenoscopy (EGD) Family History Father Heart disease Mother Heart disease Social History household members: none Smoking Status: Never smoker alcohol intake: current Assessment & Plan Assessment & Plan narrative: Sowmya Kidd is a 75-year-old female with history of GI bleed/encephalopathy, hyperlipidemia, CKD, alcohol abuse, symptomatic anemia, hyperammonemia,? acid reflux, admitted after being found down for unknown time- found to have a right ankle fracture. Given down time, she was found to have UTI, possible SBP, elevated troponin and rhabdomyolysis. Initially under ortho service transferred to hospitalist service today. 1. Right ankle fracture, status post ORIF/I&D, acute, 2nd to ground level fall likely alcohol-induced, downtime undeterminate, present on admission with acute traumatic rhabdomyolysis. -managed by Dr. Mere Rahman -Dr. Rahman had put the patient on cefazolin for open fracture, based on UTI and possible intra-abdominal infection and UTI-changed patient to cefepime initially but abdominal ultrasound is unremarkable and intraabdominal source now appears unlikely. -not enough ascites for paracentesis on ultrasound. -given UTI, previous concern for SBP in the past, continue ceftriaxone instead of cefazolin for now. Continue for 3 days to cover UTI, consider cessation at that time depending on concern for peritonitis. 48 hours sufficient per ortho for open fracture. -initial CK 3795, repeat 2008, we will continue to monitor cr, continue IV fluids for rhabdo, Repeat CK in the AM. 2. Acute cystitis, acute, present on admission -positive urine, culture pending -ceftriaxone as noted above. 3. Alcohol abuse/dependence, acute on chronic, present on admission -ammonia elevated with history of hepatic encephalopathy, ultrasound today shows cirrhotic liver. -placed on CIWA protocol -started on librium for withdrawal from EtOH today. Continue lactulose TID, titrate to 2-5 BMs daily. -ordered for oral multivitamin, folic acid and thiamine -patient provided dietary consult on prior admission 4. myocardial injury, acute, present on admission likely secondary to demand to rhabdo fall and injury, acute, present on admission -patient is asymptomatic has no chest pain, some nausea but has other factors to explain nausea as well. -initial troponin 0.106, repeated at 0.133 and then improved to 0.103. -EKG: Normal sinus rhythm rate of 81 with left bundle branch block unchanged from last EKG on 04/07/2021 -TTE ordered to assess for wall motion abnormalities / EF in setting of her elevated troponin. 5. history of CKD G3b/A1, (resolved in 2021), not present on admission -creatinine 0.72 GFR>60 -previous baseline creatinine appears to be 0.9-1.1 -continue to trend 6. Hyperlipidemia, chronic, present on admission - continue rosuvastatin 20 mg 7. Mild alcoholic hepatitis, thrombocytopenia due to etoh use. - mild only, no indication for steroids. Code status:Full Surrogate decision maker: Sigifredo Waters, dominique BROWN PCR:Negative DVT/VTE prophylaxis: SCDs for now given thrombocytopenia. Disposition:? Transfer to medicine service, probably will need SNF placement. Timing in 2-4 days depending on progress. I have utilized all available immediate resources to obtain, update, or review the patient's current medications. I confirmed that the patient's advanced care plan is present, Code status is documented and/or surrogate decision maker is listed in the patient's medical record. Time Spent With Patient Critical Care time: I spent a total of [] minutes of critical care time on this patient's care today; this time is exclusive of procedural time. Quality VTE Deep Vein Thrombosis/Pulmonary Embolism Present on Admission: No
--- NOTE | 2022-03-26 16:15 | DI.ECHO.S_ITS ---
[place] [facility] +---------+ : : [address] : : : : [id number] : : : : Phone: [phone]+ Echocardiogram Report + + :Name: ALFREDO BADILLO Study Date: 03/27/2022 Height: 65 in : :[facility] ReadingLocation: Weight: 204 lb : : Gender: Female BSA: 2.0 m2 : :: 1945 Age: 76 yrs BP: 159/70 mmHg: :Reason For Study: ELEVATED TROPONIN : :Ordering Physician: ASTON, : :SLAVA MENDEZ Performed By: Era Ames : :Referring: SLAVA CLANCY : + + Interpretation Summary Normal sinus rhythm with wide QRS complexes. Normal LV size and wall thickness. There is septal dyssynchrony which could be due to conduction system disease versus small area of LAD territory infarction or ischemia. Otherwise normal wall motion and LV systolic function. Ejection fraction is 55-60%. Moderate LA enlargement and mild right atrial enlargement. No significant valvular abnormalities. Compared to prior study April 18, 2017, left atrial enlargement and right atrial enlargement are newly appreciated. Septal dyssynchrony is newly appreciated. Procedure: A two-dimensional transthoracic echocardiogram with color flow and Doppler was performed. Comparison is made with the echocardiogram of 04/18/2017. The study quality was technically difficult. A contrast injection of Definity was performed to improve assessment of LV function. The patient was in sinus rhythm with heart rates between 75-85 bpm during the exam. Left Ventricle: The left ventricle is normal in size and wall thickness. The ejection fraction is estimated to be 55-60%. Right Ventricle: The right ventricle is not well visualized. The right ventricular systolic function is normal. Atria: The left atrium is moderately dilated. The right atrium is mildly dilated. There is no Doppler evidence for an interatrial shunt. Mitral Valve: The mitral valve is normal in structure and function. There is trace mitral regurgitation. Aortic Valve: The aortic valve is trileaflet. The aortic valve opens well. There is no aortic valve stenosis. There is mild aortic regurgitation. Tricuspid Valve: The tricuspid valve is normal in structure and function. There is mild tricuspid regurgitation. Right ventricular systolic pressure is estimated to be 32 mmHg plus the clinically estimated CVP which cannot be estimated on this exam. Pulmonic Valve: The pulmonic valve leaflets are thin and pliable; valve motion is normal. There is mild to moderate pulmonic regurgitation. Great Vessels: The aortic root is normal size. The dimensions of the ascending aorta are normal. The inferior vena cava was not visualized. Pericardium/ Pleura There is no pericardial effusion. There is no pleural effusion. MMode/2D Measurements & Calculations LVIDd: 4.0 cm LVOT diam: 2.0 cm LVIDs: 2.9 cm Ao root diam: 3.6 cm FS: 28.1 % asc Aorta Diam: 3.5 cm IVSd: 1.1 cm Ao Arch Diam (Prox Trans): 3.4 cm LVPWd: 0.93 cm LV estrada. diameter/BSA (cm/m^2): 2.0 LV sys. diameter/BSA (cm/m^2): 1.5 LA A2 area: 25.9 cm2 RA long axis: 6.1 cm LA A4 area: 25.2 cm2 RA area: 25.4 cm2 LA length (vol): 6.5 cm RA vol: 89.3 ml LA vol: 85.2 ml RA : 44.8 ml/m2 LA vol index: 42.7 ml/m2 TAPSE: 2.1 cm Doppler Measurements & Calculations Ao V2 max: 179.7 cm/sec LVOT Max Nikita: 135.0 cm/sec Ao V2 mean: 123.9 cm/sec LV V1 max P.3 mmHg Ao max P.9 mmHg LV V1 VTI: 27.1 cm Ao mean P.9 mmHg HERBER(I,D): 2.3 cm2 Ao V2 VTI: 35.8 cm HERBER(V,D): 2.3 cm2 sev ratio: 0.76 HERBER indexed to BSA (cm^2/m^2): 1.2 MV E max nikita: 88.1 cm/sec TR max nikita: 281.6 cm/sec MV A max nikita: 100.4 cm/sec TR max P.7 mmHg MV E/A: 0.88 PA V2 max: 123.3 cm/sec Med Peak E' Nikita: 7.4 cm/sec PA V2 mean: 86.0 cm/sec E/E' med: 12.0 PA mean P.2 mmHg Lat Peak E' Nikita: 8.7 cm/sec E/E' lat: 10.1 E/e' average: 11.0 MV dec time: 0.15 sec SVLVOT): 83.1 ml Electronically signed by: Hilaria Guzman M.D. on Reading Physician:03/27/2022 01:24 PM
[2022-03-26] MEDS: cefTRIAXone 2,000 MG in SODIUM CHLORIDE 0.9% 100 ML 200 MG IV (18:11)
[2022-03-26 21:45] VITALS: BP 131/60; PULSE 86; RESP 18; TEMP 36.4; O2SAT 95
[2022-03-27] MEDS: LACTULOSE 20 GM/30 ML SOLUTION PO ×4 (00:03→21:47)
[2022-03-27] MEDS: ACETAMINOPHEN 325 MG TABLET 650 MG PO ×2 (00:04→21:47)
[2022-03-27] MEDS: ASPIRIN EC 81 MG TABLET PO ×3 (00:04→21:48)
[2022-03-27] MEDS: chlordiazePOXIDE 25 MG CAPSULE 50 MG PO ×2 (00:04→09:28)
[2022-03-27 00:29] LABS: Troponin I 0.054 ng/mL (0.01-0.034)
[2022-03-27 00:59] VITALS: BP 109/55; PULSE 88; RESP 18; TEMP 37.1; O2SAT 92
[2022-03-27 04:49] VITALS: BP 99/55; PULSE 87; RESP 14; TEMP 36.4; O2SAT 92
[2022-03-27 05:51] LABS: Add Manual Diff / Slide Review NO; Basophils Absolute Auto 0 /uL (0-100); Eosinophils Absolute Auto 0 /uL (0-450); Eosinophils Percent Auto 0.5 % (2-4); Hematocrit 27.5 % (36-46); Hemoglobin 9.3 g/dL (12.0-16.0); Lymphocytes Absolute Auto 900 /uL (1100-4500); Lymphocytes Percent Auto 13.9 % (25-40); Mean Corpuscular HGB Conc 33.7 % (30-36); Mean Corpuscular Hemoglobin 34.6 PG (26-34); Mean Corpuscular Volume 102.9 fL (80-100); Monocytes Absolute Auto 800 /uL (0-900); Monocytes Percent Auto 11.2 % (3-14); Neutrophils Absolute Auto 5000 /uL (1500-7000); Neutrophils Percent Auto 74.4 % (50-75); Platelet Count 78 X10^3/uL (150-400); Red Blood Cell Count 2.68 X10^6/uL (4.0-5.2); White Blood Cell Count 6.8 X10^3/uL (4.5-11.0)
[2022-03-27 05:59] LABS: Creatine Kinase 635 U/L (30-135)
[2022-03-27 06:00] LABS: Alanine Aminotransferase 32 IU/L (<35); Alkaline Phosphatase 101 U/L (38-126); Aspartate Aminotransferase 74 IU/L (14-36); BUN Creatinine Ratio 23.8 (6-22); Bilirubin Total 1.1 mg/dL (0.2-1.3); Blood Urea Nitrogen 19 mg/dL (7-17); Calcium 8.3 mg/dL (8.4-10.2); Carbon Dioxide 19 mmol/L (22-32); Chloride 115 mmol/L (98-107); Estimated Glomerular Filt Rate > 60 mL/min (>60); Glucose 98 mg/dL (80-110); HEMOLYSIS < 15 (0-50); Potassium 3.7 mmol/L (3.4-5.1); Sodium 141 mmol/L (137-145); Total Protein 5.5 g/dL (6.3-8.2)
--- NOTE | 2022-03-27 07:46 | P.PN_ITS ---
Subjective Subjective Interval history: Less confused, she has ongoing ankle pain. No chest pain or dyspnea. Hit the back of her head when she fell. Exam Vital Signs (past 8 hours): - 03/27/22 00:59 03/27/22 04:49 Temperature 98.7 F 97.6 F Pulse Rate 88 87 Respiratory Rate 18 14 Blood Pressure 109/55 L 99/55 L Pulse Oximetry 92 92 Oxygen Flow Rate 0 0 Fraction of Inspired Oxygen 32 SaO2/FiO2 Ratio 293 Oxygen Delivery Method Room Air Oxygen Flow Rate 0 Const General: cooperative and healthy appearing [facility] Head: normal to inspection and normocephalic Nose: external nose normal Face and sinus: normal facial exam Eyes General: appearance normal, both eyes and all related structures Alignment and Position: alignment normal Conjunctivae: conjunctivae normal Sclera: sclerae normal Neck Neck: normal visual inspection, full ROM, No anterior neck swelling, No lymphadenopathy and No JVD Thyroid: thyroid normal Chest Chest: normal inspection of the chest Resp Effort & Inspection: normal respiratory effort, able to speak in complete sentences and no respiratory distress Auscultation: clear to auscultation bilaterally Cardio Rate: regular rate Rhythm: regular rhythm GI Palpation: soft and no hepatosplenomegaly Auscultation: normal bowel sounds Skin General: no rashes or lesions noted Neuro General: patient alert, patient awake and patient oriented x3 Objective Labs Result Diagrams: 03/27/22 05:04 03/27/22 05:04 Labs: Laboratory Results - last 24 hr 03/26/22 03/26/22 03/27/22 05:49 23:52 05:04 WBC RBC Hgb Hct MCV MCH MCHC RDW Plt Count Neut % (Auto) Lymph % (Auto) [place] % (Auto) Eos % (Auto) Baso % (Auto) Neut # (Auto) Lymph # (Auto) [place] # (Auto) Eos # (Auto) Baso # (Auto) Sodium 141 Potassium 3.7 Chloride 115 H Carbon Dioxide 19 L BUN 19 H Creatinine 0.80 Estimated GFR > 60 BUN/Creatinine Ratio 23.8 H Glucose 98 Calcium 8.3 L Total Bilirubin 1.1 AST 74 H ALT 32 Alkaline Phosphatase 101 Total Creatine Kinase Troponin I 0.103 H 0.054 H Total Protein 5.5 L 03/27/22 03/27/22 05:04 05:04 WBC 6.8 RBC 2.68 L Hgb 9.3 L Hct 27.5 L MCV 102.9 H MCH 34.6 H MCHC 33.7 RDW 15.0 H Plt Count 78 L Neut % (Auto) 74.4 Lymph % (Auto) 13.9 L [place] % (Auto) 11.2 Eos % (Auto) 0.5 L Baso % (Auto) 0.0 Neut # (Auto) 5000 Lymph # (Auto) 900 L [place] # (Auto) 800 Eos # (Auto) 0 Baso # (Auto) 0 Sodium Potassium Chloride Carbon Dioxide BUN Creatinine Estimated GFR BUN/Creatinine Ratio Glucose Calcium Total Bilirubin AST ALT Alkaline Phosphatase Total Creatine Kinase 635 H D Troponin I Total Protein [facility] Medical History Alcohol dependence Chronic kidney disease (CKD) stage G3b/A1, moderately decreased glomerular filtration rate (GFR) between 30-44 mL/min/1.73 square meter and albuminuria creatinine ratio less than 30 mg/g Surgical History History of colonoscopy History of esophagogastroduodenoscopy (EGD) Family History Father Heart disease Mother Heart disease Social History household members: none Smoking Status: Never smoker alcohol intake: current Assessment & Plan Assessment & Plan narrative: Sowmya Kidd is a 75-year-old female with history of GI bleed/encephalopathy, hyperlipidemia, CKD, alcohol abuse, symptomatic anemia, hyperammonemia,? acid reflux, admitted after being found down for unknown time- found to have? a right ankle fracture. Given down time, she was found to have UTI, possible SBP, elevated troponin and rhabdomyolysis. Initially under ortho service transferred to hospitalist service today. From previous notes. 1. Right ankle fracture, status post ORIF/I&D, present on admission and active. 2nd to ground level fall likely alcohol-induced, downtime unknown, present on admission with acute traumatic rhabdomyolysis. -managed by Dr. Mere Rahman (ortho). -Dr. Rahman had put the patient on cefazolin for open fracture. 2. Rhabdomyolysis, present on admission and active. ?-initial CK 3795, repeat 2008, we will continue to monitor cr, continue IV fluids for rhabdo, Repeat CK 635 today.. 3. Acute UTI, present on admission and active. -positive urine, culture pending -ceftriaxone as noted above. Short course. 4. Alcohol use disorder (dependence) with withdrawal, present on admission and active/improving. -ammonia elevated with history of hepatic encephalopathy, ultrasound today shows cirrhotic liver. -placed on CIWA protocol -started on librium for withdrawal from EtOH today. Continue lactulose TID, titrate to 2-5 BMs daily. -ordered for oral multivitamin, folic acid and thiamine 5. Demand ischemia, present on admission and active. Improving. -patient is asymptomatic has no chest pain, some nausea but has other factors to explain nausea as well. -initial troponin 0.106, repeated at 0.133 and then improved to 0.103. -EKG: Normal sinus rhythm rate of 81 with left bundle branch block unchanged from last EKG on 04/07/2021 -TTE ordered to assess for wall motion abnormalities / EF in setting of her elevated troponin. Pending. 6. Hyperlipidemia, present on admission and active. - continue rosuvastatin 20 mg 7. Mild alcoholic hepatitis, present on admission and active, ?- mild only, no indication for steroids. 8. Thrombocytopenia (due to alcohol use). Present on admission and active. ?- stable Code status:Full Surrogate decision maker: Sigifredo Waters, dominique BROWN PCR:Negative DVT/VTE prophylaxis: SCDs for now given thrombocytopenia. Disposition:? Transfer to medicine service, probably will need SNF placement. Timing in 1-3 days depending on progress. Time Spent With Patient Critical Care time: I spent a total of [] minutes of critical care time on this patient's care today; this time is exclusive of procedural time. Quality VTE Deep Vein Thrombosis/Pulmonary Embolism Present on Admission: No
--- NOTE | 2022-03-27 07:49 | P.PN_ITS ---
Exam Vital Signs (past 8 hours): - 03/27/22 00:59 03/27/22 04:49 Temperature 98.7 F 97.6 F Pulse Rate 88 87 Respiratory Rate 18 14 Blood Pressure 109/55 L 99/55 L Pulse Oximetry 92 92 Oxygen Flow Rate 0 0 Fraction of Inspired Oxygen 32 SaO2/FiO2 Ratio 293 Oxygen Delivery Method Room Air Oxygen Flow Rate 0 Objective Labs Result Diagrams: 03/27/22 05:04 03/27/22 05:04 Labs: Laboratory Results - last 24 hr 03/26/22 03/26/22 03/27/22 05:49 23:52 05:04 WBC RBC Hgb Hct MCV MCH MCHC RDW Plt Count Neut % (Auto) Lymph % (Auto) [place] % (Auto) Eos % (Auto) Baso % (Auto) Neut # (Auto) Lymph # (Auto) [place] # (Auto) Eos # (Auto) Baso # (Auto) Sodium 141 Potassium 3.7 Chloride 115 H Carbon Dioxide 19 L BUN 19 H Creatinine 0.80 Estimated GFR > 60 BUN/Creatinine Ratio 23.8 H Glucose 98 Calcium 8.3 L Total Bilirubin 1.1 AST 74 H ALT 32 Alkaline Phosphatase 101 Total Creatine Kinase Troponin I 0.103 H 0.054 H Total Protein 5.5 L 03/27/22 03/27/22 05:04 05:04 WBC 6.8 RBC 2.68 L Hgb 9.3 L Hct 27.5 L MCV 102.9 H MCH 34.6 H MCHC 33.7 RDW 15.0 H Plt Count 78 L Neut % (Auto) 74.4 Lymph % (Auto) 13.[address] [place] % (Auto) 11.2 Eos % (Auto) 0.5 L Baso % (Auto) 0.0 Neut # (Auto) 5000 Lymph # (Auto) [address] [place] # (Auto) 800 Eos # (Auto) 0 Baso # (Auto) 0 Sodium Potassium Chloride Carbon Dioxide BUN Creatinine Estimated GFR BUN/Creatinine Ratio Glucose Calcium Total Bilirubin AST ALT Alkaline Phosphatase Total Creatine Kinase 635 H D Troponin I Total Protein [facility] Medical History Alcohol dependence Chronic kidney disease (CKD) stage G3b/A1, moderately decreased glomerular filtration rate (GFR) between 30-44 mL/min/1.73 square meter and albuminuria creatinine ratio less than 30 mg/g Surgical History History of colonoscopy History of esophagogastroduodenoscopy (EGD) Family History Father Heart disease Mother Heart disease Social History household members: none Smoking Status: Never smoker alcohol intake: current Assessment & Plan Time Spent With Patient Critical Care time: I spent a total of [] minutes of critical care time on this patient's care today; this time is exclusive of procedural time. Quality VTE Deep Vein Thrombosis/Pulmonary Embolism Present on Admission: No
--- NOTE | 2022-03-27 07:49 | CM.DPC ---
Addendum entered by Darlene Diez R.N. 03/27/22 15:11: Norma at [facility] called back and has confirmed acceptance. [id number], , has been in contact, is very involved. Patient has been reluctant to go to a skilled facility due to the smell of urine. indicated, she will talk to her [id number] upon discharge, since she will need skilled before going home. Today, patient is groggy, and P.T. is attempting to work with her. Will not yet place COVID swab, for it is unclear if patient will be ready to discharge tomorrow. PASSR is completed already. Addendum entered by Darlene Diez R.N. 03/27/22 08:00: Norma from [facility] called back, [facility] is out for the rest of the month. She has referral, read her Connie's note regarding discharge plan. She will discuss with team, and will call this [facility] to see if they can accept. Original Note: DCP Cont: Left message with Ngoc at [facility] regarding patient. It is noted that patient's preference is [facility]. Patient did work with the therapy team yesterday. P: DCP to continue to work on discharge plan, and will await call back from [employer]. Darlene Diez RN/[employer]ook [employer]er
--- NOTE | 2022-03-27 08:43 | PM.PNPO.1 ---
Subjective Subjective Date Patient Seen: 03/27/22 Time Patient Seen: 08:43 Interval history: Patient is very sleepy this morning, follows some commands. She is resting comfortably in bed. Exam Vital Signs (past 8 hours): - 03/27/22 00:59 03/27/22 04:49 Temperature 98.7 F 97.6 F Pulse Rate 88 87 Respiratory Rate 18 14 Blood Pressure 109/55 L 99/55 L Pulse Oximetry 92 92 Oxygen Flow Rate 0 0 Fraction of Inspired Oxygen 32 SaO2/FiO2 Ratio 293 Oxygen Delivery Method Room Air Oxygen Flow Rate 0 Narrative Exam Narrative: 76-year-old female, resting comfortably in bed, no acute distress. Left ankle dressing and splint are clean, dry, intact. She is able to wiggle her toes. Objective Labs Result Diagrams: 03/27/22 05:04 03/27/22 05:04 Labs: Laboratory Results - last 24 hr 03/26/22 03/27/22 03/27/22 23:52 05:04 05:04 WBC 6.8 RBC 2.68 L Hgb 9.3 L Hct 27.5 L MCV 102.9 H MCH 34.6 H MCHC 33.7 RDW 15.0 H Plt Count 78 L Neut % (Auto) 74.4 Lymph % (Auto) 13.9 L [place] % (Auto) 11.2 Eos % (Auto) 0.5 L Baso % (Auto) 0.0 Neut # (Auto) 5000 Lymph # (Auto) 900 L [place] # (Auto) 800 Eos # (Auto) 0 Baso # (Auto) 0 Sodium 141 Potassium 3.7 Chloride 115 H Carbon Dioxide 19 L BUN 19 H Creatinine 0.80 Estimated GFR > 60 BUN/Creatinine Ratio 23.8 H Glucose 98 Calcium 8.3 L Total Bilirubin 1.1 AST 74 H ALT 32 Alkaline Phosphatase 101 Total Creatine Kinase Troponin I 0.054 H Total Protein 5.5 L 03/27/22 05:04 WBC RBC Hgb Hct MCV MCH MCHC RDW Plt Count Neut % (Auto) Lymph % (Auto) [place] % (Auto) Eos % (Auto) Baso % (Auto) Neut # (Auto) Lymph # (Auto) [place] # (Auto) Eos # (Auto) Baso # (Auto) Sodium Potassium Chloride Carbon Dioxide BUN Creatinine Estimated GFR BUN/Creatinine Ratio Glucose Calcium Total Bilirubin AST ALT Alkaline Phosphatase Total Creatine Kinase 635 H D Troponin I Total Protein [facility] Medical History Alcohol dependence Chronic kidney disease (CKD) stage G3b/A1, moderately decreased glomerular filtration rate (GFR) between 30-44 mL/min/1.73 square meter and albuminuria creatinine ratio less than 30 mg/g Surgical History History of colonoscopy History of esophagogastroduodenoscopy (EGD) Family History Father Heart disease Mother Heart disease Social History household members: none Smoking Status: Never smoker alcohol intake: current Assessment & Plan Post-op Postoperative Procedures: Procedures Operation Date: 03/25/22 18:00 Actual Procedure Side Surgeon p ORIF Ankle Fracture- OPEN Left Mere Marion Rahman MD Postoperative day: 2 Postoperative status narrative: -status post left ankle ORIF, open -rhabdomyolysis, acute UTI -history of GI bleed/encephalopathy, hyperlipidemia, CKD, alcohol abuse, symptomatic anemia, hyperammonemia, acid reflux Postoperative plan narrative: -mobilize with PT. Clarified with Dr. Rahman: Nonweightbearing on her left lower extremity x6 weeks -continue with multimodal pain management -aspirin 81 mg b.i.d. x6 weeks for DVT prophylaxis, once thrombocytopenia has resovled; per Hospitalist team -IV antibiotics times 48 hours postoperatively, due to open nature of the injury -ideally transfer primary service to hospitalist team. Appreciate their help with all of her medical issues 1. Right ankle fracture, status post ORIF/I&D, acute, 2nd to ground level fall likely alcohol-induced, downtime undeterminate, present on admission with acute traumatic rhabdomyolysis. -Dr. Rahman had put the patient on cefazolin for open fracture, based on UTI and possible intra-abdominal infection and UTI-changed patient to cefepime initially but abdominal ultrasound is unremarkable and intraabdominal source now appears unlikely. -not enough ascites for paracentesis on ultrasound. -given UTI, previous concern for SBP in the past, continue ceftriaxone instead of cefazolin for now. Continue for 3 days to cover UTI, consider cessation at that time depending on concern for peritonitis. 48 hours sufficient per ortho for open fracture. -initial CK 3795, repeat 2008, we will continue to monitor cr, continue IV fluids for rhabdo, Repeat CK in the AM. -Acute cystitis, acute, present on admission; Alcohol abuse/dependence, acute on chronic, present on admission; myocardial injury, acute, present on admission likely secondary to demand to rhabdo fall and injury, acute, present on admission; history of CKD G3b/A1, (resolved in 2021); Hyperlipidemia, chronic, present on admission; Mild alcoholic hepatitis, thrombocytopenia due to etoh use; All being managed by Hospitalist team DVT/VTE prophylaxis: SCDs for now given thrombocytopenia. Disposition per hospitalist team: Transfer to medicine service, probably will need SNF placement. Timing in 1-3 days depending on progress. Quality VTE Deep Vein Thrombosis/Pulmonary Embolism Present on Admission: No
[2022-03-27 09:00] VITALS: BP 128/67; PULSE 76; RESP 17; TEMP 36.9; O2SAT 95
[2022-03-27] MEDS: FOLIC ACID 1 MG TABLET PO (09:28)
[2022-03-27] MEDS: MULTIVITAMIN 1 TABLET 1 TAB PO (09:28)
[2022-03-27] MEDS: THIAMINE 100 MG TABLET PO (09:28)
[2022-03-27 13:00] VITALS: BP 126/57; PULSE 78; RESP 17; TEMP 36.6; O2SAT 91
--- NOTE | 2022-03-27 14:55 | OT.IP.TRT ---
Current Diagnoses Anemia, unspecified (03/25/22) Alcohol dependence, uncomplicated (03/25/22) Gastrointestinal hemorrhage, unspecified (03/25/22) Rhabdomyolysis (03/25/22) Other fecal abnormalities (03/25/22) Bacteriuria (03/25/22) Other fracture of left lower leg, initial encounter for open fracture type I or II (03/25/22) Surgery Performed Operation Date: 03/25/22 18:00 Actual Procedures p ORIF Ankle Fracture- OPEN(Left) - Mere Rahman MD Occupational Therapy Treatment Note M2 OT-IP Current Condition Start: 03/26/22 16:54 Freq: Status: Active Protocol: Document 03/26/22 13:50 CCC (Rec: 03/26/22 17:29 [facility] [id number]) Occupational Therapy Current Condition Current Condition Evaluation Date 03/26/22 Treatment Diagnosis I and D Left open ankle fracture ORIF Diagnosis Onset Date 03/25/22 Weight Bearing Status Weight Bearing Status Non-Weight Bearing Allowed Weight Bearing Amount (enter % NWB LLE or #) (%) M3 OT- IP Subjective and Pain Start: 03/26/22 16:54 Freq: Status: Active Protocol: Document 03/27/22 14:55 [facility] (Rec: 03/27/22 16:56 [facility] [id number]) OT- Subjective Occupational Therapy Visit Type Type Treatment Note Visit Start Time 14:55 Visit Stop Time 15:21 Total Visit Minutes 26 Occupational Therapy Visit Comments Patient Comments Pt initially very groggy and drowsy and unable to wake up and then awaken after doing log rolling to help change out her gown. Patient/Caregiver Goals To get better. OT Pain Assessment Pain When Pain Assessed During Mobility Pain Present Pain Present Pain Reported M4 OT- IP ADL's Start: 03/26/22 16:54 Freq: Status: Active Protocol: Document 03/27/22 14:55 [facility] (Rec: 03/27/22 16:56 [facility] [id number]) OT [id number] Comments OT Self-Feeding Comments NOt at meal time. OT ADL-Grooming Comments OT Grooming Comments Pt needing maxa to wash her face as very drowsy. OT ADL-Oral Care Comments Oral Care Comments Not performed. OT ADL-Dressing General Eval Upper Body Dressing Ability Maximum Assistance Comments OT Dressing Comments Assist to help change out her gown. OT ADL-Toileting General Evaluation Toileting Ability Total Assistance Comments OT Toileting Comments Hess in place OT ADL-Bathing Comments OT Bathing Comments Sponge bathing is more appropriate at this time. M5 OT- IP IADL's Start: 03/26/22 16:54 Freq: Status: Active Protocol: Document 03/26/22 13:50 [facility] (Rec: 03/26/22 17:29 [facility] [id number]) OT-Instrumental Activities of Daily Living Home Safety Awareness Home Safety Comments Pt to drowsy and not alert at this time. Medication Management Medication Management Caregiver Provides Supervision Spoilage Worker Spoilage Worker Caregiver Provides Assist M6 OT- IP Functional Cognition Start: 03/26/22 16:54 Freq: Status: Active Protocol: Document 03/27/22 14:55 [facility] (Rec: 03/27/22 16:56 [facility] [id number]) Cognitive Factors Limiting Selfcare Function Cognitive Ability Level of Alertness Confusional State,Drowsy Patient Orientation Name Cognitive Comments Cognitive Assessment Comments Pt after waking up able to follow commands for mobility needs. M7 OT- IP Mobility and Balance Start: 03/26/22 16:54 Freq: Status: Active Protocol: Document 03/27/22 14:55 [facility] (Rec: 03/27/22 16:56 [facility] [id number]) OT- Bed Mobility Assessment Supine to Sit Supine to Sit Assist Maximum Assistance,2 Person Assistance Sit to Supine Sit to Supine Assist Maximum Assistance,Total Assistance,2 Person Assistance Scooting Scooting Up and Down in Bed Maximum Assistance,2 Person Assistance OT-Transfer Assessment Comments Mobility Comments MAXAX 2 to help get up to the edge of the bed and to assist to scoot forwards. MAX AX 2 with right stool under her right foot to assist to help scoot up to the head of the bed. MAXA from OT to keep from her left foot from touching the ground as NWB and able to push on the therapist with her left thigh to assist with scooting up. MAX/Total assistx2 to help get back into bed. OT- Balance Assessment Sitting Balance and Reactions Static Sitting Balance Ability Poor Dynamic Sitting Balance Ability Poor Comments Other Balance Tests/Deviations/Treatment Initially pt able to sit with : CGA and then progressively needing more assist to sitting balance as she tires. M9 OT- IP Assessment and Plan Start: 03/26/22 16:54 Freq: Status: Active Protocol: Document 03/27/22 14:55 [facility] (Rec: 03/27/22 16:56 [facility] [id number]) OT Summary Assessment and Plan Potential Rehabilitation Potential Fair Analytic Complexity at Evaluation Moderate Summary OT Impairments Pain,Strength,Balance, Functional Cognition, Functional Mobility,Self- Feeding,Grooming,Dressing, Toileting,Bathing,Toilet Transfers,Shower Transfers, Activity Tolerance Progress Towards Goals Progressing Toward Goals Assessment Summary Pt able to sit at the edge of the bed with MAXA X 2 and scoot to the head of the bed with platform underneath her right foot and MAX AX 2 to assist. Pt very drowsy initially and then able to wake up. Pt to go to skilled rehab when medically stable. Goals Grooming Goal Independent Dressing Goal Moderate Assistance Toileting Goal Minimal Assistance Bathing Goal Moderate Assistance Toilet Transfer Goal Minimal Assistance Shower Transfer Goal Moderate Assistance Days to Meet Goals 20 Frequency of Treatment Frequency Of Treatment Once a Day Treatment Plan OT Treatment Plan ADL Training,Functional Cognition Training,Functional Mobility,Patient/Family Education,Discharge Planning Other Treatment Recommendations and Next MAX AX 2 with sliding board Treatment Focus transfer to drop arm commode. Discharge Recommendations OT Discharge Recommendations SNF Rehab Transportation Needs at Discharge Wheelchair/Cabulance,Stretcher /Ambulance
--- NOTE | 2022-03-27 15:54 | PT.IPTN ---
Current Diagnoses Anemia, unspecified (03/25/22) Alcohol dependence, uncomplicated (03/25/22) Gastrointestinal hemorrhage, unspecified (03/25/22) Rhabdomyolysis (03/25/22) Other fecal abnormalities (03/25/22) Bacteriuria (03/25/22) Other fracture of left lower leg, initial encounter for open fracture type I or II (03/25/22) Surgery Performed Operation Date: 03/25/22 18:00 Actual Procedures p ORIF Ankle Fracture- OPEN(Left) - Mere Rahman MD Physical Therapy Treatment Note M2 PT-IP Current Condition Start: 03/26/22 12:38 Freq: NEEDED Status: Active Protocol: Document 03/26/22 10:01 AB (Rec: 03/26/22 12:48 AB [id number]) Physical Therapy Current Condition Current Condition Evaluation Date 03/26/22 Treatment Diagnosis s/p fall; L ankle fx s/p ORIF; difficulty in walking Onset Date 03/25/22 M3 PT-IP Subjective Start: 03/26/22 12:38 Freq: NEEDED Status: Active Protocol: Document 03/27/22 15:38 LJ (Rec: 03/27/22 15:54 LJ [id number]) Subjective Physical Therapy Visit Type Type Treatment Note Visit Start Time 14:55 Visit Stop Time 15:21 Total Visit Minutes 26 Physical Therapy Visit Comments Patient Comments Pt initially groggy but able to awaken with movement and position change M4 PT-IP Mobility and Gait Start: 03/26/22 12:38 Freq: NEEDED Status: Active Protocol: Document 03/27/22 15:38 LJ (Rec: 03/27/22 15:54 LJ [id number]) PT-Bed Mobility Assessment Rolling Type of Rolling Bilateral Level of Assist Maximal Assistance,2 Person Assistance Supine to Sit Supine to Sit Maximum Assistance,2 Person Assistance,Head of Bed Elevated,Bedrails Sit to Supine Sit to Supine Total Assistance,2 Person Assistance,Head of Bed Elevated,Bedrails Scooting Scooting to Edge of Bed Maximum Assistance Scooting Up and Down in Bed Maximum Assistance PT-Transfer Assessment Comments Mobility Comments Pt completed logroll MaxA x2 for brief check and bed pad change. Bed tilted to side to assist rolling. With head of bed elevated, pt completed supine>sit MaxA x2. Pt sitting on side of bed initially reqiring Mod-MaxA x2 for balance however, as she woke up more she was able to sit on side of bed CGA x1. Pt instructed to place R foot on stool which was placed next to bed. Cued to push into right foot to attempt to move buttocks toward head of bed. MaxA x2 still unable to scoot toward head of bed. Pt sat on side of bed several minutes then was assisted back into bed with MaxA x2 to swing LEs onto bed and lower trunk onto left side. Pt able to scoot hips over to right using RLE and ModA x1. Pillows positioned under LEs and blankets placed on pt. Call light given to pt by OT. MOTOR COACH SUPERVISOR left room with OT sitll in room with pt. Gait Assessment Comments Gait Comments unable at this time PT-Balance Assessment Sitting Balance and Reactions Static Sitting Balance Ability Good Dynamic Sitting Balance Ability Fair M5 PT-IP Objective Assessments Start: 03/26/22 12:38 Freq: NEEDED Status: Active Protocol: Document 03/26/22 10:01 AB (Rec: 03/26/22 12:48 AB [id number]) Orientation Orientation/Cognition Level of Alertness Confusional State Orientation Name,Place,Situation Safety Awareness Decreased Safety Awareness Memory Description Short Term Impaired,Basin Tender Impaired Gross Range of Motion Lower Extremity ROM Assessment Within Functional Limits Impairments L ankle NT Strength Lower Extremity Strength Assessment Bilaterally Impaired Hip 3+/5 Knee 3+/5 Ankle L ankle NT Muscle Tone Muscle Tone WNL Yes M6 PT-IP Treatment Start: 03/26/22 12:38 Freq: NEEDED Status: Active Protocol: Document 03/27/22 15:38 DERIAN (Rec: 03/27/22 15:54 [id number]) Physical Therapy Treatment Education Education Provided Precautions,Weight Bearing Status,Safety M7 PT-IP Assessment and Plan Start: 03/26/22 12:38 Freq: NEEDED Status: Active Protocol: Document 03/27/22 15:38 DERIAN (Rec: 03/27/22 15:54 DERIAN [id number]) PT Summary Assessment and Plan Potential Rehabilitation Potential Fair Status of Condition at Evaluation Evolving Summary Impairments Pain,ROM,Strength,Balance, Coordination,Sensation,Tone, Cognition,Bed Mobility, Transfers,Gait,Activity Tolerance Assessment Summary Pt requiring MaxA x2 for bed mobility and unable to stand fully on RLE. Pt improved with following directions but still needing max cueing to avoid weightbearing on LLE. She will need SNFat this time to improve mobility, strength and function. Goals Bed Mobility Goal Minimal Assistance Transfer Goal Minimal Assistance,Front Wheeled Walker Gait Goal Minimal Assistance,Front Wheel Walker Gait Distance 25 Other Goals improve bed mobility SBA, transfers and ambulation using FWW 50 ft CGA Days to Meet Goals 10 Frequency of Treatment Frequency Of Treatment Once a Day Treatment Plan Physical Therapy Treatment Plan Bed Mobility Training,Transfer Training,Gait Training, Therapeutic Exercise,Balance Retraining,Post Op Education, Discharge Planning,Hot or Cold Pack,Neuromuscular Re-ed, Coordination Retraining,Manual Therapy Weight Bearing Status Weight Bearing Status Non-Weight Bearing Allowed Weight Bearing Amount (enter % LLE NWB or #) (%) Recommendations To Nursing Amount of Assist Needed Mechanical Lift Discharge Recommendations PT Discharge Recommendations SNF Rehab
[2022-03-27 16:00] VITALS: BP 123/55; PULSE 75; RESP 17; TEMP 36.5; O2SAT 94
[2022-03-27] MEDS: chlordiazePOXIDE 25 MG CAPSULE PO ×2 (17:26→21:49)
[2022-03-27] MEDS: cefTRIAXone 2,000 MG in SODIUM CHLORIDE 0.9% 100 ML 200 MG IV (17:32)
[2022-03-27 22:20] VITALS: BP 102/57; PULSE 82; RESP 19; TEMP 36.8; O2SAT 93
[2022-03-28] VITALS (7 sets, daily range): BP systolic 103–137; BP diastolic 48–70; PULSE 71–86; RESP 17–20; TEMP 36.1–37.2; O2SAT 91–97
[2022-03-28 05:10] LABS: Add Manual Diff / Slide Review NO; Basophils Absolute Auto 0 /uL (0-100); Basophils Percent Auto 0.2 % (0-2); Eosinophils Absolute Auto 100 /uL (0-450); Eosinophils Percent Auto 2.1 % (2-4); Hematocrit 28.2 % (36-46); Hemoglobin 9.3 g/dL (12.0-16.0); Lymphocytes Absolute Auto 1000 /uL (1100-4500); Lymphocytes Percent Auto 18.8 % (25-40); Mean Corpuscular HGB Conc 32.9 % (30-36); Mean Corpuscular Hemoglobin 34.1 PG (26-34); Mean Corpuscular Volume 103.5 fL (80-100); Monocytes Absolute Auto 700 /uL (0-900); Monocytes Percent Auto 13.3 % (3-14); Neutrophils Absolute Auto 3400 /uL (1500-7000); Neutrophils Percent Auto 65.6 % (50-75); Platelet Count 86 X10^3/uL (150-400); Red Blood Cell Count 2.73 X10^6/uL (4.0-5.2); Red Cell Distribution Width 14.9 % (11.6-14.8); White Blood Cell Count 5.2 X10^3/uL (4.5-11.0)
[2022-03-28 05:17] LABS: Magnesium 2.2 mg/dL (1.6-2.3)
[2022-03-28 05:21] LABS: Alanine Aminotransferase 32 IU/L (<35); Alkaline Phosphatase 103 U/L (38-126); Aspartate Aminotransferase 64 IU/L (14-36); BUN Creatinine Ratio 24.7 (6-22); Bilirubin Total 0.9 mg/dL (0.2-1.3); Blood Urea Nitrogen 20 mg/dL (7-17); Calcium 8.4 mg/dL (8.4-10.2); Carbon Dioxide 22 mmol/L (22-32); Chloride 116 mmol/L (98-107); Estimated Glomerular Filt Rate > 60 mL/min (>60); Glucose 92 mg/dL (80-110); HEMOLYSIS < 15 (0-50); Potassium 3.4 mmol/L (3.4-5.1); Sodium 142 mmol/L (137-145); Total Protein 5.4 g/dL (6.3-8.2)
--- NOTE | 2022-03-28 07:30 | PC.NURSE ---
Patient had 10 sec run of V-tach per ICU RNs. Patient had recently been incontinent of stool and was being turned and cleaned at the time. Patient denied any CP or SOB, VSS. Dr Ordaz notified above and reviewed tele strip. Patient is A & O x 3, does not know month/year. CIWA = 4. Slept most of night.
--- NOTE | 2022-03-28 07:31 | P.PN_ITS ---
Subjective Subjective Interval history: Feeling a little better. Denies pain. She is aware of being in the hospital. Exam Vital Signs (past 8 hours): - 03/28/22 01:55 03/28/22 01:25 03/28/22 06:00 Temperature 99 F 97.7 F Pulse Rate 86 80 74 Respiratory Rate 18 17 19 Blood Pressure 112/55 L 103/48 L 105/58 L Pulse Oximetry 91 95 95 Oxygen Flow Rate 0 0 0 Fraction of Inspired Oxygen 32 SaO2/FiO2 Ratio 293 Oxygen Delivery Method Room Air Oxygen Flow Rate 0 Const General: comfortable Nutritional Appearance: well nourished [facility] Head: normal to inspection Nose: external nose normal Face and sinus: normal facial exam Mouth: oral mucosae normal Eyes General: appearance normal, both eyes and all related structures Conjunctivae: conjunctivae normal Sclera: sclerae normal Neck Neck: normal visual inspection, No anterior neck swelling and No JVD Chest Chest: normal inspection of the chest Resp Effort & Inspection: normal respiratory effort Auscultation: clear to auscultation bilaterally Cardio Rate: regular rate Rhythm: regular rhythm Heart Sounds: S1 normal and S2 normal GI Inspection: normal to inspection Palpation: soft and No no hepatosplenomegaly Auscultation: normal bowel sounds Skin General: no rashes or lesions noted Extrem General: normal to inspection and no pedal edema Psych Appearance: grossly normal Mental Status: other (Mildly confused, but oriented to place. Better. ) Mood: other (Mildly confused, but oriented to place. Better. ) Objective Labs Result Diagrams: 03/28/22 04:27 03/28/22 04:27 Labs: Laboratory Results - last 24 hr 03/28/22 03/28/22 03/28/22 04:27 04:27 04:27 WBC 5.2 RBC 2.73 L Hgb 9.3 L Hct 28.2 L MCV 103.5 H MCH 34.1 H MCHC 32.9 RDW 14.9 H Plt Count 86 L Neut % (Auto) 65.6 Lymph % (Auto) 18.8 L [place] % (Auto) 13.3 Eos % (Auto) 2.1 Baso % (Auto) 0.2 Neut # (Auto) 3400 Lymph # (Auto) 1000 L [place] # (Auto) 700 Eos # (Auto) 100 Baso # (Auto) 0 Sodium 142 Potassium 3.4 Chloride 116 H Carbon Dioxide 22 BUN 20 H Creatinine 0.81 Estimated GFR > 60 BUN/Creatinine Ratio 24.7 H Glucose 92 Calcium 8.4 Magnesium 2.2 Total Bilirubin 0.9 AST 64 H ALT 32 Alkaline Phosphatase 103 Total Protein 5.4 L [facility] Medical History Alcohol dependence Chronic kidney disease (CKD) stage G3b/A1, moderately decreased glomerular filtration rate (GFR) between 30-44 mL/min/1.73 square meter and albuminuria creatinine ratio less than 30 mg/g Surgical History History of colonoscopy History of esophagogastroduodenoscopy (EGD) Family History Father Heart disease Mother Heart disease Social History household members: none Smoking Status: Never smoker alcohol intake: current Assessment & Plan Assessment & Plan narrative: Sowmya Kidd is a 75-year-old female with history of GI bleed/encephalopathy, hyperlipidemia, CKD, alcohol abuse, symptomatic anemia, hyperammonemia,? acid reflux, admitted after being found down for unknown time- found to have? a right ankle fracture. Given down time, she was found to have UTI, possible SBP, elevated troponin and rhabdomyolysis. Initially under ortho service transferred to hospitalist service today. From previous notes. 1. Right ankle fracture, status post ORIF/I&D, present on admission and active.? 2nd to ground level fall , downtime unknown (most of night), present on admission and active. - managed by Dr. Mere Rahman (ortho). - Dr. Rahman had put the patient on cefazolin for open fracture. Finished. 2. Rhabdomyolysis, present on admission and improving. ?- initial CK 3795, repeat 2008, we will continue to monitor cr, continue IV fluids for rhabdo, Repeat CK 635 today.. 3. Acute UTI, present on admission and improving. - positive urine, culture pending (3 or more organisms). - ceftriaxone as noted above. Short course. Abx completed. Blood Cx negative. 4. Alcohol use disorder (dependence) with withdrawal,? present on admission and active/improving. - ammonia elevated with history of hepatic encephalopathy, ultrasound today shows cirrhotic liver. - placed on CIWA protocol, mild encephalopathy. - started on librium for withdrawal from EtOH , will change to prn and follow mental status. Continue lactulose TID, titrate to 2-5 BMs daily. - ordered for oral multivitamin, folic acid and thiamine. Continue these. 5. Metabolic encephalopathy, present on admission and improving. - Librium prn. 5. Demand ischemia, present on admission and active. Improving. - patient is asymptomatic has no chest pain, had some nausea, resolved. - initial troponin 0.106, repeated at 0.133 and then improved to 0.103. - Normal sinus rhythm rate of 81 with left bundle branch block unchanged from l ast EKG on 04/07/2021 - TTE ordered to assess for wall motion abnormalities / EF in setting of her e levated troponin.?ECHO: LVEF 55-60%, septal dyssynchrony.? 6. Hyperlipidemia, present on admission and active. - continue rosuvastatin 20 mg 7. Mild alcoholic hepatitis, present on admission and improving. ?- mild only, no indication for steroids. 8. Thrombocytopenia (due to alcohol use). Present on admission and active. ?- stable Code status:Full Surrogate decision maker: Sigifredo Waters, son KEVIN PCR:Negative DVT/VTE prophylaxis: SCDs for now given thrombocytopenia. Disposition:? [facility] placement. Timing in 1day (03/29) depending on progress. Quality VTE Deep Vein Thrombosis/Pulmonary Embolism Present on Admission: No
[2022-03-28] MEDS: ASPIRIN EC 81 MG TABLET PO ×2 (08:36→22:28)
[2022-03-28] MEDS: THIAMINE 100 MG TABLET PO (08:36)
[2022-03-28] MEDS: MULTIVITAMIN 1 TABLET 1 TAB PO (08:36)
[2022-03-28] MEDS: POTASSIUM CHLORIDE 20 MEQ TAB 40 MEQ PO (08:36)
[2022-03-28] MEDS: FOLIC ACID 1 MG TABLET PO (08:36)
[2022-03-28] MEDS: LACTULOSE 20 GM/30 ML SOLUTION PO ×3 (08:36→22:28)
[2022-03-28] MEDS: chlordiazePOXIDE 10 MG CAPSULE PO (08:50)
--- NOTE | 2022-03-28 10:07 | PM.PN.1 ---
Subjective Subjective Date Patient Seen: 03/28/22 Time Patient Seen: 13:42 Interval history: Pt sleeping, arouses easily to voice. Dysarthric, but oriented, follows commands and answers questions appropriately. Exam Vital Signs (past 8 hours): - 03/28/22 06:00 03/28/22 08:43 Temperature 97.7 F 97.2 F L Pulse Rate 74 72 Respiratory Rate 19 19 Blood Pressure 105/58 L 131/70 Pulse Oximetry 95 95 Oxygen Flow Rate 0 0 Fraction of Inspired Oxygen 32 SaO2/FiO2 Ratio 293 Oxygen Delivery Method Room Air Oxygen Flow Rate 0 Narrative Exam Narrative: Wiggles toes on LLE, toes warm and well-perfused, sensation to light touch intact. Objective Labs Result Diagrams: 03/28/22 04:27 03/28/22 04:27 Labs: Laboratory Results - last 24 hr 03/28/22 03/28/22 03/28/22 04:27 04:27 04:27 WBC 5.2 RBC 2.73 L Hgb 9.3 L Hct 28.2 L MCV 103.5 H MCH 34.1 H MCHC 32.9 RDW 14.9 H Plt Count 86 L Neut % (Auto) 65.6 Lymph % (Auto) 18.8 L [place] % (Auto) 13.3 Eos % (Auto) 2.1 Baso % (Auto) 0.2 Neut # (Auto) 3400 Lymph # (Auto) 1000 L [place] # (Auto) 700 Eos # (Auto) 100 Baso # (Auto) 0 Sodium 142 Potassium 3.4 Chloride 116 H Carbon Dioxide 22 BUN 20 H Creatinine 0.81 Estimated GFR > 60 BUN/Creatinine Ratio 24.7 H Glucose 92 Calcium 8.4 Magnesium 2.2 Total Bilirubin 0.9 AST 64 H ALT 32 Alkaline Phosphatase 103 Total Protein 5.4 L PFSH Medical History Alcohol dependence Chronic kidney disease (CKD) stage G3b/A1, moderately decreased glomerular filtration rate (GFR) between 30-44 mL/min/1.73 square meter and albuminuria creatinine ratio less than 30 mg/g Surgical History History of colonoscopy History of esophagogastroduodenoscopy (EGD) Family History Father Heart disease Mother Heart disease Social History household members: none Smoking Status: Never smoker alcohol intake: current Assessment & Plan Assessment and plan (1) Open fracture dislocation of left ankle: Status: Acute Plan: VTE prophylaxis w/ ASA 81 mg BID x 4 weeks if appropriate per hospitalist service; pt has h/o GI bleed. Non-weightbearing to toe-touch only on the left lower extremity.? Elevate left ankle when sitting or in bed.? F/u in ortho clinic in 2 weeks after surgery for wound check, staple removal. If skin is well-healed with no open areas, place into short-leg cast x 4 weeks. If there is still an open wound or any questionable skin integrity, put into a fracture boot to stay on at all times; may have off to bathe. F/u in 6 weeks after surgery w/ Dr Rahman for xrays out of plaster/boot. Pt is to remain non-weightbearing to toe-touch only until 6 week follow-up. Time Spent With Patient Critical Care time: I spent a total of [] minutes of critical care time on this patient's care today; this time is exclusive of procedural time. Quality VTE Deep Vein Thrombosis/Pulmonary Embolism Present on Admission: No
--- NOTE | 2022-03-28 10:29 | P.PN_ITS ---
Subjective Subjective Interval history: Denies pain, or dyspnea. No nausea. Is aware that she is in hospital. Exam Vital Signs (past 8 hours): - 03/28/22 06:00 03/28/22 08:43 Temperature 97.7 F 97.2 F L Pulse Rate 74 72 Respiratory Rate 19 19 Blood Pressure 105/58 L 131/70 Pulse Oximetry 95 95 Oxygen Flow Rate 0 0 Fraction of Inspired Oxygen 32 SaO2/FiO2 Ratio 293 Oxygen Delivery Method Room Air Oxygen Flow Rate 0 Const General: cooperative, healthy appearing and comfortable Orientation: alert, oriented to person and oriented to place [facility] Head: normal to inspection Eyes General: appearance normal, both eyes and all related structures Conjunctivae: conjunctivae normal Sclera: sclerae normal Chest Chest: normal inspection of the chest Resp Effort & Inspection: normal respiratory effort Auscultation: clear to auscultation bilaterally Cardio Rate: regular rate Rhythm: regular rhythm Heart Sounds: S1 normal and S2 normal GI Inspection: normal to inspection Palpation: soft and no hepatosplenomegaly Auscultation: normal bowel sounds Skin General: no rashes or lesions noted Extrem General: normal to inspection Other: right ankle wrapped Psych Speech and Movement: delayed speech Objective Labs Result Diagrams: 03/28/22 04:27 03/28/22 04:27 Labs: Laboratory Results - last 24 hr 03/28/22 03/28/22 03/28/22 04:27 04:27 04:27 WBC 5.2 RBC 2.73 L Hgb 9.3 L Hct 28.2 L MCV 103.5 H MCH 34.1 H MCHC 32.9 RDW 14.9 H Plt Count 86 L Neut % (Auto) 65.6 Lymph % (Auto) 18.8 L [place] % (Auto) 13.3 Eos % (Auto) 2.1 Baso % (Auto) 0.2 Neut # (Auto) 3400 Lymph # (Auto) 1000 L [place] # (Auto) 700 Eos # (Auto) 100 Baso # (Auto) 0 Sodium 142 Potassium 3.4 Chloride 116 H Carbon Dioxide 22 BUN 20 H Creatinine 0.81 Estimated GFR > 60 BUN/Creatinine Ratio 24.7 H Glucose 92 Calcium 8.4 Magnesium 2.2 Total Bilirubin 0.9 AST 64 H ALT 32 Alkaline Phosphatase 103 Total Protein 5.4 L [facility] Medical History Alcohol dependence Chronic kidney disease (CKD) stage G3b/A1, moderately decreased glomerular filtration rate (GFR) between 30-44 mL/min/1.73 square meter and albuminuria creatinine ratio less than 30 mg/g Surgical History History of colonoscopy History of esophagogastroduodenoscopy (EGD) Family History Father Heart disease Mother Heart disease Social History household members: none Smoking Status: Never smoker alcohol intake: current Assessment & Plan Time Spent With Patient Critical Care time: I spent a total of [] minutes of critical care time on this patient's care tod ay; this time is exclusive of procedural time. Quality VTE Deep Vein Thrombosis/Pulmonary Embolism Present on Admission: No
--- NOTE | 2022-03-28 10:31 | DIET.CONS2 ---
Dietary Inpatient Consultation Note Admission Date: 03/25/2022 20:45 Met with patient who asks for Dysphagia Puree diet as she fears things getting stuck in her throat. Pt may benefit from Speech Therapy consultation. Diet: 03/27/22 Dinner Easy to Chew/IDDSI7 Diet Diet Modifications: pt requests a pureed diet 03/28/22 Lunch Dysphagia Diet Diet Modifications: Liquid consistency: Normal/Thin Food texture: Dysphagia Pureed Nutrition Percent Meal Consumed 25% 03/28/22 09:01 Percent Meal Consumed Pt ate pudding and jello 03/28/22 01:25 Percent Meal Consumed 25% 03/27/22 18:00 Percent Meal Consumed 10% pt unable to swallow solid's. 03/27/22 15:00 ensure was sub. Percent Meal Consumed 25% 03/27/22 13:45 Percent Meal Consumed pt ref 03/27/22 10:00 Percent Meal Consumed 25% 03/26/22 13:00 Electronically Signed by: Rosie Corrales 03/28/22 10:31 Clinical Dietitian [address] [id number]
--- NOTE | 2022-03-28 11:36 | DI.CT.S_ITS ---
PROCEDURE: CT HEAD/BRAIN WO CON INDICATIONS: confusion TECHNIQUE: Noncontrast 4.5 mm thick angled axial sections acquired from the foramen magnum to the vertex, with coronal and sagittal reformats. For radiation dose reduction, the following was used: automated exposure control, adjustment of mA and/or kV according to patient size. COMPARISON: [facility], CT, CT HEAD/BRAIN WO CON, 09/02/2020, 18:08. [facility], CT, CT HEAD/BRAIN WO CON, 04/07/2021, 3:03. [facility], CT, CT HEAD/BRAIN WO CON, 03/25/2022, 13:18. FINDINGS: Image quality: This examination is limited by involuntary motion artifact. CSF spaces: Basal cisterns are patent. No extra-axial fluid collections. The ventricles are symmetric in size and shape. Brain: No intracranial bleeds or masses. There is cerebral volume loss for age, with resultant ventricular and sulcal prominence. There are periventricular and deep white matter chronic small vessel ischemic changes. There is intracranial internal carotid artery atherosclerosis. Skull and face: Calvarium and visualized facial bones appear intact, without suspicious lesions. Sinuses: Visualized sinuses and mastoids are clear. IMPRESSION: Motion limited study demonstrating no definite acute intracranial abnormality. Dictated by: Yaron Dale M.D. on 03/28/2022 at 11:21 Approved by: Yaron Dale M.D. on 03/28/2022 at 11:22
--- NOTE | 2022-03-28 12:46 | CM.DPC ---
DCP Cont: Discussed patient during team rounds, she is not yet ready for discharge today, due to mentation. [id number], , has expressed concerns about patient's mention, she was in the room, felt that this is far from her baseline. Hospitalist, Dr. Prasad, is ordering a C.T. scan today. Updated Norma at [facility], most likely should be ready for discharge tomorrow. Patient is currently a hoier lift for transfers, PASSR was completed. P: DCP to continue to follow. Plan to [facility], potentially tomorrow if stable. Darlene Diez RN/Business Office Coordinator
--- NOTE | 2022-03-28 14:44 | PT.IPTN ---
Current Diagnoses Anemia, unspecified (03/25/22) Alcohol dependence, uncomplicated (03/25/22) Gastrointestinal hemorrhage, unspecified (03/25/22) Rhabdomyolysis (03/25/22) Other fecal abnormalities (03/25/22) Bacteriuria (03/25/22) Other fracture of left lower leg, initial encounter for open fracture type I or II (03/25/22) Surgery Performed Operation Date: 03/25/22 18:00 Actual Procedures p ORIF Ankle Fracture- OPEN(Left) - Mere Rahman MD Physical Therapy Treatment Note M2 PT-IP Current Condition Start: 03/26/22 12:38 Freq: NEEDED Status: Active Protocol: Document 03/26/22 10:01 AB (Rec: 03/26/22 12:48 AB [id number]) Physical Therapy Current Condition Current Condition Evaluation Date 03/26/22 Treatment Diagnosis s/p fall; L ankle fx s/p ORIF; difficulty in walking Onset Date 03/25/22 M3 PT-IP Subjective Start: 03/26/22 12:38 Freq: NEEDED Status: Active Protocol: Document 03/28/22 14:44 AW (Rec: 03/28/22 15:11 AW [id number]) Subjective Physical Therapy Visit Type Type Treatment Note Visit Start Time 14:04 Visit Stop Time 14:44 Total Visit Minutes 44 Physical Therapy Visit Comments Patient Comments I'd like to sit up if I can M4 PT-IP Mobility and Gait Start: 03/26/22 12:38 Freq: NEEDED Status: Active Protocol: Document 03/28/22 14:44 AW (Rec: 03/28/22 15:11 AW [id number]) PT-Bed Mobility Assessment Rolling Type of Rolling Bilateral Level of Assist Maximal Assistance,2 Person Assistance Supine to Sit Supine to Sit Maximum Assistance,1 Person Assistance,2 Person Assistance ,Head of Bed Elevated,Bedrails Sit to Supine Sit to Supine Total Assistance,2 Person Assistance Scooting Scooting to Edge of Bed Maximum Assistance Scooting Up and Down in Bed Maximum Assistance PT-Transfer Assessment Comments Mobility Comments Pt had just been cleaned up and wanted to attempt sitting EOB. Asked pt if she remembered how much weight she could put through her leg. She stated not very much. Reminded pt that she is not to put any weight at all through her left leg. Pt was able to initiate movement toward right side of bed and moved her LE' s a few inches. She needed max A to turn toward EOB and to scoot forward. Sitting balance was poor, requiring mod/max A when not holding on to bed cane and bed rail. PT assisted pt to scoot forward as far as safely possible and placed cushion under her feet. Pt was able to sit without UE support for brief periods. For seated exercise (AAROM with PT assist), she needed trunk support due to strong posterior lean. Pt was able to complete QL walk backward and forward ~6 inches each direction but with definite weight shift. Pt had BM during activities and needed total A to return to supine and max A x 2 + bed tilt feature to roll bilaterally. Repositioned pt and left her with call light in hand. Gait Assessment Comments Gait Comments unable at this time PT-Balance Assessment Sitting Balance and Reactions Static Sitting Balance Ability Fair Dynamic Sitting Balance Ability Poor M5 PT-IP Objective Assessments Start: 03/26/22 12:38 Freq: NEEDED Status: Active Protocol: Document 03/26/22 10:01 AB (Rec: 03/26/22 12:48 AB [id number]) Orientation Orientation/Cognition Level of Alertness Confusional State Orientation Name,Place,Situation Safety Awareness Decreased Safety Awareness Memory Description Short Term Impaired,Care Home Impaired Gross Range of Motion Lower Extremity ROM Assessment Within Functional Limits Impairments L ankle NT Strength Lower Extremity Strength Assessment Bilaterally Impaired Hip 3+/5 Knee 3+/5 Ankle L ankle NT Muscle Tone Muscle Tone WNL Yes M6 PT-IP Treatment Start: 03/26/22 12:38 Freq: NEEDED Status: Active Protocol: Document 03/28/22 14:44 AW (Rec: 03/28/22 15:11 AW [id number]) Physical Therapy Treatment Education Education Provided Precautions,Weight Bearing Status,Safety Other Treatments Other Treatment Performed Seated may and sitting EOB requiring trunk support due to strong posterior lean M7 PT-IP Assessment and Plan Start: 03/26/22 12:38 Freq: NEEDED Status: Active Protocol: Document 03/28/22 14:44 AW (Rec: 03/28/22 15:11 AW [id number]) PT Summary Assessment and Plan Potential Rehabilitation Potential Fair Status of Condition at Evaluation Evolving Summary Impairments Pain,ROM,Strength,Balance, Coordination,Sensation,Tone, Cognition,Bed Mobility, Transfers,Gait,Activity Tolerance Assessment Summary Pt is more alert today but remains confused. She required max A x 1-2 for bed mobility and mod/max trunk support for unsupported sitting. She has trouble recalling her weightbearing status. She needs trunk support to complete seated exercise. She requires SNF rehab to improve strength and mobility independence. Goals Bed Mobility Goal Minimal Assistance Transfer Goal Minimal Assistance,Front Wheeled Walker Gait Goal Minimal Assistance,Front Wheel Walker Gait Distance 25 Other Goals improve bed mobility SBA, transfers and ambulation using FWW 50 ft CGA Days to Meet Goals 10 Frequency of Treatment Frequency Of Treatment Once a Day Treatment Plan Physical Therapy Treatment Plan Bed Mobility Training,Transfer Training,Gait Training, Therapeutic Exercise,Balance Retraining,Post Op Education, Discharge Planning,Hot or Cold Pack,Neuromuscular Re-ed, Coordination Retraining,Manual Therapy Other Recommendations and Next Treatment bed mobility, sitting Focus tolerance, sitting balance Weight Bearing Status Weight Bearing Status Non-Weight Bearing Allowed Weight Bearing Amount (enter % LLE NWB or #) (%) Recommendations To Nursing Amount of Assist Needed Mechanical Lift Discharge Recommendations PT Discharge Recommendations SNF Rehab
[2022-03-28] MEDS: ACETAMINOPHEN 325 MG TABLET 650 MG PO (15:32)
--- NOTE | 2022-03-28 17:17 | OT.IP.TRT ---
Current Diagnoses Anemia, unspecified (03/25/22) Alcohol dependence, uncomplicated (03/25/22) Gastrointestinal hemorrhage, unspecified (03/25/22) Rhabdomyolysis (03/25/22) Other fecal abnormalities (03/25/22) Bacteriuria (03/25/22) Other fracture of left lower leg, initial encounter for open fracture type I or II (03/25/22) Surgery Performed Operation Date: 03/25/22 18:00 Actual Procedures p ORIF Ankle Fracture- OPEN(Left) - Mere Rahman MD Occupational Therapy Treatment Note M2 OT-IP Current Condition Start: 03/26/22 16:54 Freq: Status: Active Protocol: Document 03/26/22 13:50 [facility] (Rec: 03/26/22 17:29 [facility] [id number]) Occupational Therapy Current Condition Current Condition Evaluation Date 03/26/22 Treatment Diagnosis I and D Left open ankle fracture ORIF Diagnosis Onset Date 03/25/22 Weight Bearing Status Weight Bearing Status Non-Weight Bearing Allowed Weight Bearing Amount (enter % NWB LLE or #) (%) M3 OT- IP Subjective and Pain Start: 03/26/22 16:54 Freq: Status: Active Protocol: Document 03/28/22 17:00 [facility] (Rec: 03/28/22 17:47 [facility] [id number]) OT- Subjective Occupational Therapy Visit Type Type Treatment Note Visit Start Time 17:00 Visit Stop Time 17:17 Total Visit Minutes 17 Occupational Therapy Visit Comments Patient Comments Pt agreed to work with OT but still very groggy. Patient/Caregiver Goals TO get better. OT Pain Assessment Pain When Pain Assessed During Mobility Pain Present Pain Present Pain Reported M4 OT- IP ADL's Start: 03/26/22 16:54 Freq: Status: Active Protocol: Document 03/28/22 17:00 [facility] (Rec: 03/28/22 17:47 [facility] [id number]) OT [id number] Comments OT Self-Feeding Comments Pt not able to coordinate her hands to get to her mouth and needing assist for all meals. OT ADL-Grooming Comments OT Grooming Comments Pt still needing hand over hand assist to help wash her face. OT ADL-Oral Care Comments Oral Care Comments Not performed. M5 OT- IP IADL's Start: 03/26/22 16:54 Freq: Status: Active Protocol: Document 03/26/22 13:50 [facility] (Rec: 03/26/22 17:29 [facility] [id number]) OT-Instrumental Activities of Daily Living Home Safety Awareness Home Safety Comments Pt to drowsy and not alert at this time. Medication Management Medication Management Caregiver Provides Supervision Stna Stna Caregiver Provides Assist M6 OT- IP Functional Cognition Start: 03/26/22 16:54 Freq: Status: Active Protocol: Document 03/28/22 17:00 [facility] (Rec: 03/28/22 17:47 [facility] [id number]) Cognitive Factors Limiting Selfcare Function Cognitive Ability Level of Alertness Alert,Drowsy Memory Description Short Term Impaired,Chart Calculator Impaired,Working Impaired Cognitive Tests SLUMS Pt not able to complete as to groggy and sleepy. Pt able to states the year and state and able to recall 4/5 objects immediately. Pt thought that she was in [facility] when initially asking her, what state we are in? Cognitive Comments Cognitive Assessment Comments Pt still very groggy and having trouble to stay awake for OT session. Comments Other Balance Tests/Deviations/Treatment Initially pt able to sit with : CGA and then progressively needing more assist to sitting balance as she tires. M9 OT- IP Assessment and Plan Start: 03/26/22 16:54 Freq: Status: Active Protocol: Document 03/28/22 17:00 [facility] (Rec: 03/28/22 17:47 [facility] [id number]) OT Summary Assessment and Plan Potential Rehabilitation Potential Fair Analytic Complexity at Evaluation Moderate Summary OT Impairments Pain,Strength,Balance, Functional Cognition, Functional Mobility,Self- Feeding,Grooming,Dressing, Toileting,Bathing,Toilet Transfers,Shower Transfers, Activity Tolerance Progress Towards Goals Slow Progress due to Activity Tolerance,Slow Progress due to Cognition Assessment Summary Pt still a bit drowsy and having difficulty to stay awake during OT session. Pt still having difficulty to coordinate and more her hands and needing assist for grooming and eating needs. Pt to go to skilled rehab when medically stable. Goals Grooming Goal Independent Dressing Goal Moderate Assistance Toileting Goal Minimal Assistance Bathing Goal Moderate Assistance Toilet Transfer Goal Minimal Assistance Shower Transfer Goal Moderate Assistance Days to Meet Goals 30 Frequency of Treatment Frequency Of Treatment Once a Day Treatment Plan OT Treatment Plan ADL Training,Functional Cognition Training,Functional Mobility,Patient/Family Education,Discharge Planning Other Treatment Recommendations and Next MAX AX 2 with sliding board Treatment Focus transfer to drop arm commode. Discharge Recommendations OT Discharge Recommendations SNF Rehab Transportation Needs at Discharge Wheelchair/Cabulance,Stretcher /Ambulance
[2022-03-29 03:00] VITALS: BP 134/63; PULSE 76; RESP 18; TEMP 36.4; O2SAT 94
--- NOTE | 2022-03-29 06:53 | PM.PNPO.1 ---
Subjective Subjective Date Patient Seen: 03/29/22 Time Patient Seen: 06:53 Interval history: Lying in bed, having IV replaced. Upset, says that she is a burden on her family and wants to brush her teeth as she hasn't been able to do so since admission. Exam Vital Signs (past 8 hours): - 03/28/22 23:41 03/29/22 03:00 Temperature 97.3 F L 97.6 F Pulse Rate 75 76 Respiratory Rate 20 18 Blood Pressure 128/59 L 134/63 Pulse Oximetry 96 94 Oxygen Flow Rate 0 Fraction of Inspired Oxygen 32 SaO2/FiO2 Ratio 293 Oxygen Delivery Method Room Air Oxygen Flow Rate 0 Narrative Exam Narrative: Wiggles toes, but c/o pain with touch. Sensation intact proximal to splint, no areas of compression noted. Objective Labs Result Diagrams: 03/28/22 04:27 03/28/22 04:27 [facility] Medical History Alcohol dependence Chronic kidney disease (CKD) stage G3b/A1, moderately decreased glomerular filtration rate (GFR) between 30-44 mL/min/1.73 square meter and albuminuria creatinine ratio less than 30 mg/g Surgical History History of colonoscopy History of esophagogastroduodenoscopy (EGD) Family History Father Heart disease Mother Heart disease Social History household members: none Smoking Status: Never smoker alcohol intake: current Assessment & Plan Post-op Assessment and plan (1) Open fracture dislocation of left ankle: Assessment and Plan narrative: VTE prophylaxis w/ ASA 81 mg BID x 4 weeks if appropriate per hospitalist service; pt has h/o GI bleed. Non-weightbearing to toe-touch only on the left lower extremity.? Elevate left ankle when sitting or in bed.? F/u in ortho clinic in 2 weeks after surgery for wound check, staple removal.? If skin is well-healed with no open areas, place into short-leg cast x 4 weeks.? If there is still an open wound or any questionable skin integrity, put into a fracture boot to stay on at all times; may have off to bathe.? F/u in 6 weeks after surgery w/ Dr Rahman for xrays out of plaster/boot.? Pt is to remain non-weightbearing to toe-touch only until 6 week follow-up. Will sign-off from an orthopedic standpoint. Please reconsult as necessary. Postoperative Procedures: Procedures Operation Date: 03/25/22 18:00 Actual Procedure Side Surgeon p ORIF Ankle Fracture- OPEN Left Mere Marion Rahman MD Postoperative day: 4 Quality VTE Deep Vein Thrombosis/Pulmonary Embolism Present on Admission: No
[2022-03-29 07:00] VITALS: BP 146/59; PULSE 79; RESP 22; TEMP 36.9; O2SAT 97
[2022-03-29] MEDS: THIAMINE 100 MG TABLET PO (08:52)
[2022-03-29] MEDS: ASPIRIN EC 81 MG TABLET PO ×2 (08:52→22:30)
[2022-03-29] MEDS: MULTIVITAMIN 1 TABLET 1 TAB PO (08:52)
[2022-03-29] MEDS: LACTULOSE 20 GM/30 ML SOLUTION PO ×3 (08:52→22:32)
[2022-03-29] MEDS: FOLIC ACID 1 MG TABLET PO (08:52)
[2022-03-29 09:38] LABS: Add Manual Diff / Slide Review NO; Basophils Absolute Auto 0 /uL (0-100); Basophils Percent Auto 0.5 % (0-2); Eosinophils Absolute Auto 100 /uL (0-450); Eosinophils Percent Auto 2.1 % (2-4); Hemoglobin 10.3 g/dL (12.0-16.0); Lymphocytes Absolute Auto 800 /uL (1100-4500); Lymphocytes Percent Auto 14.7 % (25-40); Mean Corpuscular HGB Conc 32.2 % (30-36); Mean Corpuscular Hemoglobin 33.9 PG (26-34); Mean Corpuscular Volume 105.4 fL (80-100); Monocytes Absolute Auto 500 /uL (0-900); Monocytes Percent Auto 8.9 % (3-14); Neutrophils Absolute Auto 3800 /uL (1500-7000); Neutrophils Percent Auto 73.8 % (50-75); Platelet Count 94 X10^3/uL (150-400); Red Blood Cell Count 3.04 X10^6/uL (4.0-5.2); Red Cell Distribution Width 14.7 % (11.6-14.8); White Blood Cell Count 5.2 X10^3/uL (4.5-11.0)
[2022-03-29 09:50] LABS: Alanine Aminotransferase 37 IU/L (<35); Alkaline Phosphatase 127 U/L (38-126); Aspartate Aminotransferase 57 IU/L (14-36); BUN Creatinine Ratio 23.1 (6-22); Bilirubin Total 1.3 mg/dL (0.2-1.3); Blood Urea Nitrogen 15 mg/dL (7-17); Calcium 8.8 mg/dL (8.4-10.2); Carbon Dioxide 23 mmol/L (22-32); Chloride 114 mmol/L (98-107); Estimated Glomerular Filt Rate > 60 mL/min (>60); Glucose 135 mg/dL (80-110); HEMOLYSIS < 15 (0-50); Sodium 143 mmol/L (137-145); Total Protein 6.2 g/dL (6.3-8.2)
[2022-03-29 09:51] LABS: Ammonia (NH3) 16 umol/L (9-30)
[2022-03-29 11:00] VITALS: BP 145/62; PULSE 84; RESP 20; TEMP 37.2; O2SAT 96
--- NOTE | 2022-03-29 13:57 | CM.DPC ---
DCP Cont: Discussed patient during team rounds, due to mentation, hospitalist will order an ammonia level. [id number] has been by checking on patient. Spoke to Norma at [facility] and updated her. Let her know that patient could be ready tomorrow, she can take over the week-end if needed. P: DCP to continue to follow. Plan is for patient to go to [facility] when deemed medically stable. Darlene Diez RN/Waist Presser
--- NOTE | 2022-03-29 14:40 | OT.IP.TRT ---
Current Diagnoses Anemia, unspecified (03/25/22) Alcohol dependence, uncomplicated (03/25/22) Gastrointestinal hemorrhage, unspecified (03/25/22) Rhabdomyolysis (03/25/22) Other fecal abnormalities (03/25/22) Bacteriuria (03/25/22) Other fracture of left lower leg, initial encounter for open fracture type I or II (03/25/22) Surgery Performed Operation Date: 03/25/22 18:00 Actual Procedures p ORIF Ankle Fracture- OPEN(Left) - Mere Rahman MD Occupational Therapy Treatment Note M2 OT-IP Current Condition Start: 03/26/22 16:54 Freq: Status: Active Protocol: Document 03/26/22 13:50 [facility] (Rec: 03/26/22 17:29 [facility] [id number]) Occupational Therapy Current Condition Current Condition Evaluation Date 03/26/22 Treatment Diagnosis I and D Left open ankle fracture ORIF Diagnosis Onset Date 03/25/22 Weight Bearing Status Weight Bearing Status Non-Weight Bearing Allowed Weight Bearing Amount (enter % NWB LLE or #) (%) M3 OT- IP Subjective and Pain Start: 03/26/22 16:54 Freq: Status: Active Protocol: Document 03/29/22 14:08 [facility] (Rec: 03/29/22 16:01 [facility] [id number]) OT- Subjective Occupational Therapy Visit Type Type Treatment Note Visit Start Time 14:08 Visit Stop Time 14:40 Total Visit Minutes 32 Occupational Therapy Visit Comments Patient Comments Pt agreed to get up and OT and [employer]. Patient/Caregiver Goals To get better. OT Pain Assessment Pain When Pain Assessed During Mobility Pain Present Pain Present Pain Reported M4 OT- IP ADL's Start: 03/26/22 16:54 Freq: Status: Active Protocol: Document 03/29/22 14:08 [facility] (Rec: 03/29/22 16:01 [facility] [id number]) OT [id number] Comments OT Self-Feeding Comments Pt needing assist to get the food to her mouth as has difficulty with strength and coordination. of both hands to be able to self feed herself at this time. OT ADL-Grooming General Evaluation Grooming Ability Maximum Assistance Comments OT Grooming Comments Assist to help brush her hair and wash the top of her face. OT ADL-Oral Care General Eval Oral Care Ability Moderate Assistance Comments Oral Care Comments Pt needing assist to help support her right elbow so able to reach her mouth with the toothbrush. Assist to help hold the cup up so able to drink from. OT ADL-Bathing Comments OT Bathing Comments Sponge bathing is more appropriate at this time. M5 OT- IP IADL's Start: 03/26/22 16:54 Freq: Status: Active Protocol: Document 03/26/22 13:50 [facility] (Rec: 03/26/22 17:29 [facility] [id number]) OT-Instrumental Activities of Daily Living Home Safety Awareness Home Safety Comments Pt to drowsy and not alert at this time. Medication Management Medication Management Caregiver Provides Supervision Associate Attorney Associate Attorney Caregiver Provides Assist M6 OT- IP Functional Cognition Start: 03/26/22 16:54 Freq: Status: Active Protocol: Document 03/29/22 14:08 [facility] (Rec: 03/29/22 16:01 [facility] [id number]) Cognitive Factors Limiting Selfcare Function Cognitive Ability Level of Alertness Alert Cognitive Comments Cognitive Assessment Comments Pt able to follow commands better and aware of how to use the call light today. Pt able to express her wants and needs . M7 OT- IP Mobility and Balance Start: 03/26/22 16:54 Freq: Status: Active Protocol: Document 03/29/22 14:08 [facility] (Rec: 03/29/22 16:01 [facility] [id number]) OT- Bed Mobility Assessment Supine to Sit Supine to Sit Assist Maximum Assistance,2 Person Assistance OT-Transfer Assessment Transfers Transfer Ability Maximum Assistance,2 Person Assistance Technique Transfer Destination Bed,Chair Transfer Technique Lateral Scoot Comments Mobility Comments MAXAX 2 for bed mobility and assist to help get the sliding board underneath her and use of platform step so pt able to assist to push with her RLE and BUE to get to the recliner with MAX AX 2. Mechanical lift for nursing recommended and also will benefit for pt to get up daily with the isidra lift. OT- Balance Assessment Sitting Balance and Reactions Static Sitting Balance Ability Fair Dynamic Sitting Balance Ability Poor Comments Other Balance Tests/Deviations/Treatment Pt able to sit on her own at : times with SBA and as tiring needing CGA for balance. M9 OT- IP Assessment and Plan Start: 03/26/22 16:54 Freq: Status: Active Protocol: Document 03/29/22 14:08 [facility] (Rec: 03/29/22 16:01 [facility] [id number]) OT Summary Assessment and Plan Potential Rehabilitation Potential Good Analytic Complexity at Evaluation Moderate Summary OT Impairments Pain,Strength,Balance, Functional Cognition, Functional Mobility,Self- Feeding,Grooming,Dressing, Toileting,Bathing,Toilet Transfers,Shower Transfers, Activity Tolerance Progress Towards Goals Progressing Toward Goals,Slow Progress due to Medical Issues Assessment Summary Pt much more alert today and able to follow command and converse her wants and needs to the therapist. Pt able to do sliding board transfer with MAXAX 2. Pt will greatly benefit from skilled rehab when medically stable. Goals Grooming Goal Independent Dressing Goal Moderate Assistance Toileting Goal Minimal Assistance Bathing Goal Moderate Assistance Toilet Transfer Goal Minimal Assistance Shower Transfer Goal Moderate Assistance Days to Meet Goals 29 Frequency of Treatment Frequency Of Treatment Once a Day Treatment Plan OT Treatment Plan ADL Training,Functional Cognition Training,Functional Mobility,Patient/Family Education,Discharge Planning Other Treatment Recommendations and Next MAX AX 2 with sliding board Treatment Focus transfer to drop arm commode. Discharge Recommendations OT Discharge Recommendations SNF Rehab Transportation Needs at Discharge Wheelchair/Cabulance
[2022-03-29 15:00] VITALS: BP 154/81; PULSE 82; RESP 18; TEMP 37; O2SAT 97
[2022-03-29 15:32] LABS: Globulin 3.1 g/dL (1.7-4.1)
[2022-03-29 15:44] LABS: Albumin 4.1 g/dL (3.5-5.0); Albumin Globulin Ratio 1.1 (1.0-2.8); Globulin 3.9 g/dL (1.7-4.1)
--- NOTE | 2022-03-29 15:46 | PT.IPTN ---
Current Diagnoses Anemia, unspecified (03/25/22) Alcohol dependence, uncomplicated (03/25/22) Gastrointestinal hemorrhage, unspecified (03/25/22) Rhabdomyolysis (03/25/22) Other fecal abnormalities (03/25/22) Bacteriuria (03/25/22) Other fracture of left lower leg, initial encounter for open fracture type I or II (03/25/22) Surgery Performed Operation Date: 03/25/22 18:00 Actual Procedures p ORIF Ankle Fracture- OPEN(Left) - Mere Rahman MD Physical Therapy Treatment Note M2 PT-IP Current Condition Start: 03/26/22 12:38 Freq: NEEDED Status: Active Protocol: Document 03/26/22 10:01 AB (Rec: 03/26/22 12:48 AB [id number]) Physical Therapy Current Condition Current Condition Evaluation Date 03/26/22 Treatment Diagnosis s/p fall; L ankle fx s/p ORIF; difficulty in walking Onset Date 03/25/22 M3 PT-IP Subjective Start: 03/26/22 12:38 Freq: NEEDED Status: Active Protocol: Document 03/29/22 15:20 LJ (Rec: 03/29/22 15:45 LJ [id number]) Subjective Physical Therapy Visit Type Type Treatment Note Visit Start Time 14:10 Visit Stop Time 14:31 Total Visit Minutes 21 Notes co-tx with OT Physical Therapy Visit Comments Patient Comments I'd like to sit up if I can. Willing to try slideboard to sit in chair. Pt more alert today M4 PT-IP Mobility and Gait Start: 03/26/22 12:38 Freq: NEEDED Status: Active Protocol: Document 03/29/22 15:20 LJ (Rec: 03/29/22 15:45 LJ [id number]) PT-Bed Mobility Assessment Rolling Type of Rolling Roll to Right Level of Assist Maximal Assistance,2 Person Assistance Supine to Sit Supine to Sit Maximum Assistance,1 Person Assistance,2 Person Assistance ,Head of Bed Elevated,Bedrails Scooting Scooting to Edge of Bed Maximum Assistance PT-Transfer Assessment Comments Mobility Comments Pt wanting to sit up on the side of the bed. Completed x10 B heel slides and hip AB/AD wihout assist. With HOB elevated pt completed supine> sit with MaxA x2 then logroll and swing LEs off side of bed still MaxA x2. Pt required MaxA x2 for SL>sit and pivot so sitting with LEs evenly over side of bed. Pillow placed under pts feet allowed her to balance while sitting on SOB SBA. Pt sat on SOB for roughly 8 min while slideboard was set up on chair and under pts buttocks. MaxA and max cues to slide pt from bed to chair. PT holding LLE off floor to maintain WB precaution and OT guiding pts hips with draw pad onto chair. Pt able to assist somewhat to position buttocks to rear of chair. Pt had no c/o pain during transfer. OT remained in room to complete hygiene with pt. Nursing instructed to isidra pt bck to bed. Gait Assessment Comments Gait Comments unable at this time PT-Balance Assessment Sitting Balance and Reactions Static Sitting Balance Ability Good Dynamic Sitting Balance Ability Fair M5 PT-IP Objective Assessments Start: 03/26/22 12:38 Freq: NEEDED Status: Active Protocol: Document 03/26/22 10:01 AB (Rec: 03/26/22 12:48 AB [id number]) Orientation Orientation/Cognition Level of Alertness Confusional State Orientation Name,Place,Situation Safety Awareness Decreased Safety Awareness Memory Description Short Term Impaired,Outreach And Education Social Worker Impaired Gross Range of Motion Lower Extremity ROM Assessment Within Functional Limits Impairments L ankle NT Strength Lower Extremity Strength Assessment Bilaterally Impaired Hip 3+/5 Knee 3+/5 Ankle L ankle NT Muscle Tone Muscle Tone WNL Yes M6 PT-IP Treatment Start: 03/26/22 12:38 Freq: NEEDED Status: Active Protocol: Document 03/29/22 15:20 LJ (Rec: 03/29/22 15:45 [id number]) Physical Therapy Treatment Exercises Exercises Heel Slides,Supine Hip Abduction Education Education Provided Precautions,Weight Bearing Status,Safety M7 PT-IP Assessment and Plan Start: 03/26/22 12:38 Freq: NEEDED Status: Active Protocol: Document 03/29/22 15:20 LJ (Rec: 03/29/22 15:45 [id number]) PT Summary Assessment and Plan Potential Rehabilitation Potential Fair Status of Condition at Evaluation Evolving Summary Impairments Pain,ROM,Strength,Balance, Coordination,Sensation,Tone, Cognition,Bed Mobility, Transfers,Gait,Activity Tolerance Assessment Summary Pt more alert today and clearer in thought. Able to follow directions with max cueing. During transfer with slideboard pt did not attempt to use LLE but rather used RLE to push onto stool placed under her feet. She remains MaxA x2 with bed mobility and transfers but is showing improvement. Will continue to progress as able. Pt will need SNF at this time to improve mobility, strength, and function with new limits on weightbearing on LLE. Goals Bed Mobility Goal Minimal Assistance Transfer Goal Minimal Assistance,Front Wheeled Walker Gait Goal Minimal Assistance,Front Wheel Walker Gait Distance 25 Other Goals improve bed mobility SBA, transfers and ambulation using FWW 50 ft CGA Days to Meet Goals 10 Frequency of Treatment Frequency Of Treatment Once a Day Treatment Plan Physical Therapy Treatment Plan Bed Mobility Training,Transfer Training,Gait Training, Therapeutic Exercise,Balance Retraining,Post Op Education, Discharge Planning,Hot or Cold Pack,Neuromuscular Re-ed, Coordination Retraining,Manual Therapy Other Recommendations and Next Treatment bed mobility, sitting Focus tolerance, sitting balance Weight Bearing Status Weight Bearing Status Non-Weight Bearing Allowed Weight Bearing Amount (enter % LLE NWB or #) (%) Recommendations To Nursing Amount of Assist Needed Mechanical Lift Discharge Recommendations PT Discharge Recommendations SNF Rehab
[2022-03-29 16:28] LABS: Albumin Globulin Ratio 0.9 (1.0-2.8); Globulin 3.2 g/dL (1.7-4.1)
[2022-03-29 16:33] LABS: Albumin 2.6 g/dL (3.5-5.0); Albumin Globulin Ratio 0.9 (1.0-2.8); Globulin 2.8 g/dL (1.7-4.1)
[2022-03-29 16:51] LABS: Albumin 2.6 g/dL (3.5-5.0); Albumin Globulin Ratio 0.9 (1.0-2.8); Globulin 2.9 g/dL (1.7-4.1)
[2022-03-29 16:59] LABS: Albumin 2.5 g/dL (3.5-5.0); Albumin Globulin Ratio 0.9 (1.0-2.8); Globulin 2.9 g/dL (1.7-4.1)
--- NOTE | 2022-03-29 18:30 | PM.PN.1 ---
Subjective Subjective Date Patient Seen: 03/29/22 Interval history: Patient denies complaints, falls asleep easily and remains confused. Repeat labs showed improved ammonia. Exam Vital Signs (past 8 hours): - 03/29/22 11:00 03/29/22 15:00 Temperature 99.0 F 98.6 F Pulse Rate 84 82 Respiratory Rate 20 18 Blood Pressure 145/62 H 154/81 H Pulse Oximetry 96 97 Oxygen Flow Rate 0 0 Fraction of Inspired Oxygen 32 SaO2/FiO2 Ratio 293 Oxygen Delivery Method Room Air Oxygen Flow Rate 0 Narrative Exam Narrative: General:? Patient is well developed and well nourished, in no distress at this time. HEENT:? Normocephalic, atraumatic, extraocular muscles intact, oral pharynx is clear and mucous membranes are moist. Neck: supple and symmetric, trachea is midline, no cervical adenopathy. Chest:? Normal AP diameter and contour without kyphoscoliosis, no tachypnea, equal chest rise bilaterally. Lungs:? CTA b/l no wheezing rhonchi or rales. Cardio:?RRR no m/r/g. Abdomen: S NT ND. Ext: trace edema bilateral lower extremities, ?Left leg is wrapped and clean. Objective Labs Result Diagrams: 03/29/22 09:15 03/29/22 09:15 Labs: Laboratory Results - last 24 hr 03/25/22 03/25/22 03/26/22 13:17 22:27 05:49 WBC RBC Hgb Hct MCV MCH MCHC RDW Plt Count Neut % (Auto) Lymph % (Auto) [place] % (Auto) Eos % (Auto) Baso % (Auto) Neut # (Auto) Lymph # (Auto) [place] # (Auto) Eos # (Auto) Baso # (Auto) Sodium Potassium Chloride Carbon Dioxide BUN Creatinine Estimated GFR BUN/Creatinine Ratio Glucose Calcium Total Bilirubin AST ALT Alkaline Phosphatase Ammonia Total Protein Albumin 4.1 3.0 L 2.6 L Globulin 3.9 3.1 2.8 Albumin/Globulin Ratio 1.1 1.0 0.9 L 03/27/22 03/28/22 03/29/22 05:04 04:27 09:15 WBC 5.2 RBC 3.04 L Hgb 10.3 L Hct 32.0 L MCV 105.4 H MCH 33.9 MCHC 32.2 RDW 14.7 Plt Count 94 L Neut % (Auto) 73.8 Lymph % (Auto) 14.7 L [place] % (Auto) 8.9 Eos % (Auto) 2.1 Baso % (Auto) 0.5 Neut # (Auto) 3800 Lymph # (Auto) 800 L [place] # (Auto) 500 Eos # (Auto) 100 Baso # (Auto) 0 Sodium Potassium Chloride Carbon Dioxide BUN Creatinine Estimated GFR BUN/Creatinine Ratio Glucose Calcium Total Bilirubin AST ALT Alkaline Phosphatase Ammonia Total Protein Albumin 2.6 L 2.5 L Globulin 2.9 2.9 Albumin/Globulin Ratio 0.9 L 0.9 L 03/29/22 03/29/22 09:15 09:15 WBC RBC Hgb Hct MCV MCH MCHC RDW Plt Count Neut % (Auto) Lymph % (Auto) [place] % (Auto) Eos % (Auto) Baso % (Auto) Neut # (Auto) Lymph # (Auto) [place] # (Auto) Eos # (Auto) Baso # (Auto) Sodium 143 Potassium 4.0 Chloride 114 H Carbon Dioxide 23 BUN 15 Creatinine 0.65 Estimated GFR > 60 BUN/Creatinine Ratio 23.1 H Glucose 135 H Calcium 8.8 Total Bilirubin 1.3 AST 57 H ALT 37 H Alkaline Phosphatase 127 H Ammonia 16 Total Protein 6.2 L Albumin 3.0 L Globulin 3.2 Albumin/Globulin Ratio 0.9 L [facility] Medical History Alcohol dependence Chronic kidney disease (CKD) stage G3b/A1, moderately decreased glomerular filtration rate (GFR) between 30-44 mL/min/1.73 square meter and albuminuria creatinine ratio less than 30 mg/g Surgical History History of colonoscopy History of esophagogastroduodenoscopy (EGD) Family History Father Heart disease Mother Heart disease Social History household members: none Smoking Status: Never smoker alcohol intake: current Assessment & Plan Assessment & Plan narrative: Sowmya Kidd is a 75-year-old female with history of GI bleed/encephalopathy, hyperlipidemia, CKD, alcohol abuse, symptomatic anemia, hyperammonemia,? acid reflux, admitted after being found down for unknown time- found to have? a right ankle fracture. Given down time, she was found to have UTI, possible SBP, elevated troponin and rhabdomyolysis. Initially under ortho service transferred to hospitalist service today. From previous notes. 1. Right ankle fracture, status post ORIF/I&D, present on admission and active.? 2nd to ground level fall , downtime unknown (most of night), present on admission and active. - managed by Dr. Mere Rahman (ortho). - Dr. Rahman had put the patient on cefazolin for open fracture. Finished with ceftriaxone given UTI noted below. 2. Rhabdomyolysis, present on admission and improving. ?- initial CK 3795, repeat 2008, and then 635 with fluids. Have stopped fluids at this time. 3. Acute UTI, present on admission and improving. - positive urine, culture pending (3 or more organisms). - ceftriaxone as noted above. Short course. Abx completed. Blood Cx negative. 4. Alcohol use disorder (dependence) with withdrawal,? present on admission and active/improving. - ammonia elevated with history of hepatic encephalopathy, ultrasound shows cirrhotic liver. - placed on CIWA protocol, mild encephalopathy. - started on librium for withdrawal from EtOH. Will discontinue today given lethargy and confusion with decreasing ammonia level. Continue lactulose TID, titrate to 2-5 BMs daily. - ordered for oral multivitamin, folic acid and thiamine. Continue these. 5. Metabolic encephalopathy, present on admission and improving. - as above, ammonia has improved. Repeat CT unremarkable performed 03/28. May be continued EtOH withdrawal, however will stop librium to see if improvement. 5. Demand ischemia, present on admission and active. Improving. - patient is asymptomatic has no chest pain, had some nausea, resolved. - initial troponin 0.106, repeated at 0.133 and then improved to 0.103. - Normal sinus rhythm rate of 81 with left bundle branch block unchanged from last EKG on 04/07/2021 - TTE ordered to assess for wall motion abnormalities / EF in setting of her elevated troponin.?ECHO: LVEF 55-60%, septal dyssynchrony.? 6. Hyperlipidemia, present on admission and active. - continue rosuvastatin 20 mg 7. Mild alcoholic hepatitis, present on admission and improving. ?- mild only, no indication for steroids. 8. Thrombocytopenia (due to alcohol use). Present on admission and active. ?- stable Code status:Full Surrogate decision maker: Sigifredo Waters, son KEVIN PCR:Negative DVT/VTE prophylaxis: SCDs for now given thrombocytopenia. Disposition:? [facility] placement. Possibly tomorrow depending on encephalopathy. Time Spent With Patient Critical Care time: I spent a total of [] minutes of critical care time on this patient's care today; this time is exclusive of procedural time. Quality VTE Deep Vein Thrombosis/Pulmonary Embolism Present on Admission: No
[2022-03-29 20:54] VITALS: BP 136/61; PULSE 71; RESP 20; TEMP 36.9; O2SAT 98
[2022-03-29] MEDS: ACETAMINOPHEN 325 MG TABLET 650 MG PO (22:30)
[2022-03-30 00:33] VITALS: BP 140/90; PULSE 67; RESP 18; TEMP 36.3; O2SAT 97
[2022-03-30 03:00] VITALS: BP 114/60; PULSE 66; RESP 19; TEMP 36; O2SAT 95
[2022-03-30 04:55] LABS: Blood Urea Nitrogen 13 mg/dL (7-17); Calcium 8.7 mg/dL (8.4-10.2); Carbon Dioxide 26 mmol/L (22-32); Chloride 112 mmol/L (98-107); Estimated Glomerular Filt Rate > 60 mL/min (>60); Glucose 95 mg/dL (80-110); HEMOLYSIS < 15 (0-50); Potassium 3.6 mmol/L (3.4-5.1); Sodium 143 mmol/L (137-145)
--- NOTE | 2022-03-30 05:13 | PC.NURSE ---
0500 Bladder scanned patient after she was on bedpan. Loose stool and urine were mixed together. Patient states she has been urinating, but we cannot determine how much. Bladder scan shows 450ml. Reported to [facility]. Order for straight cath once.
[2022-03-30] MEDS: LACTULOSE 20 GM/30 ML SOLUTION PO (10:20)
[2022-03-30] MEDS: FOLIC ACID 1 MG TABLET PO (10:21)
[2022-03-30] MEDS: MULTIVITAMIN 1 TABLET 1 TAB PO (10:21)
[2022-03-30] MEDS: ASPIRIN EC 81 MG TABLET PO (10:21)
--- NOTE | 2022-03-30 10:25 | P.DS_ITS ---
History of Present Illness History of Present Illness Date Patient Seen: 03/30/22 Time Patient Seen: 10:25 Chief complaint: modified trauma Narrative: Per admitting provider, Sowmya Kidd 76-year-old female nonsmoker with history of GI bleed (09/2020,03/2021)/hepatic encephalopathy, hyperlipidemia, CKD, alcohol abuse, symptomatic anemia, hyperammonemia,? acid reflux,? presented by EMS for evaluation of injury suffered as a consequence of a fall sometime last evening.? Poor historian Events and time down is unclear it was reported to the ED that she was last seen by her family 03/24/21 when dropping her off at home, after sharing a meal and alcohol intake they dropped her off at home.? Sometime in the middle of the night she fell but does not remember the specifics.? In ED c/o? midline neck pain, severe left hip and most notably left ankle pain.? It is unknown how long patient was down, if she hit head, or loss of consciousness.? Patient was admitted to Dr. Brii Rahman orthopedic: grade 2 open right ankle fracture dislocation.? Patient was taken to the OR: Irrigation and debridement right open ankle fracture, ORIF right trimalleolar ankle fracture. Dr. Rahman graciously requested a hospital consult regarding her multiple acute medical issues rhabdomyolysis, UTI, NSTEMI, alcohol withdrawal, elevated liver enzymes. Upon admit to floor patient is sleeping quietly, arousable, labored breathing, she wakes up and is able to tell me her name date of where she is at and that she is in the hospital for ankle repair, quickly her speech became extremely garbled difficult to understand, and thought process and verbal communication becomes disorientated and scattered likely secondary to operative sedation, it is unclear if the patient was altered in the ED prior to surgery as she was heavily medicated by EMS,? encephalopathy or confusion due to medication unknown-due to this unable to obtain HPI, ROS, or? family history. patient denies pain at this time except with repositioning of the left leg, which is cur rently splinted and elevated on a pillow.? Patient's vitals are stable postoperatively temp 98.5?, BP 131/62, HR 86, R 20, O2 saturation 96% on room air.? Review pre-surgical labs WBC 13.1, neutrophils 11,400, mono 1200, platelet 134, chloride 113, BUN 20, bicarb 19, creatinine 0.72, glucose 113, GFR >60, CK 3795, repeat 2809, CK-2: 15.7, BNP 344, AST 116, ALT 47, bili 2.4, alk-phos 153, initial troponin 0.106, repeat 0.133, albumin is pending.? Sofa score: 1, urine positive for infection culture pending, patient's C-spine, chest x-ray and CT were unremarkable.? Consulting regarding medical management: rhabdomyolysis, UTI, NSTEMI, alcohol withdrawal. Discharge Providers Provider Date of admission: 03/25/22 20:45 Discharge Date: 03/30/22 Primary care physician: Oleg Brunson MD Consults: 03/25/22 20:49 Consult to Dietitian, Adult Routine Comment: Reason For Exam: BMI 30.8, ETOH abuse, GI bleed x2 03/25/22 21:03 Consult to Discharge Planning Routine Comment: Consult to Physical Therapy Evaluate & Treat Comment: Physician Instructions: Evaluate and Treat 03/25/22 21:05 Consult to Occupational Therapy Evaluate & Treat Comment: ETOH abuse, GIBleedx3, Falls Physician Instructions: Evaluate and treat Consult to Physical Therapy Evaluate & Treat Comment: ETOH abuse, GIBleedx3, Falls Physician Instructions: Evaluate and Treat 03/25/22 22:04 Consult to Steel Erector Apprentice Routine Comment: non-wt baring post surgery. ETOH use, frequent fal Discharge provider: Lalo Wong DO Summary Hospital Course Discharge Diagnosis: Please see hospital course by problem list noted below Hospital Course: Sowmya Kidd is a 75-year-old female with history of GI bleed/encephalopathy, hyperlipidemia, CKD, alcohol abuse, symptomatic anemia, hyperammonemia,? acid reflux, admitted after being found down for unknown time- found to have? a right ankle fracture. Given down time, she was found to have UTI, elevated troponin and rhabdomyolysis. Initially under ortho service transferred to hospitalist service after ORIF. She had a prolonged encephalopathy as noted below, finally improving after about 5 days. She will transfer to [facility] for continued PT/OT after multiple problems noted below. 1. Right ankle fracture, status post ORIF/I&D, present on admission and active.? 2nd to ground level fall , downtime unknown (most of night), present on admission and active. - managed by Dr. Mere Rahman (ortho). - Dr. Rahman had put the patient on cefazolin for open fracture. Finished with ceftriaxone given UTI noted below. - non weight bearing RLE x6 weeks. - PT/OT recommending SNF 2. Rhabdomyolysis, present on admission and improving. ?- initial CK 3795 which downtrended after admission after providing IV fluids. Fluids were stopped when CK improved to 600 range after adequate resuscitation. 3. Acute UTI, present on admission and improving. - positive urine, culture pending (3 or more organisms). - ceftriaxone as noted above. Short course was completed during her hospitalization. Abx completed. Blood Cx negative. 4. Metabolic encephalopathy, present on admission and improving. ?- She initially had a hepatic encephalopathy from her cirrhosis with elevated ammonia and encephlopathy. Repeat CT unremarkable performed 03/28 for continued encephalopathy. The following day her ammonia was rechecked and had dropped by about 75%, not likely source of ongoing encephalopathy. Source of the prolonged encephalopathy likely related to EtOH withdrawal, however patient improved on the day of discharge after holding librium. May represent end of alcohol withdrawal or toxic encephalopathy as noted above. 5. Alcohol use disorder (dependence) with withdrawal,? present on admission and active/improving. - ultrasound shows cirrhotic liver. - placed on CIWA protocol during her hospitalization. - started on librium for withdrawal from EtOH. Discontinued when patient had lethargy and confusion with decreasing ammonia level. Continued lactulose TID, titrate to 2-5 BMs daily (patient currently with around 5 BMs per day). With cessation of librium, her confusion improved the following day. May represent toxic encephalopathy, or her alcohol withdrawal resolved, it is not entirely clear. - ordered for oral multivitamin, folic acid and thiamine. Continue these. 5. Demand ischemia / myocardial injury, present on admission, resolved - patient was asymptomatic had no chest pain, had some nausea, resolved. - initial troponin 0.106, repeated at 0.133 and then improved to 0.103. - Normal sinus rhythm rate of 81 with left bundle branch block unchanged from last EKG on 04/07/2021 - TTE ordered to assess for wall motion abnormalities / EF in setting of her elevated troponin.?ECHO: LVEF 55-60%, septal dyssynchrony.? 6. Hyperlipidemia, present on admission and active. - continued rosuvastatin 20 mg 7. Mild alcoholic hepatitis, present on admission and improving. ?- mild only, no indication for steroids. Improved with cessation of alcohol. 8. Thrombocytopenia (due to alcohol use). Present on admission and active. ?- stable Disposition:? [facility] placement. Time Spent with Patient Time spent: Greater than 30 minutes Exam Vital Signs (past 8 hours): - 03/30/22 03:00 Temperature 96.8 F L Pulse Rate 66 Respiratory Rate 19 Blood Pressure 114/60 Pulse Oximetry 95 Oxygen Flow Rate 0 Fraction of Inspired Oxygen 32 SaO2/FiO2 Ratio 293 Oxygen Delivery Method Room Air Oxygen Flow Rate 0 Narrative Exam Narrative: General:? Patient is well developed and well nourished, in no distress at this time. HEENT:? Normocephalic, atraumatic, extraocular muscles intact, oral pharynx is clear and mucous membranes are moist. Neck: supple and symmetric, trachea is midline, no cervical adenopathy. Chest:? Normal AP diameter and contour without kyphoscoliosis, no tachypnea, equal chest rise bilaterally. Lungs:? CTA b/l no wheezing rhonchi or rales. Cardio:?RRR no m/r/g. Abdomen: S NT ND. Ext: trace edema bilateral lower extremities, ?R leg splinted. DP +2 b/l. Neuro: alert and oriented to person, place, time. No focal deficits. Objective Labs Result Diagrams: 03/29/22 09:15 03/30/22 04:19 Labs: Laboratory Results - last 24 hr 03/25/22 03/25/22 03/26/22 13:17 22:27 05:49 Sodium Potassium Chloride Carbon Dioxide BUN Creatinine Estimated GFR BUN/Creatinine Ratio Glucose Calcium Magnesium Albumin 4.1 3.0 L 2.6 L Globulin 3.9 3.1 2.8 Albumin/Globulin Ratio 1.1 1.0 0.9 L 03/27/22 03/28/22 03/29/22 05:04 04:27 09:15 Sodium Potassium Chloride Carbon Dioxide BUN Creatinine Estimated GFR BUN/Creatinine Ratio Glucose Calcium Magnesium Albumin 2.6 L 2.5 L 3.0 L Globulin 2.9 2.9 3.2 Albumin/Globulin Ratio 0.9 L 0.9 L 0.9 L 03/30/22 04:19 Sodium 143 Potassium 3.6 Chloride 112 H Carbon Dioxide 26 BUN 13 Creatinine 0.62 Estimated GFR > 60 BUN/Creatinine Ratio 21.0 Glucose 95 Calcium 8.7 Magnesium 2.0 Albumin Globulin Albumin/Globulin Ratio [facility] Medical History Alcohol dependence Chronic kidney disease (CKD) stage G3b/A1, moderately decreased glomerular filtration rate (GFR) between 30-44 mL/min/1.73 square meter and albuminuria creatinine ratio less than 30 mg/g Surgical History History of colonoscopy History of esophagogastroduodenoscopy (EGD) Family History Father Heart disease Mother Heart disease Social History household members: none Smoking Status: Never smoker alcohol intake: current Discharge Plan Discharge Plan Patient Disposition: SNF Transfer to: [facility] Provider Discharge Comment: Please see full discharge summary. Additionally recommend re-evaluation with speech therapy after improvement in encephlopathy to possible advance diet from pureed. Discharge orders & Medications Prescriptions: New aspirin 81 mg Tablet,Delayed Release (Dr/Ec) 81 mg PO BID 42 Days Qty: 84 0RF Continued rosuvastatin [Crestor] 20 MG tablet 20 mg PO QDAY Qty: 0 acetaminophen 325 mg Tablet 650 mg PO Q4HR PRN (Reason: Fever/Mild Pain (1-3)) Qty: 1 0RF folic acid 1 mg Tablet 1 mg PO DAILY Qty: 30 0RF thiamine mononitrate (vit B1) 100 mg Tablet 100 mg PO DAILY Qty: 30 0RF multivitamin with folic acid [Tab-A-Mary] 400 mcg Tablet 1 tab PO DAILY Qty: 30 0RF lactulose 20 gram/30 mL solution 20 g PO DAILY Qty: 1200 0RF Changed pantoprazole 40 mg Tablet,Delayed Release (Dr/Ec) 40 mg PO DAILY Qty: 60 0RF ferrous sulfate 325 mg (65 mg iron) tablet 325 mg PO DAILY Qty: 60 0RF Discontinued cyclobenzaprine 10 MG tablet 10 mg PO TID PRNQty: 30 0RF Follow up/Referrals: Oleg Brunson MD [Primary Care Provider] - Mere Rahman MD [Physician] - 2 Weeks (Follow up in ortho clinic with a PA for wound check on 04/08/2022 or 04/09/2022. At that time, splint should be removed and claudette removed if appropriate. If skin is well-healed with no open areas, place into short-leg cast x 4 weeks. If there is still an open wound or any questionable skin integrity, put into a fracture boot to stay on at all times; may have off to bathe. F/u in 6 weeks after surgery w/ Dr Rahman for xrays out of plaster/boot. Pt is to remain non-weightbearing to toe-touch only until 6 week follow-up.) Discharge Health Status Precautions: [place] Diet/Activity/Treatments Diet: Diet as Tolerated Liquid consistency: Normal/Thin Food texture: Blenderized or pureed Activity: Non-weightbearing to toe-touch only on the left lower extremity.? Pt is to remain non-weightbearing to toe-touch only until 6 week follow-up. Other treatments: At-Home Instructions Cast/Splint/Dressing Care Instructions 1) Keep cast/dressing clean and dry. 2) May bathe - but cast/dressing must remain dry. 3) Should the cast become wet, you need to come into emergency department or call your physician's clinic immediately for cast removal and replacement. Moisture can cause skin breakdown and lead to infection if left untreated. 4) Do not stick any sharp object down the cast to itch, as this can cause scrapes/cuts/punctures which can lead to infection. 6) Observe for increasing pain in the extremity with the cast, finger/toe-tips turning blue/purple, or numbness and tingling in your toes/fingers. Should any of these symptoms arise, you need to be seen immediately for evaluation of swelling and increasing compartment pressures within your affected extremity. 7) Keep your affected extremity elevated - Toes Above your Nose? - This is [place] in the first two weeks after surgery to minimize swelling. 8) You may ice your extremity, being careful to prevent melting ice from saturating into the splint/cast. Activity No heavy lifting greater than 10 pounds[address] while on narcotic pain medication. Do not get your dressing/cast/splint wet! You must remain non-weight bearing on your operative extremity. Use crutches or a walker for ambulation. Follow-Up/Emergency Contacts Please call for an appointment in either [place] or [place], if one has not been scheduled. Follow up 2 weeks after surgery. [phone] Contact the office if you have any of the following: ? Painful swelling or numbness ? Unrelenting pain ? Fever (over 101?- it is normal to have a low grade fever for the first day or two following surgery) or chills ? Redness around the incisions ? Color changes ? Continuous bleeding or drainage from the incision (a small amount is expected) ? Excessive nausea or vomiting ? Difficulty breathing If you have an emergency that requires immediate attention, proceed to the nearest emergency room. [facility] [address] www.[email or web address] care [email or web address] centerAgily Networksuniversity health lakewood medical centerGeoLearning Skin/Wound/Dressing Care Report to your healthcare provider any signs of infection, such as:: chills, fever, night sweats, unusual drainage and unusual redness [facility] Reason for rehabilitation: Post-operative therapy and Recovery r/t decondition Rehab type: Physical therapy, Occupational therapy and Speech therapy Visit Report/Discharge Packet Instructions: DI for Open Reduction Internal Fixation Surgery Stand Alone Forms: Patient Portal/API, Surgery Discharge Discharge Data Primary Care Provider: Oleg Brunson VTE Deep Vein Thrombosis/Pulmonary Embolism Present on Admission: No
[2022-03-30 11:00] VITALS: BP 122/52; PULSE 68; RESP 16; TEMP 36.6; O2SAT 97
--- NOTE | 2022-03-30 11:49 | PT-IP ANOTE ---
checked on pt x2 and pt not ready for PT. pt wanting to use the bed huggins first before doing PT. informed nurse. checked back on pt after ~ 30 min and stated that she has not used the bed huggins yet and still wants to use it. NAC in room and will set pt up with bed huggins. will f/u.
--- NOTE | 2022-03-30 11:55 | CM.DPC ---
DCP: This DCM spoke with Saw, early childhood education coordinator for [facility]. They are accepting pt back today. This CM faxed over PASSR, discharge orders and summary to Saw per her request. P: Per Saw, [facility] will pick pt up at 1400. This RN notified Kelly on Floor who will collect current covid test.
[2022-03-30 12:01] LABS: COVID19 -Nasal RAPID Negative (Negative)
--- NOTE | 2022-03-30 12:02 | PC.NURSE ---
Patient is more alert but still confused. She has a low leg cast to her l.ankle. Patient has 3+ pitting edema to lower extremities. Her cast is wnl, able to fit two fingers under to check for circulation. She is able to ankle wave. Sowmya denies pain at this time, she is on the bed huggins using it now.
--- NOTE | 2022-03-30 14:15 | PC.NURSE ---
Report called to [facility], and patient has discharged.
== END 2022-03-30 14:15 | DRG 492 ==
LOC: ED 16:50 → AC 20:47 → ICU 21:32 → AC 03-26 18:49
PROVIDERS: Internal Medicine; Nurse Practitioner Family; Admitting Provider Orthopaedic Surgery; Emergency Provider Emergency Medicine; PCP Internal Medicine; Referring Provider Emergency Medicine; Visit Provider Internal Medicine
PROC: 0QSK04Z Reposition Left Fibula with Internal Fixation Device, Open Approach (ICD-10-PCS; principal; 2022-03-25 18:00)
DX: S82.852B Displaced trimalleolar fracture of left lower leg, initial encounter for open fracture type I or II (principal); G93.41 Metabolic encephalopathy; F10.239 Alcohol dependence with withdrawal, unspecified; I24.8 Other forms of acute ischemic heart disease; I5A Non-ischemic myocardial injury (non-traumatic); N39.0 Urinary tract infection, site not specified; E78.5 Hyperlipidemia, unspecified; K70.10 Alcoholic hepatitis without ascites; D69.6 Thrombocytopenia, unspecified; T79.6XXA Traumatic ischemia of muscle, initial encounter; W18.30XA Fall on same level, unspecified, initial encounter; Y90.0 Blood alcohol level of less than 20 mg/100 ml; Z20.822 Contact with and (suspected) exposure to COVID-19; Z23 Encounter for immunization
CPT/HCPCS: 0241U; 36415; 70450; 71045; 71260; 72125; 73502; 73610; 73700; 74177; 76705; 80048; 80053; 80076; 80320; 80329; 81001; 82140; 82150; 82550; 82553; 82977; 83036; 83605; 83615; 83690; 83735; 83880; 84145; 84443; 84484; 85025; 85610; 85730; 86850; 86900; 86901; 87040; 87086; 87635; 87797; 90471; 93005; 93306; 94762; 96365; 96375; 97110; 97162; 97166; 97530; 97535; 99285; 99291; 99292; C9803; 90715; G0390; G0480; J0330; J0690; J0692; J0696; J1100; J1170; J2250; J2405; J2704; J2795; J3010; Q9957; Q9967

== ENCOUNTER 2023-05-11 18:46 | Inpatient (IN) | payer MEDICARE, OTHER, SELFPAY ==
[2022-03-25 21:16] VITALS: BMI 30.7
[2023-05-11] VITALS (17 sets, daily range): BP systolic 107–172; BP diastolic 60–108; PULSE 80–104; RESP 15–65; TEMP 36.2–36.6; O2SAT 98–100; BMI 39.2
--- NOTE | 2023-05-11 19:05 | DI.RAD.S_ITS ---
PROCEDURE: XR CHEST 1V INDICATIONS: altered mental status TECHNIQUE: One view of the chest was acquired. COMPARISON: [facility], CR, XR CHEST 1V, 03/25/2022, 13:13. [facility], CR, XR CHEST 1V, 04/07/2021, 3:01. FINDINGS: Surgical changes and devices: None. Lungs and pleura: Low lung volumes. No dense consolidation or pleural effusion. Mediastinum: Cardiomediastinal contours appear unchanged. Bones and chest wall: Degenerative findings. IMPRESSION: Limited single view portable radiograph with low lung volumes. No acute abnormality. Dictated by: Michael Kitchen M.D. on 05/11/2023 at 19:58 Approved by: Michael Kitchen M.D. on 05/11/2023 at 19:59
--- NOTE | 2023-05-11 19:08 | DI.CT.S_ITS ---
PROCEDURE: CT HEAD/BRAIN WO CON INDICATIONS: AMS TECHNIQUE: Noncontrast 4.5 mm thick angled axial sections acquired from the foramen magnum to the vertex, with coronal and sagittal reformats. For radiation dose reduction, the following was used: automated exposure control, adjustment of mA and/or kV according to patient size. COMPARISON: [facility], CT, CT HEAD/BRAIN WO CON, 03/28/2022, 11:52. FINDINGS: Image quality: Diagnostic. CSF spaces: Basal cisterns are patent. No extra-axial fluid collections. The ventricles are symmetric in size and shape. Brain: No intracranial bleeds or masses. There is cerebral volume loss for age, with resultant ventricular and sulcal prominence. There are periventricular and deep white matter chronic small vessel ischemic changes. There is intracranial internal carotid artery atherosclerosis. Skull and face: Calvarium and visualized facial bones appear intact, without suspicious lesions. Sinuses: Visualized sinuses and mastoids are clear. IMPRESSION: No acute intracranial pathology. No significant changes from previous study. Dictated by: Anuel Salas M.D. on 05/11/2023 at 20:38 Approved by: Anuel Salas M.D. on 05/11/2023 at 20:39
[2023-05-11 19:12] LABS: Add Manual Diff / Slide Review NO; Basophils Absolute Auto 0 /uL (0-100); Basophils Percent Auto 0.5 % (0-2); Eosinophils Absolute Auto 100 /uL (0-450); Eosinophils Percent Auto 1.1 % (2-4); Hematocrit 30.5 % (36-46); Hemoglobin 10.1 g/dL (12.0-16.0); Lymphocytes Absolute Auto 1200 /uL (1100-4500); Lymphocytes Percent Auto 18.7 % (25-40); Mean Corpuscular HGB Conc 33.1 % (30-36); Mean Corpuscular Hemoglobin 33.9 PG (26-34); Mean Corpuscular Volume 102.4 fL (80-100); Monocytes Absolute Auto 700 /uL (0-900); Monocytes Percent Auto 10.1 % (3-14); Neutrophils Absolute Auto 4600 /uL (1500-7000); Neutrophils Percent Auto 69.6 % (50-75); Platelet Count 132 X10^3/uL (150-400); Red Blood Cell Count 2.98 X10^6/uL (4.0-5.2); Red Cell Distribution Width 13.9 % (11.6-14.8); White Blood Cell Count 6.6 X10^3/uL (4.5-11.0)
[2023-05-11 19:17] LABS: Ammonia (NH3) 102 umol/L (9-30)
[2023-05-11 19:18] LABS: Alanine Aminotransferase 39 IU/L (<35); Albumin 3.7 g/dL (3.5-5.0); Albumin Globulin Ratio 1.2 (1.0-2.8); Alkaline Phosphatase 122 U/L (38-126); Aspartate Aminotransferase 56 IU/L (14-36); BUN Creatinine Ratio 34.5 (6-22); Bilirubin Total 1.8 mg/dL (0.2-1.3); Blood Urea Nitrogen 38 mg/dL (7-17); Calcium 10.2 mg/dL (8.4-10.2); Carbon Dioxide 20 mmol/L (22-32); Chloride 116 mmol/L (98-107); Estimated Glomerular Filt Rate 51 mL/min (>60); Globulin 3.1 g/dL (1.7-4.1); Glucose 119 mg/dL (80-110); HEMOLYSIS < 15 (0-50); Potassium 4.5 mmol/L (3.4-5.1); Sodium 144 mmol/L (137-145); Total Protein 6.8 g/dL (6.3-8.2)
[2023-05-11 19:27] LABS: Ethanol (ETOH) < 10 mg/dL
[2023-05-11 19:30] LABS: Creatine Kinase 62 U/L (30-135)
[2023-05-11] MEDS: THIAMINE 100 MG in SODIUM CHLORIDE 0.9% 100 ML 404 MG IV (19:34)
[2023-05-11] MEDS: SODIUM CHLORIDE 0.9% 1,000 ML 125 ML IV (19:40)
[2023-05-11] MEDS: LACTULOSE 20 GM/30 ML SOLUTION PO (19:40)
[2023-05-11 19:43] LABS: Troponin I 0.012 ng/mL (0.01-0.034)
--- NOTE | 2023-05-11 19:52 | PC.NURSE ---
pt awake and alert, oriented to person, disoriented to events cooperates with care, pt very tremulous which worsens when attempting to hold something. pt normally independent, son at bedside
--- NOTE | 2023-05-11 19:53 | ED.GENADULT ---
HPI - General Adult General Chief complaint: Weakness Stated complaint: Weakness Time Seen by Provider: 05/11/23 18:49 Source: patient, family and EMS Mode of arrival: EMS History of Present Illness HPI narrative: Patient is a 77-year-old female who is brought in by EMS for evaluation of was initially described as weakness. EMS was called by the patient's son. He states that she does have issues with alcohol. Last evening he did know that she drank at a happy hour at the facility where she lives. He stated that he talked with her this morning and thought that she was back to ?normal? when he tried to contact her this afternoon she did not answer the phone. He thought that maybe she was down having dinner so he tried to contact her again and when she did not warehouse picker the phone again as when he went to check on her. Patient states she is feeling weak. She is tangential and answering questions. Is perseverating on answers. She thinks that the pulse oximeter his something that ?can not be dropped? she does follow commands. She denies headache, vision problems, chest pain, shortness of breath. She denies any specific right or left-sided weakness just in general feels weak. Patient's son states that normally she is ambulatory and is ?sharp? and can dress herself and feed herself. Last known normal earlier today. Related Data Home Medications Medication Instructions Recorded Confirmed rosuvastatin 20 mg tablet (Crestor) 20 mg PO QDAY ##0 03/23/17 04/07/21 Previous Rx's Medication Instructions Recorded acetaminophen 325 mg tablet 650 mg (2 x 325 mg) PO Q4HR PRN 09/08/20 Fever/Mild Pain (1-3) #1 tab folic acid 1 mg tablet 1 mg PO DAILY #30 tabs 04/09/21 lactulose 20 gram/30 mL oral 20 g (30 mL) PO DAILY #1,200 mL 04/09/21 solution multivitamin with folic acid 400 1 tab PO DAILY #30 tabs 04/09/21 mcg tablet (Tab-A-Mary) thiamine mononitrate (vit B1) 100 100 mg PO DAILY #30 tabs 04/09/21 mg tablet ferrous sulfate 325 mg (65 mg 325 mg PO DAILY #60 tabs 03/30/22 iron) tablet pantoprazole 40 mg tablet,delayed 40 mg PO DAILY #60 tabs 03/30/22 release Allergies Allergy/AdvReac Type Severity Reaction Status Date / Time No Known Drug Allergies Allergy Verified 10/13/20 10:57 Review of Systems Constitutional Constitutional: Reports system reviewed and no additional complaints, except as documented Cardiovascular Comments: Denies chest Respiratory Comments: Denies shortness of breath Gastrointestinal Comments: Denies abdominal pain Musculoskeletal Comments: Denies joint pain Neurologic Neurologic: Reports system reviewed and no additional complaints, except as documented Patient History Medical History Chronic kidney disease (CKD) stage G3b/A1, moderately decreased glomerular filtration rate (GFR) between 30-44 mL/min/1.73 square meter and albuminuria creatinine ratio less than 30 mg/g Alcohol dependence Surgical History History of colonoscopy History of esophagogastroduodenoscopy (EGD) Family History Father Heart disease Mother Heart disease Social History household members: none Smoking Status: Never smoker alcohol intake: current Smoking Status: Never smoker alcohol intake frequency: 3 or more drinks per day Alcohol type: wine Substance Use Type: does not use Exam Initial Vital Signs Initial Vital Signs: Vital Signs Pulse Rate 104 H 05/11/23 18:50 Pulse Oximetry 99 05/11/23 18:50 Const General: cooperative and No ill appearing HENMT Head: normal to inspection and normocephalic Resp Effort & Inspection: normal respiratory effort Auscultation: clear to auscultation bilaterally Cardio Rate: regular rate Rhythm: regular rhythm GI Inspection: normal to inspection and non-distended Skin General: no rashes or lesions noted Neuro General: patient alert, patient awake and moves all extremities Speech: speech normal Other: Perseverating. Tangential. Extrem General: normal to inspection and capillary refill normal Scores GCS [place] coma scale eye opening: Spontaneous Mily coma scale verbal response: Confused Mily coma scale motor response: Obey commands Mily coma scale total score: 14 Course Orders Ordered: ED Orders 05/11/23 18:55 Ammonia (NH3) Stat Complete Blood Count AUTO DIFF Stat Comprehensive Metabolic Panel Stat ETOH [Ethanol (ETOH)] Stat Troponin & CK Cardiac Panel Stat 05/11/23 19:05 XR chest 1V Stat EKG-12 Lead Stat 05/11/23 19:08 CT head/brain wo con Stat 05/11/23 21:05 Ictotest Urine Stat Urine Culture Stat Urine Drug Screen, Rapid Stat Urine Microscopic Stat Acetaminophen (Acetaminophen 325 Mg Tablet) 650 mg PO Q6H PRN PRN Reason: Fever/Mild Pain (1-3) Folic Acid (Folic Acid 1 Mg Tablet) 1 mg PO DAILY [facility] Sodium Chloride (Normal Saline 0.9%) 1,000 mls @ 125 mls/hr IV CONT KENISHA Last Admin: 05/11/23 19:40 Dose: 125 mls/hr Documented By: KOFFI Lorazepam (Lorazepam 2 Mg/Ml Inj) 0 mg IV CIWAPRN PRN; Protocol PRN Reason: Alcohol Withdrawal Multivitamins (Multivitamin 1 Tablet) 1 tab PO DAILY [facility] Naloxone HCl (Naloxone 0.4 Mg/Ml Vial) 0.2 mg IV Q2MIN PRN PRN Reason: Opiate Reversal Ondansetron HCl (Ondansetron 4 Mg/2 Ml Inj) 4 mg IV Q8HR PRN PRN Reason: Nausea And Vomiting Thiamine HCl (Thiamine 100 Mg Tablet) 100 mg PO DAILY [facility] Stop: 05/15/23 09:01 Discontinued Medications Thiamine HCl 100 mg/ Sodium (Chloride) 101 mls @ 404 mls/hr IV NOW ONE Stop: 05/11/23 19:23 Last Infusion: 05/11/23 20:05 Dose: Infused Documented By: Admin: 05/11/23 19:34 Dose: 404 mls/hr Documented By: KOFFI Ceftriaxone Sodium 1,000 mg/ (Sodium Chloride) 100 mls @ 200 mls/hr IV NOW ONE Stop: 05/11/23 21:13 Last Infusion: 05/11/23 21:48 Dose: Infused Documented By: Admin: 05/11/23 21:19 Dose: 200 mls/hr Documented By: KOFFI Lactulose (Lactulose 20 Gm/30 Ml Solution) 20 gm PO NOW ONE Stop: 05/11/23 19:28 Last Admin: 05/11/23 19:40 Dose: 20 gm Documented By: KOFFI Vital Signs Vital signs: Vital Signs - 8 hr 05/11/23 18:50 05/11/23 18:51 05/11/23 18:51 Temperature Pulse Rate 104 H 104 H Respiratory Rate Blood Pressure 169/108 H Pulse Oximetry 99 100 Oxygen Delivery Method 05/11/23 18:57 05/11/23 19:00 05/11/23 19:01 Temperature 97.8 F Pulse Rate 96 H 100 H Respiratory Rate 18 24 Blood Pressure 169/108 H 135/60 Pulse Oximetry 100 99 Oxygen Delivery Method Room Air 05/11/23 19:01 05/11/23 19:30 05/11/23 20:00 Temperature Pulse Rate 97 H 96 H Respiratory Rate 16 24 Blood Pressure 141/65 H Pulse Oximetry 99 98 Oxygen Delivery Method 05/11/23 20:00 05/11/23 20:30 05/11/23 20:44 Temperature Pulse Rate 95 H 94 H 96 H Respiratory Rate 18 15 17 Blood Pressure Pulse Oximetry 99 98 98 Oxygen Delivery Method 05/11/23 20:44 05/11/23 21:00 05/11/23 21:04 Temperature Pulse Rate 95 H Respiratory Rate 22 Blood Pressure 145/70 H 167/69 H Pulse Oximetry Oxygen Delivery Method 05/11/23 21:04 05/11/23 21:30 05/11/23 21:47 Temperature Pulse Rate 89 94 H Respiratory Rate 18 17 Blood Pressure 167/70 H Pulse Oximetry 99 99 Oxygen Delivery Method 05/11/23 21:47 05/11/23 22:00 05/11/23 22:02 Temperature Pulse Rate 96 H 93 H Respiratory Rate 18 32 H Blood Pressure 172/92 H Pulse Oximetry 98 98 Oxygen Delivery Method 05/11/23 22:02 05/11/23 22:11 05/11/23 22:11 Temperature Pulse Rate 101 H 93 H Respiratory Rate 65 H 16 Blood Pressure 166/68 H Pulse Oximetry 98 98 Oxygen Delivery Method Medical Decision Making Medical Records Medical records reviewed: Yes I reviewed the patient's medical records. Lab Data Lab results reviewed: Yes I reviewed the patient's lab results. 05/11/23 18:55 05/11/23 18:55 Labs: Lab Results 05/11/23 05/11/23 Range/Units 18:55 21:05 WBC 6.6 (4.5-11.0) X10^3/uL RBC 2.98 L (4.0-5.2) X10^6/uL Hgb 10.1 L (12.0-16.0) g/dL Hct 30.5 L (36-46) % MCV 102.4 H (80-100) fL MCH 33.9 (26-34) PG MCHC 33.1 (30-36) % RDW 13.9 (11.6-14.8) % Plt Count 132 L (150-400) X10^3/uL Neut % (Auto) 69.6 (50-75) % Lymph % (Auto) 18.7 L (25-40) % [place] % (Auto) 10.1 (3-14) % Eos % (Auto) 1.1 L (2-4) % Baso % (Auto) 0.5 (0-2) % Neut # (Auto) 4600 (8221-4228) /uL Lymph # (Auto) 1200 (0850-5417) /uL [place] # (Auto) 700 (0-900) /uL Eos # (Auto) 100 (0-450) /uL Baso # (Auto) 0 (0-100) /uL Sodium 144 (137-145) mmol/L Potassium 4.5 (3.4-5.1) mmol/L Chloride 116 H (98-107) mmol/L Carbon Dioxide 20 L (22-32) mmol/L BUN 38 H (7-17) mg/dL Creatinine 1.10 H (0.52-1.04) mg/dL Estimated GFR 51 L (>60) mL/min BUN/Creatinine Ratio 34.5 H (6-22) Glucose 119 H (80-110) mg/dL Calcium 10.2 (8.4-10.2) mg/dL Magnesium 2.2 (1.6-2.3) mg/dL Total Bilirubin 1.8 H (0.2-1.3) mg/dL AST 56 H (14-36) IU/L ALT 39 H (<35) IU/L Alkaline Phosphatase 122 (38-126) U/L Ammonia 102 H (9-30) umol/L Total Creatine Kinase 62 (30-135) U/L Troponin I 0.012 (0.01-0.034) ng/mL Total Protein 6.8 (6.3-8.2) g/dL Albumin 3.7 (3.5-5.0) g/dL Globulin 3.1 (1.7-4.1) g/dL Albumin/Globulin Ratio 1.2 (1.0-2.8) Ur Bilirubin Confirm TNP Urine RBC None seen (0-5/HPF) Urine WBC 5-10/hpf H (0-5/HPF) Ur Squamous Epith Cells 1-5 /hpf (0-5/HPF) Ur Transition Epith Cell 0-1/hpf (0-5/HPF) Urine Bacteria Many (>30) H (None) Vol Urine Centrifuged 10ml (spun) U Opiates 300ng/mL cut Negative (Negative) Ur Oxycodone Screen Negative (Negative) Urine Methadone Screen Negative (Negative) Ur Barbiturates Screen Negative (Negative) U Tricyclic Antidepress Negative (Negative) Ur Phencyclidine Scrn Negative (Negative) Ur Amphetamines Screen Negative (Negative) U Methamphetamines Scrn Negative (Negative) Ur MDMA Scrn (Ecstasy) Negative (Negative) U Benzodiazepines Scrn Negative (Negative) Urine Cocaine Screen Negative (Negative) U Marijuana (THC) Screen Negative (Negative) Urine pH Normal (Normal) Urine Specific [place] Normal (Normal) Ethyl Alcohol < 10 ( - 10) mg/dL Ur Creatinine Normal (Normal) Urine Dip Bedside Urine Glucose Negative Bedside Urine Bilirubin + 1 Bedside Urine Ketone +/- 5 Urine Specific [place] 1.020 Bedside Urine Occult Blood - Negative Bedside Urine pH 5.5 Bedside Urine Protein - Negative Bedside Urine Nitrite + Positive Bedside Urine Leukocytes +/- 15 Esterase Point of care testing: Urine Dip Bedside Urine Glucose Negative Bedside Urine Bilirubin + 1 Bedside Urine Ketone +/- 5 Urine Specific [place] 1.020 Bedside Urine Occult Blood - Negative Bedside Urine pH 5.5 Bedside Urine Protein - Negative Bedside Urine Nitrite + Positive Bedside Urine Leukocytes +/- 15 Esterase Imaging Data Chest x-ray: Radiologist's Impression: PROCEDURE: XR CHEST 1V INDICATIONS: altered mental status TECHNIQUE: One view of the chest was acquired. COMPARISON: [facility], , XR CHEST 1V, 03/25/2022, 13:13. [facility], , XR CHEST 1V, 04/07/2021, 3:01. FINDINGS: Surgical changes and devices: None. Lungs and pleura: Low lung volumes. No dense consolidation or pleural effusion. Mediastinum: Cardiomediastinal contours appear unchanged. Bones and chest wall: Degenerative findings. IMPRESSION: Limited single view portable radiograph with low lung volumes. No acute abnormality. CT scan - head: Radiologist's Impression: PROCEDURE: CT HEAD/BRAIN WO CON INDICATIONS: AMS TECHNIQUE: Noncontrast 4.5 mm thick angled axial sections acquired from the foramen magnum to the vertex, with coronal and sagittal reformats. For radiation dose reduction, the following was used: automated exposure control, adjustment of mA and/or kV according to patient size. COMPARISON: [facility], CT, CT HEAD/BRAIN WO CON, 03/28/2022, 11:52. FINDINGS: Image quality: Diagnostic. CSF spaces: Basal cisterns are patent. No extra-axial fluid collections. The ventricles are symmetric in size and shape. Brain: No intracranial bleeds or masses. There is cerebral volume loss for age, with resultant ventricular and sulcal prominence. There are periventricular and deep white matter chronic small vessel ischemic changes. There is intracranial internal carotid artery atherosclerosis. Skull and face: Calvarium and visualized facial bones appear intact, without suspicious lesions. Sinuses: Visualized sinuses and mastoids are clear. IMPRESSION: No acute intracranial pathology. No significant changes from previous study. ECG Data Interpretation: Sinus rhythm Ventricular rate 97 Left bundle-branch block no ST T wave changes MDM Narrative Medical decision making narrative: According to the patient's son who is at bedside she has been like this in the past. At that time it was because she was having a GI bleed but he also states that she had an elevated ammonia level he was treated with medications and her symptoms improve. She does have any active bleeding today. Her H&H is unremarkable. Her ammonia is elevated. She was given lactulose. Afebrile. No trauma. Head CT is unremarkable. No lateralizing signs that would make me concerned for an acute CVA. She is outside window for any tPA and I have low suspicion for large vessel occlusion. Patient is not hypoxic. I have low suspicion for meningitis she does not have and he will symptoms. She is afebrile. Discussed the case with Dr. Diaz the hospitalist on-call who will admit for further evaluation treatment. Discharge Plan Departure Patient Disposition: Admitted As Inpatient Clinical Impression: Hepatic encephalopathy, Altered mental status, Urinary tract infection, Acute kidney injury Admit Date/Time: 05/11/23 22:18 Admit Provider: Tiago Diaz
[2023-05-11] MEDS: cefTRIAXone 1,000 MG in SODIUM CHLORIDE 0.9% 100 ML 200 MG IV (21:19)
[2023-05-11 21:27] LABS: UR Morphine/Opiate cutoff 300 Negative (Negative); Ur Creatinine Normal (Normal); Ur Specific Gravity Normal (Normal); Urine Amphetamines Negative (Negative); Urine Barbiturates Negative (Negative); Urine Benzodiazepines Negative (Negative); Urine Cocaine Negative (Negative); Urine MDMA Negative (Negative); Urine Methadone Negative (Negative); Urine Methamphetamines Negative (Negative); Urine Oxycodone Negative (Negative); Urine Phencyclidine Negative (Negative); Urine Tetrahydrocannabinol Negative (Negative); Urine Tricyclic Antidepressant Negative (Negative); Urine pH Normal (Normal)
[2023-05-11 21:28] LABS: Urine Volume 10mL (spun)
[2023-05-11 21:29] LABS: Bacteria Urine Many (>30); RBC Urine None Seen (0-5/HPF); Squamous Epithelial Cell Urine 1-5 /HPF (0-5/HPF); Transitional Epi Cells Urine 0-1/HPF (0-5/HPF); WBC Urine 5-10/HPF (0-5/HPF)
[2023-05-12 00:04] LABS: Magnesium 2.2 mg/dL (1.6-2.3)
[2023-05-12 01:08] VITALS: BP 135/46; PULSE 88; RESP 18; TEMP 36.3; O2SAT 95
[2023-05-12] MEDS: LORazepam 2 MG/ML INJ IV (01:56)
--- NOTE | 2023-05-12 03:36 | P.HP_ITS ---
History of Present Illness History of Present Illness Date Patient Seen: 05/11/23 Time Patient Seen: 21:03 Chief complaint: Weakness Narrative: 77 years old female with a past medical history of alcohol abuse, metabolic encephalopathy, demand ischemia, dyslipidemia, and multiple other medical issues was brought in by EMS for generalized weakness with altered mental status. EMS was called by the patient's son after he could not make to her by phone. Earlier in the day, shows apparently able to converse and talk to him and thought she was back to normal but later in the afternoon, patient was unable to talk. Patient is not a good historian and unable to give any history and most of the history has been obtained from the chart and caregivers. Denies any headache vision problem chest pain shortness of breath records. In the emergency room noted to be hypertensive and mildly tachycardic. Further workup showed a hemoglobin of 10.1 which appears to be closer to baseline with a serum alcohol level of less than 10. Urine analysis was positive for nitrites. Serum ammonia was 102. Urine tox screen was negative. Chest x-ray shows no acute process and the CT head shows no acute process. Patient was admitted with a presumptive diagnosis of hepatic encephalopathy in the setting of urinary tract infection [facility] Medical History Chronic kidney disease (CKD) stage G3b/A1, moderately decreased glomerular filtration rate (GFR) between 30-44 mL/min/1.73 square meter and albuminuria creatinine ratio less than 30 mg/g Alcohol dependence Surgical History History of colonoscopy History of esophagogastroduodenoscopy (EGD) Family History Father Heart disease Mother Heart disease Social History household members: none Smoking Status: Never smoker alcohol intake: current Meds Home Medications and Allergies Home Medications Medication Instructions Recorded Confirmed Type rosuvastatin 20 mg tablet (Crestor) 20 mg PO QDAY ##0 03/23/17 04/07/21 History acetaminophen 325 mg tablet 650 mg (2 x 325 mg) PO Q4HR PRN 09/08/20 04/07/21 Rx Fever/Mild Pain (1-3) #1 tab folic acid 1 mg tablet 1 mg PO DAILY #30 tabs 04/09/21 Rx lactulose 20 gram/30 mL oral 20 g (30 mL) PO DAILY #1,200 mL 04/09/21 Rx solution multivitamin with folic acid 400 1 tab PO DAILY #30 tabs 04/09/21 Rx mcg tablet (Tab-A-Mary) thiamine mononitrate (vit B1) 100 100 mg PO DAILY #30 tabs 04/09/21 Rx mg tablet ferrous sulfate 325 mg (65 mg 325 mg PO DAILY #60 tabs 03/30/22 Rx iron) tablet pantoprazole 40 mg tablet,delayed 40 mg PO DAILY #60 tabs 03/30/22 Rx release Allergies Allergy/AdvReac Type Severity Reaction Status Date / Time No Known Drug Allergies Allergy Verified 10/13/20 10:57 Review of Systems Review of Systems Narrative: Unable to do a full review of systems due to cognition change/ AMS Exam Vital Signs (past 8 hours): - 05/11/23 20:00 05/11/23 20:00 05/11/23 20:30 Temperature Pulse Rate 95 H 94 H Respiratory Rate 18 15 Blood Pressure 141/65 H Pulse Oximetry 99 98 Oxygen Flow Rate 05/11/23 20:44 05/11/23 20:44 05/11/23 21:00 Temperature Pulse Rate 96 H 95 H Respiratory Rate 17 22 Blood Pressure 145/70 H Pulse Oximetry 98 Oxygen Flow Rate 05/11/23 21:04 05/11/23 21:04 05/11/23 21:30 Temperature Pulse Rate 89 94 H Respiratory Rate 18 17 Blood Pressure 167/69 H Pulse Oximetry 99 99 Oxygen Flow Rate 05/11/23 21:47 05/11/23 21:47 05/11/23 22:00 Temperature Pulse Rate 96 H 93 H Respiratory Rate 18 32 H Blood Pressure 167/70 H Pulse Oximetry 98 98 Oxygen Flow Rate 05/11/23 22:02 05/11/23 22:02 05/11/23 22:11 Temperature Pulse Rate 101 H Respiratory Rate 65 H Blood Pressure 172/92 H 166/68 H Pulse Oximetry 98 Oxygen Flow Rate 05/11/23 22:11 05/11/23 22:59 05/12/23 01:08 Temperature 97.2 F L 97.4 F L Pulse Rate 93 H 80 88 Respiratory Rate 16 17 18 Blood Pressure 107/65 135/46 L Pulse Oximetry 98 98 95 Oxygen Flow Rate 0 0 Oxygen Delivery Method Room Air Oxygen Flow Rate 0 Narrative Exam Narrative: Patient is confused and not able to follow commands Objective Labs 05/11/23 18:55 05/11/23 18:55 Labs: Laboratory Results - last 24 hr 05/11/23 05/11/23 18:55 21:05 WBC 6.6 RBC 2.98 L Hgb 10.1 L Hct 30.5 L MCV 102.4 H MCH 33.9 MCHC 33.1 RDW 13.9 Plt Count 132 L Neut % (Auto) 69.6 Lymph % (Auto) 18.7 L [place] % (Auto) 10.1 Eos % (Auto) 1.1 L Baso % (Auto) 0.5 Neut # (Auto) 4600 Lymph # (Auto) 1200 [place] # (Auto) 700 Eos # (Auto) 100 Baso # (Auto) 0 Sodium 144 Potassium 4.5 Chloride 116 H Carbon Dioxide 20 L BUN 38 H Creatinine 1.10 H Estimated GFR 51 L BUN/Creatinine Ratio 34.5 H Glucose 119 H Calcium 10.2 Magnesium 2.2 Total Bilirubin 1.8 H AST 56 H ALT 39 H Alkaline Phosphatase 122 Ammonia 102 H Total Creatine Kinase 62 Troponin I 0.012 Total Protein 6.8 Albumin 3.7 Globulin 3.1 Albumin/Globulin Ratio 1.2 Ur Bilirubin Confirm TNP Urine RBC None seen Urine WBC 5-10/hpf H Ur Squamous Epith Cells 1-5 /hpf Ur Transition Epith Cell 0-1/hpf Urine Bacteria Many (>30) H Vol Urine Centrifuged 10ml (spun) U Opiates 300ng/mL cut Negative Ur Oxycodone Screen Negative Urine Methadone Screen Negative Ur Barbiturates Screen Negative U Tricyclic Antidepress Negative Ur Phencyclidine Scrn Negative Ur Amphetamines Screen Negative U Methamphetamines Scrn Negative Ur MDMA Scrn (Ecstasy) Negative U Benzodiazepines Scrn Negative Urine Cocaine Screen Negative U Marijuana (THC) Screen Negative Urine pH Normal Urine Specific [place] Normal Ethyl Alcohol < 10 Ur Creatinine Normal Assessment & Plan Assessment & Plan narrative: 77 years old female with a past medical history of alcohol abuse, metabolic encephalopathy, demand ischemia, dyslipidemia, and multiple other medical issues was brought in by EMS for generalized weakness with altered mental status. EMS was called by the patient's son after he could not make to her by phone. Earlier in the day, shows apparently able to converse and talk to him and thought she was back to normal but later in the afternoon, patient was unable to talk. Patient is not a good historian and unable to give any history and most of the history has been obtained from the chart and caregivers. Denies any headache vision problem chest pain shortness of breath records. In the emergency room noted to be hypertensive and mildly tachycardic. Further workup showed a hemoglobin of 10.1 which appears to be closer to baseline with a serum alcohol level of less than 10. Urine analysis was positive for nitrites. Serum ammonia was 102. Urine tox screen was negative. Chest x-ray shows no acute process and the CT head shows no acute process. Patient was admitted with a presumptive diagnosis of hepatic encephalopathy in the setting of urinary tract infection 1 altered mental status likely multifactorial due to combination of underlying hepatic encephalopathy and further complicated by UTI. Treat the reversible factors and trend closely 2 hepatic encephalopathy. Initiate lactulose. Alcohol cessation and trend the liver enzymes/ammonia levels closely 3 urinary tract infection. Pending cultures continue IV Rocephin initiated in the emergency room 4 thrombocytopenia chronic and stable continue to monitor. No active bleeding 5 alcoholic hepatitis chronic. Monitor 6 dyslipidemia resume home statin but watch the liver function 7 DVT prophylaxis will be with SCDs Patient is a full code for now Patient will be admitted under inpatient status. Given the concern for hepatic and colopathy with UTI in the setting of mental status change, patient meets criteria for inpatient with expected length of stay greater than 2 midnights
[2023-05-12 05:00] VITALS: BP 134/54; PULSE 90; RESP 20; TEMP 36.9; O2SAT 98
[2023-05-12] MEDS: SODIUM CHLORIDE 0.9% 1,000 ML 125 ML IV (05:00)
[2023-05-12 06:27] LABS: Add Manual Diff / Slide Review NO; Basophils Absolute Auto 0 /uL (0-100); Basophils Percent Auto 0.8 % (0-2); Eosinophils Absolute Auto 100 /uL (0-450); Eosinophils Percent Auto 1.8 % (2-4); Hematocrit 26.6 % (36-46); Hemoglobin 8.9 g/dL (12.0-16.0); Lymphocytes Absolute Auto 800 /uL (1100-4500); Lymphocytes Percent Auto 20.3 % (25-40); Mean Corpuscular HGB Conc 33.7 % (30-36); Mean Corpuscular Hemoglobin 34.3 PG (26-34); Monocytes Absolute Auto 500 /uL (0-900); Monocytes Percent Auto 11.4 % (3-14); Neutrophils Absolute Auto 2600 /uL (1500-7000); Neutrophils Percent Auto 65.7 % (50-75); Platelet Count 95 X10^3/uL (150-400); Red Blood Cell Count 2.61 X10^6/uL (4.0-5.2); Red Cell Distribution Width 13.5 % (11.6-14.8)
[2023-05-12 06:39] LABS: Alanine Aminotransferase 41 IU/L (<35); Albumin 2.9 g/dL (3.5-5.0); Alkaline Phosphatase 97 U/L (38-126); Ammonia (NH3) 137 umol/L (9-30); Aspartate Aminotransferase 60 IU/L (14-36); BUN Creatinine Ratio 35.6 (6-22); Bilirubin Total 1.2 mg/dL (0.2-1.3); Blood Urea Nitrogen 31 mg/dL (7-17); Calcium 9.3 mg/dL (8.4-10.2); Carbon Dioxide 22 mmol/L (22-32); Chloride 119 mmol/L (98-107); Estimated Glomerular Filt Rate > 60 mL/min (>60); Globulin 2.8 g/dL (1.7-4.1); Glucose 111 mg/dL (80-110); HEMOLYSIS < 15 (0-50); Potassium 3.8 mmol/L (3.4-5.1); Sodium 145 mmol/L (137-145); Total Protein 5.7 g/dL (6.3-8.2)
--- NOTE | 2023-05-12 07:44 | P.PN_ITS ---
Subjective Subjective Interval history: Patient still altered and somnolent. Lactulose enema given with BM and some improvement. Exam Vital Signs (past 8 hours): - 05/12/23 01:08 05/12/23 05:00 Temperature 97.4 F L 98.4 F Pulse Rate 88 90 Respiratory Rate 18 20 Blood Pressure 135/46 L 134/54 L Pulse Oximetry 95 98 Oxygen Flow Rate 0 0 Oxygen Delivery Method Room Air Oxygen Flow Rate 0 Narrative Exam Narrative: GEN: Somnolent and confused HEENT: moist mucous membranes, PERRL NECK: trachea midline, no JVD CV: regular rate and rhythm, no murmurs PULM: clear bilaterally ABD: soft, nontender, nondistended, no organomegaly EXT: warm and well perfused with no edema Objective Labs 05/12/23 06:00 05/12/23 06:00 Labs: Laboratory Results - last 24 hr 05/11/23 05/11/23 05/12/23 18:55 21:05 06:00 WBC 6.6 4.0 L RBC 2.98 L 2.61 L Hgb 10.1 L 8.9 L Hct 30.5 L 26.6 L MCV 102.4 H 102.0 H MCH 33.9 34.3 H MCHC 33.1 33.7 RDW 13.9 13.5 Plt Count 132 L 95 L Neut % (Auto) 69.6 65.7 Lymph % (Auto) 18.7 L 20.3 L Marion % (Auto) 10.1 11.4 Eos % (Auto) 1.1 L 1.8 L Baso % (Auto) 0.5 0.8 Neut # (Auto) 4600 2600 Lymph # (Auto) 1200 800 L Marion # (Auto) 700 500 Eos # (Auto) 100 100 Baso # (Auto) 0 0 Sodium 144 145 Potassium 4.5 3.8 Chloride 116 H 119 H Carbon Dioxide 20 L 22 BUN 38 H 31 H Creatinine 1.10 H 0.87 Estimated GFR 51 L > 60 BUN/Creatinine Ratio 34.5 H 35.6 H Glucose 119 H 111 H Calcium 10.2 9.3 Magnesium 2.2 2.0 Total Bilirubin 1.8 H 1.2 AST 56 H 60 H ALT 39 H 41 H Alkaline Phosphatase 122 97 Ammonia 102 H 137 H Total Creatine Kinase 62 Troponin I 0.012 Total Protein 6.8 5.7 L Albumin 3.7 2.9 L Globulin 3.1 2.8 Albumin/Globulin Ratio 1.2 1.0 Ur Bilirubin Confirm TNP Urine RBC None seen Urine WBC 5-10/hpf H Ur Squamous Epith Cells 1-5 /hpf Ur Transition Epith Cell 0-1/hpf Urine Bacteria Many (>30) H Vol Urine Centrifuged 10ml (spun) U Opiates 300ng/mL cut Negative Ur Oxycodone Screen Negative Urine Methadone Screen Negative Ur Barbiturates Screen Negative U Tricyclic Antidepress Negative Ur Phencyclidine Scrn Negative Ur Amphetamines Screen Negative U Methamphetamines Scrn Negative Ur MDMA Scrn (Ecstasy) Negative U Benzodiazepines Scrn Negative Urine Cocaine Screen Negative U Marijuana (THC) Screen Negative Urine pH Normal Urine Specific Og[place]vie Normal Ethyl Alcohol < 10 Ur Creatinine Normal [facility] Medical History Chronic kidney disease (CKD) stage G3b/A1, moderately decreased glomerular filtration rate (GFR) between 30-44 mL/min/1.73 square meter and albuminuria creatinine ratio less than 30 mg/g Alcohol dependence Surgical History History of colonoscopy History of esophagogastroduodenoscopy (EGD) Family History Father Heart disease Mother Heart disease Social History household members: none Smoking Status: Never smoker alcohol intake: current Assessment & Plan Assessment & Plan narrative: 1. Metabolic encephalopathy, multifactorial due to combination of underlying hepatic encephalopathy and further complicated by UTI. Treat the reversible factors and trend closely. 2 hepatic encephalopathy. Initiate lactulose and rifaximin. Alcohol cessation and trend the liver enzymes/ammonia levels closely. Lactulose enemas given as cannot take po. 3 urinary tract infection. Pending cultures continue IV Rocephin initiated in the emergency room and continued. 4 thrombocytopenia chronic and stable continue to monitor. No active bleeding 5 alcoholic hepatitis chronic. Monitor 6 dyslipidemia resume home statin but watch the liver function 7 DVT prophylaxis will be with SCDs Patient is a full code Dispo: 1-2 days pending improvement in AMS.
[2023-05-12 08:00] VITALS: BP 158/79; PULSE 108; RESP 18; TEMP 36.6; O2SAT 98
--- NOTE | 2023-05-12 09:19 | CM.DANOTE ---
Addendum entered by LIBIA Martinez 05/12/23 13:20: ADD: No family bedside yet and SW attempted to speak to pt again but pt still with eyes closed and talking without making sense. BF Original Note: Patient is a 77 yo female who was admitted In on 05/11/23 for Weakness/AMS. Pt has [employer] and [employer] for insurance and her PCP shows [facility] in [place]. EMR was reviewed. Per MD, pt with hx of ETOH and admitted after EMS was called and pt with weakness and AMS and admitted for hepatic encephalopathy with UTI. Pt on CIWA protocol. SW attempted to meet bedside with pt and explain role but pt unable to open eyes at this time and participate in discussion and just moaning in bed and not yet medically appropriate for discharge discussion or to work with PT/OT yet this morning. Per RN, pt's son Sigifredo ([phone]) recently had to go home and his spouse ([phone]) has some meetings this morning and will be bedside later this morning and both very involved in pt's care. Pt was last admitted about a year ago in Mar 2022 for similar and discharged to [facility] for SNF rehab and family was then able to get pt moved into [facility] where she has been living on the Independent Side and has been mostly independent although family checks on her daily and has been assisting with setting up her medications for the week. Plan: SW to follow closely for pt to progress towards being medically appropriate to work with PT/OT and participate in discharge discussion and for SW to meet bedside with family when they return for ongoing coordination of care needs. LIBIA Martinez Discharge Planning/Care Management CM Discharge Assessment Start: 05/12/23 09:16 Freq: Status: Active Protocol: Document 05/12/23 09:16 BF (Rec: 05/12/23 09:18 BF [id number]) Discharge Planning Assessment Assigned Director Of Purchasing LIBIA Rosales DPOA/Assigned Designee Name dominique Mei Contact Information [phone] Advance Directives? Yes Advance Directives on File No History Provided By Patient,Family Member,Medical Record Has Patient been admitted in last 30 No days? Prior Living Arrangements Assisted Living Comment [facility] Independent Household Members none Type of transporation used prior to Relies on Others admit Facility Name Admitted From: [facility] Willing to Return to Facility? Yes Independent with ADL's Yes Is patient alert and oriented? Yes: mostly, some cog decline Needs Assistance With Managing Medications,Home Chores / Shopping Caregiver for Another No Patient/Family Preference [facility],Home with Home Health Comment SNF vs HH pending progress Barriers to Discharge No Comment Patient has a son named Sigifredo, who is local and checks on her periodically and FARHANA Alvarez very involved as well Discharge Plan [facility] Transportation Arrangement Pending d/c plan, facility van vs family if home Additional Comment Awaiting medical POC to unfold , patient remains far from baseline, no oriented Whiteboard Updated in Patient Room with Yes name and ext. # of Director Of Purchasing Review Status In Process Please Provide Date Initial DC 05/12/23 Assessment Was Performed Next Review Type Continued Stay Review
--- NOTE | 2023-05-12 11:17 | PC.NURSE ---
Patient sleeping, lethargic, wakes to name. Briefly making eye contact to her name, mumbles, then going back to sleep. Unable to take po or po medications safely this morning. Message sent to notify Dr. Calvillo. Continue to monitor.
[2023-05-12 12:00] VITALS: BP 149/69; PULSE 91; RESP 20; TEMP 36.4; O2SAT 98
[2023-05-12] MEDS: LACTULOSE 20 GM/30 ML SOLUTION PR ×2 (12:48→15:46)
--- NOTE | 2023-05-12 14:22 | PC.NURSE ---
Requested family to assist with confirming patient's home medication list as patient unable to answer questions. Patient's daughter in law says she will check at her apartment today to find out what her medications are. States she thinks she takes a cholesterol medication and a prilosec but not sure. Continue to follow.
[2023-05-12] MEDS: RIFAXIMIN 200 MG TABLET 400 MG PO ×2 (15:46→20:17)
[2023-05-12 16:00] VITALS: BP 146/68; PULSE 95; RESP 18; TEMP 36.6; O2SAT 97
[2023-05-12 20:00] VITALS: BP 117/83; PULSE 86; RESP 16; TEMP 36.7; O2SAT 99
[2023-05-12] MEDS: LACTULOSE 20 GM/30 ML SOLUTION PO (20:17)
[2023-05-12] MEDS: cefTRIAXone 1,000 MG in SODIUM CHLORIDE 0.9% 100 ML 200 MG IV (21:50)
--- NOTE | 2023-05-12 23:26 | PC.NURSE ---
mine shifter: Patient is alert and oriented to name and is aware she is in the hospital, mostly confused. Able to follow commands. Vital signs are stable, 100% on RA. CIWA score ranging between: 0-1. IV abx infused. PO meds given crushed with applesauce. Patient had large, loose, dark BM this evening. Guaiac positive, notified MD [place], morning labs ordered. No complaints of pain. Plan of care ongoing.
[2023-05-13] VITALS: BP 130/86; PULSE 80; RESP 17; TEMP 36.6; O2SAT 97
[2023-05-13 04:00] VITALS: BP 157/64; PULSE 82; RESP 16; TEMP 36.2; O2SAT 98
[2023-05-13 06:39] LABS: Add Manual Diff / Slide Review NO; Basophils Absolute Auto 0 /uL (0-100); Basophils Percent Auto 0.8 % (0-2); Eosinophils Absolute Auto 200 /uL (0-450); Eosinophils Percent Auto 3.4 % (2-4); Hematocrit 29.3 % (36-46); Hemoglobin 9.8 g/dL (12.0-16.0); Lymphocytes Absolute Auto 1300 /uL (1100-4500); Lymphocytes Percent Auto 26.5 % (25-40); Mean Corpuscular HGB Conc 33.3 % (30-36); Mean Corpuscular Hemoglobin 34.7 PG (26-34); Mean Corpuscular Volume 104.1 fL (80-100); Monocytes Absolute Auto 600 /uL (0-900); Monocytes Percent Auto 12.6 % (3-14); Neutrophils Absolute Auto 2700 /uL (1500-7000); Neutrophils Percent Auto 56.7 % (50-75); Platelet Count 122 X10^3/uL (150-400); Red Blood Cell Count 2.82 X10^6/uL (4.0-5.2); Red Cell Distribution Width 13.5 % (11.6-14.8); White Blood Cell Count 4.8 X10^3/uL (4.5-11.0)
[2023-05-13 06:55] LABS: BUN Creatinine Ratio 29.9 (6-22); Blood Urea Nitrogen 23 mg/dL (7-17); Calcium 9.8 mg/dL (8.4-10.2); Carbon Dioxide 22 mmol/L (22-32); Estimated Glomerular Filt Rate > 60 mL/min (>60); Glucose 95 mg/dL (80-110); HEMOLYSIS < 15 (0-50); Potassium 3.8 mmol/L (3.4-5.1); Sodium 150 mmol/L (137-145)
[2023-05-13 07:02] LABS: Chloride 122 mmol/L (98-107)
[2023-05-13] MEDS: DEXTROSE 5% WATER 1,000 ML 100 ML IV (07:44)
[2023-05-13 08:00] VITALS: BP 131/61; PULSE 82; RESP 18; TEMP 36.6; O2SAT 99
[2023-05-13] MEDS: THIAMINE 100 MG TABLET PO (09:09)
[2023-05-13] MEDS: LACTULOSE 20 GM/30 ML SOLUTION PO (09:09)
[2023-05-13] MEDS: PANTOPRAZOLE 40 MG VIAL IV (09:09)
[2023-05-13] MEDS: RIFAXIMIN 200 MG TABLET 400 MG PO ×3 (09:09→20:30)
[2023-05-13] MEDS: FOLIC ACID 1 MG TABLET PO (09:09)
[2023-05-13] MEDS: MULTIVITAMIN 1 TABLET 1 TAB PO (09:09)
[2023-05-13 12:00] VITALS: BP 129/59; PULSE 80; RESP 16; TEMP 36.3; O2SAT 99
--- NOTE | 2023-05-13 13:30 | PT.IIE ---
Current Diagnoses Urinary tract infection, site not specified (05/11/23) Surgical History (Last Reviewed 03/26/22 @ 06:17 by MERA Carlson) History of colonoscopy History of esophagogastroduodenoscopy (EGD) Medical History (Last Reviewed 05/12/23 @ 01:00 by Kush Reed DO) Alcohol dependence Chronic kidney disease (CKD) stage G3b/A1, moderately decreased glomerular filtration rate (GFR) between 30-44 mL/min/1.73 square meter and albuminuria creatinine ratio less than 30 mg/g Physical Therapy Inpatient Evaluation/Re-Eval M1 PT/OT-IP Prior Functional Status Start: 05/13/23 15:45 Freq: NEEDED Status: Active Protocol: Document 05/13/23 13:30 AB (Rec: 05/13/23 15:57 AB [id number]) Medical Review Prior Functional Status Medical History Reviewed Yes Communication agreeable to do PT Mobility and Gait pt stated that she was modified independent with all mobilities and ambulation using a 4WW Social History Household Members none Living Arrangements Detention Facility Number of Floors (Floors) 3 or More Floors Number of Stairs To Enter/Railing? pt lives at 3rd floor of [facility] with access to an elevator to get to her floor Home Environment High Toilet,Walk in Shower, Elevator Home Equipment Four Wheel Walker,Shower Seat without Backrest,Hand Held Shower,Grab Bars Near Toilet, Grab Bars In Shower M2 PT-IP Current Condition Start: 05/13/23 15:45 Freq: NEEDED Status: Active Protocol: Document 05/13/23 13:30 AB (Rec: 05/13/23 15:57 AB [id number]) Physical Therapy Current Condition Current Condition Evaluation Date 05/13/23 Treatment Diagnosis metabolic encephalopathy; difficulty in walking Onset Date 05/11/23 M3 PT-IP Subjective Start: 05/13/23 15:45 Freq: NEEDED Status: Active Protocol: Document 05/13/23 13:30 AB (Rec: 05/13/23 15:57 AB [id number]) Subjective Physical Therapy Visit Type Type Initial Evaluation Visit Start Time 13:30 Visit Stop Time 14:10 Number of PECAN MALLOW DIPPER Visits 0 Physical Therapy Visit Comments Patient Comments agreeable to do PT M4 PT-IP Mobility and Gait Start: 05/13/23 15:45 Freq: NEEDED Status: Active Protocol: Document 05/13/23 13:30 AB (Rec: 05/13/23 15:57 AB [id number]) PT-Bed Mobility Assessment Supine to Sit Supine to Sit Standby Assistance Sit to Supine Sit to Supine Standby Assistance PT-Transfer Assessment Sit to and From Stand Sit to and from Stand Contact Guard Assistance,1 Person Assistance,Use of Upper Extremities Equipment Transfer Assistive Device Gait Belt,Front Wheeled Walker Orthotic/Prosthetic Devices or Brace: No Transfers Transfer Destination Bed,Chair Transfer Technique ambulated Transfer Ability Level of Assist Contact Guard Assistance,1 Person Assistance,Use of Upper Extremities Comments Mobility Comments pt sitting on the chair and agreeable to do PT. obtained PLOf and home set up from pt. pt with confusion and seems not fully alert or drowsy but able to answer questions and follow one step commands. pt completed sit to stand CGA and ambulated in room using FWW ~ 40 ft CGA to min A with (+) LOB. pt presents with antalgic gait with lateral trunk lean to the L. pt sat on EOB. completed sit<>supine SBA. pt completed step transfer back to chair using FWW CGA. positioned pt on the chair. call light and table placed within reach. pt requiring max cues with all tasks for safety. Gait Assessment Gait Gait Assistance Required: Contact Guard Assist,Minimum Assistance Distance (Feet) 40 Able to Maintain Weight Bearing Status Yes During Gait Assistive Devices Assistive Device Gait Belt,Front Wheeled Walker Orthotic/Prosthetic Devices or Brace: No Gait Deviations General Gait Pattern Antalgic,Decreased Stride Length,Decreased Feet Clearance,Flexed Trunk,Lateral Trunk Lean Factors Limiting Gait Function Factors Limiting Gait Function Decreased Activity Tolerance, Decreased Strength,Difficulty Following Directions,Poor Balance,Poor Safety Awareness, Respiratory Distress PT-Balance Assessment Sitting Balance and Reactions Static Sitting Balance Ability Normal Dynamic Sitting Balance Ability Good Standing Balance and Reactions Static Standing Balance Ability Fair Dynamic Standing Balance Ability Fair Device Used FWW M5 PT-IP Objective Assessments Start: 05/13/23 15:45 Freq: NEEDED Status: Active Protocol: Document 05/13/23 13:30 AB (Rec: 05/13/23 15:57 AB [id number]) Orientation Orientation/Cognition Level of Alertness Confusional State Orientation Name Language Function Ability No Deficits Noted Safety Awareness Decreased Safety Awareness Memory Description Short Term Impaired Gross Range of Motion Lower Extremity ROM Assessment Within Functional Limits Strength Lower Extremity Strength Assessment Within Functional Limits Muscle Tone Muscle Tone WNL Yes M6 PT-IP Treatment Start: 05/13/23 15:45 Freq: NEEDED Status: Active Protocol: Document 05/13/23 13:30 AB (Rec: 05/13/23 15:57 AB [id number]) Physical Therapy Treatment Education Education Provided Safety M7 PT-IP Assessment and Plan Start: 05/13/23 15:45 Freq: NEEDED Status: Active Protocol: Document 05/13/23 13:30 AB (Rec: 05/13/23 15:57 AB [id number]) PT Summary Assessment and Plan Potential Rehabilitation Potential Fair Status of Condition at Evaluation Evolving Summary Impairments Pain,ROM,Strength,Balance, Coordination,Sensation,Tone, Cognition,Bed Mobility, Transfers,Gait,Activity Tolerance Assessment Summary pt is a 77 y/o F who presented to the ED with AMS and weakness. pt admitted for metabolic and hepatic encephalopathy. pt requiring CGA to min A with ambulation using a FWW. pt continues to have confusion and is slightly drowsy affecting safety awareness. pt lives at [facility] but at this time will need assistance for safety. d /c plan depending on progress. pt will benefit from home health services and HHPT. Goals Bed Mobility Goal Independent Transfer Goal Independent,Front Wheeled Walker Gait Goal Independent,Front Wheel Walker Gait Distance 200 Other Goals improve transfers and ambulation using 4WW ~ 300 ft mod I Days to Meet Goals 10 Frequency of Treatment Frequency Of Treatment Once a Day Treatment Plan Physical Therapy Treatment Plan Bed Mobility Training,Transfer Training,Gait Training, Therapeutic Exercise,Balance Retraining,Discharge Planning, Hot or Cold Pack,Neuromuscular Re-ed,Coordination Retraining Precautions Other Precautions falls Recommendations To Nursing Amount of Assist Needed 1 Person Assist Discharge Recommendations PT Discharge Recommendations Home with Assistance,Home Health Equipment Needed for Home Before FWW if not safe with 4WW Discharge Transportation Needs at Discharge Private Vehicle
[2023-05-13 13:59] LABS: BUN Creatinine Ratio 27.5 (6-22); Blood Urea Nitrogen 22 mg/dL (7-17); Calcium 9.6 mg/dL (8.4-10.2); Carbon Dioxide 20 mmol/L (22-32); Chloride 116 mmol/L (98-107); Estimated Glomerular Filt Rate > 60 mL/min (>60); Glucose 123 mg/dL (80-110); HEMOLYSIS 22 (0-50); Potassium 3.5 mmol/L (3.4-5.1); Sodium 142 mmol/L (137-145)
--- NOTE | 2023-05-13 14:33 | DIET.CONS ---
Dietary Consultation Note Admission Date: 05/11/2023 22:18 Assessment: 77 y F admitted with weakness/hepatic encephalopathy. Nutrition consulted for alcohol abuse. Visited with pt at bedside. Pt reports low appetite at hospital due to shakiness and confusion. She reports normal appetite at home. Breakfast and dinner are provided to her from a center and she reports usually preparing her own lunches such as tuna salad, chicken, or grilled cheese. Ht: 154.94 cm Wt: 94.302 kg BMI: 39.2 UBW: Last BM: 05/13/23 (05/13/23 12:30) MNA: Sonny Score: 21 Diet: 05/12/23 Breakfast Heart Healthy Diet Diet Modifications: Nutrition Percent Meal Consumed 25% 05/13/23 13:31 Percent Meal Consumed 25% 05/13/23 09:41 Labs: RBC 2.82 X10^6/uL (4.0-5.2) L 05/13/23 05:40 Hgb 9.8 g/dL (12.0-16.0) L 05/13/23 05:40 Hct 29.3 % (36-46) L 05/13/23 05:40 Creatinine 0.80 mg/dL (0.52-1.04) 05/13/23 13:23 Nutrition Diagnosis: Inadequate intake r/t confusion AEB average 25% PO of meals recorded and pt report of current low appetite Interventions: Encouraged adequate intake as able and for 3 meal per day with protein source at home/center. Unit host came by to take meal order. EER: [id number] kcals/day (15-20 kcals/kg) 70-85 grams protein (1.0-1.2 g/kg) Monitoring/Evaluations: PO Electronically Signed by: Marilyn Darden 05/13/23 14:33 Clinical Dietitian [address] [address]
--- NOTE | 2023-05-13 15:45 | CM.DPC ---
DCP Cont: Per MD, pt significantly improved from yesterday and now A&O and able to participate in discussion and ordered PT. Per PT, pt remains sleepy and fatigued today and was CGA and needing some cues but likely could continue to progress for return to apt with family assist and HH. SW met bedside with pt and explained role and pt sitting up in bedside chair and she confirms she feels much better today but still feeling shaky and weak and not at her baseline yet. SW inquired if son or DIL could stay with pt for a night or two after discharge for additional assist and pt states she does not feel that will be needed by the time she discharges back to her apt and has not historically needed that. SW discussed HH recommendation and pt also currently does not feel HH needed but willing to consider depending on how she is feeling once she is discharged from the hospital. No family currently bedside. ADRIANO received a call from ALEXUS Andrade at [facility], confirming pt is in an independent apt and inquiring on pt's progress in case pt needing assist at d/c. ADRIANO called Lupe back and left vm regarding pt's improvement today and progress and PT recommendations. Plan: ADRIANO to follow closely in the AM with pt, and likely family, to confirm safe d/c back to her independent apt at [facility] and to determine if pt will be agreeable with HH. LIBIA Martinez
--- NOTE | 2023-05-13 15:50 | P.PN_ITS ---
Subjective Subjective Interval history: Patient much more alert and awake today. A/Ox3. Worked with PT and they recommend another day to improve with PT. Exam Vital Signs (past 8 hours): - 05/13/23 08:00 05/13/23 12:00 Temperature 97.8 F 97.4 F L Pulse Rate 82 80 Respiratory Rate 18 16 Blood Pressure 131/61 129/59 L Pulse Oximetry 99 99 Oxygen Flow Rate 0 0 Oxygen Delivery Method Room Air Oxygen Flow Rate 0 Narrative Exam Narrative: GEN: awake and alert, A/Ox3 HEENT: moist mucous membranes, PERRL NECK: trachea midline, no JVD CV: regular rate and rhythm, no murmurs PULM: clear bilaterally ABD: soft, nontender, nondistended, no organomegaly EXT: warm and well perfused with no edema Objective Labs 05/13/23 05:40 05/13/23 13:23 Labs: Laboratory Results - last 24 hr 05/13/23 05/13/23 05:40 13:23 WBC 4.8 RBC 2.82 L Hgb 9.8 L Hct 29.3 L MCV 104.1 H MCH 34.7 H MCHC 33.3 RDW 13.5 Plt Count 122 L Neut % (Auto) 56.7 Lymph % (Auto) 26.5 [place] % (Auto) 12.6 Eos % (Auto) 3.4 Baso % (Auto) 0.8 Neut # (Auto) 2700 Lymph # (Auto) 1300 [place] # (Auto) 600 Eos # (Auto) 200 Baso # (Auto) 0 Sodium 150 H 142 Potassium 3.8 3.5 Chloride 122 H* 116 H Carbon Dioxide 22 20 L BUN 23 H 22 H Creatinine 0.77 0.80 Estimated GFR > 60 > 60 BUN/Creatinine Ratio 29.9 H 27.5 H Glucose 95 123 H Calcium 9.8 9.6 PFSH Medical History Chronic kidney disease (CKD) stage G3b/A1, moderately decreased glomerular filtration rate (GFR) between 30-44 mL/min/1.73 square meter and albuminuria creatinine ratio less than 30 mg/g Alcohol dependence Surgical History History of colonoscopy History of esophagogastroduodenoscopy (EGD) Family History Father Heart disease Mother Heart disease Social History household members: none Smoking Status: Never smoker alcohol intake: current Assessment & Plan Assessment & Plan narrative: 1. Metabolic encephalopathy, multifactorial due to combination of underlying hepatic encephalopathy and further complicated by UTI. Resolved. 2 hepatic encephalopathy. Initiate lactulose and rifaximin. Alcohol cessation and trend the liver enzymes/ammonia levels closely. Lactulose enemas given as cannot take po. Now resolved and stopped lactulose and will continue rifaximin. 3 urinary tract infection. Pending cultures continue IV Rocephin initiated in the emergency room and continued. Cx with GNR's. 4 thrombocytopenia chronic and stable continue to monitor. No active bleeding 5 alcoholic hepatitis chronic. Monitor 6 dyslipidemia resume home statin but watch the liver function 7 DVT prophylaxis will be with SCDs Patient is a full code Dispo: Likely home with HH on 05/13.
[2023-05-13 16:00] VITALS: BP 117/51; PULSE 70; RESP 16; TEMP 36.6; O2SAT 99
[2023-05-13] MEDS: cefTRIAXone 1,000 MG in SODIUM CHLORIDE 0.9% 100 ML 200 MG IV (17:27)
[2023-05-13 19:37] VITALS: BP 128/59; PULSE 84; RESP 17; TEMP 36.3; O2SAT 98
[2023-05-13] MEDS: ACETAMINOPHEN 325 MG TABLET 650 MG PO (20:36)
[2023-05-14] VITALS: BP 116/54; PULSE 72; RESP 16; TEMP 36.6; O2SAT 100
[2023-05-14 05:55] LABS: Add Manual Diff / Slide Review NO; Basophils Absolute Auto 0 /uL (0-100); Basophils Percent Auto 0.8 % (0-2); Eosinophils Absolute Auto 200 /uL (0-450); Hematocrit 25.2 % (36-46); Hemoglobin 8.5 g/dL (12.0-16.0); Lymphocytes Absolute Auto 1300 /uL (1100-4500); Lymphocytes Percent Auto 32.7 % (25-40); Mean Corpuscular HGB Conc 33.7 % (30-36); Mean Corpuscular Hemoglobin 34.8 PG (26-34); Mean Corpuscular Volume 103.3 fL (80-100); Monocytes Absolute Auto 400 /uL (0-900); Monocytes Percent Auto 11.3 % (3-14); Neutrophils Absolute Auto 2000 /uL (1500-7000); Neutrophils Percent Auto 51.2 % (50-75); Platelet Count 109 X10^3/uL (150-400); Red Blood Cell Count 2.44 X10^6/uL (4.0-5.2); Red Cell Distribution Width 13.5 % (11.6-14.8)
[2023-05-14 05:58] VITALS: BP 112/66; PULSE 75; RESP 16; TEMP 37; O2SAT 96
[2023-05-14 06:09] LABS: Ammonia (NH3) 13 umol/L (9-30)
[2023-05-14 06:13] LABS: Alanine Aminotransferase 50 IU/L (<35); Albumin 2.6 g/dL (3.5-5.0); Alkaline Phosphatase 87 U/L (38-126); Aspartate Aminotransferase 62 IU/L (14-36); BUN Creatinine Ratio 26.2 (6-22); Bilirubin Total 0.9 mg/dL (0.2-1.3); Blood Urea Nitrogen 22 mg/dL (7-17); Calcium 9.5 mg/dL (8.4-10.2); Carbon Dioxide 24 mmol/L (22-32); Chloride 118 mmol/L (98-107); Estimated Glomerular Filt Rate > 60 mL/min (>60); Globulin 2.7 g/dL (1.7-4.1); Glucose 91 mg/dL (80-110); HEMOLYSIS < 15 (0-50); Potassium 3.6 mmol/L (3.4-5.1); Sodium 140 mmol/L (137-145); Total Protein 5.3 g/dL (6.3-8.2)
[2023-05-14 08:00] VITALS: BP 109/82; PULSE 77; RESP 18; TEMP 36.3; O2SAT 98
[2023-05-14] MEDS: MULTIVITAMIN 1 TABLET 1 TAB PO (08:16)
[2023-05-14] MEDS: PANTOPRAZOLE 40 MG VIAL IV (08:16)
[2023-05-14] MEDS: FOLIC ACID 1 MG TABLET PO (08:16)
[2023-05-14] MEDS: THIAMINE 100 MG TABLET PO (08:16)
[2023-05-14] MEDS: RIFAXIMIN 200 MG TABLET 400 MG PO (08:21)
[2023-05-14] MEDS: cefTRIAXone 1,000 MG in SODIUM CHLORIDE 0.9% 100 ML 200 MG IV (08:38)
--- NOTE | 2023-05-14 10:43 | CM.DPNOTE ---
DC Note Patient has been discharged home to [facility] [place] today and cleared by therapies for this plan. Notes indicate that patient is not agreeable to a referral to services at this time. Placed call to daughter P [phone], updated that patient discharged and plans to transport patient home at approx 1300, agreeable to plan. ALEXUS Paniagua updated. No CM team needs identified. ASTRID
--- NOTE | 2023-05-14 11:15 | PT.IPTN ---
Current Diagnoses Urinary tract infection, site not specified (05/11/23) Physical Therapy Treatment Note M2 PT-IP Current Condition Start: 05/13/23 15:45 Freq: NEEDED Status: Discharge Protocol: Document 05/14/23 10:54 SP (Rec: 05/15/23 16:20 SP [id number]) Physical Therapy Current Condition Current Condition Evaluation Date 05/13/23 Treatment Diagnosis metabolic encephalopathy; difficulty in walking Onset Date 05/11/23 M3 PT-IP Subjective Start: 05/13/23 15:45 Freq: NEEDED Status: Discharge Protocol: Document 05/14/23 10:54 SP (Rec: 05/15/23 16:20 SP [id number]) Subjective Physical Therapy Visit Type Type Treatment Note Visit Start Time 10:54 Visit Stop Time 11:15 Number of SPEAKER WIRER Visits 1 Physical Therapy Visit Comments Patient Comments agreeable to do PT M4 PT-IP Mobility and Gait Start: 05/13/23 15:45 Freq: NEEDED Status: Discharge Protocol: Document 05/14/23 10:54 SP (Rec: 05/15/23 16:20 SP [id number]) PT-Bed Mobility Assessment Supine to Sit Supine to Sit Independent Sit to Supine Sit to Supine Independent Scooting Scooting to Edge of Bed Independent PT-Transfer Assessment Sit to and From Stand Sit to and from Stand Standby Assistance,Use of Upper Extremities Equipment Transfer Assistive Device Gait Belt,Front Wheeled Walker ,4 Wheeled Walker Orthotic/Prosthetic Devices or Brace: No Transfers Transfer Destination Bed,Chair Transfer Technique ambulated /c 4WW and FWW Transfer Ability Level of Assist Standby Assistance,1 Person Assistance,Use of Upper Extremities Comments Mobility Comments Pt requires SBA during gait due to max cuing for proper use of 4WW including brake mgt pre stand and sit for safety stability, use of squeeze brakes didn't know can do for support slower pacing and proximity and midline back wheels of 4WW for safety mgt. Pt improved use of FWW distant S, only occasional cues for proper hand placement redirection not on FWW during sit/stands. She would benefit from HHPT for progression back to PLOF hundreds of feet use of 4WW when safe use for walking to diningroom for some meals. Pt ok return home [facility] Assist available with family support was told can help her. She had call light and all needs in reach before left. Gait Assessment Gait Gait Assistance Required: Standby Assistance,1 Person Assist Distance (Feet) 240 Able to Maintain Weight Bearing Status Yes During Gait Assistive Devices Assistive Device Gait Belt,Front Wheeled Walker ,4 Wheeled Walker Orthotic/Prosthetic Devices or Brace: No Gait Deviations General Gait Pattern Flexed Trunk Factors Limiting Gait Function Factors Limiting Gait Function Decreased Activity Tolerance, Difficulty Following Directions,Poor Safety Awareness Comments Gait Comments see mobility comments Stair Climbing Assessment Comments Stair Climbing Comments no stairs need assess, has elevator in [facility] to use from 3rd floor . PT-Balance Assessment Sitting Balance and Reactions Static Sitting Balance Ability Normal Dynamic Sitting Balance Ability Normal Standing Balance and Reactions Static Standing Balance Ability Normal Dynamic Standing Balance Ability Good Device Used FWW, Fair 4WW due to decreased use brakes M5 PT-IP Objective Assessments Start: 05/13/23 15:45 Freq: NEEDED Status: Discharge Protocol: Document 05/13/23 13:30 AB (Rec: 05/13/23 15:57 AB [id number]) Orientation Orientation/Cognition Level of Alertness Confusional State Orientation Name Language Function Ability No Deficits Noted Safety Awareness Decreased Safety Awareness Memory Description Short Term Impaired Gross Range of Motion Lower Extremity ROM Assessment Within Functional Limits Strength Lower Extremity Strength Assessment Within Functional Limits Muscle Tone Muscle Tone WNL Yes M6 PT-IP Treatment Start: 05/13/23 15:45 Freq: NEEDED Status: Discharge Protocol: Document 05/14/23 10:54 SP (Rec: 05/15/23 16:20 SP [id number]) Physical Therapy Treatment Education Education Provided Safety M7 PT-IP Assessment and Plan Start: 05/13/23 15:45 Freq: NEEDED Status: Discharge Protocol: Document 05/14/23 10:54 SP (Rec: 05/15/23 16:20 SP [id number]) PT Summary Assessment and Plan Potential Rehabilitation Potential Fair Status of Condition at Evaluation Evolving Summary Impairments Pain,ROM,Strength,Balance, Coordination,Sensation,Tone, Cognition,Bed Mobility, Transfers,Gait,Activity Tolerance Progress Towards Goals Progressing Toward Goals,Slow Progress due to Activity Tolerance Assessment Summary Pt progressing in activity, I bed mob. SBA Max cues for use 4WW, provided FWW for home use , improved safety positioning and pacing. Cues as needed for proper hand positioning off/ on use surface for controlled STS. Recommended HHPT and home assist available when medically cleared. Goals Bed Mobility Goal Independent Transfer Goal Independent,Front Wheeled Walker Gait Goal Independent,Front Wheel Walker Gait Distance 200 Other Goals improve transfers and ambulation using 4WW ~ 300 ft mod I Days to Meet Goals 10 Frequency of Treatment Frequency Of Treatment Once a Day Treatment Plan Physical Therapy Treatment Plan Bed Mobility Training,Transfer Training,Gait Training, Therapeutic Exercise,Balance Retraining,Discharge Planning, Hot or Cold Pack,Neuromuscular Re-ed,Coordination Retraining Other Recommendations and Next Treatment Longer distance gait, progress Focus use 4WW for safety and brake mgt when safe. Balance activities. Precautions Other Precautions falls Recommendations To Nursing Amount of Assist Needed Standby Assistance Discharge Recommendations PT Discharge Recommendations Home with Assistance,Home Health Equipment Needed for Home Before Dispensed FWW Discharge Transportation Needs at Discharge Private Vehicle
--- NOTE | 2023-05-14 12:44 | PM.DS.1 ---
History of Present Illness History of Present Illness Chief complaint: Weakness Narrative: 77 years old female with a past medical history of alcohol abuse, metabolic encephalopathy, demand ischemia, dyslipidemia, and multiple other medical issues was brought in by EMS for generalized weakness with altered mental status. EMS was called by the patient's son after he could not make to her by phone. Earlier in the day, shows apparently able to converse and talk to him and thought she was back to normal but later in the afternoon, patient was unable to talk. Patient is not a good historian and unable to give any history and most of the history has been obtained from the chart and caregivers. Denies any headache vision problem chest pain shortness of breath records. In the emergency room noted to be hypertensive and mildly tachycardic. Further workup showed a hemoglobin of 10.1 which appears to be closer to baseline with a serum alcohol level of less than 10. Urine analysis was positive for nitrites. Serum ammonia was 102. Urine tox screen was negative. Chest x-ray shows no acute process and the CT head shows no acute process. Patient was admitted with a presumptive diagnosis of hepatic encephalopathy in the setting of urinary tract infection Discharge Providers Provider Date of admission: 05/11/23 22:18 Discharge Date: 05/14/23 Primary care physician: Oleg Brunson MD Consults: 05/11/23 22:48 Consult to Machinist Outside Routine Comment: 05/11/23 22:59 Consult to Dietitian, Adult Routine Comment: Reason For Exam: alcohol abuse 05/13/23 09:32 Consult to Physical Therapy Evaluate & Treat Comment: Physician Instructions: Evaluate and Treat 05/13/23 17:00 Consult to Home Health Routine Comment: Reason For Exam: per PT 05/14/23 11:16 Consult to Physical Therapy Evaluate & Treat Comment: Physician Instructions: FWW for Home use Discharge provider: Danilo Calvillo DO Summary Hospital Course Discharge Diagnosis: 1. Metabolic encephalopathy, multifactorial due to combination of underlying hepatic encephalopathy and further complicated by UTI. Resolved. 2. hepatic encephalopathy. Initiated lactulose and rifaximin. Alcohol cessation and trend the liver enzymes/ammonia levels closely. Lactulose enemas given as cannot take po. Now resolved and stopped lactulose and will continue rifaximin. 3. urinary tract infection. Pending cultures continue IV Rocephin initiated in the emergency room and continued. Cx with pansensitive E. coli and finished 3 days of IV abx. 4. thrombocytopenia chronic and stable continue to monitor. No active bleeding. 5. alcoholic hepatitis chronic. Monitor. 6. dyslipidemia resume home statin but watch the liver function Hospital Course: Admitted for acute encephalopathy and found to have UTI and high ammonia. Gave IV abx, rifaximin and rectal lactulose which after a few BM's improved her confusion substantially and patient returned to baseline A/Ox3. Finished abx course for UTI. Discharged back to [facility] on lactulose PRN to prevent recurrent hepatic encephalopathy. She says she will commit to stop drinking alcohol. Exam Vital Signs (past 8 hours): - 05/14/23 05:58 05/14/23 08:00 Temperature 98.6 F 97.3 F L Pulse Rate 75 77 Respiratory Rate 16 18 Blood Pressure 112/66 109/82 Pulse Oximetry 96 98 Oxygen Flow Rate 0 0 Oxygen Delivery Method Room Air Oxygen Flow Rate 0 Narrative Exam Narrative: GEN: awake and alert, A/Ox3 HEENT: moist mucous membranes, PERRL NECK: trachea midline, no JVD CV: regular rate and rhythm, no murmurs PULM: clear bilaterally ABD: soft, nontender, nondistended, no organomegaly EXT: warm and well perfused with no edema Objective Labs 05/14/23 05:35 05/14/23 05:35 Labs: Laboratory Results - last 24 hr 05/13/23 05/14/23 13:23 05:35 WBC 4.0 L RBC 2.44 L Hgb 8.5 L Hct 25.2 L MCV 103.3 H MCH 34.8 H MCHC 33.7 RDW 13.5 Plt Count 109 L Neut % (Auto) 51.2 Lymph % (Auto) 32.7 [place] % (Auto) 11.3 Eos % (Auto) 4.0 Baso % (Auto) 0.8 Neut # (Auto) 2000 Lymph # (Auto) 1300 [place] # (Auto) 400 Eos # (Auto) 200 Baso # (Auto) 0 Sodium 142 140 Potassium 3.5 3.6 Chloride 116 H 118 H Carbon Dioxide 20 L 24 BUN 22 H 22 H Creatinine 0.80 0.84 Estimated GFR > 60 > 60 BUN/Creatinine Ratio 27.5 H 26.2 H Glucose 123 H 91 Calcium 9.6 9.5 Total Bilirubin 0.9 AST 62 H ALT 50 H Alkaline Phosphatase 87 Ammonia 13 Total Protein 5.3 L Albumin 2.6 L Globulin 2.7 Albumin/Globulin Ratio 1.0 PFSH Medical History Chronic kidney disease (CKD) stage G3b/A1, moderately decreased glomerular filtration rate (GFR) between 30-44 mL/min/1.73 square meter and albuminuria creatinine ratio less than 30 mg/g Alcohol dependence Surgical History History of colonoscopy History of esophagogastroduodenoscopy (EGD) Family History Father Heart disease Mother Heart disease Social History household members: none Smoking Status: Never smoker alcohol intake: current Discharge Plan Discharge Plan Patient Disposition: Home Provider Discharge Comment: You were admitted for confusion and somnolence. This was likely from hepatic encephalopathy, which is where your liver doesn't clear toxins and they make you altered. We gave you lactulose to have BM's which improves the confusion. Please take lactulose in order to have 1 BM per day, or if you notice yourself becoming altered. You MUST stop drinking alcohol. Discharge orders & Medications Prescriptions: New lactulose 20 gram packet 20 g PO DAILY PRN (Reason: to have 1 BM per day, or if becoming altered) Qty: 30 0RF Continued rosuvastatin [Crestor] 20 MG tablet 20 mg PO QDAY Qty: 0 acetaminophen 325 mg Tablet 650 mg PO Q4HR PRN (Reason: Fever/Mild Pain (1-3)) Qty: 1 0RF pantoprazole 40 mg Tablet,Delayed Release (Dr/Ec) 40 mg PO DAILY Qty: 60 0RF Follow up/Referrals: Oleg Brunson MD [Primary Care Provider] - 2 Weeks Visit Report/Discharge Packet Instructions: DI for Urinary Tract Infection (UTI), Lactulose, DI for Altered Mental Status, DI for Hepatic Encephalopathy Stand Alone Forms: Patient Portal/API, Stroke Signs & Symptoms Discharge Data Primary Care Provider: Oleg Brunson
--- NOTE | 2023-05-14 13:25 | PC.NURSE ---
Pt is dressed and ready for discharge home with daughter . IV has been removed. Went over d/c instructions with Pt and Daughter-discussed d/c meds, time of last dose, reviewed stroke education, reminded Pt that she is to take Lactulose as needed to have 1 bm daily or if she becomes confused (daughter is advised as well). Also reminded Pt that she MUST stop drinking alcohol. Pt agrees to stop drinking alcohol. Pt and daughter denied further questions and was taken out via w/c by RN to POV with Daughter and all belongings.
== END 2023-05-14 13:30 | disposition home or self-care (01) | DRG 441 ==
LOC: ED 21:13 → AC 22:19
PROVIDERS: Internal Medicine; Student in an Organized Health Care Education/Training Program; Admitting Provider Internal Medicine; Emergency Provider Emergency Medicine; PCP Internal Medicine; Referring Provider Emergency Medicine; Visit Provider Internal Medicine
DX: K76.82 Hepatic encephalopathy (principal); G93.41 Metabolic encephalopathy; N39.0 Urinary tract infection, site not specified; D69.6 Thrombocytopenia, unspecified; K70.10 Alcoholic hepatitis without ascites; E78.5 Hyperlipidemia, unspecified; B96.20 Unspecified Escherichia coli [E. coli] as the cause of diseases classified elsewhere; I44.7 Left bundle-branch block, unspecified
CPT/HCPCS: 36415; 70450; 71045; 80048; 80053; 80305; 80320; 81003; 81015; 82140; 82550; 83735; 84484; 85025; 87077; 87086; 87186; 93005; 93010; 96365; 96375; 97116; 97162; 97530; 99284; 99285; C9113; J0696; J2060

== ENCOUNTER 2023-08-12 14:49 | Emergency (ER) | payer MEDICARE, OTHER, SELFPAY ==
[2023-05-11 22:37] VITALS: BMI 39.2
[2023-08-12] VITALS (14 sets, daily range): BP systolic 108–153; BP diastolic 50–68; PULSE 69–97; RESP 17–31; TEMP 37.2; O2SAT 91–99; BMI 37.8
--- NOTE | 2023-08-12 15:00 | DI.RAD.S_ITS ---
PROCEDURE: XR CHEST 1V INDICATIONS: Shortness of breath TECHNIQUE: One view of the chest was acquired. COMPARISON: [facility], CR, XR CHEST 1V, 05/11/2023, 19:30. [facility], CR, XR CHEST 1V, 03/25/2022, 13:13. FINDINGS: Surgical changes and devices: None. Lungs and pleura: Mild right infrahilar opacity. No pleural effusions. Mediastinum: Borderline cardiomegaly. Unchanged cardiomediastinal contours. Bones and chest wall: Degenerative changes. IMPRESSION: Mild right infrahilar opacity may be infectious/inflammatory. Consider future imaging surveillance to assess for resolution. Borderline cardiomegaly. Dictated by: Michael Kitchen M.D. on 08/12/2023 at 16:50 Approved by: Michael Kitchen M.D. on 08/12/2023 at 16:51
[2023-08-12 15:11] LABS: Add Manual Diff / Slide Review NO; Basophils Absolute Auto 0 /uL (0-100); Basophils Percent Auto 0.8 % (0-2); Eosinophils Absolute Auto 100 /uL (0-450); Eosinophils Percent Auto 2.4 % (2-4); Hematocrit 30.2 % (36-46); Hemoglobin 9.4 g/dL (12.0-16.0); Lymphocytes Absolute Auto 1500 /uL (1100-4500); Lymphocytes Percent Auto 33.8 % (25-40); Mean Corpuscular HGB Conc 31.3 % (30-36); Mean Corpuscular Volume 86.2 fL (80-100); Monocytes Absolute Auto 500 /uL (0-900); Monocytes Percent Auto 12.2 % (3-14); Neutrophils Absolute Auto 2300 /uL (1500-7000); Neutrophils Percent Auto 50.8 % (50-75); Platelet Count 114 X10^3/uL (150-400); Red Cell Distribution Width 24.1 % (11.6-14.8); White Blood Cell Count 4.5 X10^3/uL (4.5-11.0)
[2023-08-12 15:14] LABS: INR 1.1 (0.9-1.3); Prothrombin Time 12.4 SECONDS (9.4-12.5)
[2023-08-12 15:21] LABS: Lactate (Lactic Acid) 2.4 mmol/L (0.7-2.1)
[2023-08-12 15:22] LABS: Alanine Aminotransferase 25 IU/L (<35); Albumin 3.8 g/dL (3.5-5.0); Albumin Globulin Ratio 1.4 (1.0-2.8); Alkaline Phosphatase 105 U/L (38-126); Aspartate Aminotransferase 38 IU/L (14-36); BUN Creatinine Ratio 16.1 (6-22); Bilirubin Total 0.9 mg/dL (0.2-1.3); Blood Urea Nitrogen 15 mg/dL (7-17); Calcium 9.4 mg/dL (8.4-10.2); Carbon Dioxide 23 mmol/L (22-32); Chloride 115 mmol/L (98-107); Estimated Glomerular Filt Rate > 60 mL/min (>60); Globulin 2.8 g/dL (1.7-4.1); Glucose 116 mg/dL (80-110); HEMOLYSIS 20 (0-50); Potassium 3.9 mmol/L (3.4-5.1); Sodium 142 mmol/L (137-145); Total Protein 6.6 g/dL (6.3-8.2)
[2023-08-12 15:33] LABS: Anisocytosis 3+
[2023-08-12 15:34] LABS: NT-proBNP (BNP-Adult 18+) 129 pg/mL (<450); Troponin I 0.013 ng/mL (0.01-0.034)
[2023-08-12 16:39] LABS: Reflexed Lactate in 2 Hours Y
--- NOTE | 2023-08-12 17:01 | ED_ITS ---
HPI - SOB/Dyspnea General Chief Complaint: Shortness of Breath/Dyspnea Stated Complaint: SOB/Difficulty breathing Time Seen by Provider: 08/12/23 17:00 Source: patient Mode of arrival: Ambulatory Limitations: no limitations History of Present Illness HPI Narrative: 78-year-old female complains of couple of days duration shortness of breath, some cough, felt better after breathing treatment given by EMS en route. Denies pain to her chest, arm, neck, jaw, back. She has not felt feverish recently. She has not been around others with cough or cold symptoms. She denies history of heart failure, prior blood clot problems, prior heart attack problems. She also denied any nausea or vomiting, no diarrhea, no black or red stools, no headache. Related Data Home Medications Medication Instructions Recorded Confirmed rosuvastatin 20 mg tablet (Crestor) 20 mg PO QDAY ##0 03/23/17 05/12/23 Previous Rx's Medication Instructions Recorded acetaminophen 325 mg tablet 650 mg (2 x 325 mg) PO Q4HR PRN 09/08/20 Fever/Mild Pain (1-3) #1 tab pantoprazole 40 mg tablet,delayed 40 mg PO DAILY #60 tabs 03/30/22 release lactulose 20 gram oral packet 20 g PO DAILY PRN to have 1 BM per 05/14/23 day, or if becoming altered #30 ea albuterol sulfate 90 mcg/actuation 2 puff inhalation Q6H PRN 08/12/23 aerosol inhaler shortness of breath or wheezing #8.5 grams azithromycin 500 mg tablet See Rx Instructions PO .COMPLEX #3 08/12/23 (Zithromax TRI-DL) tabs cefdinir 300 mg capsule 300 mg PO BID 10 days #20 caps 08/12/23 Allergies Allergy/AdvReac Type Severity Reaction Status Date / Time No Known Drug Allergies Allergy Verified 10/13/20 10:57 Review of Systems Review of Systems Narrative: as per HPI Patient History Medical History Chronic kidney disease (CKD) stage G3b/A1, moderately decreased glomerular filtration rate (GFR) between 30-44 mL/min/1.73 square meter and albuminuria creatinine ratio less than 30 mg/g Alcohol dependence Surgical History History of colonoscopy History of esophagogastroduodenoscopy (EGD) Family History Father Heart disease Mother Heart disease Social History household members: none Smoking Status: Never smoker alcohol intake: current Smoking Status: Never smoker alcohol intake frequency: 3 or more drinks per day Alcohol type: wine Substance Use Type: does not use Exam Narrative Exam Narrative: GENERAL: Well-developed patient, in mild distress. HEAD: Atraumatic. Normocephalic. EYES: Pupils equal round and reactive. Extraocular motions intact. No scleral icterus. No injection or drainage. ENT: Nose without bleeding, purulent drainage. Throat without erythema, tonsillar hypertrophy or exudate. Airway patent. NECK: Trachea midline. Non tender CARDIOVASCULAR: Regular rate and rhythm without murmurs, gallops, or rubs. RESPIRATORY: Clear to auscultation. Breath sounds equal bilaterally. No wheezes, rales, or rhonchi. GASTROINTESTINAL: Abdomen soft, non-tender, nondistended. EXTREMITIES: No edema or joint tenderness. BACK: Nontender without deformity or crepitance. No flank tenderness. NEURO: AOx3. SKIN: No rash or erythema of visible areas Initial Vital Signs Initial Vital Signs: Vital Signs Pulse Rate 93 H 08/12/23 14:58 Pulse Oximetry 98 08/12/23 14:58 Course Orders Ordered: Discontinued Medications Azithromycin (Azithromycin 250 Mg Tablet) 500 mg PO NOW ONE Stop: 08/12/23 17:04 Last Admin: 08/12/23 17:52 Dose: 500 mg Documented By: BETTE Ceftriaxone Sodium 1,000 mg/ (Sodium Chloride) 100 mls @ 200 mls/hr IV NOW ONE Stop: 08/12/23 17:04 Last Infusion: 08/12/23 18:26 Dose: Infused Documented By: Admin: 08/12/23 17:53 Dose: 200 mls/hr Documented By: BETTE Vital Signs Vital signs: Vital Signs - 8 hr 08/12/23 14:58 08/12/23 15:00 08/12/23 15:00 Temperature 98.9 F Pulse Rate 93 H 72 97 H Respiratory Rate 18 Blood Pressure 144/62 H Pulse Oximetry 98 99 98 Oxygen Delivery Method Room Air 08/12/23 15:01 08/12/23 15:01 08/12/23 15:30 Temperature Pulse Rate 94 H 78 Respiratory Rate 28 H Blood Pressure 137/59 L Pulse Oximetry 98 91 Oxygen Delivery Method 08/12/23 15:30 08/12/23 16:00 08/12/23 16:01 Temperature Pulse Rate 75 76 Respiratory Rate 19 29 H Blood Pressure 140/61 Pulse Oximetry 93 92 Oxygen Delivery Method 08/12/23 16:01 08/12/23 16:24 08/12/23 16:24 Temperature Pulse Rate 77 Respiratory Rate 30 H Blood Pressure 122/54 L 145/62 H Pulse Oximetry 98 Oxygen Delivery Method 08/12/23 16:30 08/12/23 16:30 08/12/23 17:00 Temperature Pulse Rate 73 72 Respiratory Rate 20 20 Blood Pressure 108/50 L Pulse Oximetry 98 98 Oxygen Delivery Method 08/12/23 17:30 08/12/23 17:35 08/12/23 17:35 Temperature Pulse Rate 74 73 Respiratory Rate 23 31 H Blood Pressure 153/68 H Pulse Oximetry 98 99 Oxygen Delivery Method 08/12/23 18:00 08/12/23 18:00 08/12/23 18:37 Temperature Pulse Rate 69 88 Respiratory Rate 17 25 H Blood Pressure 145/67 H Pulse Oximetry 98 Oxygen Delivery Method 08/12/23 19:00 Temperature Pulse Rate 77 Respiratory Rate 31 H Blood Pressure Pulse Oximetry Oxygen Delivery Method MDM - SOB/Dyspnea Lab Data Attestation: I reviewed the patient's lab results. 08/12/23 15:00 08/12/23 15:00 Labs: Lab Results 08/12/23 08/12/23 Range/Units 15:00 16:49 WBC 4.5 (4.5-11.0) X10^3/uL RBC 3.50 L (4.0-5.2) X10^6/uL Hgb 9.4 L (12.0-16.0) g/dL Hct 30.2 L (36-46) % MCV 86.2 (80-100) fL MCH 27.0 (26-34) PG MCHC 31.3 (30-36) % RDW 24.1 H (11.6-14.8) % Plt Count 114 L (150-400) X10^3/uL Neut % (Auto) 50.8 (50-75) % Lymph % (Auto) 33.8 (25-40) % [place] % (Auto) 12.2 (3-14) % Eos % (Auto) 2.4 (2-4) % Baso % (Auto) 0.8 (0-2) % Neut # (Auto) 2300 (3883-5585) /uL Lymph # (Auto) 1500 (4468-5638) /uL [place] # (Auto) 500 (0-900) /uL Eos # (Auto) 100 (0-450) /uL Baso # (Auto) 0 (0-100) /uL RBC Morphology See below Anisocytosis 3+ H PT 12.4 (9.4-12.5) SECONDS INR 1.1 (0.9-1.3) Sodium 142 (137-145) mmol/L Potassium 3.9 (3.4-5.1) mmol/L Chloride 115 H (98-107) mmol/L Carbon Dioxide 23 (22-32) mmol/L BUN 15 (7-17) mg/dL Creatinine 0.93 (0.52-1.04) mg/dL Estimated GFR > 60 (>60) mL/min BUN/Creatinine Ratio 16.1 (6-22) Glucose 116 H (80-110) mg/dL Lactate 2.4 H 2.1 (0.7-2.1) mmol/L Calcium 9.4 (8.4-10.2) mg/dL Total Bilirubin 0.9 (0.2-1.3) mg/dL AST 38 H (14-36) IU/L ALT 25 (<35) IU/L Alkaline Phosphatase 105 (38-126) U/L Troponin I 0.013 (0.01-0.034) ng/mL NT-Pro-B Natriuret Pep 129 (<450) pg/mL Total Protein 6.6 (6.3-8.2) g/dL Albumin 3.8 (3.5-5.0) g/dL Globulin 2.8 (1.7-4.1) g/dL Albumin/Globulin Ratio 1.4 (1.0-2.8) Imaging Data Chest x-ray: Radiologist's Impression: [address] [address] XRay Report Signed Patient: Sowmya Kidd MR#: [id number] : 1945 Acct:[id number] Age/Sex: 78 / F Date of Service: 08/12/23 Loc: ED Accession Number: [id number] Procedure: XR chest 1V Ordering Provider: Cade Andrade MD PROCEDURE: XR CHEST 1V INDICATIONS: Shortness of breath TECHNIQUE: One view of the chest was acquired. COMPARISON: [facility], CR, XR CHEST 1V, 05/11/2023, 19:30. [facility], CR, XR CHEST 1V, 03/25/2022, 13:13. FINDINGS: Surgical changes and devices: None. Lungs and pleura: Mild right infrahilar opacity. No pleural effusions. Mediastinum: Borderline cardiomegaly. Unchanged cardiomediastinal contours. Bones and chest wall: Degenerative changes. IMPRESSION: Mild right infrahilar opacity may be infectious/inflammatory. Consider future imaging surveillance to assess for resolution. Borderline cardiomegaly. Dictated by: Michale Kitchen M.D. on 08/12/2023 at 16:50 Approved by: Michael Kitchen M.D. on 08/12/2023 at 16:51 ECG Data Interpretation: Normal sinus rhythm with a rate of 81, left bundle branch block pattern noted, UT interval 152, QRS 128, QTC 476. [facility] Narrative Medical decision making narrative: 78-year-old female with shortness of breath, improved after SVN, lungs clear on exam, speaking in full sentences, chest x-ray suspicious for right-sided opacification possible pneumonia, blood cultures requested, IV ceftriaxone, p.o. azithromycin. EKG without obvious ischemic changes, troponin negative. BNP not elevated. IV ceftriaxone, p.o. azithromycin antibiotics given. Will discharge patient on oral cefdinir and oral azithromycin antibiotics for community- acquired pneumonia coverage. Also discharge patient on inhaler to use as needed. Advised follow up with the regular provider in the next couple of days to reassess symptoms. Return precautions discussed Discharge Plan Departure Patient Disposition: Home Clinical Impression: Shortness of breath, Pneumonia Prescriptions: New cefdinir 300 mg capsule 300 mg PO BID 10 Days Qty: 20 0RF azithromycin [Zithromax TRI-DL] 500 mg tablet See Rx Instructions PO .COMPLEX Qty: 3 0RF Rx Instructions: For 500 mg dose pack: take 500 mg once daily for 3 days albuterol sulfate 90 mcg/actuation HFA aerosol inhaler 2 puff inhalation Q6H PRN (Reason: shortness of breath or wheezing) Qty: 8.5 0RF No Action rosuvastatin [Crestor] 20 MG tablet 20 mg PO QDAY Qty: 0 acetaminophen 325 mg Tablet 650 mg PO Q4HR PRN (Reason: Fever/Mild Pain (1-3)) Qty: 1 0RF pantoprazole 40 mg Tablet,Delayed Release (Dr/Ec) 40 mg PO DAILY Qty: 60 0RF lactulose 20 gram packet 20 g PO DAILY PRN (Reason: to have 1 BM per day, or if becoming altered) Qty: 30 0RF Referrals: Oleg Brunson MD [Primary Care Provider] - Stand Alone Forms: Patient Portal/API
[2023-08-12 17:15] LABS: Lactate 2HR (Lactic Acid Rflx) 2.1 mmol/L (0.7-2.1)
[2023-08-12] MEDS: AZITHROMYCIN 250 MG TABLET 500 MG PO (17:52)
[2023-08-12] MEDS: cefTRIAXone 1,000 MG in SODIUM CHLORIDE 0.9% 100 ML 200 MG IV (17:53)
== END 2023-08-12 19:10 | disposition home or self-care (01) ==
PROVIDERS: Emergency Provider Emergency Medicine; PCP Internal Medicine
DX: J18.9 Pneumonia, unspecified organism (principal); R06.02 Shortness of breath; I44.7 Left bundle-branch block, unspecified
CPT/HCPCS: 36415; 71045; 80053; 83605; 83880; 84484; 85025; 85610; 87040; 93005; 96365; 99284; J0696

== ENCOUNTER 2024-11-22 23:08 | Inpatient (IN) | payer MEDICARE, OTHER, SELFPAY ==
[2023-05-11 22:37] VITALS: BMI 39.2
[2024-11-22 23:13] VITALS: BP 148/84; PULSE 107; RESP 17; TEMP 36.9; O2SAT 93; BMI 43.8
[2024-11-22 23:20] VITALS: PULSE 105; RESP 27; O2SAT 94
[2024-11-22 23:30] VITALS: BP 146/67; PULSE 100; RESP 25; O2SAT 93
--- NOTE | 2024-11-22 23:31 | ED_ITS ---
HPI - Fall General Chief Complaint: Fall Stated Complaint: weakness Time Seen by Provider: 11/22/24 23:31 Source: patient and EMS Mode of arrival: EMS History of Present Illness HPI Narrative: 79-year-old female past medical history of alcohol abuse, metabolic encephalopathy, demand ischemia, dyslipidemia brought in via EMS for fall where she was on the ground for close to 3-4 hours unable to call for help and get herself up. Patient states she has not been feeling well over the last 24-48 hours with subjective fever chills body aches headache and just generalized weakness. She reports a nonproductive cough for the past few days but no sick contacts. Patient denies chest pain, shortness of breath, nausea, vomiting, diarrhea, back pain, but does report left shoulder pain, and that she attributes to the fall. Other than what is stated 14 point review of system is negative. Related Data Home Medications ?Medication ?Instructions ?Recorded ?Confirmed rosuvastatin 20 mg tablet (Crestor) 20 mg PO QDAY ##0 03/23/17 05/12/23 Previous Rx's ?Medication ?Instructions ?Recorded acetaminophen 325 mg tablet 650 mg (2 x 325 mg) PO Q4H R PRN 09/08/20 Fever/Mild Pain (1-3) #1 tab pantoprazole 40 mg tablet,delayed 40 mg PO DAILY #60 t abs 03/30/22 release lactulose 20 gram oral packet 20 g PO DAILY PRN to hav e 1 BM per 05/14/23 day, or if becoming altered #30 ea albuterol sulfate 90 mcg/actuation 2 puff inhalation Q 6H PRN 08/12/23 aerosol inhaler shortness of breath or wheez ing #8.5 grams azithromycin 500 mg tablet See Rx Instructions PO .COM PLEX #3 08/12/23 (Zithromax TRI-DL) tabs Allergies Allergy/AdvReac Type Severity Reaction Status Date / Time No Known Drug Allergies Allergy Verified 11/22/24 23:13 Review of Systems Review of Systems ROS Unobtainable: All systems reviewed & are unremarkable except as noted in HPI and below Patient History Medical History Chronic kidney disease (CKD) stage G3b/A1, moderately decreased glomerular filtration rate (GFR) between 30-44 mL/min/1.73 square meter and albuminuria creatinine ratio less than 30 mg/g Alcohol dependence Surgical History History of colonoscopy History of esophagogastroduodenoscopy (EGD) Family History Father Heart disease Mother Heart disease Social History household members: none alcohol intake: current alcohol intake frequency: 3 or more drinks per day Alcohol type: wine Exam Narrative Exam Narrative: GENERAL: [79] year old patient appears stated age. Well-developed patient, in mild distress. HEAD: Atraumatic. Normocephalic. EYES: Pupils equal round and reactive. Extraocular motions intact. No scleral icterus. No injection or drainage. ENT: Nose without bleeding, purulent drainage. Throat without erythema, tonsillar hypertrophy or exudate. Airway patent. NECK: Trachea midline. Non tender CARDIOVASCULAR: Regular rate and rhythm without murmurs, gallops, or rubs. RESPIRATORY: Clear to auscultation. Breath sounds equal bilaterally. No wheezes, rales, or rhonchi. GASTROINTESTINAL: Abdomen soft, non-tender, nondistended. EXTREMITIES: No edema or joint tenderness. BACK: Nontender without deformity or crepitance. No flank tenderness. NEURO: AOx3. GCS 15 nonfocal neuro exam SKIN: No rash or erythema of visible areas Initial Vital Signs Initial Vital Signs: Vital Signs Temperature 98.5 F 11/22/24 23:13 Pulse Rate 107 H 11/22/24 23:13 Respiratory Rate 17 11/22/24 23:13 Blood Pressure 148/84 H 11/22/24 23:13 Pulse Oximetry 93 11/22/24 23:13 Oxygen Delivery Method Room Air 11/22/24 23:13 Scores HEART Score Heart Score history: Moderately Suspicious Heart Score EKG: Non-Specific repolarization disturbance Heart Score Age: > or = 65 years old Heart Score risk factors: 1-2 risk factors Heart Score troponin: 1-3 times normal limit Heart Score Total: 6 Course Orders Ordered: ED Orders 11/22/24 23:20 Complete Blood Count AUTO DIFF Stat Comprehensive Metabolic Panel Stat Lactate (Lactic Acid) Stat Lipase Stat Procalcitonin Stat Troponin & CK Cardiac Panel Stat 11/22/24 23:41 CT angio chest PE protocol Stat CT head/brain wo con Stat EKG-12 Lead Stat 11/22/24 23:46 Covid-19 + FLU A/B + RSV - PCR Stat 11/22/24 23:52 Blood Culture Stat 11/23/24 01:20 Troponin I Stat Discontinued Medications Lactated Ringer's (Lactated Ringers) 1,000 mls @ 1,000 mls/hr IV BOLUS ONE Stop: 11/23/24 00:42 Nicardipine HCl 25 mg/ Sodium (Chloride) 250 mls @ 50 mls/hr IV TITRATE KENISHA; Protocol Vital Signs Vital signs: Vital Signs - 8 hr 11/22/24 23:13 11/22/24 23:20 11/22/24 23:30 Temperature 98.5 F Pulse Rate 107 H 105 H 100 H Respiratory Rate 17 27 H 25 H Blood Pressure 148/84 H Pulse Oximetry 93 94 93 Oxygen Delivery Method Room Air 11/22/24 23:30 11/23/24 00:00 11/23/24 00:30 Temperature Pulse Rate 99 H 90 Respiratory Rate 25 H 18 Blood Pressure 146/67 H Pulse Oximetry 92 Oxygen Delivery Method 11/23/24 01:00 Temperature Pulse Rate 90 Respiratory Rate 21 Blood Pressure Pulse Oximetry 93 Oxygen Delivery Method MDM - Fall Lab Data 11/22/24 23:20 11/22/24 23:20 Labs: Lab Results 11/22/24 11/22/24 Range/Units 23:20 23:46 WBC 4.1 L (4.5-11.0) X10^3/uL RBC 3.68 L (4.0-5.2) X10^6/uL Hgb 12.3 (12.0-16.0) g/dL Hct 36.7 (36-46) % MCV 99.8 (80-100) fL MCH 33.4 (26-34) PG MCHC 33.5 (30-36) % RDW 13.9 (11.6-14.8) % Plt Count 74 L (150-400) X10^3/uL Neut % (Auto) 89.3 H (50-75) % Lymph % (Auto) 2.7 L (25-40) % Buchanan % (Auto) 6.0 (3-14) % Eos % (Auto) 1.0 L (2-4) % Baso % (Auto) 1.0 (0-2) % Neut # (Auto) 3700 (0684-7839) /uL Lymph # (Auto) 100 L (6115-3129) /uL Buchanan # (Auto) 200 (0-900) /uL Eos # (Auto) 0 (0-450) /uL Baso # (Auto) 0 (0-100) /uL Sodium 136 L (137-145) mmol/L Potassium 4.2 (3.4-5.1) mmol/L Chloride 110 H (98-107) mmol/L Carbon Dioxide 20 L (22-32) mmol/L BUN 21 H (7-17) mg/dL Creatinine 0.90 (0.52-1.04) mg/dL Estimated GFR > 60 (>60) mL/min BUN/Creatinine Ratio 23.3 H (6-22) Glucose 127 H (70-99) mg/dL Lactate 1.6 (0.7-2.1) mmol/L Calcium 9.8 (8.4-10.2) mg/dL Total Bilirubin 2.2 H (0.2-1.3) mg/dL AST 127 H (14-36) IU/L ALT 67 H (<35) IU/L Alkaline Phosphatase 110 (38-126) U/L Total Creatine Kinase 69 (30-135) U/L Troponin I 0.097 H (0.01-0.034) ng/mL Total Protein 6.8 (6.3-8.2) g/dL Albumin 3.7 (3.5-5.0) g/dL Globulin 3.1 (1.7-4.1) g/dL Albumin/Globulin Ratio 1.2 (1.0-2.8) Lipase 249 (23-300) U/L Procalcitonin 0.199 (<0.5) ng/mL SARS-CoV-2 (PCR) Positive H (Negative) Influenza A (RT-PCR) Flu a negative (NEGATIVE) Influenza B (RT-PCR) Flu b negative (NEGATIVE) RSV (PCR) Negative (Negative) Imaging Data CT scan - chest: Radiologist's Impression: [address] [address] [address] Scan Report Signed Patient: Sowmya Kidd MR#: [id number] : 1945 Acct:[id number] Age/Sex: 79 / F Date of Service: 11/22/24 Loc: ED Accession Number: [id number] Procedure: CT angio chest PE protocol Ordering Provider: Huy Rodriguez D.O. PROCEDURE: CT ANGIO CHEST PE PROTOCOL INDICATIONS: fall /weakness TECHNIQUE: After the administration of intravenous contrast, 2 mm thick sections acquired from the pulmonary apices to the posterior costophrenic angles. 3-dimensional maximum intensity projection (MIP) coronal and sagittal reformats were then acquired through the thorax. For radiation dose reduction, the following was used: automated exposure control, adjustment of mA and/or kV according to patient size. COMPARISON: None. FINDINGS: Image quality: Diagnostic. Pulmonary arteries: Pulmonary arteries are prominent in size, and demonstrate no intraluminal filling defects to suggest central pulmonary embolism. Lower Neck: No enlarged lymph nodes. Thyroid: No thyroid nodules which require sonographic follow up, per consensus guidelines. Axillae: No enlarged lymph nodes. Chest Wall: Unremarkable. Bones: No aggressive appearing bony lesions. Lungs and Pleura: No pneumothorax or pleural effusions. Scattered scarring/atelectasis in posterior and lateral periphery of lower lung zone is seen. No consolidation or suspicious nodules. Heart: Heart size is enlarged. No pericardial effusion. Thoracic Vessels: No aortic aneurysm. Mediastinum and Renetta: No enlarged lymph nodes. Esophagus: No wall thickening. Moderate sized hiatal hernia. Upper Abdomen: Visualized upper abdomen solid organs and bowel loops appear normal. Likely simple cysts are seen in right hepatic lobe. IMPRESSION: 1. No pulmonary embolus. No thoracic aortic aneurysm or gross dissection. Prominent size of main pulmonary artery which can be seen associated with pulmonary vascular hypertension. 2. Scattered scarring/atelectasis in bilateral lower lung mcintosh. No focal infiltrate, pleural effusion or. 3. Cardiomegaly, no pericardial effusion. No mediastinal or hilar lymphadenopathy. Moderate size hiatal hernia. ECG Data Interpretation: NSR LBBB HR 90 VA 154 QRS [address]-t wave changes Unchanged from 05/11/23 [facility] Narrative Medical decision making narrative: All lab work, vital signs, nurse triage note, medication list, previous ER visits, and all imaging studies reviewed. EKG shows left bundle branch block unchanged from May 11, 2023 with no STT wave changes. First set troponin 0.097. Second set troponin 0.169, WBC 4.1 sodium 136 BUN 21 creatinine 0.9 glucose 127 T bili 2.2 AST 127 ALT [address]calcit[address] head showed no acute process. CTA chest no PE no thoracic aortic aneurysm or gross dissection. Prominent size of main pulmonary artery can be associated with pulmonary vascular hypertension. Cardiomegaly no pericardial effusion. No mediastinal or hilar lymphadenopathy moderate size hiatal hernia. Patient given aspirin and started on heparin drip. Discussed with Dr. Hurst transportation museum helper on- call who agrees with plan. Differential diagnosis STEMI, NSTEMI, unstable angina, PE, CVA, hemorrhage, aneurysm. Case d/w hospitalist graciously accepted the patient for inpatient admission. Discharge Plan Departure Patient Disposition: Admitted As Inpatient Clinical Impression: Acute non-ST elevation myocardial infarction (NSTEMI), COVID Admit Date/Time: 11/23/24 02:11 Admit Provider: Curly Bhakta
--- NOTE | 2024-11-22 23:41 | DI.CT.S_ITS ---
PROCEDURE: CT ANGIO CHEST PE PROTOCOL INDICATIONS: fall /weakness TECHNIQUE: After the administration of intravenous contrast, 2 mm thick sections acquired from the pulmonary apices to the posterior costophrenic angles. 3-dimensional maximum intensity projection (MIP) coronal and sagittal reformats were then acquired through the thorax. For radiation dose reduction, the following was used: automated exposure control, adjustment of mA and/or kV according to patient size. COMPARISON: None. FINDINGS: Image quality: Diagnostic. Pulmonary arteries: Pulmonary arteries are prominent in size, and demonstrate no intraluminal filling defects to suggest central pulmonary embolism. Lower Neck: No enlarged lymph nodes. Thyroid: No thyroid nodules which require sonographic follow up, per consensus guidelines. Axillae: No enlarged lymph nodes. Chest Wall: Unremarkable. Bones: No aggressive appearing bony lesions. Lungs and Pleura: No pneumothorax or pleural effusions. Scattered scarring/atelectasis in posterior and lateral periphery of lower lung zone is seen. No consolidation or suspicious nodules. Heart: Heart size is enlarged. No pericardial effusion. Thoracic Vessels: No aortic aneurysm. Mediastinum and Renetta: No enlarged lymph nodes. Esophagus: No wall thickening. Moderate sized hiatal hernia. Upper Abdomen: Visualized upper abdomen solid organs and bowel loops appear normal. Likely simple cysts are seen in right hepatic lobe. IMPRESSION: 1. No pulmonary embolus. No thoracic aortic aneurysm or gross dissection. Prominent size of main pulmonary artery which can be seen associated with pulmonary vascular hypertension. 2. Scattered scarring/atelectasis in bilateral lower lung mcintosh. No focal infiltrate, pleural effusion or. 3. Cardiomegaly, no pericardial effusion. No mediastinal or hilar lymphadenopathy. Moderate size hiatal hernia. Dictated by: Anuel Salas M.D. on 11/23/2024 at 1:08 Approved by: Anuel Salas M.D. on 11/23/2024 at 1:13
--- NOTE | 2024-11-22 23:41 | EKG_ITS ---
[address] [address] [place] [address] Test Date: 2024-11-23 Pat Name: Sowmya Kidd Department: 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
--- NOTE | 2024-11-22 23:41 | DI.CT.S_ITS ---
PROCEDURE: CT HEAD/BRAIN WO CON INDICATIONS: fall /weakness TECHNIQUE: Noncontrast 4.5 mm thick angled axial sections acquired from the foramen magnum to the vertex, with coronal and sagittal reformats. For radiation dose reduction, the following was used: automated exposure control, adjustment of mA and/or kV according to patient size. COMPARISON: [facility], CT, CT HEAD/BRAIN WO CON, 05/11/2023, 20:18. FINDINGS: Image quality: Diagnostic. CSF spaces: Basal cisterns are patent. No extra-axial fluid collections. The ventricles are symmetric in size and shape. Brain: No intracranial bleeds or mass effect. There is cerebral volume loss, with resultant ventricular and sulcal prominence. There are periventricular and deep white matter chronic small vessel ischemic changes. There is intracranial internal carotid artery atherosclerosis. Skull and face: Calvarium and visualized facial bones appear intact, without suspicious lesions. Sinuses: Visualized sinuses and mastoids are clear. IMPRESSION: No acute intracranial pathology. Dictated by: Anuel Salas M.D. on 11/23/2024 at 1:08 Approved by: Anuel Salas M.D. on 11/23/2024 at 1:08
[2024-11-22 23:52] LABS: Add Manual Diff / Slide Review NO; Hematocrit 36.7 % (36-46); Hemoglobin 12.3 g/dL (12.0-16.0); Lymphocytes Absolute Auto 100 /uL (1100-4500); Mean Corpuscular HGB Conc 33.5 % (30-36); Mean Corpuscular Hemoglobin 33.4 PG (26-34); Mean Corpuscular Volume 99.8 fL (80-100); Platelet Count 74 X10^3/uL (150-400)
[2024-11-22 23:54] LABS: Alanine Aminotransferase 67 IU/L (<35); Albumin 3.7 g/dL (3.5-5.0); Albumin Globulin Ratio 1.2 (1.0-2.8); Alkaline Phosphatase 110 U/L (38-126); Blood Urea Nitrogen 21 mg/dL (7-17); Calcium 9.8 mg/dL (8.4-10.2); Carbon Dioxide 20 mmol/L (22-32); Chloride 110 mmol/L (98-107); Creatine Kinase 69 U/L (30-135); Estimated Glomerular Filt Rate > 60 mL/min (>60); Globulin 3.1 g/dL (1.7-4.1); Glucose 127 mg/dL (70-99); HEMOLYSIS < 15 (0-50); Lipase 249 U/L (23-300); Potassium 4.2 mmol/L (3.4-5.1); Sodium 136 mmol/L (137-145); Total Protein 6.8 g/dL (6.3-8.2)
[2024-11-22 23:55] LABS: Lactate (Lactic Acid) 1.6 mmol/L (0.7-2.1)
[2024-11-23] VITALS (51 sets, daily range): BP systolic 117–152; BP diastolic 56–81; PULSE 54–128; RESP 16–44; TEMP 36–37.4; O2SAT 89–99; BMI 41.7
--- NOTE | 2024-11-23 | DI.ECHO.S_ITS ---
[facility] : : [address] : : [place] : : [id number] : : Phone: [phone] Echocardiogram Report + + :Name: ALFREDO BADILLO Study Date: 11/23/2024 Height: 61 in : :Hospital ReadingLocation: Weight: 232 lb : : Gender: Female BSA: 2.0 m2 : :: 1945 Age: 79 yrs BP: 148/66 mmHg: :Reason For Study: NSTEMI : :Ordering Physician: MICHELLE, : :RICCARDO Performed By: Era Ames : :Referring: RICCARDO MARTINEZ : + + Interpretation Summary Technically difficult study secondary to poor acoustic windows. - The left ventricular contractility is normal. Estimated ejection fraction is greater than 60% with no segmental wall motion abnormalities. No LVH. Grade 1 diastolic dysfunction. - In limited views, the right ventricular contractility is normal. - Moderate left atrial enlargement. All other cardiac chambers appear to be grossly normal in size. - No obvious valvular abnormalities noted. - No obvious intracardiac shunts. - No obvious intracardiac masses nor thrombi. - No hemodynamically significant pericardial effusion. Conclusion: Normal biventricular systolic function with no obvious valvular abnormalities. When compared to previous echocardiogram, no obvious changes are noted. Procedure: A two-dimensional transthoracic echocardiogram with color flow and Doppler was performed. The study quality was technically difficult. Comparison is made with the echocardiogram of 03/27/2022. A contrast injection of Definity was performed to improve assessment of LV function. The heart rate ranged between 71-76 bpm during the study. Left Ventricle: The left ventricle is normal in size. The estimated left ventricular end diastolic volume is 129 ml. Unable to obtain PLAX LV dimensions due to limited visualization. The ejection fraction is estimated to be 60-65%. Right Ventricle: The right ventricle is normal size. The right ventricular systolic function is normal. Atria: The left atrium is moderately dilated. Right atrial size is normal. There is no Doppler evidence for an interatrial shunt. Mitral Valve: The mitral valve leaflets appear to open well. There is trace mitral regurgitation. Aortic Valve: The aortic valve is not well visualized. There is moderate aortic valve sclerosis. No aortic regurgitation is present. Tricuspid Valve: The tricuspid valve leaflets are thin and pliable. There is trace tricuspid regurgitation. The right ventricular systolic pressure is estimated to be at least 27 mmHg based on an estimated right atrial pressure of 3 mm Hg. Pulmonic Valve: The pulmonic valve is not well visualized. Great Vessels: The aortic root is normal size. The dimensions of the ascending aorta are normal. The inferior vena cava was not visualized. Pericardium/ Pleura There is no pericardial effusion. There is an anterior echo-free space consistent with a fat pad. There is no pleural effusion. MMode/2D Measurements & Calculations LVOT diam: 2.2 cm LA A2 area: 22.7 cm2 Ao root diam: 3.7 cm LA A4 area: 23.2 cm2 asc Aorta Diam: 3.5 cm LA length (vol): 5.5 cm Ao Arch Diam (Prox Trans): 3.4 cm LA vol: 81.4 ml LA vol index: 40.4 ml/m2 RA long axis: 4.7 cm RVD1 (basal): 3.9 cm RA area: 15.5 cm2 RVD2 (mid): 3.0 cm RA vol: 43.7 ml TAPSE: 2.7 cm RA : 21.7 ml/m2 Doppler Measurements & Calculations Ao V2 max: 192.8 cm/sec LVOT Max Nikita: 139.5 cm/sec Ao V2 mean: 135.6 cm/sec LV V1 max P.8 mmHg Ao max P.9 mmHg LV V1 VTI: 27.2 cm Ao mean P.2 mmHg HERBER(I,D): 3.0 cm2 Ao V2 VTI: 36.2 cm HERBER(V,D): 2.8 cm2 sev ratio: 0.75 HERBER indexed to BSA (cm^2/m^2): 1.5 MV E max nikita: 83.2 cm/sec TR max nikita: 242.2 cm/sec MV A max nikita: 95.3 cm/sec TR max P.5 mmHg MV E/A: 0.87 PA V2 max: 125.6 cm/sec Med Peak E' Nikita: 7.3 cm/sec PA V2 mean: 82.0 cm/sec E/E' med: 11.4 PA mean P.1 mmHg Lat Peak E' Nikita: 7.9 cm/sec PA pr(Accel): 31.0 mmHg E/E' lat: 10.6 E/e' average: 11.0 MV dec time: 0.30 sec SV(LVOT): 106.9 ml Reading Physician:TIM
[2024-11-23 00:06] LABS: Troponin I 0.097 ng/mL (0.01-0.034)
[2024-11-23 00:11] LABS: Procalcitonin 0.199 ng/mL (<0.5)
[2024-11-23 00:27] LABS: Influenza A - CEPHEID Flu A NEGATIVE (NEGATIVE); Influenza B - CEPHEID Flu B NEGATIVE (NEGATIVE)
[2024-11-23 00:29] LABS: COVID-19 CEPHEID 4-PLEX PCR POSITIVE (Negative)
[2024-11-23 01:56] LABS: Troponin I 0.169 ng/mL (0.01-0.034)
[2024-11-23] MEDS: HEPARIN DRIP 25,000 UNIT/500 ML IV.SOLN 19.994 UNIT IV (02:18)
[2024-11-23 02:19] LABS: PTT Partial Thromboplastin Tim 30 SECONDS (25.1-36.5)
[2024-11-23] MEDS: HEPARIN 5,000 UNIT/ML VIAL 6500 UNIT IV (02:20)
[2024-11-23] MEDS: ASPIRIN EC 325 MG TABLET PO (02:20)
--- NOTE | 2024-11-23 02:47 | PC.NURSE ---
report and care to shama barrow at this time
[2024-11-23 04:55] LABS: MRSA (Nasal) PCR NOT DETECTED (Not Detect)
[2024-11-23] MEDS: SODIUM CHLORIDE 0.9% 1,000 ML 75 ML IV (04:57)
[2024-11-23 05:02] LABS: Cholesterol 140 mg/dL (140-199); HDL Cholesterol 77 mg/dL (40-60); Triglycerides 56 mg/dL (35-150)
--- NOTE | 2024-11-23 06:31 | PM.HP.1 ---
History of Present Illness History of Present Illness Chief complaint: weakness Narrative: 79 years old female with history of alcohol abuse, hyperlipidemia, CKD, COPD, GERD, presented to the ER with ground-level fall and unable to get up from the floor for 4 hours. Denies any loss of consciousness or head injury. Reports left shoulder pain from the fall. The patient reports not feeling well in the last couple of days with bodyaches, subjective fever and generalized weakness. Denies any shortness of breath, cough, chest pain, palpitations, nausea, vomiting, abdominal pain, diarrhea or dysuria. Laboratory shows WBC 4.1, H&H 12.3/36.7, platelets 74, sodium 136, potassium 4.2, creatinine 0.9, blood sugar 127, AST 127, ALT 67, total bilirubin 2.2, lactate 1.6, procalcitonin 0.19, troponin 0.097 trending upwards, COVID-positive. CT angiogram of the chest shows no PE but cardiomegaly. EKG shows normal sinus rhythm of 90 and LBBB. Unchanged from previous EKG. In the ER she was given aspirin 325 mg p.o., fluid bolus and was started on heparin drip. Cardiology was consulted for non-STEMI. [facility] Medical History Chronic kidney disease (CKD) stage G3b/A1, moderately decreased glomerular filtration rate (GFR) between 30-44 mL/min/1.73 square meter and albuminuria creatinine ratio less than 30 mg/g Alcohol dependence Surgical History History of colonoscopy History of esophagogastroduodenoscopy (EGD) Family History Father Heart disease Mother Heart disease Social History household members: none Smoking Status: Never smoker alcohol intake: current Meds Home Medications and Allergies Home Medications ?Medication ?Instructions ?Recorded ?Confirmed ?Type rosuvastatin 20 mg tablet (Crestor) 20 mg PO QDAY ##0 03/23/17 05/12/23 History acetaminophen 325 mg tablet 650 mg (2 x 325 mg) PO Q4HR PRN 09/08/20 05/12/23 Rx Fever/Mild Pain (1-3) #1 tab pantoprazole 40 mg tablet,delayed 40 mg PO DAILY #60 tabs 03/30/22 05/12/23 Rx release lactulose 20 gram oral packet 20 g PO DAILY PRN to have 1 BM per 05/14/23 Rx day, or if becoming altered #30 ea albuterol sulfate 90 mcg/actuation 2 puff inhalation Q6H PRN 08/12/23 Rx aerosol inhaler shortness of breath or wheezing #8.5 grams azithromycin 500 mg tablet See Rx Instructions PO .COMPLEX #3 08/12/23 Rx (Zithromax TRI-DL) tabs Allergies Allergy/AdvReac Type Severity Reaction Status Date / Time No Known Drug Allergies Allergy Verified 11/22/24 23:13 Review of Systems Review of Systems ROS: Yes All systems reviewed with the patient and are negative except as otherwise documented Constitutional Constitutional: Reports as per HPI and Reports system reviewed and no additional complaints, except as documented Eyes Eyes: Reports as per HPI and Reports system reviewed and no additional complaints, except as documented ENT Ears, Nose, Mouth, and Throat: Yes as per HPI and Yes system reviewed and no additional complaints, except as documented Cardiovascular Cardiovascular: Reports system reviewed and no additional complaints, except as documented Respiratory Respiratory: Reports system reviewed and no additional complaints, except as documented Gastrointestinal Gastrointestinal: Reports system reviewed and no additional complaints, except as documented Genitourinary Genitourinary: Reports system reviewed and no additional complaints, except as documented Musculoskeletal Musculoskeletal: Reports system reviewed and no additional complaints, except as documented, Reports abnormal gait and Reports numbness Neurologic Neurologic: Reports system reviewed and no additional complaints, except as documented, Reports abnormal gait, Reports confusion and Reports numbness Psychiatric Psychiatric: Reports system reviewed and no additional complaints, except as documented and Reports confusion Exam Vital Signs (past 8 hours): - 11/22/24 23:13 11/22/24 23:20 11/22/24 23:30 Temperature 98.5 F Pulse Rate 107 H 105 H 100 H Respiratory Rate 17 27 H 25 H Blood Pressure 148/84 H Pulse Oximetry 93 94 93 Oxygen Delivery Method Room Air Oxygen Flow Rate 11/22/24 23:30 11/23/24 00:00 11/23/24 00:30 Temperature Pulse Rate 99 H 90 Respiratory Rate 25 H 18 Blood Pressure 146/67 H Pulse Oximetry 92 Oxygen Delivery Method Oxygen Flow Rate 11/23/24 01:00 11/23/24 01:28 11/23/24 01:28 Temperature Pulse Rate 90 86 Respiratory Rate 21 17 Blood Pressure 146/65 H Pulse Oximetry 93 90 L Oxygen Delivery Method Oxygen Flow Rate 11/23/24 01:30 11/23/24 01:30 11/23/24 02:00 Temperature Pulse Rate 84 Respiratory Rate 17 Blood Pressure 140/65 131/62 Pulse Oximetry 89 L Oxygen Delivery Method Oxygen Flow Rate 11/23/24 02:00 11/23/24 02:30 11/23/24 02:31 Temperature Pulse Rate 84 83 83 Respiratory Rate 19 20 20 Blood Pressure Pulse Oximetry 90 L 96 95 Oxygen Delivery Method Oxygen Flow Rate 11/23/24 02:31 11/23/24 03:15 11/23/24 03:30 Temperature 99.3 F Pulse Rate 83 Respiratory Rate 18 Blood Pressure 152/69 H 146/63 H Pulse Oximetry 97 Oxygen Delivery Method Room Air Oxygen Flow Rate 0 Oxygen Delivery Method Room Air Oxygen Flow Rate 0 Const General: cooperative, comfortable and well developed Orientation: alert and oriented x3 [facility] Head: normal to inspection, normocephalic and atraumatic Face and sinus: normal facial exam Mouth: oral mucosae normal and moist mucous membranes Throat: posterior oropharynx normal Eyes General: appearance normal, both eyes and all related structures Pupils: PERRL EOM: EOM intact bilaterally Neck Neck: normal visual inspection and full ROM Chest Chest: normal inspection of the chest Resp Effort & Inspection: normal respiratory effort and able to speak in complete sentences Auscultation: clear to auscultation bilaterally Cardio Palpation: normal PMI Rate: regular rate Rhythm: regular rhythm Heart Sounds: S1 normal and S2 normal GI Inspection: normal to inspection Palpation: soft and no hepatosplenomegaly Auscultation: normal bowel sounds Skin General: no rashes or lesions noted Lesions: no lesions Rashes: no rashes Trauma: no lacerations or abrasions Neuro General: patient alert, patient awake, patient oriented x3 and no focal motor deficits Cranial Nerves: CN's II-XI intact bilaterally Cognition: normal cognition Speech: speech normal Gait: normal gait Motor: muscle tone normal throughout Sensory Exam: no sensory deficits noted Extrem General: full ROM and no calf tenderness Psych Appearance: grossly normal Mental Status: mental status grossly normal Speech and Movement: speech and movement normal Objective Labs 11/22/24 23:20 11/22/24 23:20 Labs: Laboratory Results - last 24 hr 11/22/24 11/22/24 11/23/24 23:20 23:46 01:20 WBC 4.1 L RBC 3.68 L Hgb 12.3 Hct 36.7 MCV 99.8 MCH 33.4 MCHC 33.5 RDW 13.9 Plt Count 74 L Neut % (Auto) 89.3 H Lymph % (Auto) 2.7 L [place] % (Auto) 6.0 Eos % (Auto) 1.0 L Baso % (Auto) 1.0 Neut # (Auto) 3700 Lymph # (Auto) 100 L [place] # (Auto) 200 Eos # (Auto) 0 Baso # (Auto) 0 APTT 30 Sodium 136 L Potassium 4.2 Chloride 110 H Carbon Dioxide 20 L BUN 21 H Creatinine 0.90 Estimated GFR > 60 BUN/Creatinine Ratio 23.3 H Glucose 127 H Lactate 1.6 Calcium 9.8 Total Bilirubin 2.2 H AST 127 H ALT 67 H Alkaline Phosphatase 110 Total Creatine Kinase 69 Troponin I 0.097 H 0.169 H* Total Protein 6.8 Albumin 3.7 Globulin 3.1 Albumin/Globulin Ratio 1.2 Triglycerides 56 Cholesterol 140 LDL Cholesterol, Calc 52 HDL Cholesterol 77 H Lipase 249 Procalcitonin 0.199 Nasal Screen MRSA (PCR) SARS-CoV-2 (PCR) Positive H Influenza A (RT-PCR) Flu a negative Influenza B (RT-PCR) Flu b negative RSV (PCR) Negative 11/23/24 03:20 WBC RBC Hgb Hct MCV MCH MCHC RDW Plt Count Neut % (Auto) Lymph % (Auto) [place] % (Auto) Eos % (Auto) Baso % (Auto) Neut # (Auto) Lymph # (Auto) [place] # (Auto) Eos # (Auto) Baso # (Auto) APTT Sodium Potassium Chloride Carbon Dioxide BUN Creatinine Estimated GFR BUN/Creatinine Ratio Glucose Lactate Calcium Total Bilirubin AST ALT Alkaline Phosphatase Total Creatine Kinase Troponin I Total Protein Albumin Globulin Albumin/Globulin Ratio Triglycerides Cholesterol LDL Cholesterol, Calc HDL Cholesterol Lipase Procalcitonin Nasal Screen MRSA (PCR) Not detected SARS-CoV-2 (PCR) Influenza A (RT-PCR) Influenza B (RT-PCR) RSV (PCR) Assessment & Plan Assessment & Plan narrative: NSTEMI ACS and elevated troponin, -Patient is admitted on ICU on telemetry. -ASA; oxygen prn; morphine prn -Started patient on heparin drip with cardiac protocol, -consider adding beta-blockers including metoprolol 12.5 mg b.i.d. a fter discussion with Cardiology or except the patient with hypotension, bradycardia or heart failure -will start the patient on statin including Lipitor 40 mg daily and check the lipid panel -Serial cardiac enzymes -Cardiology consulted by ER provider, cardiology to further evaluate and decide if patient needs cardiac catheterization. -Echocardiogram for a.m. Alcohol abuse. Monitor for any withdrawal symptoms. -Start thiamine and folic acid - CIWA protocol Hyperlipidemia. Restart Lipitor and check lipids. CKD. Chronic and stable. -Continue to monitor. Avoid nephrotoxins.? GERD. Restart pantoprazole Recent fall. Fall precaution. PT and OT evaluation on discharge. Time-Based Coding :: [TOTAL MINUTES] spent with patient and on the chart (including review of chart, obtaining history, exam, reviewing outside data, placing orders, documenting exam and treatment plan, and counseling patient) on [DATE]. Quality VTE Deep Vein Thrombosis/Pulmonary Embolism Present on Admission: No MIPS - Admit I confirm the patient?s Advance Care Plan is present, Code status is documented, Surrogate decision maker is in patient?s record [If Yes, STOP here]: Yes MIPS - Meds 'Current medications' to include all prescriptions, [id number] products, herbals, cannabis/cannabidiol products, and vitamin/mineral/dietary (nutritional) supplements. I have utilized all available resources to obtain, update, or review the patient?s current medications. [If Yes, STOP here]: Yes
--- NOTE | 2024-11-23 07:23 | PC.ADMIT ---
Returned 05/26/22 Admission Note: The patient,Sowmya Kidd,79 y/o, was given written information regarding hospital policies, unit procedures and contact persons. Patient's smoking status: Never smoker. Vital Signs - 8 hr 11/22/24 23:30 11/22/24 23:30 11/23/24 00:00 Temperature Pulse Rate 100 H 99 H Respiratory Rate 25 H 25 H Blood Pressure 146/67 H Pulse Oximetry 93 Oxygen Delivery Method Oxygen Flow Rate 11/23/24 00:30 11/23/24 01:00 11/23/24 01:28 Temperature Pulse Rate 90 90 86 Respiratory Rate 18 21 17 Blood Pressure Pulse Oximetry 92 93 90 L Oxygen Delivery Method Oxygen Flow Rate 11/23/24 01:28 11/23/24 01:30 11/23/24 01:30 Temperature Pulse Rate 84 Respiratory Rate 17 Blood Pressure 146/65 H 140/65 Pulse Oximetry 89 L Oxygen Delivery Method Oxygen Flow Rate 11/23/24 02:00 11/23/24 02:00 11/23/24 02:30 Temperature Pulse Rate 84 83 Respiratory Rate 19 20 Blood Pressure 131/62 Pulse Oximetry 90 L 96 Oxygen Delivery Method Oxygen Flow Rate 11/23/24 02:31 11/23/24 02:31 11/23/24 03:15 Temperature 99.3 F Pulse Rate 83 83 Respiratory Rate 20 18 Blood Pressure 152/69 H 146/63 H Pulse Oximetry 95 97 Oxygen Delivery Method Oxygen Flow Rate 0 11/23/24 03:30 11/23/24 05:00 11/23/24 06:00 Temperature Pulse Rate 74 74 Respiratory Rate 20 23 Blood Pressure 139/81 139/63 Pulse Oximetry 95 94 Oxygen Delivery Method Room Air Oxygen Flow Rate 0 0 Patient admitted to ICU room 230 at 0305. Weak, needing slider board for transfer. Drowsy, but oriented and able to participate with assessment and answer Hospitalist questions. Heparin infusing per protocol. NS @ 75ml/hr started. Purewick placed. SR, LBBB, other VSS. RA > 92%, dry cough. Droplet Precautions for Covid-19.
--- NOTE | 2024-11-23 07:55 | PM.PN.1 ---
Subjective Subjective Date Patient Seen: 11/23/24 Interval history: 79 years old female with history of alcohol abuse, hyperlipidemia, CKD, COPD, GERD, presented to the ER with ground-level fall and unable to get up from the floor for 4 hours. Denies any loss of consciousness or head injury. Reports left shoulder pain from the fall. The patient reports not feeling well in the last couple of days with bodyaches, subjective fever and generalized weakness. Denies any shortness of breath, cough, chest pain, palpitations, nausea, vomiting, abdominal pain, diarrhea or dysuria. Laboratory shows WBC 4.1, H&H 12.3/36.7, platelets 74, sodium 136, potassium 4.2, creatinine 0.9, blood sugar 127, AST 127, ALT 67, total bilirubin 2.2, lactate 1.6, procalcitonin 0.19, troponin 0.097 trending upwards, COVID-positive. CT angiogram of the chest shows no PE but cardiomegaly. EKG shows normal sinus rhythm of 90 and LBBB. Unchanged from previous EKG. In the ER she was given aspirin 325 mg p.o., fluid bolus and was started on heparin drip. Cardiology was consulted for non-STEMI. [facility] Medical History Chronic kidney disease (CKD) stage G3b/A1, moderately decreased glomerular filtration rate (GFR) between 30-44 mL/min/1.73 square meter and albuminuria creatinine ratio less than 30 mg/g Alcohol dependence Surgical History History of colonoscopy History of esophagogastroduodenoscopy (EGD) Family History Father Heart diseaseMother Heart disease Social History household members: none Smoking Status: Never smoker alcohol intake: current Meds Home Medications and Allergies Home Medications ?Medication ?Instructions ?Recorded ?Confirmed ?Type rosuvastatin 20 mg tablet (Crestor) 20 mg PO QDAY ##0 03/23/17 05/12/23 History acetaminophen 325 mg tablet 650 mg (2 x 325 mg) PO Q4HR PRN 09/08/20 05/12/23 Rx Fever/Mild Pain (1-3) #1 tab pantoprazole 40 mg tablet,delayed 40 mg PO DAILY #60 tabs 03/30/22 05/12/23 Rx release lactulose 20 gram oral packet 20 g PO DAILY PRN to have 1 BM per 05/14/23 Rx day, or if becoming altered #30 ea albuterol sulfate 90 mcg/actuation 2 puff inhalation Q6H PRN 08/12/23 Rx aerosol inhaler shortness of breath or wheezing #8.5 grams azithromycin 500 mg tablet See Rx Instructions PO .COMPLEX #3 08/12/23 Rx (Zithromax TRI-DL) tabs Allergies Allergy/AdvReac Type Severity Reaction Status Date / Time No Known Drug Allergies Allergy Verified 11/22/24 23:13 Assessment & Plan Assessment & Plan narrative: NSTEMI ACS and elevated troponin, -Patient is admitted on ICU on telemetry. -ASA; oxygen prn; morphine prn -Started patient on heparin drip with cardiac protocol, -consider adding beta-blockers including metoprolol 12.5 mg b.i.d. a fter discussion with Cardiology or except the patient with hypotension, bradycardia or heart failure -will start the patient on statin including Lipitor 40 mg daily and check the lipid panel -Serial cardiac enzymes -Cardiology consulted by ER provider, cardiology to further evaluate and decide if patient needs cardiac catheterization. -Echocardiogram for a.m. Alcohol abuse. Monitor for any withdrawal symptoms. -Start thiamine and folic acid - CIWA protocol Hyperlipidemia. Restart Lipitor and check lipids. CKD. Chronic and stable. -Continue to monitor. Avoid nephrotoxins.? GERD. Restart pantoprazole Recent fall. Fall precaution. PT and OT evaluation on discharge. Exam Vital Signs (past 8 hours): - 11/23/24 00:00 11/23/24 00:30 11/23/24 01:00 Temperature Pulse Rate 99 H 90 90 Respiratory Rate 25 H 18 21 Blood Pressure Pulse Oximetry 92 93 Oxygen Delivery Method Oxygen Flow Rate 11/23/24 01:28 11/23/24 01:28 11/23/24 01:30 Temperature Pulse Rate 86 Respiratory Rate 17 Blood Pressure 146/65 H 140/65 Pulse Oximetry 90 L Oxygen Delivery Method Oxygen Flow Rate 11/23/24 01:30 11/23/24 02:00 11/23/24 02:00 Temperature Pulse Rate 84 84 Respiratory Rate 17 19 Blood Pressure 131/62 Pulse Oximetry 89 L 90 L Oxygen Delivery Method Oxygen Flow Rate 11/23/24 02:30 11/23/24 02:31 11/23/24 02:31 Temperature Pulse Rate 83 83 Respiratory Rate 20 20 Blood Pressure 152/69 H Pulse Oximetry 96 95 Oxygen Delivery Method Oxygen Flow Rate 11/23/24 03:15 11/23/24 03:30 11/23/24 05:00 Temperature 99.3 F Pulse Rate 83 74 Respiratory Rate 18 20 Blood Pressure 146/63 H 139/81 Pulse Oximetry 97 95 Oxygen Delivery Method Room Air Oxygen Flow Rate 0 0 11/23/24 06:00 Temperature Pulse Rate 74 Respiratory Rate 23 Blood Pressure 139/63 Pulse Oximetry 94 Oxygen Delivery Method Oxygen Flow Rate 0 Oxygen Delivery Method Room Air Oxygen Flow Rate 0 Objective Labs 11/22/24 23:20 11/22/24 23:20 Labs: Laboratory Results - last 24 hr 11/22/24 11/22/24 11/23/24 23:20 23:46 01:20 WBC 4.1 L RBC 3.68 L Hgb 12.3 Hct 36.7 MCV 99.8 MCH 33.4 MCHC 33.5 RDW 13.9 Plt Count 74 L Neut % (Auto) 89.3 H Lymph % (Auto) 2.7 L [place] % (Auto) 6.0 Eos % (Auto) 1.0 L Baso % (Auto) 1.0 Neut # (Auto) 3700 Lymph # (Auto) 100 L [place] # (Auto) 200 Eos # (Auto) 0 Baso # (Auto) 0 APTT 30 Sodium 136 L Potassium 4.2 Chloride 110 H Carbon Dioxide 20 L BUN 21 H Creatinine 0.90 Estimated GFR > 60 BUN/Creatinine Ratio 23.3 H Glucose 127 H Lactate 1.6 Calcium 9.8 Total Bilirubin 2.2 H AST 127 H ALT 67 H Alkaline Phosphatase 110 Total Creatine Kinase 69 Troponin I 0.097 H 0.169 H* Total Protein 6.8 Albumin 3.7 Globulin 3.1 Albumin/Globulin Ratio 1.2 Triglycerides 56 Cholesterol 140 LDL Cholesterol, Calc 52 HDL Cholesterol 77 H Lipase 249 Procalcitonin 0.199 Nasal Screen MRSA (PCR) SARS-CoV-2 (PCR) Positive H Influenza A (RT-PCR) Flu a negative Influenza B (RT-PCR) Flu b negative RSV (PCR) Negative 11/23/24 03:20 WBC RBC Hgb Hct MCV MCH MCHC RDW Plt Count Neut % (Auto) Lymph % (Auto) [place] % (Auto) Eos % (Auto) Baso % (Auto) Neut # (Auto) Lymph # (Auto) [place] # (Auto) Eos # (Auto) Baso # (Auto) APTT Sodium Potassium Chloride Carbon Dioxide BUN Creatinine Estimated GFR BUN/Creatinine Ratio Glucose Lactate Calcium Total Bilirubin AST ALT Alkaline Phosphatase Total Creatine Kinase Troponin I Total Protein Albumin Globulin Albumin/Globulin Ratio Triglycerides Cholesterol LDL Cholesterol, Calc HDL Cholesterol Lipase Procalcitonin Nasal Screen MRSA (PCR) Not detected SARS-CoV-2 (PCR) Influenza A (RT-PCR) Influenza B (RT-PCR) RSV (PCR) [facility] Medical History Chronic kidney disease (CKD) stage G3b/A1, moderately decreased glomerular filtration rate (GFR) between 30-44 mL/min/1.73 square meter and albuminuria creatinine ratio less than 30 mg/g Alcohol dependence Surgical History History of colonoscopy History of esophagogastroduodenoscopy (EGD) Family History Father Heart disease Mother Heart disease Social History household members: none Smoking Status: Never smoker alcohol intake: current Assessment & Plan Time-Based Coding :: [TOTAL MINUTES] spent with patient and on the chart (including review of chart, obtaining history, exam, reviewing outside data, placing orders, documenting exam and treatment plan, and counseling patient) on [DATE]. Quality VTE Deep Vein Thrombosis/Pulmonary Embolism Present on Admission: No
--- NOTE | 2024-11-23 08:02 | PM.HP.1 ---
History of Present Illness History of Present Illness Date Patient Seen: 11/23/24 Chief complaint: weakness Narrative: This is an 79-year-old female with a history of alcohol abuse, hyperlipidemia, CKD, COPD and GERD who presented with a ground-level fall, rolling out of bed and unable to get up from the floor or get to her alarm button for 4 hours. Denies any loss of consciousness or head injury. Reports left shoulder pain from the fall. The patient reports not feeling well in the last couple of days with bodyaches, subjective fever, runny nose, cough and generalized weakness. Denies any shortness of breath, chest pain, palpitations, nausea, vomiting, abdominal pain, diarrhea or dysuria. Laboratory shows WBC 4.1, H&H 12.3/36.7, platelets 74, sodium 136, potassium 4.2, creatinine 0.9, blood sugar 127, AST 127, ALT 67, total bilirubin 2.2, lactate 1.6, procalcitonin 0.19, troponin 0.097 trending upwards, COVID-positive. COVID was apparently endemic in her assisted living facility a few weeks ago but she suspects that this episode occurred after exposure to relatives visiting from [place]. CT angiogram of the chest shows no PE but cardiomegaly. EKG shows normal sinus rhythm of 90 and LBBB. Unchanged from previous EKG. In the ER she was given aspirin 325 mg p.o., fluid bolus and was started on heparin drip. Cardiology was consulted for the non-STEMI. She has no prior history of heart disease. Meds Home Medications and Allergies Home Medications ?Medication ?Instructions ?Recorded ?Confirmed ?Type rosuvastatin 20 mg tablet (Crestor) 20 mg PO QDAY ##0 03/23/17 05/12/23 History acetaminophen 325 mg tablet 650 mg (2 x 325 mg) PO Q4HR PRN 09/08/20 05/12/23 Rx Fever/Mild Pain (1-3) #1 tab pantoprazole 40 mg tablet,delayed 40 mg PO DAILY #60 tabs 03/30/22 05/12/23 Rx release lactulose 20 gram oral packet 20 g PO DAILY PRN to have 1 BM per 05/14/23 Rx day, or if becoming altered #30 ea albuterol sulfate 90 mcg/actuation 2 puff inhalation Q6H PRN 08/12/23 Rx aerosol inhaler shortness of breath or wheezing #8.5 grams azithromycin 500 mg tablet See Rx Instructions PO .COMPLEX #3 08/12/23 Rx (Zithromax TRI-DL) tabs Allergies Allergy/AdvReac Type Severity Reaction Status Date / Time No Known Drug Allergies Allergy Verified 11/22/24 23:13 NSTEMI ACS and elevated troponin -Admitted to ICU on Heparin drip -Appreciate Cardiology consult -ASA; oxygen prn; morphine prn -Lipitor 40 mg daily and check lipid panel -Serial cardiac enzymes -Cardiology consulted by ER provider, cardiology to further evaluate and decide if patient needs cardiac catheterization. -Echocardiogram pending -lisinopril 10 mg twice daily, aspirin 81 mg daily, metoprolol succinate 25 mg daily, Lasix IV X [address] Aris Aguilar URI -Mild symptoms but likely contributing to fall out of bed -Add Dexamethasone if symptoms progress. -No hypoxia Alcohol abuse. Monitor for any withdrawal symptoms. -Start thiamine and folic acid -CIWA protocol Hyperlipidemia. Restart Lipitor and check lipids. CKD. Chronic and stable. -Continue to monitor. Avoid nephrotoxins.? GERD. Restart pantoprazole Recent fall. Fall precaution. PT and OT evaluation on discharge. DVT prevention with heparin drip. Disposition: Likely to need a 5 day Isolation hospital stay before being allowed back to [facility] Medical History (Updated 11/23/24 @ 11:34 by Savanah Lainez MD) HLD (hyperlipidemia) Alcohol withdrawal delirium, acute, hyperactive Anemia Acute GI bleeding Open fracture dislocation of left ankle Rhabdomyolysis Hepatic encephalopathy Acute non-ST elevation myocardial infarction (NSTEMI) Chronic kidney disease (CKD) stage G3b/A1, moderately decreased glomerular filtration rate (GFR) between 30-44 mL/min/1.73 square meter and albuminuria creatinine ratio less than 30 mg/g Alcohol dependence Surgical History (Updated 11/23/24 @ 11:34 by Savanah Lainez MD) No pertinent past surgical history History of colonoscopy History of esophagogastroduodenoscopy (EGD) Family History Father Heart disease Mother Heart disease Social History details: Lives alone in the assisted living. household members: none lives independently: Yes Smoking Status: Never smoker alcohol intake: current Meds Home Medications and Allergies Home Medications ?Medication ?Instructions ?Recorded ?Confirmed ?Type rosuvastatin 20 mg tablet (Crestor) 20 mg PO QDAY ##0 03/23/17 11/23/24 History pantoprazole 40 mg tablet,delayed 40 mg PO DAILY #60 tabs 03/30/22 11/23/24 Rx release Allergies Allergy/AdvReac Type Severity Reaction Status Date / Time No Known Drug Allergies Allergy Verified 11/22/24 23:13 Review of Systems Review of Systems Narrative: Positive for fevers, runny nose, coughing, weakness, falls. Negative for chest pain, abdominal pain, nausea, vomiting, dysuria, bleeding, rash, headache, new allergies. Exam Vital Signs (past 8 hours): - 11/23/24 00:30 11/23/24 01:00 11/23/24 01:28 Temperature Pulse Rate 90 90 86 Respiratory Rate 18 21 17 Blood Pressure Pulse Oximetry 92 93 90 L Oxygen Delivery Method Oxygen Flow Rate 11/23/24 01:28 11/23/24 01:30 11/23/24 01:30 Temperature Pulse Rate 84 Respiratory Rate 17 Blood Pressure 146/65 H 140/65 Pulse Oximetry 89 L Oxygen Delivery Method Oxygen Flow Rate 11/23/24 02:00 11/23/24 02:00 11/23/24 02:30 Temperature Pulse Rate 84 83 Respiratory Rate 19 20 Blood Pressure 131/62 Pulse Oximetry 90 L 96 Oxygen Delivery Method Oxygen Flow Rate 11/23/24 02:31 11/23/24 02:31 11/23/24 03:15 Temperature 99.3 F Pulse Rate 83 83 Respiratory Rate 20 18 Blood Pressure 152/69 H 146/63 H Pulse Oximetry 95 97 Oxygen Delivery Method Oxygen Flow Rate 0 11/23/24 03:30 11/23/24 05:00 11/23/24 06:00 Temperature Pulse Rate 74 74 Respiratory Rate 20 23 Blood Pressure 139/81 139/63 Pulse Oximetry 95 94 Oxygen Delivery Method Room Air Oxygen Flow Rate 0 0 Oxygen Delivery Method Room Air Oxygen Flow Rate 0 Narrative Exam Narrative: Alert and oriented x3. Mild distress from upper respiratory symptoms of runny nose mainly. Pupils are equally round and reactive to light and accommodation. Extraocular muscles are intact. Sclerae are pink and nonicteric. Throat looks normal. No lymph nodes are felt head, neck, supraclavicular area. There is no thyromegaly. JVD is less than 6 cm. No carotid bruits are heard. Heart is regular rate and rhythm without murmur. Lungs are clear to auscultation bilaterally. Abdomen is obese, nontender, no organomegaly, soft. Extremities have no ankle edema. Skin has no rash or jaundice. There is no tremor. Cranial nerves 2-12 test intact. Motor function is 4/5 throughout. Balance and gait are not tested. Reflexes are symmetric. Objective Labs 11/22/24 23:20 11/22/24 23:20 Labs: Laboratory Results - last 24 hr 11/22/24 11/22/24 11/23/24 23:20 23:46 01:20 WBC 4.1 L RBC 3.68 L Hgb 12.3 Hct 36.7 MCV 99.8 MCH 33.4 MCHC 33.5 RDW 13.9 Plt Count 74 L Neut % (Auto) 89.3 H Lymph % (Auto) 2.7 L [place] % (Auto) 6.0 Eos % (Auto) 1.0 L Baso % (Auto) 1.0 Neut # (Auto) 3700 Lymph # (Auto) 100 L [place] # (Auto) 200 Eos # (Auto) 0 Baso # (Auto) 0 APTT 30 Sodium 136 L Potassium 4.2 Chloride 110 H Carbon Dioxide 20 L BUN 21 H Creatinine 0.90 Estimated GFR > 60 BUN/Creatinine Ratio 23.3 H Glucose 127 H Lactate 1.6 Calcium 9.8 Total Bilirubin 2.2 H AST 127 H ALT 67 H Alkaline Phosphatase 110 Total Creatine Kinase 69 Troponin I 0.097 H 0.169 H* Total Protein 6.8 Albumin 3.7 Globulin 3.1 Albumin/Globulin Ratio 1.2 Triglycerides 56 Cholesterol 140 LDL Cholesterol, Calc 52 HDL Cholesterol 77 H Lipase 249 Procalcitonin 0.199 Nasal Screen MRSA (PCR) SARS-CoV-2 (PCR) Positive H Influenza A (RT-PCR) Flu a negative Influenza B (RT-PCR) Flu b negative RSV (PCR) Negative 11/23/24 03:20 WBC RBC Hgb Hct MCV MCH MCHC RDW Plt Count Neut % (Auto) Lymph % (Auto) [place] % (Auto) Eos % (Auto) Baso % (Auto) Neut # (Auto) Lymph # (Auto) [place] # (Auto) Eos # (Auto) Baso # (Auto) APTT Sodium Potassium Chloride Carbon Dioxide BUN Creatinine Estimated GFR BUN/Creatinine Ratio Glucose Lactate Calcium Total Bilirubin AST ALT Alkaline Phosphatase Total Creatine Kinase Troponin I Total Protein Albumin Globulin Albumin/Globulin Ratio Triglycerides Cholesterol LDL Cholesterol, Calc HDL Cholesterol Lipase Procalcitonin Nasal Screen MRSA (PCR) Not detected SARS-CoV-2 (PCR) Influenza A (RT-PCR) Influenza B (RT-PCR) RSV (PCR) Assessment & Plan Time-Based Coding :: [TOTAL MINUTES] spent with patient and on the chart (including review of chart, obtaining history, exam, reviewing outside data, placing orders, documenting exam and treatment plan, and counseling patient) on [DATE]. Quality VTE Deep Vein Thrombosis/Pulmonary Embolism Present on Admission: No
--- NOTE | 2024-11-23 08:57 | PM.CN ---
History of Present Illness Consult details Date Patient Seen: 11/23/24 Time Patient Seen: 09:00 Chief complaint: weakness Requesting provider: Savanah Lainez Narrative: 79 years old female with history of alcohol abuse, hyperlipidemia, CKD, COPD, GERD, presented to the ER with ground-level fall and unable to get up from the floor for 4 hours. Denies any loss of consciousness or head injury. Reports left shoulder pain from the fall. The patient reports not feeling well in the last couple of days with bodyaches, subjective fever and generalized weakness. She tells me that her daughter and her children were visiting her from [facility]. She also had dinner with her friends couple of days ago. She was fine until yesterday when she started having fever like feelings and chills. She also felt some congestion in her lungs and shortness of breath. In the middle of the night she was trying to get out of bed when she had a fall. She went on the floor and was not able to activate the alert. Allegedly she was on the floor for 4-5 hours before she was brought to the emergency room. In the emergency room she reported generalized fatigue chills body aches. An incidental finding of elevated troponin was recorded. I received a phone call from the physician. Patient was in sinus rhythm with a left bundle branch block and elevated troponin. No prior history was available within the system therefore decision was made to admit her to the hospital. Meds Home Medications and Allergies Home Medications ?Medication ?Instructions ?Recorded ?Confirmed ?Type rosuvastatin 20 mg tablet (Crestor) 20 mg PO QDAY ##0 03/23/17 11/23/24 History pantoprazole 40 mg tablet,delayed 40 mg PO DAILY #60 tabs 03/30/22 11/23/24 Rx release Allergies Allergy/AdvReac Type Severity Reaction Status Date / Time No Known Drug Allergies Allergy Verified 11/22/24 23:13 Review of Systems Review of Systems ROS: Yes All systems reviewed with the patient and are negative except as otherwise documented Constitutional Constitutional: Reports difficulty sleeping, Reports fatigue, Reports lethargy and Reports malaise Comments: Past history of significant for HEATH does not use a mask ENT Ears, Nose, Mouth, and Throat: Yes system reviewed and no additional complaints, except as documented Cardiovascular Cardiovascular: Reports leg edema, Reports dyspnea and Reports dyspnea on exertion Respiratory Respiratory: Reports dyspnea and Reports dyspnea on exertion Musculoskeletal Musculoskeletal: Reports back pain, Reports myalgias, Reports arthralgias and Reports muscle weakness Integumentary/Breasts Skin/Breast: Reports system reviewed and no additional complaints, except as documented Neurologic Neurologic: Reports system reviewed and no additional complaints, except as documented Endocrine Endocrine: Reports fatigue Exam Vital Signs (past 8 hours): - 11/23/24 01:00 11/23/24 01:28 11/23/24 01:28 Temperature Pulse Rate 90 86 Respiratory Rate 21 17 Blood Pressure 146/65 H Pulse Oximetry 93 90 L Oxygen Delivery Method Oxygen Flow Rate 11/23/24 01:30 11/23/24 01:30 11/23/24 02:00 Temperature Pulse Rate 84 Respiratory Rate 17 Blood Pressure 140/65 131/62 Pulse Oximetry 89 L Oxygen Delivery Method Oxygen Flow Rate 11/23/24 02:00 11/23/24 02:30 11/23/24 02:31 Temperature Pulse Rate 84 83 83 Respiratory Rate 19 20 20 Blood Pressure Pulse Oximetry 90 L 96 95 Oxygen Delivery Method Oxygen Flow Rate 11/23/24 02:31 11/23/24 03:15 11/23/24 03:30 Temperature 99.3 F Pulse Rate 83 Respiratory Rate 18 Blood Pressure 152/69 H 146/63 H Pulse Oximetry 97 Oxygen Delivery Method Room Air Oxygen Flow Rate 0 11/23/24 05:00 11/23/24 06:00 11/23/24 07:57 Temperature Pulse Rate 74 74 68 Respiratory Rate 20 23 30 H Blood Pressure 139/81 139/63 Pulse Oximetry 95 94 Oxygen Delivery Method Oxygen Flow Rate 0 0 11/23/24 08:00 11/23/24 08:00 11/23/24 08:30 Temperature Pulse Rate 69 77 Respiratory Rate 26 H 31 H Blood Pressure 142/63 H Pulse Oximetry Oxygen Delivery Method Oxygen Flow Rate Oxygen Delivery Method Room Air Oxygen Flow Rate 0 Const General: cooperative, healthy appearing and in distress Nutritional Appearance: average body habitus Orientation: oriented x3 and oriented to person Limitations: altered mental status and other limitations HENMT Head: normal to inspection and normocephalic Eyes General: appearance normal, both eyes and all related structures Neck Neck: normal visual inspection Chest Chest: normal inspection of the chest Resp Effort & Inspection: able to speak in complete sentences and respiratory distress Auscultation: crackles and rales Cardio Palpation: normal PMI Rate: regular rate Rhythm: regular rhythm Heart Sounds: S1 normal, S2 normal and murmur Other: Systolic murmur on LSB Skin General: no rashes or lesions noted Extrem General: normal to inspection Right lower extremity: edema Left lower extremity: edema Other: History of leg edema Objective Labs 11/22/24 23:20 11/22/24 23:20 Labs: Laboratory Results - last 24 hr 11/22/24 11/22/24 11/23/24 23:20 23:46 01:20 WBC 4.1 L RBC 3.68 L Hgb 12.3 Hct 36.7 MCV 99.8 MCH 33.4 MCHC 33.5 RDW 13.9 Plt Count 74 L Neut % (Auto) 89.3 H Lymph % (Auto) 2.7 L [place] % (Auto) 6.0 Eos % (Auto) 1.0 L Baso % (Auto) 1.0 Neut # (Auto) 3700 Lymph # (Auto) 100 L [place] # (Auto) 200 Eos # (Auto) 0 Baso # (Auto) 0 APTT 30 Sodium 136 L Potassium 4.2 Chloride 110 H Carbon Dioxide 20 L BUN 21 H Creatinine 0.90 Estimated GFR > 60 BUN/Creatinine Ratio 23.3 H Glucose 127 H Lactate 1.6 Calcium 9.8 Total Bilirubin 2.2 H AST 127 H ALT 67 H Alkaline Phosphatase 110 Total Creatine Kinase 69 Troponin I 0.097 H 0.169 H* Total Protein 6.8 Albumin 3.7 Globulin 3.1 Albumin/Globulin Ratio 1.2 Triglycerides 56 Cholesterol 140 LDL Cholesterol, Calc 52 HDL Cholesterol 77 H Lipase 249 Procalcitonin 0.199 Nasal Screen MRSA (PCR) SARS-CoV-2 (PCR) Positive H Influenza A (RT-PCR) Flu a negative Influenza B (RT-PCR) Flu b negative RSV (PCR) Negative 11/23/24 03:20 WBC RBC Hgb Hct MCV MCH MCHC RDW Plt Count Neut % (Auto) Lymph % (Auto) [place] % (Auto) Eos % (Auto) Baso % (Auto) Neut # (Auto) Lymph # (Auto) [place] # (Auto) Eos # (Auto) Baso # (Auto) APTT Sodium Potassium Chloride Carbon Dioxide BUN Creatinine Estimated GFR BUN/Creatinine Ratio Glucose Lactate Calcium Total Bilirubin AST ALT Alkaline Phosphatase Total Creatine Kinase Troponin I Total Protein Albumin Globulin Albumin/Globulin Ratio Triglycerides Cholesterol LDL Cholesterol, Calc HDL Cholesterol Lipase Procalcitonin Nasal Screen MRSA (PCR) Not detected SARS-CoV-2 (PCR) Influenza A (RT-PCR) Influenza B (RT-PCR) RSV (PCR) [facility] Medical History (Updated 11/23/24 @ 09:29 by David Hurst MD) Acute non-ST elevation myocardial infarction (NSTEMI) Chronic kidney disease (CKD) stage G3b/A1, moderately decreased glomerular filtration rate (GFR) between 30-44 mL/min/1.73 square meter and albuminuria creatinine ratio less than 30 mg/g Alcohol dependence Surgical History History of colonoscopy History of esophagogastroduodenoscopy (EGD) Family History Father Heart disease Mother Heart disease Social History details: Lives alone in the assisted living. household members: none lives independently: Yes Tobacco & Substance Use Smoking Status: Never smoker alcohol intake: current Assessment & Plan Assessment and plan (1) COVID: Status: Acute (2) Acute non-ST elevation myocardial infarction (NSTEMI): Status: Acute Plan 79-year-old female with past medical history of hypertension COPD chronic kidney disease has been feeling poorly with symptoms of fever chills muscle aches and fatigue. She had a fall at her house and subsequently brought to ER for evaluation. She had an extensive workup in the emergency room negative for pulmonary embolism head injuries for neurological event. Incidental finding of elevated troponin in the setting of normal sinus rhythm with a left bundle branch block with indeterminate onset. She was found to be positive for COVID and placed in isolation. 1. Non ST-elevation myocardial infarction. EKG shows normal sinus rhythm with left bundle branch block with indeterminate onset. Elevated troponin levels 0.169. Patient started on heparin drip for 48 hours to be followed by aspirin and Plavix. Heparin dosing by pharmacy-hospital protocol She has not having any active chest pain however she has mild shortness of breath with a respiratory rate of 30 4 beats per minute and a blood pressure 142/63. She has a temperature of 99.3?. I would like to stop her IV fluids, give her IV Lasix 40 mg stat. She will continue on heparin drip I will start her on lisinopril 10 mg twice daily, serial troponin levels until trending down aspirin 81 mg daily echocardiogram SUAD, metoprolol succinate 25 mg daily, rosuvastatin 20 mg daily. 2. COVID-19 precautions per hospital protocol. She would benefit from aggressive bronchodilators and steroid therapy. She does have a history of COPD in the past all the details of which are not available I could not find any pulmonary function test. She is a former smoker. Patient does have mild respiratory distress with increased respiratory rate. A baseline ABG will be helpful to have a baseline. 3. History of peptic ulcer disease/GERD. Patient is on Protonix 40 mg daily. 4. Chronic kidney diseases: normal BUN/ creatine 5. Leukopenia and thrombocytopenia. Will follow up with you. Please do not hesitate to call. Time-Based Coding :: [TOTAL MINUTES] spent with patient and on the chart (including review of chart, obtaining history, exam, reviewing outside data, placing orders, documenting exam and treatment plan, and counseling patient) on [DATE]. 70 min Review charts, history taking, evaluation and discuss the treatment plan.
[2024-11-23] MEDS: ATORVASTATIN 20 MG TABLET 40 MG PO (09:16)
[2024-11-23] MEDS: THIAMINE 100 MG TABLET PO (09:16)
[2024-11-23] MEDS: FUROSEMIDE 40 MG/4 ML VIAL IV (09:16)
[2024-11-23] MEDS: MULTIVITAMIN 1 TABLET 1 TAB PO (09:16)
[2024-11-23] MEDS: ASPIRIN EC 81 MG TABLET PO (09:16)
[2024-11-23] MEDS: FOLIC ACID 1 MG TABLET PO (09:16)
[2024-11-23] MEDS: PANTOPRAZOLE DR 40 MG TABLET PO (09:16)
[2024-11-23 09:36] LABS: PTT Partial Thromboplastin Tim > 400 SECONDS (25.1-36.5)
[2024-11-23 09:50] LABS: Troponin I 0.224 ng/mL (0.01-0.034)
[2024-11-23] MEDS: ACETAMINOPHEN 325 MG TABLET 650 MG PO (13:41)
--- NOTE | 2024-11-23 15:07 | CM.DANOTE ---
DCP Assessment note pt is an 79yo F admitted after GLF/being on ground for 4 hrs. hx of Alcohol misues, CKD, COPD, GERD. echo pending. found to be having an NSTEMI and COVID pos. followed by hospitalist and police records clerk. per chart review, pt lives indep at [facility]. INJURY PREVENTION COORDINATOR called Lupe to updated her on COVID pos. Lupe appreciative. per Lupe, provide no assist to pt at this time. supportive family. per RN, pt remains on hep drip. per provider wait until tomorrow to initial PT/OT. per RN, drinks 2 glasses or so of wine daily. Due to COVID pos, INJURY PREVENTION COORDINATOR did not meet with pt in room. spoke with Kim DELCID [phone]. confirms doing overall well at . report pt uses walker normally. would take her home. probably would not be interested in HH. pt probably would not want SNF unless physically cannot get out of bed. would take her home when stable. denies other DCP/CM needs at this time. P: pending medical improvement/PT/OT evals Fri, anticipate return to no CM needs. dtr to transport in POV. will continue to follow closely in case any additional DCP needs should arise LIBIA Pack Discharge Planning/Care Management CM Discharge Assessment Start: 11/23/24 02:41 Freq: Status: Active Protocol: Document 11/23/24 15:01 (Rec: 11/23/24 15:07 [id number]) Discharge Planning Assessment Assigned Discharge LIBIA Hameed Photo Mask Pattern Generator Provider Oleg Brunson Insurance Medicare Insurance Comment [employer] secondary DPOA/Assigned FARHANA Alvarez vs dominique Mei Designee Name Contact Information [phone] / [phone] Advance Directives? Yes Advance Directives No on File History Provided By Patient,Family Member,Medical Record Prior Living Assisted Living Arrangements Household Members none Type of Relies on Others transporation used prior to admit Facility Name [facility] Admitted From: Willing to Return to Yes Facility? Independent with ADL Yes 's Is patient alert and Yes oriented? Needs Assistance Home Chores / Shopping With DME Already Rented / FWW / Walker Owned Discharge Plan Home Referrals Initiated None needed If patient plan is Yes SNF: Has PASSR been completed? Review Status In Process Please Provide Date 11/23/24 Initial DC Assessment Was Performed Next Review Type Continued Stay Review
[2024-11-23] MEDS: METOPROLOL ER 25 MG TABLET PO (15:38)
--- NOTE | 2024-11-23 17:23 | PC.NURSE ---
Day Shift Note Patient is alert and oriented to self and place, mildly forgetful. Denies chest pain, denies shortness of breath. Heparin gtt continues per protocol. Critical PTT and troponin results this AM, reported to Dr. Hurst (see critical lab charting for details). Lasix administered and pt with over 3 L out via purewick, purewick currently removed at this time. Bed and chair alarm on, up to chair this evening. 1 person assist with FWW. At 1722 called lab to verify blood specimens received as troponin and PTT results not pending or resulted, specimens located by Ra and being processed by lab.
[2024-11-23 17:47] LABS: PTT Partial Thromboplastin Tim 89 SECONDS (25.1-36.5)
[2024-11-23 18:03] LABS: Troponin I 0.142 ng/mL (0.01-0.034)
[2024-11-23] MEDS: MORPHINE 4 MG/ML INJ 3 MG IV (20:41)
[2024-11-23] MEDS: MELATONIN 3 MG TABLET 9 MG PO (23:35)
[2024-11-24] VITALS (51 sets, daily range): BP systolic 139–166; BP diastolic 65–78; PULSE 50–76; RESP 17–41; TEMP 36.6–37.9; O2SAT 95–98
[2024-11-24 00:40] LABS: PTT Partial Thromboplastin Tim 53 SECONDS (25.1-36.5)
[2024-11-24 07:00] LABS: PTT Partial Thromboplastin Tim 38 SECONDS (25.1-36.5)
--- NOTE | 2024-11-24 07:23 | PM.PN.1 ---
Subjective Subjective Date Patient Seen: 11/24/24 Time Patient Seen: 07:24 Interval history: 79 years old female with history of alcohol abuse, hyperlipidemia, COPD, GERD, presented to the ER with ground-level fall and unable to get up from the floor for 4 hours. Denies any loss of consciousness or head injury. Pt is CoVID 19 positive and in respiratory isolation. No newcomplaints. Pt responded well to diuretics yesterday. Output -3180ml. I spoke to her today and she is feeling better. She is still having chills with respiration is med better. She is able to lay in the bed. No alcohol withdrawals reported She denies any chest pains. Exam Vital Signs (past 8 hours): - 11/24/24 00:00 11/24/24 04:00 Temperature 97.8 F Pulse Rate 56 L 64 Respiratory Rate 20 20 Blood Pressure 139/65 Pulse Oximetry 97 Oxygen Flow Rate 0 Oxygen Delivery Method Room Air Oxygen Flow Rate 0 Narrative Exam Narrative: Clinical examination her blood pressure is 139/65 respiratory rate of 20 and heart rate of 64 beats per minute. She is oxygenating at 97% on room air. Telemetry demonstrates normal sinus rhythm at 64 beats per minute She is alert oriented She does have bilateral basal crackles left side worse than right side. S1-S2 is normal regular She has 1+ leg edema Abdomen is soft benign nontender. Objective Labs 11/22/24 23:20 11/22/24 23:20 Labs: Laboratory Results - last 24 hr 11/23/24 11/23/24 11/24/24 08:32 16:53 00:26 APTT > 400 H* D 89 H* D 53 H D Troponin I 0.224 H* 0.142 H* 11/24/24 06:30 APTT 38 H D Troponin I Troponin now trending down. [facility] Medical History HLD (hyperlipidemia) Alcohol withdrawal delirium, acute, hyperactive Anemia Acute GI bleeding Open fracture dislocation of left ankle Rhabdomyolysis Hepatic encephalopathy Acute non-ST elevation myocardial infarction (NSTEMI) Chronic kidney disease (CKD) stage G3b/A1, moderately decreased glomerular filtration rate (GFR) between 30-44 mL/min/1.73 square meter and albuminuria creatinine ratio less than 30 mg/g Alcohol dependence Surgical History No pertinent past surgical history History of colonoscopy History of esophagogastroduodenoscopy (EGD) Family History Father Heart disease Mother Heart disease Social History details: Lives alone in the assisted living. household members: none lives independently: Yes Smoking Status: Never smoker alcohol intake: current Assessment & Plan Assessment and plan (1) Acute non-ST elevation myocardial infarction (NSTEMI): Status: Acute Plan Continue with same medication Continue heparin drip-dosing by pharmacy PTT to be managed by pharmacy We will switch her to aspirin and Plavix tomorrow Continue respiratory isolation per COVID-19 protocol. No bleeding issues reported. We can start with Plavix today and stop her heparin tomorrow. Time-Based Coding :: [TOTAL MINUTES] 30 spent with patient and on the chart (including review of chart, obtaining history, exam, reviewing outside data, placing orders, documenting exam and treatment plan, and counseling patient) on [DATE]. Quality VTE Deep Vein Thrombosis/Pulmonary Embolism Present on Admission: No
[2024-11-24] MEDS: HEPARIN 5,000 UNIT/ML VIAL 2500 UNIT IV (07:24)
--- NOTE | 2024-11-24 07:47 | P.PN_ITS ---
Subjective Subjective Interval history: This is an 79-year-old female with a history of alcohol abuse, hyperlipidemia, CKD, COPD and GERD who presented with a ground-level fall, rolling out of bed and unable to get up from the floor or get to her alarm button for 4 hours. Denies any loss of consciousness or head injury. Reports left shoulder pain from the fall. The patient reports not feeling well in the last couple of days with bodyaches, subjective fever, runny nose, cough and generalized weakness. Denies any shortness of breath, chest pain, palpitations, nausea, vomiting, abdominal pain, diarrhea or dysuria. Laboratory shows WBC 4.1, H&H 12.3/36.7, platelets 74, sodium 136, potassium 4.2, creatinine 0.9, blood sugar 127, AST 127, ALT 67, total bilirubin 2.2, lactate 1.6, procalcitonin 0.19, troponin 0.097 trending upwards, COVID-positive. COVID was apparently endemic in her assisted living facility a few weeks ago but she suspects that this episode occurred after exposure to relatives visiting from [place]. CT angiogram of the chest shows no PE but cardiomegaly. EKG shows normal sinus rhythm of 90 and LBBB. Unchanged from previous EKG. In the ER she was given aspirin 325 mg p.o., fluid bolus and was started on heparin drip. Cardiology was consulted for the non-STEMI. She has no prior history of heart disease. S: She was doing well, no cough or dyspnea. She feels weak, but is improved. She would like to return home to her assisted living facility at [facility]. O: NAD, alert and oriented. Fluent speech. Lungs are clear, normal rate and effort. Heart is regular, no murmur gallop or rub. Abdomen is soft, non distended. Extremities are free of edema. A/P: NSTEMI ACS and elevated troponin, improved. -Admitted to ICU on Heparin drip -Appreciate Cardiology consult -ASA; oxygen prn; morphine prn -Lipitor 40 mg daily and check lipid panel -Cardiology following, medical managemt and delayed outpatient angiogram. -Echocardiogram: Technically difficult study secondary to poor acoustic windows. - The left ventricular contractility is normal. Estimated ejection fraction is greater than 60% with no segmental wall motion abnormalities. No LVH. Grade 1 diastolic dysfunction. - In limited views, the right ventricular contractility is normal. - Moderate left atrial enlargement. All other cardiac chambers appear to be grossly normal in size. - No obvious valvular abnormalities noted. - No obvious intracardiac shunts. - No obvious intracardiac masses nor thrombi. - No hemodynamically significant pericardial effusion. Conclusion: Normal biventricular systolic function with no obvious valvular abnormalities. When compared to previous echocardiogram, no obvious changes are noted. -lisinopril 10 mg twice daily, aspirin 81 mg daily, metoprolol succinate 25 mg daily, Lasix IV X [address] Aris Aguilar URI, active and stable. -Mild symptoms but likely contributing to fall out of bed -Add Dexamethasone if symptoms progress. -No hypoxia Alcohol abuse. Stable. -Monitor for any withdrawal symptoms. -Start thiamine and folic acid -CIWA protocol Hyperlipidemia. Restart Lipitor and check lipids. CKD. Chronic and stable. -Continue to monitor. Avoid nephrotoxins.? GERD. Restart pantoprazole Recent fall. Fall precaution. PT and OT evaluation on discharge. PLAN: -heparin drip through tomorrow morning, then start dual antiplatelet therapy. -continue beta johnson and atorvastatin. -discharge planning, she may not be able to return to her assisted living with her COVID status. We will investigate. DVT prevention with heparin drip. Disposition: Likely to need a 5 day Isolation hospital stay before being allowed back to [facility] or SNF Exam Vital Signs (past 8 hours): - 11/24/24 00:00 11/24/24 04:00 Temperature 97.8 F Pulse Rate 56 L 64 Respiratory Rate 20 20 Blood Pressure 139/65 Pulse Oximetry 97 Oxygen Flow Rate 0 Oxygen Delivery Method Room Air Oxygen Flow Rate 0 Objective Labs 11/24/24 10:17 11/24/24 10:17 Labs: Laboratory Results - last 24 hr 11/23/24 11/23/24 11/24/24 08:32 16:53 00:26 APTT > 400 H* D 89 H* D 53 H D Troponin I 0.224 H* 0.142 H* 11/24/24 06:30 APTT 38 H D Troponin I [facility] Medical History HLD (hyperlipidemia) Alcohol withdrawal delirium, acute, hyperactive Anemia Acute GI bleeding Open fracture dislocation of left ankle Rhabdomyolysis Hepatic encephalopathy Acute non-ST elevation myocardial infarction (NSTEMI) Chronic kidney disease (CKD) stage G3b/A1, moderately decreased glomerular filtration rate (GFR) between 30-44 mL/min/1.73 square meter and albuminuria creatinine ratio less than 30 mg/g Alcohol dependence Surgical History No pertinent past surgical history History of colonoscopy History of esophagogastroduodenoscopy (EGD) Family History Father Heart disease Mother Heart disease Social History details: Lives alone in the assisted living. household members: none lives independently: Yes Smoking Status: Never smoker alcohol intake: current Assessment & Plan Time-Based Coding :: [TOTAL MINUTES] spent with patient and on the chart (including review of chart, obtaining history, exam, reviewing outside data, placing orders, documenting exam and treatment plan, and counseling patient) on [DATE]. Quality VTE Deep Vein Thrombosis/Pulmonary Embolism Present on Admission: No
[2024-11-24] MEDS: METOPROLOL ER 25 MG TABLET PO (08:28)
[2024-11-24] MEDS: MULTIVITAMIN 1 TABLET 1 TAB PO (08:28)
[2024-11-24] MEDS: FOLIC ACID 1 MG TABLET PO (08:28)
[2024-11-24] MEDS: THIAMINE 100 MG TABLET PO (08:28)
[2024-11-24] MEDS: CLOPIDOGREL 75 MG TABLET PO (08:29)
[2024-11-24] MEDS: ATORVASTATIN 20 MG TABLET 40 MG PO (08:29)
[2024-11-24] MEDS: PANTOPRAZOLE DR 40 MG TABLET PO (08:29)
[2024-11-24] MEDS: ASPIRIN EC 81 MG TABLET PO (08:29)
[2024-11-24 10:27] LABS: Hematocrit 35.6 % (36-46); Hemoglobin 12.1 g/dL (12.0-16.0); Mean Corpuscular HGB Conc 33.9 % (30-36); Mean Corpuscular Hemoglobin 33.6 PG (26-34); Mean Corpuscular Volume 99.1 fL (80-100); Platelet Count 77 X10^3/uL (150-400)
[2024-11-24 10:44] LABS: Alanine Aminotransferase 55 IU/L (<35); Albumin 3.4 g/dL (3.5-5.0); Albumin Globulin Ratio 1.1 (1.0-2.8); Alkaline Phosphatase 91 U/L (38-126); Blood Urea Nitrogen 25 mg/dL (7-17); Calcium 9.3 mg/dL (8.4-10.2); Carbon Dioxide 24 mmol/L (22-32); Chloride 103 mmol/L (98-107); Estimated Glomerular Filt Rate 58 mL/min (>60); Globulin 3.0 g/dL (1.7-4.1); Glucose 104 mg/dL (70-99); HEMOLYSIS < 15 (0-50); Potassium 4.2 mmol/L (3.4-5.1); Sodium 134 mmol/L (137-145); Total Protein 6.4 g/dL (6.3-8.2)
[2024-11-24] MEDS: ACETAMINOPHEN 325 MG TABLET 650 MG PO (11:25)
--- NOTE | 2024-11-24 13:20 | CM.DPC ---
DCP Cont: Per MD, pt's trops trending down and remains on the hep drip today and likely discontinue tomrorow Thurs. Will plan to order PT/OT in the AM to r/o need for HH vs SNF. Per RN, pt has been 1PA with FWW in room but increased falls recently and will likely d/c on blood thinner and discussed the purpose of PT to [facility] as they were not sure PT needed. [facility] stated they do not feel SNF needed and not sure HH needed either. Plan: SW to follow closely in AM after PT/OT to determine likely need for HH and then discussion with [facility]. F2F completed in case HH needed at d/c but no referrals sent yet. Connie Pineda MSW
[2024-11-24 13:51] LABS: PTT Partial Thromboplastin Tim 62 SECONDS (25.1-36.5)
[2024-11-24 20:33] LABS: PTT Partial Thromboplastin Tim 56 SECONDS (25.1-36.5)
[2024-11-25] VITALS (38 sets, daily range): BP systolic 120–140; BP diastolic 57–61; PULSE 48–68; RESP 17–44; TEMP 36.4; O2SAT 84–97
[2024-11-25] MEDS: HEPARIN DRIP 25,000 UNIT/500 ML IV.SOLN 9.471 UNIT IV (02:30)
[2024-11-25 05:49] LABS: PTT Partial Thromboplastin Tim 53 SECONDS (25.1-36.5)
[2024-11-25 05:57] LABS: Add Manual Diff / Slide Review NO; Blood Urea Nitrogen 26 mg/dL (7-17); Calcium 8.9 mg/dL (8.4-10.2); Carbon Dioxide 22 mmol/L (22-32); Chloride 106 mmol/L (98-107); Estimated Glomerular Filt Rate > 60 mL/min (>60); Glucose 91 mg/dL (70-99); HEMOLYSIS 24 (0-50); Hematocrit 34.3 % (36-46); Hemoglobin 11.8 g/dL (12.0-16.0); Lymphocytes Absolute Auto 900 /uL (1100-4500); Mean Corpuscular HGB Conc 34.5 % (30-36); Mean Corpuscular Hemoglobin 34.0 PG (26-34); Mean Corpuscular Volume 98.7 fL (80-100); Platelet Count 72 X10^3/uL (150-400); Potassium 3.8 mmol/L (3.4-5.1); Sodium 134 mmol/L (137-145)
--- NOTE | 2024-11-25 08:00 | PM.PN.1 ---
Subjective Subjective Interval history: Summary: This is an 79-year-old female with a history of alcohol abuse, hyperlipidemia, CKD, COPD and GERD who presented with a ground-level fall, rolling out of bed and unable to get up from the floor or get to her alarm button for 4 hours. Denies any loss of consciousness or head injury. Reports left shoulder pain from the fall. The patient reports not feeling well in the last couple of days with bodyaches, subjective fever, runny nose, cough and generalized weakness. Denies any shortness of breath, chest pain, palpitations, nausea, vomiting, abdominal pain, diarrhea or dysuria. Laboratory shows WBC 4.1, H&H 12.3/36.7, platelets 74, sodium 136, potassium 4.2, creatinine 0.9, blood sugar 127, AST 127, ALT 67, total bilirubin 2.2, lactate 1.6, procalcitonin 0.19, troponin 0.097 trending upwards, COVID-positive. COVID was apparently endemic in her assisted living facility a few weeks ago but she suspects that this episode occurred after exposure to relatives visiting from [place]. CT angiogram of the chest shows no PE but cardiomegaly. EKG shows normal sinus rhythm of 90 and LBBB. Unchanged from previous EKG. In the ER she was given aspirin 325 mg p.o., fluid bolus and was started on heparin drip. Cardiology was consulted for the non-STEMI. She has no prior history of heart disease. 11/24: Comfortable and chest-pain free. Continues on the last 24 hours of her 48 hour heparin drip. Seen by Cardiology. S: O: NAD, alert and oriented. Fluent speech. Lungs are clear, normal rate and effort. Heart is regular, no murmur gallop or rub. Abdomen is soft, non distended. Extremities are free of edema. A/P: 1. NSTEMI, active. 2. Covid URI, stable. 3. Alcohol abuse, stable. Chronic medical problems: HLD CKD GERD PLAN: -discontinue heparin drip and start DA PT today. -COVID isolation -discussed medical therapy with Cardiology -discharge planning Exam Vital Signs (past 8 hours): - 11/25/24 04:00 Pulse Rate 56 L Respiratory Rate 17 Blood Pressure 126/59 L Pulse Oximetry 97 Oxygen Delivery Method Room Air Oxygen Flow Rate 0 Objective Labs 11/25/24 05:25 11/25/24 05:25 Labs: Laboratory Results - last 24 hr 11/24/24 11/24/24 11/24/24 10:17 13:32 20:18 WBC 4.5 RBC 3.59 L Hgb 12.1 Hct 35.6 L MCV 99.1 MCH 33.6 MCHC 33.9 RDW 13.9 Plt Count 77 L Neut % (Auto) Lymph % (Auto) [place] % (Auto) Eos % (Auto) Baso % (Auto) Neut # (Auto) Lymph # (Auto) [place] # (Auto) Eos # (Auto) Baso # (Auto) APTT 62 H D 56 H Sodium 134 L Potassium 4.2 Chloride 103 Carbon Dioxide 24 BUN 25 H Creatinine 0.98 Estimated GFR 58 L BUN/Creatinine Ratio 25.5 H Glucose 104 H Calcium 9.3 Total Bilirubin 1.6 H AST 81 H ALT 55 H Alkaline Phosphatase 91 Total Protein 6.4 Albumin 3.4 L Globulin 3.0 Albumin/Globulin Ratio 1.1 11/25/24 05:25 WBC 3.4 L RBC 3.48 L Hgb 11.8 L Hct 34.3 L MCV 98.7 MCH 34.0 MCHC 34.5 RDW 13.7 Plt Count 72 L Neut % (Auto) 54.4 Lymph % (Auto) 26.1 [place] % (Auto) 16.8 H Eos % (Auto) 1.9 L Baso % (Auto) 0.8 Neut # (Auto) 1900 Lymph # (Auto) 900 L [place] # (Auto) 600 Eos # (Auto) 100 Baso # (Auto) 0 APTT 53 H Sodium 134 L Potassium 3.8 Chloride 106 Carbon Dioxide 22 BUN 26 H Creatinine 0.92 Estimated GFR > 60 BUN/Creatinine Ratio 28.3 H Glucose 91 Calcium 8.9 Total Bilirubin AST ALT Alkaline Phosphatase Total Protein Albumin Globulin Albumin/Globulin Ratio [facility] Medical History HLD (hyperlipidemia) Alcohol withdrawal delirium, acute, hyperactive Anemia Acute GI bleeding Open fracture dislocation of left ankle Rhabdomyolysis Hepatic encephalopathy Acute non-ST elevation myocardial infarction (NSTEMI) Chronic kidney disease (CKD) stage G3b/A1, moderately decreased glomerular filtration rate (GFR) between 30-44 mL/min/1.73 square meter and albuminuria creatinine ratio less than 30 mg/g Alcohol dependence Surgical History No pertinent past surgical history History of colonoscopy History of esophagogastroduodenoscopy (EGD) Family History Father Heart disease Mother Heart disease Social History details: Lives alone in the assisted living. household members: none lives independently: Yes Smoking Status: Never smoker alcohol intake: current Assessment & Plan Time-Based Coding :: [TOTAL MINUTES] spent with patient and on the chart (including review of chart, obtaining history, exam, reviewing outside data, placing orders, documenting exam and treatment plan, and counseling patient) on [DATE]. Quality VTE Deep Vein Thrombosis/Pulmonary Embolism Present on Admission: No
[2024-11-25] MEDS: THIAMINE 100 MG TABLET PO (08:37)
[2024-11-25] MEDS: ATORVASTATIN 20 MG TABLET 40 MG PO (08:37)
[2024-11-25] MEDS: METOPROLOL ER 25 MG TABLET PO (08:38)
[2024-11-25] MEDS: MULTIVITAMIN 1 TABLET 1 TAB PO (08:38)
[2024-11-25] MEDS: CLOPIDOGREL 75 MG TABLET PO (08:38)
[2024-11-25] MEDS: ASPIRIN EC 81 MG TABLET PO (08:38)
[2024-11-25] MEDS: PANTOPRAZOLE DR 40 MG TABLET PO (08:38)
[2024-11-25] MEDS: FOLIC ACID 1 MG TABLET PO (08:38)
--- NOTE | 2024-11-25 11:30 | OT.IPNOTE ---
Attempted OT eval and pt refused and states back to her baseline for needs. Pt insists that her main problem is her foam bed with soft sides at home and states, I do not want to leave the hospital until I got another bed at home. Reiterated that pt should talk to her family and facility to get a more appropriate bed for her and also option of having a bed rail to help improve her safety getting on and off the bed. Pt resistant to do OT eval. Pt however would greatly benefit from home health OT/PT to help assess environmental safety and equipment needs. Pt asking if she should use a FWW versus 4ww. Explained to pt unable to give her an accurate answer without having her get up. Pt still refusing to get up, encouraged pt to get up with PT later. Discharge OT eval orders- defer to home health OT for OT needs.
--- NOTE | 2024-11-25 13:21 | PT.IIE ---
Current Diagnoses Non-ST elevation (NSTEMI) myocardial infarction (11/23/24) COVID-19 (11/23/24) Surgical History (Last Reviewed 11/24/24 @ 07:36 by David Hurst MD) History of colonoscopy History of esophagogastroduodenoscopy (EGD) No pertinent past surgical history Medical History (Last Reviewed 11/24/24 @ 07:36 by David Hurst MD) Acute GI bleeding Acute non-ST elevation myocardial infarction (NSTEMI) Alcohol dependence Alcohol withdrawal delirium, acute, hyperactive Anemia Chronic kidney disease (CKD) stage G3b/A1, moderately decreased glomerular filtration rate (GFR) between 30-44 mL/min/1.73 square meter and albuminuria creatinine ratio less than 30 mg/g Hepatic encephalopathy HLD (hyperlipidemia) Open fracture dislocation of left ankle Rhabdomyolysis Physical Therapy Inpatient Evaluation/Re-Eval M1 PT/OT-IP Prior Functional Status Start: 11/25/24 13:12 Freq: NEEDED Status: Active Protocol: Document 11/25/24 13:13 KJ (Rec: 11/25/24 13:21 KJ [id number]) Medical Review Prior Functional Status Medical History Yes Reviewed Mobility and Gait Ambulated w/4ww (rollator) to/from meals at [facility] Activities of Daily Indep w/self care and ADLs, meals prepared in dining Living and IADL's room Social History Household Members none Living Arrangements Assisted Living Home Equipment Four Wheel Walker Additional Social Does not like the mattress she has at home; feels like History Comment she slides off the edge. M2 PT-IP Current Condition Start: 11/25/24 13:12 Freq: NEEDED Status: Active Protocol: Document 11/25/24 13:13 KJ (Rec: 11/25/24 13:21 KJ [id number]) Physical Therapy Current Condition Current Condition Evaluation Date 11/25/24 Treatment Diagnosis Poor activity tolerance M3 PT-IP Subjective Start: 11/25/24 13:12 Freq: NEEDED Status: Active Protocol: Document 11/25/24 13:13 KJ (Rec: 11/25/24 13:21 KJ [id number]) Subjective Physical Therapy Visit Type Type Initial Evaluation Visit Start Time 12:27 Visit Stop Time 13:08 Physical Therapy Visit Comments Patient Comments does not like her bed at home;edges are too soft Patient Goals to go home M4 PT-IP Mobility and Gait Start: 11/25/24 13:12 Freq: NEEDED Status: Active Protocol: Document 11/25/24 13:13 KJ (Rec: 11/25/24 13:21 KJ [id number]) PT-Bed Mobility Assessment Rolling Type of Rolling Roll to Left Level of Assist Independent Supine to Sit Supine to Sit Independent Scooting Scooting to Edge of Standby Assistance Bed PT-Transfer Assessment Sit to and From Stand Sit to and from Contact Guard Assistance Stand Gait Assessment Gait Gait Assistance Contact Guard Assist Required: Distance (Feet) 10 Assistive Devices Assistive Device Gait Belt,Front Wheeled Walker Gait Deviations General Gait Pattern Decreased Stride Length,Flexed Trunk Factors Limiting Gait Function Factors Limiting Decreased Activity Tolerance Gait Function Comments Gait Comments ambulated in room 10' x 2, gait steady without lob. Was able to stand by self from toilet. PT-Balance Assessment Sitting Balance and Reactions Static Sitting Good Balance Ability Dynamic Sitting Good Balance Ability Standing Balance and Reactions Static Standing Good Balance Ability Dynamic Standing Good Balance Ability M5 PT-IP Objective Assessments Start: 11/25/24 13:12 Freq: NEEDED Status: Active Protocol: Document 11/25/24 13:13 KJ (Rec: 11/25/24 13:21 KJ [id number]) Orientation Orientation/Cognition Level of Alertness Alert Orientation Name,Age,Birthday,Month,Date,Year,Day of Week,Place, Situation Language Function No Deficits Noted Ability Safety Awareness Understands Safety Issues Memory Description No Deficits Noted Gross Range of Motion Upper Extremity ROM Assessment Within Functional Limits Lower Extremity ROM Assessment Within Functional Limits Strength Upper Extremity Strength Assessment Within Functional Limits Lower Extremity Strength Assessment Within Functional Limits M6 PT-IP Treatment Start: 11/25/24 13:12 Freq: NEEDED Status: Active Protocol: Document 11/25/24 13:13 KJ (Rec: 11/25/24 13:21 KJ [id number]) Physical Therapy Treatment Exercises Exercises Ankle Pumps Education Education Provided Safety Equipment Issued Equipment Type and Recommend [employer] Other Treatments Other Treatment Instructed pt on safety during ambulation and transfers Performed . Provided verbal cues for safety. M7 PT-IP Assessment and Plan Start: 11/25/24 13:12 Freq: NEEDED Status: Active Protocol: Document 11/25/24 13:13 KJ (Rec: 11/25/24 13:21 KJ [id number]) PT Summary Assessment and Plan Potential Rehabilitation Good Potential Status of Condition Evolving at Evaluation Summary Impairments Activity Tolerance Progress Towards Progressing Toward Goals Goals Assessment Summary Tolerated up and oob well, should be able to go home to [facility] Bed Mobility Goal Independent Transfer Goal Independent Gait Goal Independent Gait Distance 50 Days to Meet Goals 5 Frequency of Treatment Frequency Of Once a Day Treatment Treatment Plan Physical Therapy Transfer Training,Gait Training,Therapeutic Exercise Treatment Plan Other Continue to progress mobility Recommendations and Next Treatment Focus Recommendations To Nursing Amount of Assist 1 Person Assist Needed Discharge Recommendations PT Discharge Home with Assistance,Home Health,Outpatient PT Recommendations Other Discharge Pt may be able to attend outpatient PT if available at Recommendations [facility] Equipment Needed for Recommend fww Home Before Discharge Transportation Needs Private Vehicle,Wheelchair/Cabulance at Discharge
--- NOTE | 2024-11-25 14:37 | CM.DPNOTE ---
DCP Continued: Reviewed EMR and team rounds for pt?s medical status. Per hospitalist, pt cleared to discharge back to [facility] if accepted with new COVID+ dx. DCP called Nuha at [facility] who states they will accept pt with COVID+ dx as she is returning to her own apartment/unit. Requests home health for added support for recovery. Will send DNS, Lupe, discharge summary when available. DCP discussed above with pt and pt daughter in law, , who are in agreement with dc home and home health referral; no preference for agency. Provided [facility] brochure to pt RN to provide at discharge teaching. DCP sent referral to [facility] per vendor calendar via secure email, pending acceptance. DCP discussed above with hospitalist and pt RN. Plan: Anticipating dc home with family to transport, [facility] to follow with care if accepted. CM Team will continue to follow for coordination of discharge plans. ELMA EsquedaSW
--- NOTE | 2024-11-25 15:45 | P.DS_ITS ---
History of Present Illness History of Present Illness Chief complaint: weakness Narrative: From H&P: This is an 79-year-old female with a history of alcohol abuse, hyperlipidemia, CKD, COPD and GERD who presented with a ground-level fall, rolling out of bed and unable to get up from the floor or get to her alarm button for 4 hours. Denies any loss of consciousness or head injury. Reports left shoulder pain from the fall. The patient reports not feeling well in the last couple of days with bodyaches, subjective fever, runny nose, cough and generalized weakness. Denies any shortness of breath, chest pain, palpitations, nausea, vomiting, abdominal pain, diarrhea or dysuria. Laboratory shows WBC 4.1, H&H 12.3/36.7, platelets 74, sodium 136, potassium 4.2, creatinine 0.9, blood sugar 127, AST 127, ALT 67, total bilirubin 2.2, lactate 1.6, procalcitonin 0.19, troponin 0.097 trending upwards, COVID-positive. COVID was apparently endemic in her assisted living facility a few weeks ago but she suspects that this episode occurred after exposure to relatives visiting from [place]. CT angiogram of the chest shows no PE but cardiomegaly. EKG shows normal sinus rhythm of 90 and LBBB. Unchanged from previous EKG. In the ER she was given aspirin 325 mg p.o., fluid bolus and was started on heparin drip. Cardiology was consulted for the non-STEMI. She has no prior history of heart disease. Discharge Providers Provider Date of admission: 11/23/24 02:11 Discharge Date: 11/26/24 Primary care physician: Oleg Brunson MD Consults: 11/23/24 04:22 Consult to Pharmacy Routine Comment: Med review 11/23/24 08:05 Consult to Cardiology Routine Comment: Consulting Provider: David Hurst Reason for consultation: NSTEMI Has provider been notified: Yes 11/24/24 13:29 Consult to Home Health Routine Comment: COVID, NSTEMI Reason For Exam: Set up RN/PT for discharge to home 11/25/24 09:21 Consult to Physical Therapy Evaluate & Treat Comment: Physician Instructions: Evaluate and Treat 11/25/24 09:23 Consult to Occupational Therapy Evaluate & Treat Comment: Physician Instructions: Evaluate and treat Discharge provider: Estuardo Prasad MD Summary Hospital Course Discharge Diagnosis: NSTEMI ACS and elevated troponin, improved. -Heparin drip for 48 hours. -DAPT, BB. -Lipitor 40 mg daily. -Cardiology advised medical management and delayed outpatient angiogram. -Echocardiogram: - The left ventricular contractility is normal. Estimated ejection fraction is greater than 60% with no segmental wall motion abnormalities. No LVH. Grade 1 diastolic dysfunction. - In limited views, the right ventricular contractility is normal. - Moderate left atrial enlargement. All other cardiac chambers appear to be grossly normal in size. - No obvious valvular abnormalities noted. - No obvious intracardiac shunts. - No obvious intracardiac masses nor thrombi. - No hemodynamically significant pericardial effusion. Conclusion: Normal biventricular systolic function with no obvious valvular abnormalities. When compared to previous echocardiogram, no obvious changes are noted. -lisinopril 10 mg twice daily, aspirin 81 mg daily, metoprolol succinate 25 mg daily, Lasix IV X [address] Aris FIGUEROA, active and stable. -Mild symptoms but likely contributing to fall out of bed -No hypoxia Alcohol abuse. Stable. -Monitor for any withdrawal symptoms. -No withdrawal noted. Hyperlipidemia. Stable. CKD. Chronic and stable. -Continue to monitor. Avoid nephrotoxins.? GERD. Stable. Recent fall. Improved. -Did well with PT. HH. Hospital Course: She presented with a fall found to have COVID without hypoxemia. She had an elevated troponin. She was admitted and placed on a heparin drip and treated medically for NSTEMI. Recommendations for management were provided by Cardiology. She improved symptomatically and a had no evidence of heart failure or persistent pain. She was on heparin for 48 hours. She was treated with dual antiplatelet therapy and beta blockade. She was stable for discharge with close follow up with Cardiology and anticipation of further risk stratification strategies. Status at Discharge Cognitive/behavioral status at discharge: oriented Functional status at discharge: uses cane/walker Overall status at discharge: patient is progressing back to baseline Time Spent with Patient Time spent: Greater than 30 minutes Exam Vital Signs (past 8 hours): - 11/25/24 08:00 11/25/24 08:06 11/25/24 08:06 Temperature Pulse Rate 48 L 50 L Respiratory Rate 20 19 Blood Pressure 140/59 L Pulse Oximetry 11/25/24 08:30 11/25/24 09:00 11/25/24 09:29 Temperature Pulse Rate 57 L 52 L Respiratory Rate 20 20 Blood Pressure 120/58 L Pulse Oximetry 94 95 11/25/24 09:29 11/25/24 09:30 11/25/24 10:00 Temperature Pulse Rate 52 L 52 L 48 L Respiratory Rate 22 30 H 19 Blood Pressure Pulse Oximetry 85 L 86 L 87 L 11/25/24 10:30 11/25/24 11:00 11/25/24 11:30 Temperature Pulse Rate 48 L 49 L 48 L Respiratory Rate 17 24 25 H Blood Pressure Pulse Oximetry 85 L 85 L 86 L 11/25/24 12:00 11/25/24 12:30 11/25/24 13:00 Temperature Pulse Rate 48 L 51 L 61 Respiratory Rate 29 H 37 H 38 H Blood Pressure Pulse Oximetry 86 L 85 L 85 L 11/25/24 13:30 11/25/24 14:00 11/25/24 14:30 Temperature Pulse Rate 50 L 53 L 50 L Respiratory Rate 27 H 44 H 33 H Blood Pressure Pulse Oximetry 85 L 84 L 85 L 11/25/24 15:00 11/25/24 15:29 11/25/24 15:29 Temperature Pulse Rate 49 L 49 L Respiratory Rate 22 25 H Blood Pressure 120/57 L Pulse Oximetry 85 L 95 11/25/24 15:30 11/25/24 15:34 Temperature 97.5 F L Pulse Rate 49 L Respiratory Rate 25 H Blood Pressure Pulse Oximetry 93 Oxygen Delivery Method Room Air Oxygen Flow Rate 0 Narrative Exam Narrative: NAD, alert and oriented. Fluent speech. Lungs are clear, normal rate and effort. Heart is regular, no murmur gallop or rub. Abdomen is soft, non distended. Extremities are free of edema. Objective Imaging Multiple studies: : Radiologist's impression: Head CT: No acute intracranial pathology Chest CTA: 1. No pulmonary embolus. No thoracic aortic aneurysm or gross dissection. Prominent size of main pulmonary artery which can be seen associated with pulmonary vascular hypertension. 2. Scattered scarring/atelectasis in bilateral lower lung [place]. No focal infiltrate, pleural effusion or. 3. Cardiomegaly, no pericardial effusion. No mediastinal or hilar lymphadenopathy. Moderate size hiatal hernia. Labs 11/25/24 05:25 11/25/24 05:25 Labs: Laboratory Results - last 24 hr 11/24/24 11/25/24 20:18 05:25 WBC 3.4 L RBC 3.48 L Hgb 11.8 L Hct 34.3 L MCV 98.7 MCH 34.0 MCHC 34.5 RDW 13.7 Plt Count 72 L Neut % (Auto) 54.4 Lymph % (Auto) 26.1 [place] % (Auto) 16.8 H Eos % (Auto) 1.9 L Baso % (Auto) 0.8 Neut # (Auto) 1900 Lymph # (Auto) 900 L [place] # (Auto) 600 Eos # (Auto) 100 Baso # (Auto) 0 APTT 56 H 53 H Sodium 134 L Potassium 3.8 Chloride 106 Carbon Dioxide 22 BUN 26 H Creatinine 0.92 Estimated GFR > 60 BUN/Creatinine Ratio 28.3 H Glucose 91 Calcium 8.9 PFSH Medical History HLD (hyperlipidemia) Alcohol withdrawal delirium, acute, hyperactive Anemia Acute GI bleeding Open fracture dislocation of left ankle Rhabdomyolysis Hepatic encephalopathy Acute non-ST elevation myocardial infarction (NSTEMI) Chronic kidney disease (CKD) stage G3b/A1, moderately decreased glomerular filtration rate (GFR) between 30-44 mL/min/1.73 square meter and albuminuria creatinine ratio less than 30 mg/g Alcohol dependence Surgical History No pertinent past surgical history History of colonoscopy History of esophagogastroduodenoscopy (EGD) Family History Father Heart disease Mother Heart disease Social History details: Lives alone in the assisted living. household members: none lives independently: Yes Smoking Status: Never smoker alcohol intake: current Discharge Assessment & Plan Assessment and Plan Assessment: 1. NSTEMI 2. Covid Plan of Treatment: Discharge home with new cardiac medications. She will see Dr. Hurst for ongoing cardiology care and recommendations. Discharge Plan Discharge Plan Patient Disposition: Home Health Service Transfer to: [facility] Provider Discharge Comment: Stable for discharge back to [facility] independent living with home health. Discharge orders & Medications Prescriptions: New clopidogrel 75 mg Tablet 75 mg PO DAILY Qty: 30 1RF aspirin 81 mg Tablet,Delayed Release (Dr/Ec) 81 mg PO DAILY Qty: 30 1RF lisinopril 10 mg Tablet 10 mg PO DAILY Qty: 30 1RF folic acid 1 mg Tablet 1 mg PO DAILY Qty: 30 1RF metoprolol succinate 25 mg Tablet Extended Release 24 Hr 25 mg PO DAILY Qty: 30 1RF lactulose 10 gram/15 mL Solution 20 gm PO DAILY PRN (Reason: TO HAVE 1 BM/DAY) Qty: 30 0RF multivitamin with folic acid [Tab-A-Mayr] 400 mcg Tablet 1 tab PO DAILY Qty: 30 1RF Continued rosuvastatin [Crestor] 20 MG tablet 20 mg PO QDAY Qty: 0 pantoprazole 40 mg Tablet,Delayed Release (Dr/Ec) 40 mg PO DAILY Qty: 60 0RF Follow up/Referrals: Oleg Brunson MD [Primary Care Provider, Internal Medicine] Diet/Activity/Treatments Diet: Low-fat Visit Report/Discharge Packet Instructions: DI for Heart Attack, DI for COVID-19 (Suspected or Confirmed ) Stand Alone Forms: Patient Portal/API Discharge Data Primary Care Provider: Oleg Brunson Quality VTE Deep Vein Thrombosis/Pulmonary Embolism Present on Admission: No
--- NOTE | 2024-11-25 18:49 | PC.NURSE ---
Discharge note: Discharge instructions given to patient, discussed importance of F/U with PMD, new medications, and signs of worsening symptoms. Verbalized understanding of discharge instructions. Home via private vehicle, accoplanied by family. Rx to be picked up on way to [facility].
== END 2024-11-25 18:53 | disposition home health service (06) | DRG 280 ==
LOC: ED 11-23 00:17 → AC 11-23 02:12 → ICU 11-23 02:41
PROVIDERS: Hospitalist; Internal Medicine Cardiovascular Disease; Admitting Provider Internal Medicine; Emergency Provider Family Medicine; PCP Internal Medicine; Referring Provider Family Medicine; Visit Provider Internal Medicine
DX: I21.4 Non-ST elevation (NSTEMI) myocardial infarction (principal); U07.1 COVID-19; F10.10 Alcohol abuse, uncomplicated; E78.5 Hyperlipidemia, unspecified; N18.9 Chronic kidney disease, unspecified; K21.9 Gastro-esophageal reflux disease without esophagitis; J44.9 Chronic obstructive pulmonary disease, unspecified; I44.7 Left bundle-branch block, unspecified; D69.6 Thrombocytopenia, unspecified; M25.512 Pain in left shoulder; W18.30XA Fall on same level, unspecified, initial encounter; Z87.891 Personal history of nicotine dependence
CPT/HCPCS: 36415; 70450; 71275; 80048; 80053; 80061; 82550; 83605; 83690; 84145; 84484; 85025; 85027; 85730; 87040; 87637; 87797; 93005; 93010; 96365; 97161; 97530; 99284; 99285; C8929; J1644; J1938; J2272; Q9957; Q9967

== ENCOUNTER 2024-12-19 00:47 | Emergency (ER) | payer MEDICARE, OTHER, SELFPAY ==
[2024-11-23 03:44] VITALS: BMI 41.7
[2024-12-19 00:59] VITALS: BP 166/70; PULSE 84; RESP 18; TEMP 36.9; O2SAT 97; BMI 36.6
--- NOTE | 2024-12-19 01:16 | EKG_ITS ---
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
[2024-12-19 01:21] LABS: Add Manual Diff / Slide Review NO; Hematocrit 28.5 % (36-46); Hemoglobin 9.6 g/dL (12.0-16.0); Lymphocytes Absolute Auto 1600 /uL (1100-4500); Mean Corpuscular HGB Conc 33.8 % (30-36); Mean Corpuscular Hemoglobin 33.9 PG (26-34); Mean Corpuscular Volume 100.3 fL (80-100); Platelet Count 129 X10^3/uL (150-400)
[2024-12-19 01:25] LABS: Alanine Aminotransferase 42 IU/L (<35); Albumin 3.5 g/dL (3.5-5.0); Albumin Globulin Ratio 1.2 (1.0-2.8); Alkaline Phosphatase 87 U/L (38-126); Blood Urea Nitrogen 46 mg/dL (7-17); Calcium 9.8 mg/dL (8.4-10.2); Carbon Dioxide 23 mmol/L (22-32); Chloride 112 mmol/L (98-107); Estimated Glomerular Filt Rate 55 mL/min (>60); Globulin 3.0 g/dL (1.7-4.1); Glucose 123 mg/dL (70-99); HEMOLYSIS < 15 (0-50); Lipase 241 U/L (23-300); Potassium 4.7 mmol/L (3.4-5.1); Sodium 142 mmol/L (137-145); Total Protein 6.5 g/dL (6.3-8.2)
--- NOTE | 2024-12-19 01:29 | ED_ITS ---
HPI - Abdominal Pain General Chief Complaint: Abdominal Pain Stated Complaint: Abdominal Pain, Nausea Time Seen by Provider: 12/19/24 00:50 Source: patient and family Mode of arrival: Wheelchair History of Present Illness HPI narrative: 79-year-old female with a history of recent COVID infection and NSTEMI approximately 2 weeks ago presents with lower abdominal pelvic discomfort that started yesterday evening. According to patient's daughter, patient has also been a little bit more confused. Patient does admit to some urinary frequency but denies any hematuria dysuria, hematochezia or any other symptoms. Currently the patient denies any lower abdominal pelvic discomfort or pain. Related Data Home Medications ?Medication ?Instructions ?Recorded ?Confirmed rosuvastatin 20 mg tablet (Crestor) 20 mg PO QDAY ##0 03/23/17 11/23/24 Previous Rx's ?Medication ?Instructions ?Recorded pantoprazole 40 mg tablet,delayed 40 mg PO DAILY #60 t abs 03/30/22 release aspirin 81 mg tablet,delayed 81 mg PO DAILY #30 tabs 0 11/25/24 release clopidogrel 75 mg tablet 75 mg PO DAILY #30 tabs 11/08 11/01 folic acid 1 mg tablet 1 mg PO DAILY #30 tabs 11/25 lactulose 10 gram/15 mL oral 20 gm PO DAILY PRN TO HAV E 1 11/25/24 solution BM/DAY #30 doses lisinopril 10 mg tablet 10 mg PO DAILY #30 tabs 11/08 11/01 metoprolol succinate 25 mg 25 mg PO DAILY #30 tabs tablet,extended release 24 hr multivitamin with folic acid 400 1 tab PO DAILY #30 ta bs 11/25/24 mcg tablet (Tab-A-Mary) cephalexin 500 mg capsule 500 mg PO Q12H 7 days #14 ca ps 12/19/24 Allergies Allergy/AdvReac Type Severity Reaction Status Date / Time No Known Drug Allergies Allergy Verified 12/19/24 00:59 Review of Systems Review of Systems ROS Unobtainable: All systems reviewed & are unremarkable except as noted in HPI and below Patient History Medical History HLD (hyperlipidemia) Alcohol withdrawal delirium, acute, hyperactive Anemia Acute GI bleeding Open fracture dislocation of left ankle Rhabdomyolysis Hepatic encephalopathy Acute non-ST elevation myocardial infarction (NSTEMI) Chronic kidney disease (CKD) stage G3b/A1, moderately decreased glomerular filtration rate (GFR) between 30-44 mL/min/1.73 square meter and albuminuria creatinine ratio less than 30 mg/g Alcohol dependence Surgical History No pertinent past surgical history History of colonoscopy History of esophagogastroduodenoscopy (EGD) Family History Father Heart disease Mother Heart disease Social History details: Lives alone in the assisted living. household members: none lives independently: Yes Smoking Status: Never smoker alcohol intake: current Smoking Status: Never smoker alcohol intake frequency: 3 or more drinks per day Alcohol type: wine Exam Narrative Exam Narrative: General: Patient appears to be in no acute distress, acting appropriately Head: normocephalic, atraumatic, HEENT: Pupils equal round reactive, eyes tracking well, neck supple, no JVD Heart: regular rate and rhythm, no murmurs, rubs, or gallops heard Lungs: clear to auscultation, no adventitious sounds Abdomen: soft , nontender, nondistended, positive bowel sounds Neurological: no focal neurological signs, moving all extremities well, alert and oriented x3, Psych: good judgment ,good insight, mood is normal. Initial Vital Signs Initial Vital Signs: Vital Signs Temperature 98.4 F 12/19/24 00:59 Pulse Rate 84 12/19/24 00:59 Respiratory Rate 18 12/19/24 00:59 Blood Pressure 166/70 H 12/19/24 00:59 Pulse Oximetry 97 12/19/24 00:59 Oxygen Delivery Method Room Air 12/19/24 00:59 Course Orders Ordered: ED Orders 12/19/24 01:02 EKG-12 Lead Stat 12/19/24 01:05 Complete Blood Count AUTO DIFF Stat Comprehensive Metabolic Panel Stat Lipase Stat 12/19/24 01:25 Urinalysis and Microscopic Stat Discontinued Medications Ceftriaxone Sodium 1,000 mg/ (Sodium Chloride) 100 mls @ 200 mls/hr IV NOW ONE Stop: 12/19/24 01:46 Last Infusion: 12/19/24 02:36 Dose: Infused Documented By: HNRadha Admin: 12/19/24 01:57 Dose: 200 mls/hr Documented By: PHI Sodium Chloride (Normal Saline 0.9%) 500 mls @ 1,000 mls/hr IV BOLUS ONE Stop: 12/19/24 02:19 Last Infusion: 12/19/24 02:38 Dose: Infused Documented By: Admin: 12/19/24 01:56 Dose: 1,000 mls/hr Documented By: PHI Ondansetron HCl (Ondansetron 4 Mg/2 Ml Inj) 4 mg IV NOW PRN PRN Reason: Nausea And Vomiting Last Admin: 12/19/24 01:37 Dose: 4 mg Documented By: PHI Ondansetron HCl (Ondansetron 4 Mg Odt) 4 mg PO NOW PRN PRN Reason: Nausea And Vomiting Reevaluation(s) Reevaluation #1: Upon re-evaluation, patient's UA did show me bacteria but her pelvic pain is dissipating. We will go ahead and give a Rocephin 1 g IV now as well as some fluids. Time: 01:51 Vital Signs Vital signs: Vital Signs - 8 hr 12/19/24 00:59 Temperature 98.4 F Pulse Rate 84 Respiratory Rate 18 Blood Pressure 166/70 H Pulse Oximetry 97 Oxygen Delivery Method Room Air MDM - Abdominal Pain Lab Data 12/19/24 01:05 12/19/24 01:05 Labs: Lab Results 12/19/24 12/19/24 Range/Units 01:05 01:25 WBC 5.8 (4.5-11.0) X10^3/uL RBC 2.84 L (4.0-5.2) X10^6/uL Hgb 9.6 L (12.0-16.0) g/dL Hct 28.5 L (36-46) % MCV 100.3 H (80-100) fL MCH 33.9 (26-34) PG MCHC 33.8 (30-36) % RDW 15.3 H (11.6-14.8) % Plt Count 129 L (150-400) X10^3/uL Neut % (Auto) 61.7 (50-75) % Lymph % (Auto) 28.1 (25-40) % [place] % (Auto) 8.2 (3-14) % Eos % (Auto) 1.3 L (2-4) % Baso % (Auto) 0.7 (0-2) % Neut # (Auto) 3600 (8247-8257) /uL Lymph # (Auto) 1600 (4483-2278) /uL [place] # (Auto) 500 (0-900) /uL Eos # (Auto) 100 (0-450) /uL Baso # (Auto) 0 (0-100) /uL Sodium 142 (137-145) mmol/L Potassium 4.7 (3.4-5.1) mmol/L Chloride 112 H (98-107) mmol/L Carbon Dioxide 23 (22-32) mmol/L BUN 46 H (7-17) mg/dL Creatinine 1.03 (0.52-1.04) mg/dL Estimated GFR 55 L (>60) mL/min BUN/Creatinine Ratio 44.7 H (6-22) Glucose 123 H (70-99) mg/dL Calcium 9.8 (8.4-10.2) mg/dL Total Bilirubin 1.2 (0.2-1.3) mg/dL AST 41 H (14-36) IU/L ALT 42 H (<35) IU/L Alkaline Phosphatase 87 (38-126) U/L Total Protein 6.5 (6.3-8.2) g/dL Albumin 3.5 (3.5-5.0) g/dL Globulin 3.0 (1.7-4.1) g/dL Albumin/Globulin Ratio 1.2 (1.0-2.8) Lipase 241 (23-300) U/L Urine Color Yellow Urine Appearance Clear Urine pH 6.5 (4.5-8.0) Ur Specific [place] 1.010 (1.000-1.035) Urine Protein Negative (Negative) Urine Glucose (UA) Negative (Negative) g/dL Urine Ketones Negative (NEGATIVE) Urine Occult Blood Negative (Negative) Urine Nitrate Negative (Negative) Urine Bilirubin Negative (NEGATIVE) Urine Urobilinogen 1.0 (0.2) E.U./dL Ur Leukocyte Esterase Negative (NEGATIVE) Urine RBC None seen (0-5/HPF) Urine WBC 1-5/hpf (0-5/HPF) Ur Squamous Epith Cells 1-5 /hpf (0-5/HPF) Urine Bacteria Many (>30) H (None) Ur Culture Indicated? Cult not indicated Vol Urine Centrifuged 10ml (spun) ECG Data Interpretation: EKG shows a normal sinus rhythm at 70 beats per minute, left axis, normal SD intervals shows a left bundle branch block. In comparison with previous EKG, there is no change. MDM Narrative Medical decision making narrative: 79-year-old female presenting with some lower pelvic pain and some confusion found to have an acute UTI. Patient given IV Rocephin and some fluids here in the ED advised to continue with antibiotics as an outpatient. Advised to follow up if symptoms worsen or do not improve. Discharge Plan Departure Patient Disposition: Home Clinical Impression: Urinary tract infection Qualifiers: Urinary tract infection type: acute cystitis Hematuria presence: without hematuria Qualified Code(s): N30.00 - Acute cystitis without hematuria Anemia Qualifiers: Anemia type: unspecified type Qualified Code(s): D64.9 - Anemia, unspecified Instructions: DI for Urinary Tract Infection (UTI) Activity Restrictions/Additional Instructions: Continue with antibiotics as planned. Hydrate as much as possible. Restart iron tablets and follow up with PCP to recheck blood count at a later. . Come back to ER if having any new or worsening symptoms. Prescriptions: New cephalexin 500 mg capsule 500 mg PO Q12H 7 Days Qty: 14 0RF Rx Instructions: one cap po bid x 7 days No Action rosuvastatin [Crestor] 20 MG tablet 20 mg PO QDAY Qty: 0 pantoprazole 40 mg Tablet,Delayed Release (Dr/Ec) 40 mg PO DAILY Qty: 60 0RF clopidogrel 75 mg Tablet 75 mg PO DAILY Qty: 30 1RF aspirin 81 mg Tablet,Delayed Release (Dr/Ec) 81 mg PO DAILY Qty: 30 1RF lisinopril 10 mg Tablet 10 mg PO DAILY Qty: 30 1RF folic acid 1 mg Tablet 1 mg PO DAILY Qty: 30 1RF metoprolol succinate 25 mg Tablet Extended Release 24 Hr 25 mg PO DAILY Qty: 30 1RF lactulose 10 gram/15 mL Solution 20 gm PO DAILY PRN (Reason: TO HAVE 1 BM/DAY) Qty: 30 0RF multivitamin with folic acid [Tab-A-Mary] 400 mcg Tablet 1 tab PO DAILY Qty: 30 1RF Referrals: Oleg Brunson MD [Primary Care Provider, Internal Medicine] Stand Alone Forms: Patient Portal/API
[2024-12-19 01:34] LABS: Appearance Urine UA CLEAR; Bilirubin Urine UA NEGATIVE (NEGATIVE); Color Urine UA YELLOW; Glucose Urine UA NEGATIVE (Negative); Ketones Urine UA NEGATIVE (NEGATIVE); Leukocyte Esterase Urine UA NEGATIVE (NEGATIVE); Nitrite Urine UA NEGATIVE (Negative); Occult Blood Urine UA NEGATIVE (Negative); Protein Urine UA NEGATIVE (Negative); Specific Gravity Urine UA 1.010 (1.000-1.035); Urobilinogen Urine UA 1.0 E.U./dL (0.2)
[2024-12-19 01:35] LABS: pH Urine UA 6.5 (4.5-8.0)
[2024-12-19] MEDS: ONDANSETRON 4 MG/2 ML INJ IV (01:37)
[2024-12-19 01:41] LABS: Culture Indicated Urine Cult Not Indicated
[2024-12-19] MEDS: SODIUM CHLORIDE 0.9% 500 ML 1000 ML IV (01:56)
== END 2024-12-19 02:40 | disposition home or self-care (01) ==
PROVIDERS: Emergency Provider Family Medicine; PCP Internal Medicine
DX: N30.00 Acute cystitis without hematuria (principal); D64.9 Anemia, unspecified
CPT/HCPCS: 36415; 80053; 81001; 83690; 85025; 93005; 93010; 96365; 96375; 99284; J0696; J2405; J7040; J7050

== ENCOUNTER 2024-12-20 10:18 | Inpatient (IN) | payer MEDICARE, OTHER, SELFPAY ==
[2024-11-23 03:44] VITALS: BMI 41.7
[2024-12-20] VITALS (26 sets, daily range): BP systolic 91–177; BP diastolic 52–81; PULSE 67–90; RESP 13–41; TEMP 36.6; O2SAT 87–100; BMI 36.6
[2024-12-20 11:10] LABS: Add Manual Diff / Slide Review NO; Hematocrit 27.7 % (36-46); Hemoglobin 9.4 g/dL (12.0-16.0); Lymphocytes Absolute Auto 1100 /uL (1100-4500); Mean Corpuscular HGB Conc 33.9 % (30-36); Mean Corpuscular Hemoglobin 34.5 PG (26-34); Mean Corpuscular Volume 101.8 fL (80-100); Platelet Count 131 X10^3/uL (150-400)
[2024-12-20 11:32] LABS: Alanine Aminotransferase 45 IU/L (<35); Albumin 3.8 g/dL (3.5-5.0); Albumin Globulin Ratio 1.3 (1.0-2.8); Alkaline Phosphatase 89 U/L (38-126); Blood Urea Nitrogen 43 mg/dL (7-17); Calcium 9.8 mg/dL (8.4-10.2); Carbon Dioxide 18 mmol/L (22-32); Chloride 116 mmol/L (98-107); Estimated Glomerular Filt Rate 46 mL/min (>60); Globulin 3.0 g/dL (1.7-4.1); Glucose 119 mg/dL (70-99); HEMOLYSIS < 15 (0-50); Potassium 4.2 mmol/L (3.4-5.1); Sodium 145 mmol/L (137-145); Total Protein 6.8 g/dL (6.3-8.2)
[2024-12-20 11:50] LABS: INR 1.1 (0.9-1.3); Prothrombin Time 12.0 SECONDS (9.4-12.5)
[2024-12-20 11:52] LABS: PTT Partial Thromboplastin Tim 21 SECONDS (25.1-36.5)
--- NOTE | 2024-12-20 12:24 | ED.GIBLEED ---
HPI - GI Bleed <Casi Carmen, DO - Last Filed: 12/21/24 07:07> General Chief complaint: GI Bleed Stated complaint: Still having confusion , sick and weak x 2 days Time Seen by Provider: 12/20/24 12:24 Source: patient and family Mode of arrival: Ambulatory History of Present Illness HPI Narrative: Patient is a 79-year-old female history of COVID infection with NSTEMI admitted to the hospital in November discharged on November 25 was seen here 24 hours ago diagnosed with a UTI but I do not see a urine culture she was also found to be anemic with a hemoglobin of 9.6 presenting today with ongoing confusion. Daughter at bedside states that she is still pretty confused. 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 She has not had fever or chills. She apparently did have a couple episodes of black stool last week but now she says that is fine. She has some increased leg irritation she denies any back pain abdominal pain chest pain shortness of breath. She is confused on the year which daughter says she would normally know. She is on aspirin and Plavix. Related Data Home Medications ?Medication ?Instructions ?Recorded ?Confirmed rosuvastatin 20 mg tablet (Crestor) 20 mg PO QDAY ##0 03/23/17 11/23/24 Previous Rx's ?Medication ?Instructions ?Recorded pantoprazole 40 mg tablet,delayed 40 mg PO DAILY #60 tabs 03/30/22 release aspirin 81 mg tablet,delayed 81 mg PO DAILY #30 tabs 11/25/24 release clopidogrel 75 mg tablet 75 mg PO DAILY #30 tabs 11/25/24 folic acid 1 mg tablet 1 mg PO DAILY #30 tabs 11/25/24 lactulose 10 gram/15 mL oral 20 gm PO DAILY PRN TO HAVE 1 11/25/24 solution BM/DAY #30 doses lisinopril 10 mg tablet 10 mg PO DAILY #30 tabs 11/25/24 metoprolol succinate 25 mg 25 mg PO DAILY #30 tabs 11/25/24 tablet,extended release 24 hr multivitamin with folic acid 400 1 tab PO DAILY #30 tabs 11/25/24 mcg tablet (Tab-A-Mary) cephalexin 500 mg capsule 500 mg PO Q12H 7 days #14 caps 12/19/24 Allergies Allergy/AdvReac Type Severity Reaction Status Date / Time No Known Drug Allergies Allergy Verified 12/20/24 10:31 Patient History <Casi Morales DO - Last Filed: 12/21/24 07:07> Medical History HLD (hyperlipidemia) Alcohol withdrawal delirium, acute, hyperactive Anemia Acute GI bleeding Open fracture dislocation of left ankle Rhabdomyolysis Hepatic encephalopathy Acute non-ST elevation myocardial infarction (NSTEMI) Chronic kidney disease (CKD) stage G3b/A1, moderately decreased glomerular filtration rate (GFR) between 30-44 mL/min/1.73 square meter and albuminuria creatinine ratio less than 30 mg/g Alcohol dependence Surgical History No pertinent past surgical history History of colonoscopy History of esophagogastroduodenoscopy (EGD) Family History Father Heart disease Mother Heart disease Social History details: Lives alone in the assisted living. household members: none lives independently: Yes Smoking Status: Never smoker alcohol intake: current Smoking Status: Never smoker alcohol intake frequency: 3 or more drinks per day Alcohol type: wine Exam <Casi Morales DO - Last Filed: 12/21/24 07:07> Initial Vital Signs Initial Vital Signs: Vital Signs Temperature 97.8 F 12/20/24 10:30 Pulse Rate 76 12/20/24 10:30 Respiratory Rate 18 12/20/24 10:30 Blood Pressure 177/76 H 12/20/24 10:30 Pulse Oximetry 100 12/20/24 10:30 Oxygen Delivery Method Room Air 12/20/24 10:30 GENERAL: Alert pleasantly confused 79-year-old female and in [no acute] distress. HEENT: Head atraumatic,EOMI, pupils reactive, face symmetric, [moist] mucous membranes CARDIOVASCULAR: Regular rate and rhythm without murmurs, rubs or gallops. RESPIRATORY: Breath sounds equal bilaterally, no wheezes rales or rhonchi. ABDOMEN: Soft, nontender. Normoactive bowel sounds all 4 quadrants. No guarding or rebound. [RECTAL:] [Hemoccult-positive, no hemorrhoids, nontender] : No CVA tenderness EXTREMITIES: Normal range of motion, no clubbing or edema. Neurovascularly intact NEUROLOGICAL: Alert and oriented x2.Normal gait and speech. Cranial nerves II through XII grossly intact. SKIN: Warm, dry, no laceration, no petechiae, no rashes or lesions. <Kasey Castillo, DO - Last Filed: 12/20/24 18:15> Initial Vital Signs Initial Vital Signs: Vital Signs Temperature 97.8 F 12/20/24 10:30 Pulse Rate 76 12/20/24 10:30 Respiratory Rate 18 12/20/24 10:30 Blood Pressure 177/76 H 12/20/24 10:30 Pulse Oximetry 100 12/20/24 10:30 Oxygen Delivery Method Room Air 12/20/24 10:30 Course <Casi Morales, DO - Last Filed: 12/21/24 07:07> Orders Ordered: Acetaminophen (Acetaminophen 325 Mg Tablet) 650 mg PO Q6H PRN PRN Reason: Fever/Mild Pain (1-3) Sodium Chloride (Normal Saline 0.9%) 1,000 mls @ 100 mls/hr IV CONT PENDING SALE TO [facility] Last Admin: 12/20/24 22:09 Dose: 100 mls/hr Documented By: NAN Ceftriaxone Sodium 1,000 mg/ (Sodium Chloride) 100 mls @ 200 mls/hr IV Q24H PENDING SALE TO [facility] Naloxone HCl (Naloxone 0.4 Mg/Ml Vial) 0.2 mg IV Q2MIN PRN PRN Reason: Opiate Reversal Ondansetron HCl (Ondansetron 4 Mg/2 Ml Inj) 4 mg IV NOW PRN PRN Reason: Nausea And Vomiting Ondansetron HCl (Ondansetron 4 Mg Odt) 4 mg PO NOW PRN PRN Reason: Nausea And Vomiting Ondansetron HCl (Ondansetron 4 Mg/2 Ml Inj) 4 mg IV Q8HR PRN PRN Reason: Nausea And Vomiting Pantoprazole Sodium (Pantoprazole 40 Mg Vial) 40 mg IV BID PENDING SALE TO [facility] Last Admin: 12/20/24 20:28 Dose: 40 mg Documented By: RAMA Discontinued Medications Ceftriaxone Sodium 1,000 mg/ (Sodium Chloride) 100 mls @ 200 mls/hr IV NOW ONE Stop: 12/20/24 12:29 Last Infusion: 12/20/24 17:18 Dose: Infused Documented By: MARCO A Admin: 12/20/24 16:34 Dose: 200 mls/hr Documented By: MARCO A Pantoprazole Sodium (Pantoprazole 40 Mg Vial) 80 mg IV NOW ONE Stop: 12/20/24 12:29 Last Admin: 12/20/24 15:39 Dose: 80 mg Documented By: MARCO A Phenobarbital (Phenobarbital 65 Mg/Ml Vial) 130 mg IV NOW ONE Stop: 12/20/24 16:31 Last Admin: 12/20/24 16:54 Dose: 130 mg Documented By: MARCO A Vital Signs Vital signs: Vital Signs - 8 hr 12/20/24 10:30 Temperature 97.8 F Pulse Rate 76 Respiratory Rate 18 Blood Pressure 177/76 H Pulse Oximetry 100 Oxygen Delivery Method Room Air <Kasey Castillo DO - Last Filed: 12/20/24 18:15> Orders Ordered: Acetaminophen (Acetaminophen 325 Mg Tablet) 650 mg PO Q6H PRN PRN Reason: Fever/Mild Pain (1-3) Sodium Chloride (Normal Saline 0.9%) 1,000 mls @ 100 mls/hr IV CONT PENDING SALE TO [facility] Last Admin: 12/20/24 22:09 Dose: 100 mls/hr Documented By: NAN Ceftriaxone Sodium 1,000 mg/ (Sodium Chloride) 100 mls @ 200 mls/hr IV Q24H PENDING SALE TO [facility] Naloxone HCl (Naloxone 0.4 Mg/Ml Vial) 0.2 mg IV Q2MIN PRN PRN Reason: Opiate Reversal Ondansetron HCl (Ondansetron 4 Mg/2 Ml Inj) 4 mg IV NOW PRN PRN Reason: Nausea And Vomiting Ondansetron HCl (Ondansetron 4 Mg Odt) 4 mg PO NOW PRN PRN Reason: Nausea And Vomiting Ondansetron HCl (Ondansetron 4 Mg/2 Ml Inj) 4 mg IV Q8HR PRN PRN Reason: Nausea And Vomiting Pantoprazole Sodium (Pantoprazole 40 Mg Vial) 40 mg IV BID PENDING SALE TO [facility] Last Admin: 12/20/24 20:28 Dose: 40 mg Documented By: RAMA Discontinued Medications Ceftriaxone Sodium 1,000 mg/ (Sodium Chloride) 100 mls @ 200 mls/hr IV NOW ONE Stop: 12/20/24 12:29 Last Infusion: 12/20/24 17:18 Dose: Infused Documented By: MARCO A Admin: 12/20/24 16:34 Dose: 200 mls/hr Documented By: MARCO A Pantoprazole Sodium (Pantoprazole 40 Mg Vial) 80 mg IV NOW ONE Stop: 12/20/24 12:29 Last Admin: 12/20/24 15:39 Dose: 80 mg Documented By: MARCO A Phenobarbital (Phenobarbital 65 Mg/Ml Vial) 130 mg IV NOW ONE Stop: 12/20/24 16:31 Last Admin: 12/20/24 16:54 Dose: 130 mg Documented By: MARCO A Vital Signs Vital signs: Vital Signs - 8 hr 12/20/24 10:30 Temperature 97.8 F Pulse Rate 76 Respiratory Rate 18 Blood Pressure 177/76 H Pulse Oximetry 100 Oxygen Delivery Method Room Air MDM - GI Bleed <Casi Morales, - Last Filed: 12/21/24 07:07> Lab Data 12/21/24 04:20 12/21/24 04:20 Labs: Lab Results 12/20/24 Range/Units 10:55 WBC 5.0 (4.5-11.0) X10^3/uL RBC 2.72 L (4.0-5.2) X10^6/uL Hgb 9.4 L (12.0-16.0) g/dL Hct 27.7 L (36-46) % MCV 101.8 H (80-100) fL MCH 34.5 H (26-34) PG MCHC 33.9 (30-36) % RDW 15.6 H (11.6-14.8) % Plt Count 131 L (150-400) X10^3/uL Neut % (Auto) 66.2 (50-75) % Lymph % (Auto) 21.8 L (25-40) % [place] % (Auto) 8.9 (3-14) % Eos % (Auto) 2.5 (2-4) % Baso % (Auto) 0.6 (0-2) % Neut # (Auto) 3300 (7152-2188) /uL Lymph # (Auto) 1100 (8359-6030) /uL [place] # (Auto) 400 (0-900) /uL Eos # (Auto) 100 (0-450) /uL Baso # (Auto) 0 (0-100) /uL PT 12.0 (9.4-12.5) SECONDS INR 1.1 (0.9-1.3) APTT 21 L (25.1-36.5) SECONDS Sodium 145 (137-145) mmol/L Potassium 4.2 (3.4-5.1) mmol/L Chloride 116 H (98-107) mmol/L Carbon Dioxide 18 L (22-32) mmol/L BUN 43 H (7-17) mg/dL Creatinine 1.20 H (0.52-1.04) mg/dL Estimated GFR 46 L (>60) mL/min BUN/Creatinine Ratio 35.8 H (6-22) Glucose 119 H (70-99) mg/dL Lactate 1.8 (0.7-2.1) mmol/L Calcium 9.8 (8.4-10.2) mg/dL Total Bilirubin 1.4 H (0.2-1.3) mg/dL AST 63 H (14-36) IU/L ALT 45 H (<35) IU/L Alkaline Phosphatase 89 (38-126) U/L Troponin I 0.019 (0.01-0.034) ng/mL Total Protein 6.8 (6.3-8.2) g/dL Albumin 3.8 (3.5-5.0) g/dL Globulin 3.0 (1.7-4.1) g/dL Albumin/Globulin Ratio 1.3 (1.0-2.8) Lipase 152 (23-300) U/L Procalcitonin 0.118 (<0.5) ng/mL Blood Type A Positive Antibody Screen Negative Imaging Data CT scan - head: Radiologist's Impression: PROCEDURE: CT HEAD/BRAIN WO CON INDICATIONS: increased confusion TECHNIQUE: Noncontrast 4.5 mm thick angled axial sections acquired from the foramen magnum to the vertex, with coronal and sagittal reformats. For radiation dose reduction, the following was used: automated exposure control, adjustment of mA and/or kV according to patient size. COMPARISON: [facility], CT, CT HEAD/BRAIN WO CON, 11/22/2024, 23:48. [facility], CT, CT HEAD/BRAIN WO CON, 05/11/2023, 20:18. FINDINGS: Image quality: Diagnostic. CSF spaces: Basal cisterns are patent. No extra-axial fluid collections. The ventricles are symmetric in size and shape. Brain: No acute intracranial hemorrhage or mass effect. There is cerebral volume loss, with resultant ventricular and sulcal prominence. There are periventricular and deep white matter chronic small vessel ischemic changes. There is intracranial internal carotid artery atherosclerosis. Skull and face: Calvarium and visualized facial bones appear intact, without suspicious lesions. Sinuses: Visualized sinuses and mastoids are clear. IMPRESSION: No acute intracranial pathology. Approved by: Royce Field M.D. on 12/20/2024 at 13:40 MDM Narrative Medical decision making narrative: MDM CC: Confusion black stool Complicating co-morbidities: Data collected from: [ ] Medical records reviewed: ED record from 12/19/2024 shows bacteria in urine but no leukocytes no nitrates no leukocytosis hemoglobin 9.6 hematocrit 28.5 Differential considered: [ ] Exam documented above, pertinent findings include: Alert confused 79-year-old female abdomen soft nontender Lab Test results independently reviewed as above. Pertinent findings: CBC No leukocytosis anemia is stable with a hemoglobin of 9.4 hematocrit 27.7 it did drop since November where it was 11.8/34.3 however stable from December 19 CMP does show elevated BUN creatinine ratio BUN is 43 creatinine 1.2 which is similar to December 19 previously in November she had a BUN of 26 and creatinine 0.9, chloride elevated at 116 sodium 145 potassium 4.2 glucose 190 Independently reviewed EKG as above Imaging studies independently reviewed: Head CT no intracranial hemorrhage Consultations: [ ] Treatments: Protonix, Rocephin Re-evaluations: [ ] Discussion: Patient 79-year-old female presenting today with increased confusion. She was thought to have a UTI however she does not show signs signs of sepsis. She is afebrile no leukocytosis lactic acid is within normal limits. Urinalysis showed bacteria only no culture was done. She had blood cultures from November that were negative. She is confused does not know year difficult to get history from. Daughter at bedside says that this is abnormal for her. She is anemic she has slightly elevated BUN creatinine. Possible slow GI bleed. Due to over crowding in the emergency department patient waited in the waiting room for a long period of time where I saw and evaluated her initially there. Waiting for her to get back to her room to do a rectal and give medications. Patient is signed out to Dr. Gaona <Kasey Castillo DO - Last Filed: 12/20/24 18:15> Lab Data Labs: Lab Results 12/20/24 Range/Units 10:55 WBC 5.0 (4.5-11.0) X10^3/uL RBC 2.72 L (4.0-5.2) X10^6/uL Hgb 9.4 L (12.0-16.0) g/dL Hct 27.7 L (36-46) % MCV 101.8 H (80-100) fL MCH 34.5 H (26-34) PG MCHC 33.9 (30-36) % RDW 15.6 H (11.6-14.8) % Plt Count 131 L (150-400) X10^3/uL Neut % (Auto) 66.2 (50-75) % Lymph % (Auto) 21.8 L (25-40) % [place] % (Auto) 8.9 (3-14) % Eos % (Auto) 2.5 (2-4) % Baso % (Auto) 0.6 (0-2) % Neut # (Auto) 3300 (4582-9601) /uL Lymph # (Auto) 1100 (1343-7261) /uL [place] # (Auto) 400 (0-900) /uL Eos # (Auto) 100 (0-450) /uL Baso # (Auto) 0 (0-100) /uL PT 12.0 (9.4-12.5) SECONDS INR 1.1 (0.9-1.3) APTT 21 L (25.1-36.5) SECONDS Sodium 145 (137-145) mmol/L Potassium 4.2 (3.4-5.1) mmol/L Chloride 116 H (98-107) mmol/L Carbon Dioxide 18 L (22-32) mmol/L BUN 43 H (7-17) mg/dL Creatinine 1.20 H (0.52-1.04) mg/dL Estimated GFR 46 L (>60) mL/min BUN/Creatinine Ratio 35.8 H (6-22) Glucose 119 H (70-99) mg/dL Lactate 1.8 (0.7-2.1) mmol/L Calcium 9.8 (8.4-10.2) mg/dL Total Bilirubin 1.4 H (0.2-1.3) mg/dL AST 63 H (14-36) IU/L ALT 45 H (<35) IU/L Alkaline Phosphatase 89 (38-126) U/L Troponin I 0.019 (0.01-0.034) ng/mL Total Protein 6.8 (6.3-8.2) g/dL Albumin 3.8 (3.5-5.0) g/dL Globulin 3.0 (1.7-4.1) g/dL Albumin/Globulin Ratio 1.3 (1.0-2.8) Lipase 152 (23-300) U/L Procalcitonin 0.118 (<0.5) ng/mL Blood Type A Positive Antibody Screen Negative MDM Narrative Medical decision making narrative: MDM CC: Confusion black stool Complicating co-morbidities: Data collected from: [ ] Medical records reviewed: ED record from 12/19/2024 shows bacteria in urine but no leukocytes no nitrates no leukocytosis hemoglobin 9.6 hematocrit 28.5 Differential considered: [ ] Exam documented above, pertinent findings include: Alert confused 79-year-old female abdomen soft nontender Lab Test results independently reviewed as above. Pertinent findings: CBC No leukocytosis anemia is stable with a hemoglobin of 9.4 hematocrit 27.7 it did drop since November where it was 11.8/34.3 however stable from December 19 CMP does show elevated BUN creatinine ratio BUN is 43 creatinine 1.2 which is similar to December 19 previously in November she had a BUN of 26 and creatinine 0.9, chloride elevated at 116 sodium 145 potassium 4.2 glucose 190 Independently reviewed EKG as above Imaging studies independently reviewed: Head CT no intracranial hemorrhage Consultations: [ ] Treatments: Protonix, Rocephin Re-evaluations: [ ] Discussion: Patient 79-year-old female presenting today with increased confusion. She was thought to have a UTI however she does not show signs signs of sepsis. She is afebrile no leukocytosis lactic acid is within normal limits. Urinalysis showed bacteria only no culture was done. She had blood cultures from November that were negative. She is confused does not know year difficult to get history from. Daughter at bedside says that this is abnormal for her. She is anemic she has slightly elevated BUN creatinine. Possible slow GI bleed. Due to over crowding in the emergency department patient waited in the waiting room for a long period of time where I saw and evaluated her initially there. Waiting for her to get back to her room to do a rectal and give medications. Patient is signed out to Dr. Castillo 12/20/24 Dr. Castillo: Patient signed out to myself. Patient has had a drop in her hemoglobin from 11-9 in the past month, she has microcytic, shows thrombocytopenia with a platelets of 131 this is consistent and actually improved from priors. White count is 5, coags are normal. Chemistries show creatinine 1.2, chloride 116 CO2 is 18 with a BUN of 43 sodium potassium are otherwise appropriate glucose is 119 bilirubin is 1.4 with a AST of 63 ALT of 45, troponins negative procalcitonin 0.118 with a lipase of 152. Many bacteria, 1-5 squamous 1-5 white cells. From 12/19/2024. No urine culture available. Head CT shows no acute intracranial pathology. Patient received Protonix and Rocephin. Spoke with the patient and her daughter she is confused. Daughter also notes that she normally has several glasses of wine nightly that she does sometimes gets some withdrawal symptoms we will give a dose of phenobarbital we discussed staying for admission. Spoke with Dr. Prasad, hospitalist who accepts for observation for possible UTI, increased confusion, GI bleed although hemodynamically stable and possibility of alcohol withdrawal. Discharge Plan Departure Patient Disposition: Admitted as Observation Clinical Impression: GI bleed, Confusion Admit Date/Time: 12/20/24 18:07 Admit Provider: Estuardo Prasad
--- NOTE | 2024-12-20 12:28 | DI.CT.S_ITS ---
PROCEDURE: CT HEAD/BRAIN WO CON INDICATIONS: increased confusion TECHNIQUE: Noncontrast 4.5 mm thick angled axial sections acquired from the foramen magnum to the vertex, with coronal and sagittal reformats. For radiation dose reduction, the following was used: automated exposure control, adjustment of mA and/or kV according to patient size. COMPARISON: [facility], CT, CT HEAD/BRAIN WO CON, 11/22/2024, 23:48. [facility], CT, CT HEAD/BRAIN WO CON, 05/11/2023, 20:18. FINDINGS: Image quality: Diagnostic. CSF spaces: Basal cisterns are patent. No extra-axial fluid collections. The ventricles are symmetric in size and shape. Brain: No acute intracranial hemorrhage or mass effect. There is cerebral volume loss, with resultant ventricular and sulcal prominence. There are periventricular and deep white matter chronic small vessel ischemic changes. There is intracranial internal carotid artery atherosclerosis. Skull and face: Calvarium and visualized facial bones appear intact, without suspicious lesions. Sinuses: Visualized sinuses and mastoids are clear. IMPRESSION: No acute intracranial pathology. Approved by: Royce Field M.D. on 12/20/2024 at 13:40
[2024-12-20 12:48] LABS: Lactate (Lactic Acid) 1.8 mmol/L (0.7-2.1)
[2024-12-20 13:01] LABS: Troponin I 0.019 ng/mL (0.01-0.034)
[2024-12-20 13:05] LABS: Procalcitonin 0.118 ng/mL (<0.5)
[2024-12-20 15:29] LABS: Lipase 152 U/L (23-300)
[2024-12-20] MEDS: PANTOPRAZOLE 40 MG VIAL 80 MG IV (15:39)
--- NOTE | 2024-12-20 18:25 | PM.HP.1 ---
History of Present Illness History of Present Illness Date Patient Seen: 12/20/24 Chief complaint: Still having confusion , sick and weak x 2 days Narrative: Patient was an 79-year-old female with a recent admission for COVID and NSTEMI. She lives at [facility]. She has been confused for several days and was brought to the ED yesterday. She was diagnosed with a UTI and given IV antibiotics and sent home. She was remained confused and really not functional. Her daughter brought her back in. It was also concerned about the possibility of a slow GI bleed with her falling hemoglobin. She does have a history of a GI bleed. The patient was able to answer simple questions only, is acute distress. She denies any abdominal pain, or dyspnea. ED course: IV fluids and IV antibiotics given, ceftriaxone. [facility] Medical History HLD (hyperlipidemia) Alcohol withdrawal delirium, acute, hyperactive Anemia Acute GI bleeding Open fracture dislocation of left ankle Rhabdomyolysis Hepatic encephalopathy Acute non-ST elevation myocardial infarction (NSTEMI) Chronic kidney disease (CKD) stage G3b/A1, moderately decreased glomerular filtration rate (GFR) between 30-44 mL/min/1.73 square meter and albuminuria creatinine ratio less than 30 mg/g Alcohol dependence Surgical History No pertinent past surgical history History of colonoscopy History of esophagogastroduodenoscopy (EGD) Family History Father Heart disease Mother Heart disease Social History details: Lives alone in the assisted living. household members: none lives independently: Yes Smoking Status: Never smoker alcohol intake: current Meds Home Medications and Allergies Home Medications ?Medication ?Instructions ?Recorded ?Confirmed ?Type rosuvastatin 20 mg tablet (Crestor) 20 mg PO QDAY ##0 03/23/17 11/23/24 History pantoprazole 40 mg tablet,delayed 40 mg PO DAILY #60 tabs 03/30/22 11/23/24 Rx release aspirin 81 mg tablet,delayed 81 mg PO DAILY #30 tabs 11/25/24 Rx release clopidogrel 75 mg tablet 75 mg PO DAILY #30 tabs 11/25/24 Rx folic acid 1 mg tablet 1 mg PO DAILY #30 tabs 11/25/24 Rx lactulose 10 gram/15 mL oral 20 gm PO DAILY PRN TO HAVE 1 11/25/24 Rx solution BM/DAY #30 doses lisinopril 10 mg tablet 10 mg PO DAILY #30 tabs 11/25/24 Rx metoprolol succinate 25 mg 25 mg PO DAILY #30 tabs 11/25/24 Rx tablet,extended release 24 hr multivitamin with folic acid 400 1 tab PO DAILY #30 tabs 11/25/24 Rx mcg tablet (Tab-A-Mary) cephalexin 500 mg capsule 500 mg PO Q12H 7 days #14 caps 12/19/24 Rx Allergies Allergy/AdvReac Type Severity Reaction Status Date / Time No Known Drug Allergies Allergy Verified 12/20/24 10:31 Review of Systems Review of Systems Narrative: All else reviewed and otherwise unremarkable except as noted in the history and physical. Exam Vital Signs (past 8 hours): - 12/20/24 10:30 12/20/24 15:27 12/20/24 15:28 Temperature 97.8 F Pulse Rate 76 90 Respiratory Rate 18 Blood Pressure 177/76 H 154/66 H Pulse Oximetry 100 97 Oxygen Delivery Method Room Air 12/20/24 15:28 12/20/24 15:30 12/20/24 15:30 Temperature Pulse Rate 85 86 Respiratory Rate Blood Pressure 123/54 L Pulse Oximetry 98 96 Oxygen Delivery Method 12/20/24 16:00 12/20/24 16:30 12/20/24 16:34 Temperature Pulse Rate 83 85 Respiratory Rate 15 18 Blood Pressure 134/64 Pulse Oximetry 97 Oxygen Delivery Method 12/20/24 16:34 12/20/24 17:00 12/20/24 17:01 Temperature Pulse Rate 84 76 77 Respiratory Rate 23 20 Blood Pressure Pulse Oximetry 97 97 96 Oxygen Delivery Method 12/20/24 17:30 12/20/24 17:31 12/20/24 17:51 Temperature Pulse Rate 87 81 86 Respiratory Rate 21 14 20 Blood Pressure Pulse Oximetry 96 97 Oxygen Delivery Method 12/20/24 17:51 12/20/24 18:00 12/20/24 18:00 Temperature Pulse Rate 88 Respiratory Rate 20 Blood Pressure 143/65 H 137/63 Pulse Oximetry 97 Oxygen Delivery Method Oxygen Delivery Method Room Air Narrative Exam Narrative: NAD, somnolent but does answer simple questions. She is calm. She does jerk with any placing of the stethoscope on her, this is chronic and normal for her. Normocephalic skull, EOMI, anicteric sclera, symmetric pupils. Oropharynx unremarkable, no droop. Neck supple, midline trachea, no adenopathy. Lungs clear, normal rate and effort. Heart regular, no murmur gallop or rub. Abdomen is soft, non distended and non tender. Extremities are free of edema. Skin is free of rash or lesions. Joints are not swollen or deformed. Objective ECG Impression: Intervals Randall Rate: 78 P: 57 AR: 154 QRS: -19 QRSD: 126 T: 119 QT: 438 QTc: 499 Interpretive Statements Normal sinus rhythm Left bundle branch block (old) Imaging CT scan - head: Radiologist's impression: No acute intracranial pathology. Labs 12/20/24 10:55 12/20/24 10:55 Labs: Laboratory Results - last 24 hr 12/20/24 10:55 WBC 5.0 RBC 2.72 L Hgb 9.4 L Hct 27.7 L MCV 101.8 H MCH 34.5 H MCHC 33.9 RDW 15.6 H Plt Count 131 L Neut % (Auto) 66.2 Lymph % (Auto) 21.8 L [place] % (Auto) 8.9 Eos % (Auto) 2.5 Baso % (Auto) 0.6 Neut # (Auto) 3300 Lymph # (Auto) 1100 [place] # (Auto) 400 Eos # (Auto) 100 Baso # (Auto) 0 PT 12.0 INR 1.1 APTT 21 L Sodium 145 Potassium 4.2 Chloride 116 H Carbon Dioxide 18 L BUN 43 H Creatinine 1.20 H Estimated GFR 46 L BUN/Creatinine Ratio 35.8 H Glucose 119 H Lactate 1.8 Calcium 9.8 Total Bilirubin 1.4 H AST 63 H ALT 45 H Alkaline Phosphatase 89 Troponin I 0.019 Total Protein 6.8 Albumin 3.8 Globulin 3.0 Albumin/Globulin Ratio 1.3 Lipase 152 Procalcitonin 0.118 Blood Type A Positive Antibody Screen Negative Assessment & Plan Assessment & Plan narrative: 1. UTI with septic encephalopathy, active. 2. Anemia, with possible slow GI bleed, active. 3. Chronic kidney disease, stable. 4. Possible alcohol abuse, stable. 5. CKD, stable. PLAN: -continue IV antibiotics and IV fluids. -monitor mental status. -physical therapy evaluation tomorrow. -Protonix IV b.i.d.. -monitor hemoglobin. Anticipate 1 night in the hospital, supports observation status, full resuscitation. Daughters is proxy decision making. Time-Based Coding :: 35 min] spent with patient and on the chart (including review of chart, obtaining history, exam, reviewing outside data, placing orders, documenting exam and treatment plan, and counseling patient) on 12/20. Quality MIPS - Admit I confirm the patient?s Advance Care Plan is present, Code status is documented, Surrogate decision maker is in patient?s record [If Yes, STOP here]: Yes MIPS - Meds 'Current medications' to include all prescriptions, [id number] products, herbals, cannabis/cannabidiol products, and vitamin/mineral/dietary (nutritional) supplements. I have utilized all available resources to obtain, update, or review the patient?s current medications. [If Yes, STOP here]: Yes
[2024-12-20] MEDS: PANTOPRAZOLE 40 MG VIAL IV (20:28)
[2024-12-20] MEDS: SODIUM CHLORIDE 0.9% 1,000 ML 100 ML IV (22:09)
[2024-12-21 04:38] LABS: Add Manual Diff / Slide Review NO; Hematocrit 23.7 % (36-46); Hemoglobin 8.0 g/dL (12.0-16.0); Lymphocytes Absolute Auto 1400 /uL (1100-4500); Mean Corpuscular HGB Conc 33.6 % (30-36); Mean Corpuscular Hemoglobin 34.5 PG (26-34); Mean Corpuscular Volume 102.6 fL (80-100); Platelet Count 96 X10^3/uL (150-400)
[2024-12-21 04:52] LABS: Blood Urea Nitrogen 37 mg/dL (7-17); Calcium 9.2 mg/dL (8.4-10.2); Carbon Dioxide 22 mmol/L (22-32); Chloride 116 mmol/L (98-107); Estimated Glomerular Filt Rate 51 mL/min (>60); Glucose 91 mg/dL (70-99); HEMOLYSIS < 15 (0-50); Potassium 4.2 mmol/L (3.4-5.1); Sodium 142 mmol/L (137-145)
--- NOTE | 2024-12-21 07:04 | PM.PN.1 ---
Subjective Subjective Interval history: Summary: Patient was an 79-year-old female with a recent admission for COVID and NSTEMI. She lives at [facility], independent living. She has been confused for several days and was brought to the ED yesterday. She was diagnosed with a UTI and given IV antibiotics and sent home. She was remained confused and really not functional. Her daughter brought her back in. It was also concerned about the possibility of a slow GI bleed with her falling hemoglobin. She does have a history of a GI bleed. The patient was able to answer simple questions only, is acute distress. She denies any abdominal pain, or dyspnea. ED course: IV fluids and IV antibiotics given, ceftriaxone. S: She was still little bit confused and having a lot of body pain. Her urine cultures are pending. She appears to be weak and not stable enough to return to her independent living situation today. O: NAD, alert and oriented. Fluent speech. Lungs are clear, normal rate and effort. Heart is regular, no murmur gallop or rub. Abdomen is soft, non distended. Extremities are free of edema. ECG/IMAGING: Intervals Reading Rate: 78 P: 57 IA: 154 QRS: -19 QRSD: 126 T: 119 QT: 438 QTc: 499 Interpretive Statements Normal sinus rhythm Left bundle branch block (old) Imaging CT scan - head: Radiologist's impression: No acute intracranial pathology. A/P: 1. UTI with septic encephalopathy, active. 2. Anemia, with possible slow GI bleed, active. 3. Chronic kidney disease, stable. 4. Possible alcohol abuse, stable. 5. CKD, stable. PLAN: -continue IV antibiotics and IV fluids for another midnight. -monitor mental status. Mild improvement -physical therapy evaluation today. -Protonix IV BID. -monitor hemoglobin. Needs a 2nd midnight in the hospital, supports inpatient status. Anticipate discharge December 22 or pending her clinical progress and assessments from therapies. Exam Vital Signs (past 8 hours): Oxygen Delivery Method Room Air Oxygen Flow Rate 0 Objective Labs 12/21/24 04:20 12/21/24 04:20 Labs: Laboratory Results - last 24 hr 12/20/24 12/21/24 10:55 04:20 WBC 5.0 3.8 L RBC 2.72 L 2.31 L Hgb 9.4 L 8.0 L Hct 27.7 L 23.7 L MCV 101.8 H 102.6 H MCH 34.5 H 34.5 H MCHC 33.9 33.6 RDW 15.6 H 15.7 H Plt Count 131 L 96 L Neut % (Auto) 66.2 48.7 L Lymph % (Auto) 21.8 L 35.8 [place] % (Auto) 8.9 10.0 Eos % (Auto) 2.5 4.5 H Baso % (Auto) 0.6 1.0 Neut # (Auto) 3300 1800 Lymph # (Auto) 1100 1400 [place] # (Auto) 400 400 Eos # (Auto) 100 200 Baso # (Auto) 0 0 PT 12.0 INR 1.1 APTT 21 L Sodium 145 142 Potassium 4.2 4.2 Chloride 116 H 116 H Carbon Dioxide 18 L 22 BUN 43 H 37 H Creatinine 1.20 H 1.10 H Estimated GFR 46 L 51 L BUN/Creatinine Ratio 35.8 H 33.6 H Glucose 119 H 91 Lactate 1.8 Calcium 9.8 9.2 Total Bilirubin 1.4 H AST 63 H ALT 45 H Alkaline Phosphatase 89 Troponin I 0.019 Total Protein 6.8 Albumin 3.8 Globulin 3.0 Albumin/Globulin Ratio 1.3 Lipase 152 Procalcitonin 0.118 Blood Type A Positive Antibody Screen Negative [facility] Medical History HLD (hyperlipidemia) Alcohol withdrawal delirium, acute, hyperactive Anemia Acute GI bleeding Open fracture dislocation of left ankle Rhabdomyolysis Hepatic encephalopathy Acute non-ST elevation myocardial infarction (NSTEMI) Chronic kidney disease (CKD) stage G3b/A1, moderately decreased glomerular filtration rate (GFR) between 30-44 mL/min/1.73 square meter and albuminuria creatinine ratio less than 30 mg/g Alcohol dependence Surgical History No pertinent past surgical history History of colonoscopy History of esophagogastroduodenoscopy (EGD) Family History Father Heart disease Mother Heart disease Social History details: Lives alone in the assisted living. household members: none lives independently: Yes Smoking Status: Never smoker alcohol intake: current Assessment & Plan Time-Based Coding :: [TOTAL MINUTES] spent with patient and on the chart (including review of chart, obtaining history, exam, reviewing outside data, placing orders, documenting exam and treatment plan, and counseling patient) on [DATE].
[2024-12-21 08:00] VITALS: BP 105/49; PULSE 79; RESP 19; TEMP 36.6; O2SAT 93
[2024-12-21] MEDS: SODIUM CHLORIDE 0.9% 1,000 ML 100 ML IV (08:11)
[2024-12-21] MEDS: PANTOPRAZOLE 40 MG VIAL IV ×2 (10:00→20:32)
[2024-12-21] MEDS: ACETAMINOPHEN 325 MG TABLET 650 MG PO ×2 (10:00→20:51)
--- NOTE | 2024-12-21 14:25 | CM.DANOTE ---
Initial DCP Assessment Visit Note Reviewed EMR and team rounds for pt's medical status and updates. Met with pt at bedside and introduced self and role. Pt lives modified independently with a walker (as needed) at [facility] here in [place]. Her son, Michael, is DPOA, and his , , assists pt with care coordination, shopping needs, and appointments. Either [facility] will transport with their van, or dtr will transport pt back to her apt. at time of d/c, likely 1-more day. Called pt's son and obtained recent hx, and provided report on pt's status. He stated that pt has been declining for several months, and has needed more frequent hospital trips than she has had previously. They are planning on meeting as a family and discussing whether or not pt would benefit from more of an assisted living situation rather than nursing home living, which is her current situation. He declined any CM d/c needs at this time. Payor: Medicare PCP: Dr. Mckeon Pt is a 79 year-old F who presented to the ED accomanied by her [id number], , with c/o intermittent black stools over the last week, which seem to have resolved, as well as acute anemia, and persistent confusion. CT head/brain was negative for abnormalities. Pt's urine was suspicious for a UTI, so she was started on IV antibiotics, and protonix for a suspected slow GI bleed. Plan was made to admit to OBS for further tx and monitoring. 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 Yes Advance Directives No on File History Provided By Patient,Medical Record Has Patient been Yes admitted in last 30 days? Prior Living Assisted Living Arrangements Comment [facility] Household Members none Type of Relies on Others transporation used prior to admit Facility Name [facility] Admitted From: Willing to Return to Yes Facility? Independent with ADL No: modified independent 's Is patient alert and Yes: mild confusion oriented? Needs Assistance Meal Prep,Home Chores / Shopping With Caregiver for No Another DME Already Rented / Bath Bench,Elevated Toilet Seat,FWW / Walker Owned Patient/Family Nursing Home Facility Preference Comment Patient has a son named Sigifredo, who is local and checks on her periodically and FARHANA Alvarez very involved as well Discharge Plan Home Transportation Pending d/c plan, facility van vs family if home Arrangement Referrals Initiated None needed If patient plan is Yes SNF: Has PASSR been completed? Whiteboard Updated Yes in Patient Room with name and ext. 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
--- NOTE | 2024-12-21 17:47 | PC.NURSE ---
Patient guiaced + for blood in her black stool. Dr. Prasad has made patient npo except water and ice chips. She is getting a surgical consult with now. She is alert and oriented x3 today. Tolerating ivf well.
--- NOTE | 2024-12-21 19:45 | PM.CN.IH.1 ---
History of Present Illness Consult details Date Patient Seen: 12/21/24 Time Patient Seen: 19:45 Chief complaint: Still having confusion , sick and weak x 2 days Reason for consult: Melena Requesting provider: Estuardo Prasad Narrative: Surgery consult request for GI endoscopy. 79yo F with melena. EGD requested to r/o UGI source. half-way patient admitted with confusion. She developed melena in hospital. Hgb decline 11.8 down to 8. Coags normal. BUN 50s. Home meds include ASA/Plavix. H/O NSTEMI. Meds Home Medications and Allergies Home Medications ?Medication ?Instructions ?Recorded ?Confirmed ?Type rosuvastatin 20 mg tablet (Crestor) 20 mg PO QDAY ##0 03/23/17 11/23/24 History pantoprazole 40 mg tablet,delayed 40 mg PO DAILY #60 tabs 03/30/22 11/23/24 Rx release aspirin 81 mg tablet,delayed 81 mg PO DAILY #30 tabs 11/25/24 Rx release clopidogrel 75 mg tablet 75 mg PO DAILY #30 tabs 11/25/24 Rx folic acid 1 mg tablet 1 mg PO DAILY #30 tabs 11/25/24 Rx lactulose 10 gram/15 mL oral 20 gm PO DAILY PRN TO HAVE 1 11/25/24 Rx solution BM/DAY #30 doses lisinopril 10 mg tablet 10 mg PO DAILY #30 tabs 11/25/24 Rx metoprolol succinate 25 mg 25 mg PO DAILY #30 tabs 11/25/24 Rx tablet,extended release 24 hr multivitamin with folic acid 400 1 tab PO DAILY #30 tabs 11/25/24 Rx mcg tablet (Tab-A-Mary) cephalexin 500 mg capsule 500 mg PO Q12H 7 days #14 caps 12/19/24 Rx Allergies Allergy/AdvReac Type Severity Reaction Status Date / Time No Known Drug Allergies Allergy Verified 12/20/24 10:31 Exam Vital Signs (past 8 hours): Oxygen Delivery Method Room Air Oxygen Flow Rate 0 Narrative Exam Narrative: Const General: healthy appearing, comfortable and no acute distress Orientation: alert and oriented x3 HENMT Ears: hearing grossly normal bilaterally Eyes Visual Mcintosh: normal visual mcintosh by confrontation Conjunctivae: conjunctivae normal Sclera: sclerae normal EOM: EOM intact bilaterally Resp Effort & Inspection: normal respiratory effort and able to speak in complete sentences Cardio Rate: regular rate GI Palpation: soft (NT) Extrem General: no pedal edema and no calf tenderness Objective Labs 12/21/24 04:20 12/21/24 04:20 Labs: Laboratory Results - last 24 hr 12/21/24 04:20 WBC 3.8 L RBC 2.31 L Hgb 8.0 L Hct 23.7 L MCV 102.6 H MCH 34.5 H MCHC 33.6 RDW 15.7 H Plt Count 96 L Neut % (Auto) 48.7 L Lymph % (Auto) 35.8 [place] % (Auto) 10.0 Eos % (Auto) 4.5 H Baso % (Auto) 1.0 Neut # (Auto) 1800 Lymph # (Auto) 1400 [place] # (Auto) 400 Eos # (Auto) 200 Baso # (Auto) 0 Sodium 142 Potassium 4.2 Chloride 116 H Carbon Dioxide 22 BUN 37 H Creatinine 1.10 H Estimated GFR 51 L BUN/Creatinine Ratio 33.6 H Glucose 91 Calcium 9.2 PFSH Medical History HLD (hyperlipidemia) Alcohol withdrawal delirium, acute, hyperactive Anemia Acute GI bleeding Open fracture dislocation of left ankle Rhabdomyolysis Hepatic encephalopathy Acute non-ST elevation myocardial infarction (NSTEMI) Chronic kidney disease (CKD) stage G3b/A1, moderately decreased glomerular filtration rate (GFR) between 30-44 mL/min/1.73 square meter and albuminuria creatinine ratio less than 30 mg/g Alcohol dependence Surgical History No pertinent past surgical history History of colonoscopy History of esophagogastroduodenoscopy (EGD) Family History Father Heart disease Mother Heart disease Social History details: Lives alone in the assisted living. household members: none lives independently: Yes Tobacco & Substance Use Smoking Status: Never smoker alcohol intake: current Assessment & Plan Assessment and plan (1) GI bleed: Qualifiers: GI bleed type/associated pathology: unspecified gastrointestinal hemorrhage type Qualified Code(s): K92.2 - Gastrointestinal hemorrhage, unspecified Status: Acute Plan Plan EGD tomorrow. Estimated time noonish depending upon endo schedule. The risks, benefits and options regarding the procedure were explained to the patient in detail. Risk discussion included but not limited to: bleeding, perforation, missed lesion. The patient was encouraged to ask questions and they were answered to their satisfaction. The patient understands and is agreeable to proceed. Time-Based Coding :: [TOTAL MINUTES] spent with patient and on the chart (including review of chart, obtaining history, exam, reviewing outside data, placing orders, documenting exam and treatment plan, and counseling patient) on [DATE]. PROFEE Charge Codes Inpatient or Observation consultation: 16547
[2024-12-21 19:47] VITALS: BP 119/69; PULSE 74; RESP 16; TEMP 36.6; O2SAT 99
[2024-12-22] VITALS (10 sets, daily range): BP systolic 115–143; BP diastolic 55–86; PULSE 64–97; RESP 16–29; TEMP 36.2–36.9; O2SAT 97–100
--- NOTE | 2024-12-22 | PATH_ITS ---
[facility] Accession Number: [id number] No. of containers..01 Tissue . 01 Material submitted: . stomach - STOMACH, ANTRUM . 01 Clinical history: . R/O H.PYLORI . 01 Diagnosis: STOMACH, ANTRUM: Gastric mucosa with mild chronic inflammation and features of reactive gastropathy. No Helicobacter organisms identified. No intestinal metaplasia, dysplasia, or malignancy identified. [facility] 01/05/20251425 Local . 01 Electronically signed: . Nikolay Awad MD, Pathologist NPI- [id number] . 01 Gross description: . Received in formalin with two identifiers and antral biopsy are two elkins soft tissue fragments ranging from 0.2 to 0.4 cm in greatest dimension, entirely submitted in A1. (AER:[id number]) /MRV 01/05/20251425 Local . 01 Microscopic: . ANTRAL: An immunohistochemical stain was performed to evaluate for Helicobacter organisms and is negative. The control stains appropriately. * This test was developed and the performance characteristics were validated by [facility]. It has not been cleared or approved by the Food and Drug Administration. . 01 Pathologist provided ICD-10: K29.60 . 01 CPT . 987830, [id number] Specimen Comment: A courtesy copy of this report has been sent to [facility]ology Performed at: [address] [address], [place], [place] [id number] MD Nikolay Awad MD Phone: [phone]
[2024-12-22] MEDS: SODIUM CHLORIDE 0.9% 1,000 ML 100 ML IV ×2 (05:48→16:01)
[2024-12-22] MEDS: ACETAMINOPHEN 325 MG TABLET 650 MG PO ×2 (08:07→23:30)
[2024-12-22 08:12] LABS: Add Manual Diff / Slide Review NO; Hematocrit 22.8 % (36-46); Hemoglobin 7.6 g/dL (12.0-16.0); Lymphocytes Absolute Auto 900 /uL (1100-4500); Mean Corpuscular HGB Conc 33.1 % (30-36); Mean Corpuscular Hemoglobin 34.0 PG (26-34); Mean Corpuscular Volume 102.7 fL (80-100); Platelet Count 81 X10^3/uL (150-400)
[2024-12-22 08:27] LABS: Blood Urea Nitrogen 25 mg/dL (7-17); Calcium 8.4 mg/dL (8.4-10.2); Carbon Dioxide 20 mmol/L (22-32); Chloride 117 mmol/L (98-107); Estimated Glomerular Filt Rate > 60 mL/min (>60); Glucose 93 mg/dL (70-99); HEMOLYSIS < 15 (0-50); Potassium 4.0 mmol/L (3.4-5.1); Sodium 140 mmol/L (137-145)
[2024-12-22] MEDS: PANTOPRAZOLE 40 MG VIAL IV (09:21)
--- NOTE | 2024-12-22 10:44 | CM.DPC ---
DCP Cont. Reviewed EMR and team rounds for pt's status updates. Pt had another black stool last night, so will be going in for a EDG today to evaluate where she is still bleeding. Pt converted to INPT. Monitoring for final family needs.
--- NOTE | 2024-12-22 11:26 | P.PN_ITS ---
Subjective Subjective Interval history: Summary: She was admitted with concern for UTI and confusion as well as 1 possible dark stool. She did improve to degree on IV antibiotics and then on the did have a melanotic appearing stool. She has been on a PPI IV b.i.d. since admission. Surgery was contacted last evening and she will undergo endoscopy today. S: She denies pain, feels less confused but remained somewhat weak. O: NAD, alert and oriented. Fluent speech. Lungs are clear, normal rate and effort. Heart is regular, no murmur gallop or rub. Abdomen is soft, non distended. Extremities are free of edema. A/P: 1. UTI with septic encephalopathy, active. 2. Melanotic GI bleed, active. 3. Chronic kidney disease, stable. 4. Possible alcohol abuse, stable. 5. CKD, stable. PLAN: -continue IV antibiotics and IV fluids for another midnight. -monitor mental status. Mild improvement -physical therapy evaluation today. -Protonix IV BID. -NPO for endoscopy today. Not stable to be discharge on requires another night of care for IV antibiotics and monitoring rectal bleeding and melena. Exam Vital Signs (past 8 hours): - 12/22/24 08:57 Temperature 98.0 F Pulse Rate 72 Respiratory Rate 19 Blood Pressure 131/66 Pulse Oximetry 97 Oxygen Flow Rate 0 Oxygen Delivery Method Room Air Oxygen Flow Rate 0 Objective Labs 12/22/24 07:44 12/22/24 07:44 Labs: Laboratory Results - last 24 hr 12/21/24 12/22/24 04:20 07:44 WBC 2.9 L RBC 2.22 L Hgb 7.6 L Hct 22.8 L MCV 102.7 H MCH 34.0 MCHC 33.1 RDW 15.4 H Plt Count 81 L Neut % (Auto) 53.5 Lymph % (Auto) 31.8 [place] % (Auto) 8.6 Eos % (Auto) 5.2 H Baso % (Auto) 0.9 Neut # (Auto) 1600 Lymph # (Auto) 900 L [place] # (Auto) 200 Eos # (Auto) 200 Baso # (Auto) 0 Sodium 142 140 Potassium 4.2 4.0 Chloride 116 H 117 H Carbon Dioxide 22 20 L BUN 37 H 25 H Creatinine 1.10 H 0.94 Estimated GFR 51 L > 60 BUN/Creatinine Ratio 33.6 H 26.6 H Glucose 91 93 Calcium 9.2 8.4 PFSH Medical History HLD (hyperlipidemia) Alcohol withdrawal delirium, acute, hyperactive Anemia Acute GI bleeding Open fracture dislocation of left ankle Rhabdomyolysis Hepatic encephalopathy Acute non-ST elevation myocardial infarction (NSTEMI) Chronic kidney disease (CKD) stage G3b/A1, moderately decreased glomerular filtration rate (GFR) between 30-44 mL/min/1.73 square meter and albuminuria creatinine ratio less than 30 mg/g Alcohol dependence Surgical History No pertinent past surgical history History of colonoscopy History of esophagogastroduodenoscopy (EGD) Family History Father Heart disease Mother Heart disease Social History details: Lives alone in the assisted living. household members: none lives independently: Yes Smoking Status: Never smoker alcohol intake: current Assessment & Plan Time-Based Coding :: [TOTAL MINUTES] spent with patient and on the chart (including review of chart, obtaining history, exam, reviewing outside data, placing orders, documenting exam and treatment plan, and counseling patient) on [DATE].
--- NOTE | 2024-12-22 14:20 | PT.IIE ---
Current Diagnoses Gastrointestinal hemorrhage, unspecified (12/21/24) Surgery Performed Operation Date: 12/22/24 15:00 Actual Procedures p Esophagogastroduodenoscopy with Biopsy, Hemostasis Clip(Not Applicable) - Barry Borden MD Surgical History (Last Reviewed 12/20/24 @ 18:27 by Estuardo Prasad MD) History of colonoscopy History of esophagogastroduodenoscopy (EGD) No pertinent past surgical history Medical History (Last Reviewed 12/20/24 @ 18:27 by Estuardo Prasad MD) Acute GI bleeding Acute non-ST elevation myocardial infarction (NSTEMI) Alcohol dependence Alcohol withdrawal delirium, acute, hyperactive Anemia Chronic kidney disease (CKD) stage G3b/A1, moderately decreased glomerular filtration rate (GFR) between 30-44 mL/min/1.73 square meter and albuminuria creatinine ratio less than 30 mg/g Hepatic encephalopathy HLD (hyperlipidemia) Open fracture dislocation of left ankle Rhabdomyolysis Physical Therapy Inpatient Evaluation/Re-Eval M1 PT/OT-IP Prior Functional Status Start: 12/22/24 16:31 Freq: NEEDED Status: Active Protocol: Document 12/22/24 14:20 AB (Rec: 12/22/24 16:42 AB [id number]) Medical Review Prior Functional Status Medical History Yes Reviewed Communication able to make needs known Mobility and Gait pt stated that she was modified independent with all mobilities and ambulation using a 4WW Social History Household Members none Living Arrangements Alf Facility Number of Stairs To Pt lives at [facility]: 3rd floor apartment with Enter/Railing? access to an elevator No steps to enter Home Environment High Toilet,Walk in Shower,Elevator Home Equipment Four Wheel Walker,Shower Seat without Backrest,Hand Held Shower,Grab Bars Near Toilet,Grab Bars In Shower Additional Social pt has a life alert History Comment M2 PT-IP Current Condition Start: 12/22/24 16:31 Freq: NEEDED Status: Active Protocol: Document 12/22/24 14:20 AB (Rec: 12/22/24 16:42 AB [id number]) Physical Therapy Current Condition Current Condition Evaluation Date 12/22/24 Treatment Diagnosis UTI; abdominal pain; difficulty in walking Onset Date 12/21/24 M3 PT-IP Subjective Start: 12/22/24 16:31 Freq: NEEDED Status: Active Protocol: Document 12/22/24 14:20 AB (Rec: 12/22/24 16:42 AB [id number]) Subjective Physical Therapy Visit Type Type Initial Evaluation Visit Start Time 14:20 Visit Stop Time 14:40 Number of SUPERVISOR TAPING Visits 0 Physical Therapy Visit Comments Patient Comments agreeable to do PT M4 PT-IP Mobility and Gait Start: 12/22/24 16:31 Freq: NEEDED Status: Active Protocol: Document 12/22/24 14:20 AB (Rec: 12/22/24 16:42 AB [id number]) PT-Bed Mobility Assessment Supine to Sit Supine to Sit Standby Assistance Sit to Supine Sit to Supine Standby Assistance PT-Transfer Assessment Sit to and From Stand Sit to and from Standby Assistance,Use of Upper Extremities Stand Equipment Transfer Assistive Gait Belt,4 Wheeled Walker Device Orthotic/Prosthetic No Devices or Brace: Transfers Transfer Destination Chair Transfer Technique Stand Step Pivot Transfer Ability Level of Assist Standby Assistance,2 Person Assistance Comments Mobility Comments pt in bed and agreed to get up. pt waiting for EGD procedure. obtained PLOF and home set up. completed supine to sit SBA. able to sit on EOB SBA. sit to stand SBA and able to ambulate in the hallway ~ 75 ft using 4WW CGA. presents with unsteady gait and pt tends to walk close to the wall. cued for safety. pt is impulsive and needing cues to slow down. pt sat on EOB and completed sit to supine SBA. asbestos abatement technician arrive to take pt for EGD procedure. pt completed supine to sit SBA and transfer to chair using 4WW SBA. left pt with senior maintenance technician. Gait Assessment Gait Gait Assistance Contact Guard Assist Required: Distance (Feet) 75 Able to Maintain Yes Weight Bearing Status During Gait Assistive Devices Assistive Device Gait Belt,4 Wheeled Walker Orthotic/Prosthetic No Devices or Brace: Gait Deviations General Gait Pattern Decreased Stride Length,Decreased Feet Clearance Factors Limiting Gait Function Factors Limiting Decreased Activity Tolerance,Decreased Strength, Gait Function Difficulty Following Directions,Poor Balance,Poor Safety Awareness PT-Balance Assessment Sitting Balance and Reactions Static Sitting Good Balance Ability Dynamic Sitting Good Balance Ability Standing Balance and Reactions Static Standing Fair Balance Ability Dynamic Standing Fair Balance Ability Device Used 4WW M5 PT-IP Objective Assessments Start: 12/22/24 16:31 Freq: NEEDED Status: Active Protocol: Document 12/22/24 14:20 AB (Rec: 12/22/24 16:42 AB [id number]) Orientation Orientation/Cognition Level of Alertness Alert Orientation Name,Place,Situation Language Function No Deficits Noted Ability Safety Awareness Decreased Safety Awareness Memory Description No Deficits Noted Gross Range of Motion Lower Extremity ROM Assessment Within Functional Limits Strength Lower Extremity Strength Assessment Within Functional Limits Muscle Tone Muscle Tone WNL Yes M6 PT-IP Treatment Start: 12/22/24 16:31 Freq: NEEDED Status: Active Protocol: Document 12/22/24 14:20 AB (Rec: 12/22/24 16:42 AB [id number]) Physical Therapy Treatment Education Education Provided Safety M7 PT-IP Assessment and Plan Start: 12/22/24 16:31 Freq: NEEDED Status: Active Protocol: Document 12/22/24 14:20 AB (Rec: 12/22/24 16:42 AB [id number]) PT Summary Assessment and Plan Potential Rehabilitation Fair Potential Status of Condition Evolving at Evaluation Summary Impairments Pain,ROM,Strength,Balance,Coordination,Sensation, Cognition,Bed Mobility,Transfers,Gait,Activity Tolerance Assessment Summary pt is an 79 y/o F who is admitted for abdominal pain and UTI. pt requiring SBA to CGA for mobility using 4WW. pt is impulsive and needs cues for safety. pt lives at [facility] and will benefit from HHPT. will continue to assess. Goals Bed Mobility Goal Independent Transfer Goal Independent,Four Wheeled Walker Gait Goal Independent,Four Wheel Walker Gait Distance 250 Days to Meet Goals 10 Frequency of Treatment Frequency Of Once a Day Treatment Treatment Plan Physical Therapy Bed Mobility Training,Transfer Training,Gait Training, Treatment Plan Therapeutic Exercise,Balance Retraining,Discharge Planning,Hot or Cold Pack,Neuromuscular Re-ed, Coordination Retraining Precautions Other Precautions falls Recommendations To Nursing Amount of Assist 1 Person Assist Needed Discharge Recommendations PT Discharge Home with Assistance,Home Health Recommendations Transportation Needs Private Vehicle,Wheelchair/Cabulance at Discharge - PT assist 1
--- NOTE | 2024-12-22 15:10 | P.OP.EGD_ITS ---
Operative Date/Time/Diagnoses Date of procedure: 12/22/24 Time of procedure: 15:30 Pre-op diagnosis: Melena Post-op diagnosis: other (3cm hiatal hernia, Rito ulcer, moderate gastritis throughout stomach, streaking in antrum) Procedure & Clinicians Study performed: EGD with biopsy Same procedure(s) as scheduled: Yes Indications: 79yo F, melena, EGD to r/o UGI source Surgeon: Barry Borden Anesthesia Type: MAC +/- Procedure Notes SCOAP/Timeout: Performed Procedure in detail: EGD Informed consent was obtained. The procedure, its risks, benefits, and alterna tives were discussed. Patient understood and agreed to proceed. The patient was placed in the left lateral decubitus position with head elevated. Sedation given per anesthesia. The video endoscope was inserted into the oropharynx and guided under direct vision into the esophagus, stomach, and duodenum which were carefully examined. The scope was retroflexed to examine the hiatus and gastroesophageal junction. Antral biopsies were obtained for Helicobacter pylori. The patient tolerated the procedure very well. There were no apparent complications. Significant EGD findings: Z-line noted at: 35cm Rito ulcer, 1cm at diaphragmatic indentation of 3cm hiatal hernia, adherent clot, stigmata of recent hemorrhage, not actively bleeding, clip applied No esophagitis Moderate gastritis throughout, erythematous streaks in antrum, biopsies taken for H pylori Duodenum normal No mass or stricture in esophagus, stomach, duodenum Findings: gastric ulcer and gastritis Specimen(s): other (biopsies) Complications: none Impression: Bleeding likely due to Rito's ulcer in stomach, not actively bleeding, clip applied Moderate gastritis, biopsies pending for H pylori 3cm hiatal hernia without esophagitis Post-procedure Recommendations: Will call with biopsy results Plan for aftercare: PACU then cisneros PPI Await biopsy results Follow up: as needed Disposition: PACU
[2024-12-22] MEDS: LACTATED RINGERS 1,000 ML 42 ML IV (15:20)
[2024-12-22] MEDS: CALCIUM CARBONATE 500 MG TAB PO (17:24)
[2024-12-22] MEDS: ATORVASTATIN 20 MG TABLET 40 MG PO (20:50)
[2024-12-22] MEDS: PANTOPRAZOLE DR 40 MG TABLET PO (20:51)
[2024-12-22] MEDS: SODIUM CHLORIDE 0.9% FLUSH 10 ML IV (21:28)
--- NOTE | 2024-12-22 23:43 | PC.NURSE ---
Patient alert and oriented except to day of month. She has macular degeneration so has impaired peripheral vision. Breath sounds CTA w/shortened inspiratory phase and RA sat of 98%. HRR. Denied nausea. BT hyperactive; abdomen is soft and non-tender. Reports no dysuria with urination but up frequently to use the bathroom. Is able to turn herself in bed. Gets up to bathroom with walker and SBA; steady on feet. Refused SCD's despite education re: DVT prevention. Neuropathy bilateral LE unchanged from pre-hospitalization. Complained of back pain and was medicated at 2330 with tylenol. Fall risk score is high and bed alarm is activated.
[2024-12-23] MEDS: SODIUM CHLORIDE 0.9% 1,000 ML 100 ML IV ×3 (01:39→17:43)
[2024-12-23] MEDS: PANTOPRAZOLE DR 40 MG TABLET PO ×2 (06:15→20:46)
--- NOTE | 2024-12-23 07:40 | P.PN_ITS ---
Subjective Subjective Interval history: Summary: She was admitted with confusion and UTI. Melena was also reported and confirmed here. S: She feels that she was improving. She is much less confused. She denies pain today. Discussed with discharge planning at length. The plan will be to increase resources for supervision and support at her independent status assisted living at [facility]. Anticipate discharge on December 24. O: NAD, alert and oriented. Fluent speech. Lungs are clear, normal rate and effort. Heart is regular, no murmur gallop or rub. Abdomen is soft, non distended. Extremities are free of edema. A/P: 1. UTI with septic encephalopathy, much improved. Ur Cx with early growth. EGD: Z-line noted at: 35cm Rito ulcer, 1cm at diaphragmatic indentation of 3cm hiatal hernia, adherent clot, stigmata of recent hemorrhage, not actively bleeding, clip applied No esophagitis Moderate gastritis throughout, erythematous streaks in antrum, biopsies taken for H pylori Duodenum normal No mass or stricture in esophagus, stomach, duodenum 2. Melanotic GI bleed, improved. EGD revealed 3. Chronic kidney disease, stable. 4. Possible alcohol abuse, stable. 5. CKD, stable. PLAN: -continue IV antibiotics for another midnight. -monitor mental status. Mild improvement -physical therapy evaluation today. -Protonix PO BID. - ulcer on EGD Anticipate discharge on 12/24. Return to assisted living with the additional support, p.o. antibiotics, and continue PPI b.i.d. for at least 2 months for ulcer. Exam Vital Signs (past 8 hours): Oxygen Delivery Method Room Air Oxygen Flow Rate 0 Objective Labs 12/22/24 07:44 12/22/24 07:44 Labs: Laboratory Results - last 24 hr 12/22/24 07:44 WBC 2.9 L RBC 2.22 L Hgb 7.6 L Hct 22.8 L MCV 102.7 H MCH 34.0 MCHC 33.1 RDW 15.4 H Plt Count 81 L Neut % (Auto) 53.5 Lymph % (Auto) 31.8 [place] % (Auto) 8.6 Eos % (Auto) 5.2 H Baso % (Auto) 0.9 Neut # (Auto) 1600 Lymph # (Auto) 900 L [place] # (Auto) 200 Eos # (Auto) 200 Baso # (Auto) 0 Sodium 140 Potassium 4.0 Chloride 117 H Carbon Dioxide 20 L BUN 25 H Creatinine 0.94 Estimated GFR > 60 BUN/Creatinine Ratio 26.6 H Glucose 93 Calcium 8.4 PFSH Medical History HLD (hyperlipidemia) Alcohol withdrawal delirium, acute, hyperactive Anemia Acute GI bleeding Open fracture dislocation of left ankle Rhabdomyolysis Hepatic encephalopathy Acute non-ST elevation myocardial infarction (NSTEMI) Chronic kidney disease (CKD) stage G3b/A1, moderately decreased glomerular filtration rate (GFR) between 30-44 mL/min/1.73 square meter and albuminuria creatinine ratio less than 30 mg/g Alcohol dependence Surgical History No pertinent past surgical history History of colonoscopy History of esophagogastroduodenoscopy (EGD) Family History Father Heart disease Mother Heart disease Social History details: Lives alone in the assisted living. household members: none lives independently: Yes Smoking Status: Never smoker alcohol intake: current Assessment & Plan Time-Based Coding :: [TOTAL MINUTES] spent with patient and on the chart (including review of chart, obtaining history, exam, reviewing outside data, placing orders, documenting exam and treatment plan, and counseling patient) on [DATE].
[2024-12-23 08:00] VITALS: BP 138/58; PULSE 68; RESP 16; TEMP 36.6; O2SAT 96
--- NOTE | 2024-12-23 08:41 | P.PN_ITS ---
Subjective Subjective Date Patient Seen: 12/23/24 Time Patient Seen: 08:45 Interval history: Stable overnight No clinical bleeding Hgb 7.6 Exam Vital Signs (past 8 hours): - 12/23/24 08:00 Temperature 97.8 F Pulse Rate 68 Respiratory Rate 16 Blood Pressure 138/58 L Pulse Oximetry 96 Oxygen Flow Rate 0 Oxygen Delivery Method Room Air Oxygen Flow Rate 0 GI Other: ABD: soft, NT Objective Labs 12/22/24 07:44 12/22/24 07:44 PFSH Medical History HLD (hyperlipidemia) Alcohol withdrawal delirium, acute, hyperactive Anemia Acute GI bleeding Open fracture dislocation of left ankle Rhabdomyolysis Hepatic encephalopathy Acute non-ST elevation myocardial infarction (NSTEMI) Chronic kidney disease (CKD) stage G3b/A1, moderately decreased glomerular filtration rate (GFR) between 30-44 mL/min/1.73 square meter and albuminuria creatinine ratio less than 30 mg/g Alcohol dependence Surgical History No pertinent past surgical history History of colonoscopy History of esophagogastroduodenoscopy (EGD) Family History Father Heart disease Mother Heart disease Social History details: Lives alone in the assisted living. household members: none lives independently: Yes Smoking Status: Never smoker alcohol intake: current Assessment & Plan Assessment and plan (1) Acute Rito ulcer: Status: Acute Plan Rito's ulcer (at diaphragm indentation of hiatal hernia), stigmata of recent bleeding, not actively bleeding, clipped Trend H/H BID PPI for 8 weeks Recommendation repeat EGD in 8 weeks to document healing Time-Based Coding :: [TOTAL MINUTES] spent with patient and on the chart (including review of chart, obtaining history, exam, reviewing outside data, placing orders, documenting exam and treatment plan, and counseling patient) on [DATE]. 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
--- NOTE | 2024-12-23 11:26 | DIET.CONS ---
Dietary Consultation Note Admission Date: 12/21/2024 10:58 Assessment: 79 y F admitted for ulcer. Dietitian consulted for weight gain. Met with pt at bedside. Reports improved appetite in last few days. Had decreased appetite for 1-2 weeks before hospitalization (e.g. doing half a sandwich over whole, not finishing breakfast). Typically only does breakfast and lunch. Unsure UBW. Has questions for best tolerated foods going home based on ulcer. Ht: 157.48 cm Wt: 90.718 kg BMI: 36.6 UBW: 100 kg 11/25/24, 90-94 kg in 2023 Last BM: 12/21/24 (12/21/24 18:00) MNA: 10 Sonny Score: 19 Diet: 12/22/24 Dinner General (Regular) Diet Diet Modifications: Food Texture: Level 7 - Regular Liquid Consistency: Level 0 - Thin Nutrition Percent Meal Consumed 5% 12/22/24 18:04 Percent Meal Consumed 85 12/21/24 18:00 Labs: RBC 2.22 X10^6/uL (4.0-5.2) L 12/22/24 07:44 Hgb 7.6 g/dL (12.0-16.0) L 12/22/24 07:44 Hct 22.8 % (36-46) L 12/22/24 07:44 Creatinine 0.94 mg/dL (0.52-1.04) 12/22/24 07:44 Lactate 1.8 mmol/L (0.7-2.1) 12/20/24 10:55 Nutrition Diagnosis: Unintentional weight loss r/t decreased appetite and changes in GI tract structure aeb ulcer and 9% weight loss in 1 month (severe) Interventions: Provided nutritional reccs for ulcer Pt with return of normal appetite EER: [id number] kcals (MSJx1.25 vs 15 kcals/kg) 65-70 g protein (1g/kg per adjusted IBW per age) Monitoring/Evaluations: pt to d/c, PO intakes Electronically Signed by: Marilyn Darden 12/23/24 11:26 Clinical Dietitian [address] [id number]
--- NOTE | 2024-12-23 13:21 | CM.DPC ---
DCP Cont. Reviewed EMR and team rounds for pt's medical status and updates. Pt will be ready for d/c back to [facility] tomorrow, 12/24, her son will transport. Emailed son several names/contact numbers for agency caregivers in order to supplement her care at [facility]. Monitoring for any final needs. Called and updated Ketan as well.
[2024-12-23 19:20] VITALS: BP 125/74; PULSE 74; RESP 18; TEMP 36.6; O2SAT 100
[2024-12-23] MEDS: ATORVASTATIN 20 MG TABLET 40 MG PO (20:46)
[2024-12-23] MEDS: ACETAMINOPHEN 325 MG TABLET 650 MG PO (20:47)
[2024-12-23] MEDS: CALCIUM CARBONATE 500 MG TAB PO (20:52)
[2024-12-24] VITALS (13 sets, daily range): BP systolic 109–169; BP diastolic 67–95; PULSE 60–69; RESP 16–20; TEMP 36.2–36.7; O2SAT 95–98
[2024-12-24] MEDS: SODIUM CHLORIDE 0.9% 1,000 ML 100 ML IV ×2 (02:08→18:18)
[2024-12-24] MEDS: ONDANSETRON 4 MG/2 ML INJ IV (02:08)
[2024-12-24] MEDS: PANTOPRAZOLE DR 40 MG TABLET PO ×2 (06:01→20:42)
[2024-12-24 06:16] LABS: Hemoglobin 6.9 g/dL (12.0-16.0)
[2024-12-24 06:17] LABS: Hematocrit 20.5 % (36-46)
--- NOTE | 2024-12-24 10:06 | PM.PN.IH.1 ---
Subjective Subjective Date Patient Seen: 12/24/24 Time Patient Seen: 09:30 Interval history: Patient is resting in bed feels very weak but has not had any vertigo or syncope. She also states that she is eating a regular diet but has had no further black stools. Patient is hemoglobin has dropped to 6.9 hematocrit is 20.5. Patient is postop day 2. EGD with Dr. Borden which showed a hiatal hernia gastritis peptic ulcer disease which had an Endoclip applied she has had no further bleeding but her H&H has dropped. The patient has a history of alcohol abuse hepatic encephalopathy chronic renal failure stage 3. Vitals: Temperature is 97.7? pulse 66 respirations 20 BP is 109/95 Heart regular rate and rhythm without murmurs. Lungs are diminished in the bases no rales rhonchi or wheezes noted. Abdomen is obese soft nondistended no masses or peritoneal signs good active bowel sounds are noted. Impression: Postop day 2. EGD with peptic ulcer disease no further bleeding. Drop in the hemoglobin is 6.9 hematocrit is 20.5 History of alcohol abuse with hepatic encephalopathy Chronic renal failure stage 3 Plan: Discussed with the patient the findings she states she does not feel able to go home at this time. We will go ahead and transfuse the patient 1 unit of packed RBCs recheck laboratory in the morning continue on maximal antiulcer therapy all questions were answered to patient's satisfaction. No need for further surgical intervention at this time. Exam Vital Signs (past 8 hours): - 12/24/24 07:00 12/24/24 07:40 12/24/24 07:59 Temperature 97.7 F 97.1 F L 97.7 F Pulse Rate 66 60 66 Respiratory Rate 20 20 20 Blood Pressure 109/95 H 129/71 109/95 H Pulse Oximetry 95 98 95 Oxygen Delivery Method Room Air Oxygen Flow Rate 0 Objective Labs 12/24/24 05:44 12/22/24 07:44 Labs: Laboratory Results - last 24 hr 12/24/24 12/24/24 05:44 07:54 Hgb 6.9 L* Hct 20.5 L* Blood Type A Positive Antibody Screen Negative Crossmatch See Detail [facility] Medical History HLD (hyperlipidemia) Alcohol withdrawal delirium, acute, hyperactive Anemia Acute GI bleeding Open fracture dislocation of left ankle Rhabdomyolysis Hepatic encephalopathy Acute non-ST elevation myocardial infarction (NSTEMI) Chronic kidney disease (CKD) stage G3b/A1, moderately decreased glomerular filtration rate (GFR) between 30-44 mL/min/1.73 square meter and albuminuria creatinine ratio less than 30 mg/g Alcohol dependence Surgical History No pertinent past surgical history History of colonoscopy History of esophagogastroduodenoscopy (EGD) Family History Father Heart disease Mother Heart disease Social History details: Lives alone in the assisted living. household members: none lives independently: Yes Smoking Status: Never smoker alcohol intake: current Assessment & Plan Time-Based Coding :: [TOTAL MINUTES] spent with patient and on the chart (including review of chart, obtaining history, exam, reviewing outside data, placing orders, documenting exam and treatment plan, and counseling patient) on [DATE]. PROFEE Dehydrator Operator Document charge(s): Yes
[2024-12-24] MEDS: MAG HYDROX/ALUM/SIMETH 30 ML UDC PO ×2 (13:16→18:15)
[2024-12-24] MEDS: SUCRALFATE 1 GM/10 ML ORAL SUSP PO ×3 (13:17→20:42)
--- NOTE | 2024-12-24 13:48 | PT-IP ANOTE ---
PT with Hgb 6.9 and Hct 20.5. Pt will be receiving blood transfusion. PT on hold at this time. will f/u.
--- NOTE | 2024-12-24 14:28 | P.PN_ITS ---
Subjective Subjective Date Patient Seen: 12/24/24 Time Patient Seen: 09:45 Interval history: Summary: She was admitted with confusion and UTI. Melena was also reported and confirmed here. S: She states she feels worse today, and weaker, with hemoglobin and hematocrit falling to 20.5%. She is seen with her uooncilr-ur-aje Kim pitt at bedside and case and care reviewed and updated. Case discussed with surgery. O: NAD, alert and oriented. Fluent speech. Lungs are clear, normal rate and effort. Heart is regular, no murmur gallop or rub. Abdomen is soft, non distended. Extremities are free of edema. A/P: 1. UTI with septic encephalopathy, much improved. Ur Cx with early growth. EGD 12/22/2024: Z-line noted at: 35cm Rito ulcer, 1cm at diaphragmatic indentation of 3cm hiatal hernia, adherent clot, stigmata of recent hemorrhage, not actively bleeding, clip applied No esophagitis Moderate gastritis throughout, erythematous streaks in antrum, biopsies taken for H pylori Duodenum normal No mass or stricture in esophagus, stomach, duodenum 2. Melanotic GI bleed, improved. EGD revealed 3. Chronic kidney disease, stable. 4. Possible alcohol abuse, stable. 5. CKD, stable. PLAN: -transfuse 1 unit packed red blood cell -continue IV antibiotics for another midnight. -monitor mental status. Continued improvement -physical therapy evaluation. -Protonix PO BID. Anticipate discharge on 12/25 with . Return to assisted living with the additional support, p.o. antibiotics, and continue PPI b.i.d. for at least 2 months for ulcer. Exam Vital Signs (past 8 hours): - 12/24/24 07:00 12/24/24 07:40 12/24/24 07:59 Temperature 97.7 F 97.1 F L 97.7 F Pulse Rate 66 60 66 Respiratory Rate 20 20 20 Blood Pressure 109/95 H 129/71 109/95 H Pulse Oximetry 95 98 95 12/24/24 10:48 12/24/24 10:50 12/24/24 11:26 Temperature 97.5 F L Pulse Rate 66 66 62 Respiratory Rate 20 Blood Pressure 122/73 122/73 169/79 H Pulse Oximetry 95 12/24/24 11:26 12/24/24 11:50 12/24/24 12:07 Temperature 97.5 F L 97.5 F L 98.1 F Pulse Rate 62 62 68 Respiratory Rate 20 20 18 Blood Pressure 169/79 H 169/79 H 111/67 Pulse Oximetry 12/24/24 12:51 Temperature 97.1 F L Pulse Rate 65 Respiratory Rate 16 Blood Pressure 137/73 Pulse Oximetry Oxygen Delivery Method Room Air Oxygen Flow Rate 0 Objective Labs 12/24/24 05:44 12/22/24 07:44 Labs: Laboratory Results - last 24 hr 12/24/24 12/24/24 05:44 07:54 Hgb 6.9 L* Hct 20.5 L* Blood Type A Positive Antibody Screen Negative Crossmatch See Detail PFSH Medical History HLD (hyperlipidemia) Alcohol withdrawal delirium, acute, hyperactive Anemia Acute GI bleeding Open fracture dislocation of left ankle Rhabdomyolysis Hepatic encephalopathy Acute non-ST elevation myocardial infarction (NSTEMI) Chronic kidney disease (CKD) stage G3b/A1, moderately decreased glomerular filtration rate (GFR) between 30-44 mL/min/1.73 square meter and albuminuria creatinine ratio less than 30 mg/g Alcohol dependence Surgical History No pertinent past surgical history History of colonoscopy History of esophagogastroduodenoscopy (EGD) Family History Father Heart disease Mother Heart disease Social History details: Lives alone in the assisted living. household members: none lives independently: Yes Smoking Status: Never smoker alcohol intake: current Assessment & Plan Time-Based Coding :: [TOTAL MINUTES] spent with patient and on the chart (including review of chart, obtaining history, exam, reviewing outside data, placing orders, documenting exam and treatment plan, and counseling patient) on [DATE]. 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
[2024-12-24 16:58] LABS: Hematocrit 26.3 % (36-46); Hemoglobin 8.7 g/dL (12.0-16.0)
--- NOTE | 2024-12-24 17:57 | PC.NURSE ---
1150 - 1PRBC infusion initiated, 15min check completed, no signs of reaction observed, rate increased 1450 - 1PRBC transfusion completed, no signs of reaction noted.
[2024-12-24] MEDS: ATORVASTATIN 20 MG TABLET 40 MG PO (20:42)
[2024-12-25] MEDS: MAG HYDROX/ALUM/SIMETH 30 ML UDC PO ×2 (00:26→05:34)
[2024-12-25] MEDS: ACETAMINOPHEN 325 MG TABLET 650 MG PO (03:20)
[2024-12-25] MEDS: SODIUM CHLORIDE 0.9% 1,000 ML 100 ML IV (03:26)
[2024-12-25] MEDS: PANTOPRAZOLE DR 40 MG TABLET PO (05:34)
[2024-12-25 06:45] LABS: Hematocrit 23.9 % (36-46); Hemoglobin 8.1 g/dL (12.0-16.0); Mean Corpuscular HGB Conc 33.9 % (30-36); Mean Corpuscular Hemoglobin 33.7 PG (26-34); Mean Corpuscular Volume 99.3 fL (80-100); Platelet Count 86 X10^3/uL (150-400)
[2024-12-25 07:00] VITALS: BP 116/59; PULSE 62; RESP 18; TEMP 36.4; O2SAT 98
[2024-12-25 07:00] LABS: Alanine Aminotransferase 45 IU/L (<35); Albumin 2.6 g/dL (3.5-5.0); Albumin Globulin Ratio 1.0 (1.0-2.8); Alkaline Phosphatase 69 U/L (38-126); Blood Urea Nitrogen 13 mg/dL (7-17); Calcium 8.6 mg/dL (8.4-10.2); Carbon Dioxide 21 mmol/L (22-32); Chloride 115 mmol/L (98-107); Estimated Glomerular Filt Rate > 60 mL/min (>60); Globulin 2.6 g/dL (1.7-4.1); Glucose 93 mg/dL (70-99); HEMOLYSIS < 15 (0-50); Potassium 4.2 mmol/L (3.4-5.1); Sodium 140 mmol/L (137-145); Total Protein 5.2 g/dL (6.3-8.2)
[2024-12-25] MEDS: SUCRALFATE 1 GM/10 ML ORAL SUSP PO (07:42)
[2024-12-25 09:32] VITALS: BP 116/59; PULSE 62
--- NOTE | 2024-12-25 09:58 | PM.PN.IH.1 ---
Subjective Subjective Date Patient Seen: 12/25/24 Time Patient Seen: 09:30 Interval history: Patient is resting comfortably in a chair at the bedside. States she is having no abdominal pain tolerating diet and having no melanotic stools. Nursing states she had a large brown stool. The patient did receive 1 unit of packed RBCs which did increase her H&H. She states she still feels weak. Patient is postop day 3. EGD with a hiatal hernia gastritis and peptic ulcer disease of the stomach with endo clip applied. Patient's morning laboratory shows WBC of 3.4 hemoglobin is 8.1 hematocrit is 23.9 with 1 unit of packed RBCs. Platelets are 86,000. Sodium is 140 potassium 4.2 chloride 115 bicarb is 21 BUN of 13 creatinine 0.8 random blood sugar is 93. Total bilirubin is 0.6 AST is 50 ALT is 45 alkaline phosphatase 69 Vitals: Temperature is 97.6? pulse 62 respirations 18 BP is 116/59 SaO2 is 98% on room air. Heart regular rate and rhythm without murmurs. Lungs clear to auscultation poor inspiratory and expiratory effort no rales rhonchi or wheezes noted. Abdomen is obese soft nondistended with good active bowel sounds no masses or peritoneal signs. Impression: Postop day 3. EGD for acute blood loss anemia with gastritis peptic ulcer disease with Endoclip application Acute blood loss anemia transfuse 1 unit of packed RBCs hemoglobin is 8.1 hematocrit is 23.9 Chronic renal failure stage 3 Alcohol use Thrombocytopenia Plan: Discussed with patient the findings with medicine attending in the room. We will continue with current medical therapy no need for returned to endoscopy. Discussed the need to continue on H2 blockers antacids and Carafate. Discussed ulcerogenic foods meds activities and diet discharge as per hospitalist. All questions were answered to patient's satisfaction. Exam Vital Signs (past 8 hours): - 12/25/24 07:00 12/25/24 09:32 Temperature 97.6 F Pulse Rate 62 62 Respiratory Rate 18 Blood Pressure 116/59 L 116/59 L Pulse Oximetry 98 Oxygen Delivery Method Room Air Oxygen Flow Rate 0 Objective Labs 12/25/24 06:16 12/25/24 06:16 Labs: Laboratory Results - last 24 hr 12/24/24 12/24/24 12/25/24 07:54 16:51 06:16 WBC 3.4 L RBC 2.40 L Hgb 8.7 L 8.1 L Hct 26.3 L 23.9 L MCV 99.3 D MCH 33.7 MCHC 33.9 RDW 16.7 H Plt Count 86 L Sodium 140 Potassium 4.2 Chloride 115 H Carbon Dioxide 21 L BUN 13 Creatinine 0.80 Estimated GFR > 60 BUN/Creatinine Ratio 16.3 Glucose 93 Calcium 8.6 Total Bilirubin 0.6 AST 50 H ALT 45 H Alkaline Phosphatase 69 Total Protein 5.2 L Albumin 2.6 L Globulin 2.6 Albumin/Globulin Ratio 1.0 Blood Type A Positive Antibody Screen Negative Crossmatch See Detail [facility] Medical History HLD (hyperlipidemia) Alcohol withdrawal delirium, acute, hyperactive Anemia Acute GI bleeding Open fracture dislocation of left ankle Rhabdomyolysis Hepatic encephalopathy Acute non-ST elevation myocardial infarction (NSTEMI) Chronic kidney disease (CKD) stage G3b/A1, moderately decreased glomerular filtration rate (GFR) between 30-44 mL/min/1.73 square meter and albuminuria creatinine ratio less than 30 mg/g Alcohol dependence Surgical History No pertinent past surgical history History of colonoscopy History of esophagogastroduodenoscopy (EGD) Family History Father Heart disease Mother Heart disease Social History details: Lives alone in the assisted living. household members: none lives independently: Yes Smoking Status: Never smoker alcohol intake: current Assessment & Plan Time-Based Coding :: [TOTAL MINUTES] spent with patient and on the chart (including review of chart, obtaining history, exam, reviewing outside data, placing orders, documenting exam and treatment plan, and counseling patient) on [DATE]. 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
--- NOTE | 2024-12-25 10:41 | P.DS_ITS ---
History of Present Illness History of Present Illness Date Patient Seen: 12/25/24 Time Patient Seen: 09:12 Chief complaint: Still having confusion , sick and weak x 2 days Narrative: Patient was an 79-year-old female with a recent admission for COVID and NSTEMI. She lives at [facility], independent living. She has been confused for several days and was brought to the ED yesterday. She was diagnosed with a UTI and given IV antibiotics and sent home. She was remained confused and really not functional. Her daughter brought her back in. It was also concerned about the possibility of a slow GI bleed with her falling hemoglobin. She does have a history of a GI bleed. The patient was able to answer simple questions only, is acute distress. She denies any abdominal pain, or dyspnea. ED course: IV fluids and IV antibiotics given, ceftriaxone. Discharge Providers Provider Date of admission: 12/21/24 10:58 Discharge Date: 12/25/24 Primary care physician: Kailyn Mckeon MD Consults: 12/20/24 21:55 Consult to Dietitian, Adult Routine Comment: Reason For Exam: weight gain 12/21/24 17:47 Consult to General Surgery Routine Comment: Consulting Provider: Barry Borden Reason for consultation: Melena and EGD Has provider been notified: Yes 12/22/24 10:44 Consult to Physical Therapy Evaluate & Treat Comment: Physician Instructions: Evaluate and Treat 12/22/24 21:24 Consult to Pharmacy Routine Comment: per fall assessment Discharge provider: Marcello Thomas MD Summary Hospital Course Discharge Diagnosis: 1. GI bleed due to Rito ulcer 2. Acute blood loss anemia due to GI bleed. 3. Possible UTI, culture negative. 4. Metabolic encephalopathy, multifactorial, resolved. 5. Chronic kidney disease, stage 3b 6. Possible alcohol abuse, stable. Hospital Course: The patient was admitted and treated with broad-spectrum antibiotics, IV hydration and monitor. She demonstrated a progressive falling hematocrit and melenic stool, and was found to have an upper GI bleed due to a Rito ulcer with adherent clot, stigmata of recent hemorrhage, and not actively bleeding. A clip was applied. She was treated with increased dose of proton pump inhibitor to twice daily and the addition of sucralfate. Antibiotics were continued during hospitalization but she remains culture negative. She was confused, which was felt to be multifactorial, possibly related to GI bleeding, less likely due to urinary infection, history of alcohol dependence, and her other recent multiple medical issues and polypharmacy. Close outpatient follow-up was advised. Arrangements were made for discharge back to her assisted living facility with ongoing home health support. Status at Discharge Cognitive/behavioral status at discharge: oriented Functional status at discharge: uses cane/walker Overall status at discharge: patient is progressing back to baseline Time Spent with Patient Time spent: Greater than 30 minutes Exam Vital Signs (past 8 hours): - 12/25/24 07:00 12/25/24 09:32 Temperature 97.6 F Pulse Rate 62 62 Respiratory Rate 18 Blood Pressure 116/59 L 116/59 L Pulse Oximetry 98 Oxygen Delivery Method Room Air Oxygen Flow Rate 0 Narrative Exam Narrative: NAD, alert and oriented. Fluent speech. Lungs are clear, normal rate and effort. Heart is regular, no murmur gallop or rub. Abdomen is soft, non distended. Extremities are free of edema. Objective Labs 12/25/24 06:16 12/25/24 06:16 Labs: Laboratory Results - last 24 hr 12/24/24 12/24/24 12/25/24 07:54 16:51 06:16 WBC 3.4 L RBC 2.40 L Hgb 8.7 L 8.1 L Hct 26.3 L 23.9 L MCV 99.3 D MCH 33.7 MCHC 33.9 RDW 16.7 H Plt Count 86 L Sodium 140 Potassium 4.2 Chloride 115 H Carbon Dioxide 21 L BUN 13 Creatinine 0.80 Estimated GFR > 60 BUN/Creatinine Ratio 16.3 Glucose 93 Calcium 8.6 Total Bilirubin 0.6 AST 50 H ALT 45 H Alkaline Phosphatase 69 Total Protein 5.2 L Albumin 2.6 L Globulin 2.6 Albumin/Globulin Ratio 1.0 Blood Type A Positive Antibody Screen Negative Crossmatch See Detail [facility] Medical History Acute GI bleeding Acute non-ST elevation myocardial infarction (NSTEMI) Alcohol dependence Alcohol withdrawal delirium, acute, hyperactive Anemia Chronic kidney disease (CKD) stage G3b/A1, moderately decreased glomerular filtration rate (GFR) between 30-44 mL/min/1.73 square meter and albuminuria creatinine ratio less than 30 mg/g Hepatic encephalopathy HLD (hyperlipidemia) Open fracture dislocation of left ankle Rhabdomyolysis Surgical History History of colonoscopy History of esophagogastroduodenoscopy (EGD) No pertinent past surgical history Family History Father Heart disease Mother Heart disease Social History details: Lives alone in the assisted living. household members: none lives independently: Yes Smoking Status: Never smoker alcohol intake: current Discharge Plan Discharge Plan Patient Disposition: Assisted Living Other facility: [facility] Under care of provider: Followup with PCP 1 week Discharge orders & Medications Discharge Orders: Discharge (Order); Ordered 12/25/24 Ordered By: Marcello Thomas Prescriptions: New sucralfate 100 mg/mL Suspension 1 g PO ACHS Qty: 473 0RF Continued rosuvastatin [Crestor] 20 MG tablet 20 mg PO QDAY Qty: 0 clopidogrel 75 mg Tablet 75 mg PO DAILY Qty: 30 1RF lisinopril 10 mg Tablet 10 mg PO DAILY Qty: 30 1RF folic acid 1 mg Tablet 1 mg PO DAILY Qty: 30 1RF lactulose 10 gram/15 mL Solution 20 gm PO DAILY PRN (Reason: TO HAVE 1 BM/DAY) Qty: 30 0RF multivitamin with folic acid [Tab-A-Mary] 400 mcg Tablet 1 tab PO DAILY Qty: 30 1RF Changed pantoprazole 40 mg Tablet,Delayed Release (Dr/Ec) 40 mg PO BID Qty: 60 0RF Discontinued cephalexin 500 mg capsule 500 mg PO Q12H 7 Days Qty: 14 0RF Rx Instructions: one cap po bid x 7 days Follow up/Referrals: Kailyn Mckeon MD [Primary Care Provider, Internal Medicine] Visit Report/Discharge Packet Stand Alone Forms: Patient Portal/API, Stroke Signs & Symptoms Discharge Data Primary Care Provider: Kailyn Mckeon Quality MIPS - Admit I confirm the patient?s Advance Care Plan is present, Code status is documented, Surrogate decision maker is in patient?s record [If Yes, STOP here]: Yes MIPS - Meds 'Current medications' to include all prescriptions, [id number] products, herbals, cannabis/cannabidiol products, and vitamin/mineral/dietary (nutritional) supplements. I have utilized all available resources to obtain, update, or review the patient?s current medications. [If Yes, STOP here]: Yes MIPS - DC The patient has a history of heart transplant or Left Ventricular Assist Device (LVAD). If yes, STOP here.: No The patient has current or prior documentation of left ventricular ejection fraction (LVEF) less than or equal to 40%, or moderate or severely depressed left ventricular systolic function.: No A. The patient was prescribed or already taking an Angiotensin-Converting Enzyme (ARELI) Inhibitor, or Angiotensin Receptor Jason (ARB).: Yes B. The patient was prescribed or already taking a beta-jason. [If Yes to Both A & B, STOP here]: No Patient not prescribed/taking ARELI or ARB, no reason given.: No Patient not prescribed/taking beta-jason, no reason given.: No PROFEE Charge Codes Discharge inpatient/observation: 20600
--- NOTE | 2024-12-25 11:15 | CM.DPC ---
[email or web address]
--- NOTE | 2024-12-25 12:40 | PT-IP ANOTE ---
checked on pt and pt refused PT. stated that she is feeling better today and has been up and walking in room and will be going home later today.
--- NOTE | 2024-12-25 13:00 | CM.DPC ---
Nuha at [facility] is aware that patient is being discharged to day with [facility]. Family to transport to [facility].
--- NOTE | 2024-12-25 13:43 | PC.NURSE ---
Pt alert, responsive to instructions. asking to go home today. Pt up for breakfast. Dr. Thomas in to discuss d/c. family aware. D/c instructions given. Midline pulled per orders intact. Pt readied for d/cand escorted to car around 12:00 home with family.
--- NOTE | 2024-12-26 06:57 | PM.PN.IH.1 ---
Subjective Subjective Date Patient Seen: 12/26/24 Time Patient Seen: 06:50 Interval history: Patient is resting comfortably sitting in a chair at bedside. Patient denies any abdominal pain tolerating diet well patient states he had a bowel movement this morning which was normal and brown denies any melena. Patient is postop day 3. EGD for acute blood loss anemia showing esophagitis varices Monet-Mcleod tear gastritis and a 1 cm duodenal ulcer. Morning laboratory shows WBC of 9.3 hemoglobin is 7.7 hematocrit is 21.9 after 1 unit of packed RBCs. Platelets are 79,000. Sodium is 134 potassium 4.1 chloride 106 bicarb is 18 BUN 14 creatinine 0.61 random blood sugar is 143 total bilirubin is 5.1 AST is 108 ALT is 35 alkaline phosphatase 147. Vitals: Temperature is 99.7? pulse 77 respirations 18 BP is 122/58 SaO2 is 97% on room air. Heart regular rate and rhythm without murmurs. Lungs are clear to auscultation poor inspiratory and expiratory effort poor chest wall motion noted. Abdomen is soft nondistended negative Himanshu's Tia great Aleman's Palacios's McBurney's no masses or peritoneal signs. Impression: Postop day 3. EGD or upper GI bleed showing esophagitis esophageal varices hiatal hernia with Monet-Mcleod tear gastritis and a 1 cm duodenal ulcer Acute blood loss anemia Thrombocytopenia Elevated LFTs serum ammonia and total bilirubin of 5.1 gapped coags indicating of liver disease with cirrhosis History of alcohol use Plan: Discussed with patient the findings patient is stable at this time no need for repeat scopes are further interventions. Discussed with patient need for follow-up with a dredge master for management of the portal hypertension and varices. Also needs to probably see a liver specialist for management of his liver injury cirrhosis. Discussed with patient ulcer genetic foods meds activities and diet. The patient when discharge needs to stay on H2 blockers antacids and Carafate follow back up with the surgery clinic for follow-up post EGD return if any problems questions or concerns. All questions were answered to patient's satisfaction. Exam Vital Signs (past 8 hours): Oxygen Delivery Method Room Air Oxygen Flow Rate 0 Objective Labs 12/25/24 06:16 12/25/24 06:16 Labs: Laboratory Results - last 24 hr 12/25/24 06:16 Sodium 140 Potassium 4.2 Chloride 115 H Carbon Dioxide 21 L BUN 13 Creatinine 0.80 Estimated GFR > 60 BUN/Creatinine Ratio 16.3 Glucose 93 Calcium 8.6 Total Bilirubin 0.6 AST 50 H ALT 45 H Alkaline Phosphatase 69 Total Protein 5.2 L Albumin 2.6 L Globulin 2.6 Albumin/Globulin Ratio 1.0 PFSH Medical History Acute GI bleeding Acute non-ST elevation myocardial infarction (NSTEMI) Alcohol dependence Alcohol withdrawal delirium, acute, hyperactive Anemia Chronic kidney disease (CKD) stage G3b/A1, moderately decreased glomerular filtration rate (GFR) between 30-44 mL/min/1.73 square meter and albuminuria creatinine ratio less than 30 mg/g Hepatic encephalopathy HLD (hyperlipidemia) Open fracture dislocation of left ankle Rhabdomyolysis Surgical History History of colonoscopy History of esophagogastroduodenoscopy (EGD) No pertinent past surgical history Family History Father Heart disease Mother Heart disease Social History details: Lives alone in the assisted living. household members: none lives independently: Yes Smoking Status: Never smoker alcohol intake: current Assessment & Plan Time-Based Coding :: [TOTAL MINUTES] spent with patient and on the chart (including review of chart, obtaining history, exam, reviewing outside data, placing orders, documenting exam and treatment plan, and counseling patient) on [DATE]. 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
== END 2024-12-25 12:05 | disposition home health service (06) | DRG 377 ==
LOC: ED 18:07 → AC 18:08
PROVIDERS: Emergency Medicine; Internal Medicine; Surgery; Admitting Provider Hospitalist; Emergency Provider Emergency Medicine; PCP Internal Medicine; Referring Provider Emergency Medicine; Visit Provider Hospitalist
PROC: 0DJ08ZZ Inspection of Upper Intestinal Tract, Via Natural or Artificial Opening Endoscopic (ICD-10-PCS; principal; 2024-12-22 15:00)
DX: K25.4 Chronic or unspecified gastric ulcer with hemorrhage (principal); G93.41 Metabolic encephalopathy; D62 Acute posthemorrhagic anemia; N30.00 Acute cystitis without hematuria; K29.71 Gastritis, unspecified, with bleeding; K44.9 Diaphragmatic hernia without obstruction or gangrene; N18.30 Chronic kidney disease, stage 3 unspecified; D69.6 Thrombocytopenia, unspecified; K74.60 Unspecified cirrhosis of liver; F10.10 Alcohol abuse, uncomplicated; E78.5 Hyperlipidemia, unspecified; I25.2 Old myocardial infarction; Z79.02 Long term (current) use of antithrombotics/antiplatelets; Z86.16 Personal history of COVID-19; D64.9 Anemia, unspecified
CPT/HCPCS: 36415; 36430; 43239; 70450; 80048; 80053; 81001; 83605; 83690; 84145; 84484; 85014; 85018; 85025; 85027; 85610; 85730; 86850; 86900; 86901; 87086; 93005; 93010; 96365; 96375; 97161; 97530; 99231; 99232; 99284; G0378; P9016; J0696; J2405; J2470; J2560; J2704; J7030; J7040; J7050; J7120